=== PATIENT | female | born 1950 | race Caucasian/White ===

== ENCOUNTER → 2019-10-03 09:52 | Outpatient (BNVA) | payer MEDICARE, SELFPAY | PROVIDERS: Family Provider Family Medicine; PCP Family Medicine; Visit Provider Podiatrist Foot & Ankle Surgery | DX: Z98.890 Other specified postprocedural states (principal) | CPT/HCPCS: 73630 ==

== ENCOUNTER → 2020-04-10 13:15 | Outpatient (BNVA) | payer MEDICARE, SELFPAY | PROVIDERS: Family Provider Family Medicine; PCP Family Medicine; Visit Provider Podiatrist Foot & Ankle Surgery | DX: Z98.890 Other specified postprocedural states (principal) | CPT/HCPCS: 73630 ==

== ENCOUNTER → 2020-04-22 14:20 | Outpatient (BNVA) | payer MEDICARE, SELFPAY | PROVIDERS: Family Provider Family Medicine; PCP Family Medicine; Visit Provider Nurse Practitioner Family | DX: N39.46 Mixed incontinence (principal); Z87.440 Personal history of urinary (tract) infections; R33.9 Retention of urine, unspecified | CPT/HCPCS: 80053; 81001; 87086; 87186 ==

== ENCOUNTER → 2020-06-17 10:17 | Outpatient (BNVA) | payer MEDICARE, SELFPAY | PROVIDERS: Family Provider Family Medicine; PCP Family Medicine; Visit Provider Urology | DX: R82.71 Bacteriuria (principal) | CPT/HCPCS: 80053; 81001; 87077; 87086; 87186 ==

== ENCOUNTER 2020-06-20 08:07 | Outpatient (CLI) | payer MEDICARE, SELFPAY ==
--- NOTE | 2020-06-20 08:12 | MR_ITS ---
WS: [id number] MRI RIGHT HIP NONCONTRAST TECHNIQUE: Axial T1, axial T2 fat sat, coronal T1, coronal STIR, sagittal T2 fat sat, sagittal T1, an d sagittal T2 fat sat, of both hips. CLINICAL INFORMATION: HIP PAIN, RIGHT COMPARISON: None. FINDINGS: Mild degenerative arthritis both hips with joint space narrowing. No edema in the femoral head or nec k. No acute fractures. No evidence of avascular necrosis. Normal proximal femurs bilaterally. No bone marrow edema in the sacrum or iliac wings. Normal bone marrow signal. Normal bone marrow sign al in the lower lumbar spine. Sigmoid diverticulosis. No inguinal or pelvic lymphadenopathy. No free fluid in the pelvis. MR/MR hip RT wo con* [id number] IMPRESSION: 1. Mild degenerative arthritis both hip with joint space narrowing. 2. Normal bone marrow signal in the right femoral head and neck. No acute frac tures. No evidence of avascular necrosis. 3. Normal bone marrow signal in the sacrum and visualized pelvic bony structur es. 4. Sigmoid diverticulosis.
== END 2020-06-20 08:08 | disposition home or self-care (01) ==
PROVIDERS: PCP Family Medicine; Visit Provider Orthopaedic Surgery Adult Reconstructive Orthopaedic Surgery
DX: M16.0 Bilateral primary osteoarthritis of hip (principal); K57.30 Diverticulosis of large intestine without perforation or abscess without bleeding
CPT/HCPCS: 73721

== ENCOUNTER → 2020-06-26 10:44 | Outpatient (BNVA) | payer MEDICARE, SELFPAY | PROVIDERS: PCP Family Medicine; Visit Provider Specialist | DX: M25.551 Pain in right hip (principal) | CPT/HCPCS: 73502 ==

== ENCOUNTER 2020-06-26 11:24 | Emergency (ER) | payer MEDICARE, SELFPAY ==
[2020-06-26 11:56] VITALS: BMI 29.8
[2020-06-26 12:00] VITALS: BP 151/75; PULSE 61; RESP 18; TEMP 37; O2SAT 99
--- NOTE | 2020-06-26 12:05 | CT_ITS ---
WS: [id number] CT ABDOMEN AND PELVIS NONCONTRAST HISTORY: Abdominal pain. TECHNIQUE: Imaging performed through the abdomen and pelvis. Coronal and sagittal reformats are submi tted. All CT scans at [facility] use at least one of these dose optimization techniques: automated exposure control; mA and/or kV adjustment per patient size (includes targeted exams where d ose is matched to clinical indication); or iterative reconstruction. DLP: 684.23 mGy.cm COMPARISON: None available. Lower thorax: Lung bases are clear. Visualized heart is normal. No hiatal hernia. Liver: Mild hepatic steatosis. Gallbladder: Prior cholecystectomy. Mildly dilated common bile duct is probably physiologic. Pancreas: Normal size and attenuation. Normal pancreatic duct. No pancreatitis or mass. Spleen: Normal. Adrenal glands: Normal. No mass. Right kidney: Normal size kidney with no mass or hydronephrosis. Left kidney: Normal size kidney. 2.5 cm cyst from the mid posterior kidney. Aorta: Mild atherosclerosis. No aneurysm. No free fluid, intraperitoneal air or significant lymphadenopathy. GI tract: The appendix is not visualized. A few scattered sigmoid diverticula. No acute diverticuliti s or mucosal inflammation. No abscess. Abdominal wall: Negative. No hernia. Pelvis: Normal. Osseous structures: Unremarkable. CT/CT abdomen pelvis wo con [id number] IMPRESSION: 1. No acute abdominal or pelvic abnormalities are identified. 2. Prior cholecystectomy and hysterectomy. 3. Sigmoid diverticulosis without acute diverticulitis. 4. Physiologic dilatation common bile duct.
--- NOTE | 2020-06-26 12:07 | W.ED.GIBLEED ---
HPI - GI Bleed General: Chief complaint: GI Bleed Stated complaint: BLOOD IN STOOL Time Seen by Provider: 06/26/20 11:54 Source: patient Mode of arrival: ambulatory Limitations: no limitations History of Present Illness: HPI Narrative: 70-year-old female states she is been having abdominal pain over the last 5 days and got much worse last night. She states it is mainly in the left lower quadrant. She states she also had blood in her stool earlier today that was bright red. She denies any fever or vomiting. She denies any diarrhea. She denies any worsening or improving factors. She has had a cholecystectomy in the past. Associated symptoms: Reports abdominal pain; Denies chills, easy bruising, fever(s), headache(s) or rash Review of Systems Const: Denies: fever(s), chills, body aches or change in appetite Eyes: Denies: blurry vision or eye discomfort ENMT: Denies: throat pain or dental pain Card: Denies: chest pain Resp: Denies: dyspnea GI: Reports: abdominal pain and hematochezia : Denies: dysuria Musc: Denies: neck pain or back pain Skin/Breast: Denies: rash Neuro: Denies: headache(s) Psych: Denies: depression Izaiah/Lymph: Denies: easy bruising All/Imm: Denies: urticaria PFSH ED PFSH: Medical History (Updated 06/26/20 @ 15:25 by Eliana Ramirez MD) Bunion, left Cystitis cystica Degenerative arthritis Fibromyalgia History of recurrent UTI (urinary tract infection) Mixed stress and urge urinary incontinence Right hip pain Surgical History H/O bariatric surgery with sleeve History of carpal tunnel release of both wrists Hx of elbow surgery Hx of foot surgery Family History Father , at age 83 CAD (coronary artery disease) Hyperlipidemia Hypertension Mother , at age 76 Hyperlipidemia Hypertension Sister Cancer Hyperlipidemia Hypertension Brother Cancer Hyperlipidemia Hypertension Denies family history of Diabetes Clotting disorder Dementia Psychiatric illness Chronic kidney disease (CKD) Suicide Anesthesia complication Bleeding disorder Family history of premature coronary artery disease Lung disease Stroke Social History Smoking and tobacco status: former smoker Quit status (tobacco): has quit using tobacco Year quit tobacco: over 20 years ago Second hand smoke exposure: Yes Alcohol intake: current Alcohol intake frequency: holidays/special occasions only Household members: spouse Marital status: Current occupational status: retired History of recent travel: No Physical Exam Const: COMMON NORMALS: no acute distress, patient oriented x3 and healthy appearing HENMT: COMMON NORMALS: normocephalic and atraumatic HEAD & SCALP: normocephalic and atraumatic Eye: COMMON NORMALS: Equal, round and reactive pupils present and EOMs intact bilaterally PUPIL: Yes Equal, round and reactive pupils present Neck/C-Spine: COMMON NORMALS: full ROM and supple Chest: COMMONS NORMALS: normal inspection of the chest and normal palpation of entire chest wall Resp: COMMON NORMALS: normal respiratory effort, No retractions, No use of accessory muscles and clear to auscultation bilaterally AUSCULTATION: clear to auscultation bilaterally Cardio: COMMON NORMALS: regular rate, regular rhythm and No murmurs present (Cardio) RATE: regular rate RHYTHM: regular rhythm GI: COMMON NORMALS: Normal to inspection, nondistended, normoactive bowel sounds present, Soft to palpation and no masses PALPATION: Yes Soft to palpation and Yes Tenderness to palpation present (GI) Details: LLQ RECTAL EXAM: visual inspection normal, stool normal, No heme positive stool and heme negative stool Extremity: COMMON NORMALS: normal to inspection and full ROM Neuro: COMMON NORMALS: patient oriented x3, moves all extremities and no focal motor deficits Psych: COMMON NORMALS: mental status grossly normal, Normal thought process present and cooperative THOUGHT PROCESS: Normal thought process present Skin: COMMON NORMALS: no rashes or lesions noted and no wounds GENERAL SKIN EXAM: no rashes or lesions noted Course Vital Signs: Vital signs: Vital Signs Temperature 98.6 F 06/26/20 12:00 Pulse Rate 92 06/26/20 15:38 Respiratory Rate 18 06/26/20 15:38 Blood Pressure 125/54 06/26/20 15:38 Pulse Oximetry 99 06/26/20 15:38 MDM - GI Bleed MDM Narrative: Medical decision making narrative: Patient presents with abdominal pain is likely gastric in nature. She has no signs of cardiac cause. CT of abdomen is normal. She feels improved here. We will place her on Protonix and she is to follow-up with PCP and return if worsening. She understands and agrees to plan. Lab Data: Labs: Lab Results 06/26/20 06/26/20 06/26/20 Range/Units 12:09 12:09 12:09 WBC 12.5 H (4.0-10.0) 10^3/ uL RBC 5.09 (4.1-5.3) 10^6/u L Hgb 14.9 (11.5-15.3) g/dL Hct 45.1 (37.0-47.0) % MCV 88.6 (81-99) fL MCH 29.3 (28.0-34.0) pg MCHC 33.0 (30.0-36.0) g/dL RDW 12.8 (12.1-15.1) % Plt Count 248 (130-400) 10^3/c mm MPV 9.2 (7.4-10.4) fL Neut % (Auto) 79.1 % Lymph % (Auto) 12.8 % [place] % (Auto) 5.6 % Eos % (Auto) 1.8 % Baso % (Auto) 0.3 % Neut # (Auto) 9.90 H (1.8-7.7) 10^3/u L Lymph # (Auto) 1.6 (0.8-4.8) 10^3/u L [place] # (Auto) 0.7 (0.2-0.9) 10^3/u L Eos # (Auto) 0.2 (0.0-0.8) 10^3/u L Baso # (Auto) 0.0 (0.0-0.1) 10^3/u L Nucleated RBC % (a uto) 0 % Nucleated RBCs # 0.0 /100WBC PT 12.40 (12.1-14.9) SECO NDS INR 0.90 (0.8-1.2) Sodium 138 (136-145) mmol/L Potassium 3.5 (3.5-5.1) mmol/L Chloride 102 (98-107) mmol/L Carbon Dioxide 26 (22-29) mmol/L Anion Gap 13.5 (5-19) BUN 16 (8-23) mg/dL Creatinine 0.6 (0.5-0.9) mg/dL GFR Calculation Not Reportable Glucose 102 (65-115) mg/dL Calculated Osmolal ity 287 (285-295) mOsm/k g Calcium 9.9 (8.5-10.5) mg/dL Total Bilirubin 0.5 (0.15-1.2) mg/dL AST 22 (0-32) U/L ALT 14 (0-33) U/L Alkaline Phosphata se 74 (35-105) IU/L Total Protein 7.5 (6.6-8.7) g/dL Albumin 4.3 (3.5-5.2) g/dL Globulin 3.2 (1.3-4.6) g/dL Imaging Data^: CT Abd/Pel: Radiologist's impression: [address] [place] [address] CT Scan Report Signed Patient: Debra Cerrato Unit #: [id number] : 1950 Age/Sex: 70 / F ADM Date: 06/26/20 Loc: ER Room/Bed: Attending Dr: Ordering Provider/Ordering MD: Janie Hancock MD Date of Service: 06/26/20 Procedure(s): CT abdomen pelvis [facility] [address] Accession Number(s): [id number] Report Number: [id number] WS: [id number] CT ABDOMEN AND PELVIS NONCONTRAST HISTORY: Abdominal pain. TECHNIQUE: Imaging performed through the abdomen and pelvis. Coronal and sagittal reformats are submitted. All CT scans at [facility] use at least one of these dose optimization techniques: automated exposure control; mA and/or kV adjustment per patient size (includes targeted exams where dose is matched to clinical indication); or iterative reconstruction. DLP: 684.23 mGy.cm COMPARISON: None available. Lower thorax: Lung bases are clear. Visualized heart is normal. No hiatal hernia. Liver: Mild hepatic steatosis. Gallbladder: Prior cholecystectomy. Mildly dilated common bile duct is probably physiologic. Pancreas: Normal size and attenuation. Normal pancreatic duct. No pancreatitis or mass. Spleen: Normal. Adrenal glands: Normal. No mass. Right kidney: Normal size kidney with no mass or hydronephrosis. Left kidney: Normal size kidney. 2.5 cm cyst from the mid posterior kidney. Aorta: Mild atherosclerosis. No aneurysm. No free fluid, intraperitoneal air or significant lymphadenopathy. GI tract: The appendix is not visualized. A few scattered sigmoid diverticula. No acute diverticulitis or mucosal inflammation. No abscess. Abdominal wall: Negative. No hernia. Pelvis: Normal. Osseous structures: Unremarkable. CT/CT abdomen pelvis wo con [id number] IMPRESSION: 1. No acute abdominal or pelvic abnormalities are identified. 2. Prior cholecystectomy and hysterectomy. 3. Sigmoid diverticulosis without acute diverticulitis. 4. Physiologic dilatation common bile duct. CXR: Radiologist's impression: [address] [address] XRay Report Signed Patient: Debra Cerrato Unit #: [id number] : 1950 Age/Sex: 70 / F ADM Date: 06/26/20 Loc: ER Room/Bed: Attending Dr: Ordering Provider/Ordering MD: Janie Hancock MD Date of Service: 06/26/20 Procedure(s): XR chest 1V portable [id number] Accession Number(s): [id number] Report Number: [id number] WS: [id number] Portable AP upright chest, 06/26/2020 Clinical Data: cp Comparison: None. Findings: No nodules, masses or effusions are seen. The heart is normal. The pulmonary vascularity is not increased. No pneumonia or pneumothorax is seen. The aortic arch and descending aorta show minimal calcification and tortuosity. There are clips in the right upper quadrant from a cholecystectomy. XR/XR chest 1V portable [id number] Impression: Atherosclerosis. Discharge Plan Discharge Patient Disposition: Home Clinical Impression: Abdominal pain, Blood in stool Condition: Stable Prescriptions: New Protonix 40 mg tablet,delayed release (DR/EC) 40 mg PO DAILY Qty: 60 RF: 0 No Action atenolol 25 mg tablet 50 mg PO DAILY RF: 0 hydrochlorothiazide 25 mg tablet 25 mg PO DAILY RF: 0 atorvastatin [Lipitor] 10 mg tablet 10 mg PO DAILY RF: 0 gabapentin 600 mg tablet 900 mg PO BEDTIME RF: 0 amlodipine 5 mg tablet 5 mg PO DAILY RF: 0 (DME) sole support custom Orthotics Qty: 1 RF: 0 ciprofloxacin HCl 500 mg tablet 500 mg PO BID Qty: 60 RF: 1 ropinirole 2 mg tablet 4 mg PO TID RF: 0 Discharge Orders: Discharge Order (Routine); Ordered 06/26/20 Ordered By: Janie Hancock Referrals: Macy Shoemaker MD [Primary Care Provider] - 1-3 days Discharge Diet: Advance as tolerated Discharge Activity: Resume usual activity Patient Instructions: Abdominal Pain (ED) Discharge Date/Time: 06/26/20 15:39 Coding Level of Care Code ED Senior Ux Developer for Chg Fwd Exam Comprehensive
[2020-06-26 12:18] VITALS: RESP 20
[2020-06-26 12:18] LABS: Basophils % 0.3 %; Eosinophils # 0.2 10^3/uL (0.0-0.8); Eosinophils % 1.8 %; Hematocrit 45.1 % (37.0-47.0); Hemoglobin 14.9 g/dL (11.5-15.3); Lymphocytes # 1.6 10^3/uL (0.8-4.8); Lymphocytes % 12.8 %; Mean Corpuscular Hemoglobin 29.3 pg (28.0-34.0); Mean Corpuscular Volume 88.6 fL (81-99); Mean Platelet Volume 9.2 fL (7.4-10.4); Monocytes # 0.7 10^3/uL (0.2-0.9); Monocytes % 5.6 %; Neutrophils % 79.1 %; Nucleated Red Blood Cells % 0 %; Platelet Count 248 10^3/cmm (130-400); Red Blood Count 5.09 10^6/uL (4.1-5.3); Red Cell Distribution Width 12.8 % (12.1-15.1); White Blood Count 12.5 10^3/uL (4.0-10.0)
[2020-06-26] MEDS: morphine 4 mg/mL SDV 1 mL IVP (12:18)
[2020-06-26] MEDS: ondansetron 2 mg/ML SDV 2 mL 4 MG IVP (12:18)
[2020-06-26 12:36] LABS: Alanine Aminotransferase 14 U/L (0-33); Albumin Level 4.3 g/dL (3.5-5.2); Alkaline Phosphatase 74 IU/L (35-105); Anion Gap 13.5 (5-19); Aspartate Amino Transferase 22 U/L (0-32); Blood Urea Nitrogen 16 mg/dL (8-23); Calcium 9.9 mg/dL (8.5-10.5); Carbon Dioxide 26 mmol/L (22-29); Chloride 102 mmol/L (98-107); Globulin 3.2 g/dL (1.3-4.6); Glucose 102 mg/dL (65-115); Osmolality Calculated 287 mOsm/kg (285-295); Potassium 3.5 mmol/L (3.5-5.1); Sodium 138 mmol/L (136-145); Total Bilirubin 0.5 mg/dL (0.15-1.2); Total Protein 7.5 g/dL (6.6-8.7)
[2020-06-26 14:04] VITALS: RESP 18
[2020-06-26] MEDS: HYDROmorphone 1 mg/mL INJ 1 mL IVP (14:04)
--- NOTE | 2020-06-26 14:08 | XR_ITS ---
WS: [id number] Portable AP upright chest, 06/26/2020 Clinical Data: cp Comparison: None. Findings: No nodules, masses or effusions are seen. The heart is normal. The pulmonary vascularity is not increased. No pneumonia or pneumothorax is seen. The aortic arch and descending aorta show minim al calcification and tortuosity. There are clips in the right upper quadrant from a cholecystectomy. XR/XR chest 1V portable [id number] Impression: Atherosclerosis.
[2020-06-26] MEDS: lidocaine 2% viscous 15 ML, aluminum-mag hydrox-simethicon 30 ML, sucralfate oral liq 1 GM PO (15:04)
--- NOTE | 2020-06-26 15:07 | ECG_ITS ---
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 Measurements Intervals [place] Rate: 58 P: 22 SC: 153 QRS: -19 QRSD: 74 T: 11 QT: 416 QTc: 409 Interpretive Statements SINUS BRADYCARDIA INFERIOR MYOCARDIAL INFARCTION , PROBABLY OLD [40+ ms Q WAVE AND/OR ST/T ABNORMALITY IN II/aVF] No previous ECG available for comparison Electronically Signed On 06-26-2020 19:25:15 CDT by Keith Gtz M.D. [id number]
[2020-06-26 15:08] VITALS: BP 145/69; PULSE 67; RESP 18; O2SAT 95
[2020-06-26 15:38] VITALS: BP 125/54; PULSE 92; RESP 18; O2SAT 99
== END 2020-06-26 15:39 | disposition home or self-care (01) ==
PROVIDERS: Emergency Provider Emergency Medicine; PCP Family Medicine
DX: K92.1 Melena (principal); R10.9 Unspecified abdominal pain; Z87.891 Personal history of nicotine dependence
CPT/HCPCS: 12345; 36415; 71045; 74176; 80053; 85025; 85610; 93005; 96374; 96375; 99282; 99283; J1170; J2270; J2405

== ENCOUNTER 2020-07-03 16:11 | Emergency (ER) | payer MEDICARE, SELFPAY ==
--- NOTE | 2020-07-03 16:18 | XR_ITS ---
WS: [id number] Portable AP upright chest, 07/03/2020 Clinical Data: cp Comparison: Portable chest, 06/26/2020. Findings: No nodules, masses or effusions are seen. The heart is normal. The pulmonary vascularity is not increased. No pneumonia or pneumothorax is seen. The aortic arch and descending aorta show mild tortuosity. There are left upper quadrant clips. XR/XR chest 1V portable [id number] Impression: Atherosclerosis.
--- NOTE | 2020-07-03 16:18 | ECG_ITS ---
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 Measurements Intervals [place] Rate: 60 P: 50 [place]: 161 QRS: -37 QRSD: 80 T: 56 QT: 399 QTc: 402 Interpretive Statements SINUS RHYTHM LEFT AXIS DEVIATION [QRS AXIS < -30] LOW QRS VOLTAGE IN PRECORDIAL LEADS [QRS DEFLECTION < 1.0 mV IN CHEST LEADS] POSSIBLE ANTERIOR MYOCARDIAL INFARCTION , OF INDETERMINATE AGE [30 ms Q WAVE IN V3/V4, OR R < 0.2 mV IN V4] Compared to ECG 06/26/2020 14:14:18 Left-axis deviation now present Low QRS voltage now present Sinus bradycardia no longer present Myocardial infarct finding still present Electronically Signed On 07-03-2020 21:40:11 CDT by Keith Gtz M.D. [id number]
[2020-07-03 16:32] VITALS: BP 139/63; PULSE 60; RESP 12; TEMP 36.7; O2SAT 99; BMI 29.8
[2020-07-03 16:57] LABS: Basophils # 0.1 10^3/uL (0.0-0.1); Basophils % 0.7 %; Eosinophils # 0.2 10^3/uL (0.0-0.8); Eosinophils % 1.9 %; Hematocrit 42.4 % (37.0-47.0); Hemoglobin 14.1 g/dL (11.5-15.3); Lymphocytes # 2.8 10^3/uL (0.8-4.8); Lymphocytes % 26.2 %; Mean Corpuscular HGB Conc 33.3 g/dL (30.0-36.0); Mean Corpuscular Hemoglobin 29.4 pg (28.0-34.0); Mean Corpuscular Volume 88.5 fL (81-99); Mean Platelet Volume 9.6 fL (7.4-10.4); Monocytes # 0.7 10^3/uL (0.2-0.9); Monocytes % 6.8 %; Neutrophils % 63.7 %; Nucleated Red Blood Cells % 0 %; Platelet Count 279 10^3/cmm (130-400); Red Blood Count 4.79 10^6/uL (4.1-5.3); Red Cell Distribution Width 12.9 % (12.1-15.1); White Blood Count 10.5 10^3/uL (4.0-10.0)
[2020-07-03 17:18] LABS: Alanine Aminotransferase 19 U/L (0-33); Albumin Level 4.3 g/dL (3.5-5.2); Alkaline Phosphatase 79 IU/L (35-105); Anion Gap 16.6 (5-19); Aspartate Amino Transferase 15 U/L (0-32); Blood Urea Nitrogen 22 mg/dL (8-23); Calcium 9.7 mg/dL (8.5-10.5); Carbon Dioxide 25 mmol/L (22-29); Chloride 105 mmol/L (98-107); Globulin 2.6 g/dL (1.3-4.6); Glucose 125 mg/dL (65-115); Osmolality Calculated 301 mOsm/kg (285-295); Potassium 3.6 mmol/L (3.5-5.1); Sodium 143 mmol/L (136-145); Total Bilirubin 0.2 mg/dL (0.15-1.2); Total Protein 6.9 g/dL (6.6-8.7)
[2020-07-03 17:20] LABS: Troponin(5th) Baseline 6 ng/L (0-10)
--- NOTE | 2020-07-03 17:33 | ED_ITS ---
HPI - Chest Pain General: Chief Complaint: Chest Pain Stated Complaint: CHEST PAIN, R ARM PAIN Time Seen by Provider: 07/03/20 17:33 History of Present Illness: HPI narrative: Patient is a 70-year-old female comes to the ED with chest pain. Patient says symptoms started last night while at rest. She describes the chest pain as a burning pain that goes up into the chest. Patient says her chest pain improves when she belches and has been belching more. She also says that the chest pain gets worse after she eats or if she lays flat. She says that approximately a week ago she was placed on Augmentin by her primary care doctor to help with acid reflux. She is also complaining of having some diarrhea that started after taking ciprofloxacin for UTI. She describes the stool as loose but formed. Denies any blood in the stool. Denies any hematuria, dysuria or urinary frequency. Patient said her primary care doctor is setting her up with general surgeon to get an upper GI scope performed. Associated symptoms: Reports abdominal pain (epigastric); Deny dyspnea, fever(s), nausea, palpitations or vomiting Review of Systems Const: Denies: fever(s), chills or fatigue Eyes: Denies: change in vision or eye discomfort ENMT: Denies: throat pain, odynophagia, nasal discharge or nasal congestion Card: Reports: chest pain (burning chest pain that starts in the epigastric region and moves up); Denies: palpitations, edema, swelling of feet/ankles, dyspnea on exertion or orthopnea Resp: Denies: dyspnea, productive cough or non-productive cough GI: Reports: abdominal pain (epigastric), diarrhea and belching (belching provides relief); Denies: nausea, vomiting, constipation or hematochezia : Denies: flank pain, dysuria or hematuria Musc: Denies: neck pain, back pain or extremity swelling Skin/Breast: Denies: rash or new lesions Neuro: Denies: headache(s), numbness in extremities or weakness in extremities PFSH ED PFSH: Medical History Bunion, left Cystitis cystica Degenerative arthritis Fibromyalgia History of recurrent UTI (urinary tract infection) Mixed stress and urge urinary incontinence Right hip pain Surgical History H/O bariatric surgery with sleeve History of carpal tunnel release of both wrists Hx of elbow surgery Hx of foot surgery Family History Father , at age 83 CAD (coronary artery disease) Hyperlipidemia Hypertension Mother , at age 76 Hyperlipidemia Hypertension Sister Cancer Hyperlipidemia Hypertension Brother Cancer Hyperlipidemia Hypertension Denies family history of Diabetes Clotting disorder Dementia Psychiatric illness Chronic kidney disease (CKD) Suicide Anesthesia complication Bleeding disorder Family history of premature coronary artery disease Lung disease Stroke Social History Smoking and tobacco status: former smoker Quit status (tobacco): has quit using tobacco Year quit tobacco: over 20 years ago Second hand smoke exposure: Yes Alcohol intake: current Alcohol intake frequency: holidays/special occasions only Household members: spouse Marital status: Current occupational status: retired History of recent travel: No Physical Exam Const: COMMON NORMALS: no acute distress and patient oriented x3 GENERAL APPEARANCE: cooperative and comfortable HENMT: COMMON NORMALS: normocephalic HEAD & SCALP: normocephalic MOUTH: Normal oral and palatal mucosa present THROAT: posterior oropharynx normal and uvula midline Eye: COMMON NORMALS: Equal, round and reactive pupils present PUPIL: Yes Equal, round and reactive pupils present Neck/C-Spine: COMMON NORMALS: supple GENERAL: Yes normal visual inspection Chest: CHEST: Yes tenderness other (Left lateral chest wall tender upon palpation. Patient said pain increased) Resp: COMMON NORMALS: normal respiratory effort, No retractions, No use of accessory muscles and clear to auscultation bilaterally AUSCULTATION: clear to auscultation bilaterally Cardio: COMMON NORMALS: regular rate, regular rhythm, S1 normal heart sound present, S2 normal heart sound present, No gallops present (Cardio), No clicks present (Cardio), No murmurs present (Cardio) and Peripheral pulses 2+ throughout RATE: regular rate RHYTHM: regular rhythm HEART SOUNDS: S1 normal heart sound present and S2 normal heart sound present PERIPHERAL PULSES: Peripheral pulses 2+ throughout GI: COMMON NORMALS: Normal to inspection, nondistended, normoactive bowel sounds present, Soft to palpation and no masses PALPATION: Yes Soft to palpation and Yes Tenderness to palpation present (GI) Details: other (epigastric region tenderness) : COMMON NORMALS: Yes no CVA tenderness BLADDER/KIDNEY EXAM: Yes no CVA tenderness Back/Pelvis: COMMON NORMALS: no CVA tenderness Extremity: COMMON NORMALS: normal to inspection and no pedal edema Neuro: COMMON NORMALS: patient oriented x3 and moves all extremities Skin: COMMON NORMALS: no rashes or lesions noted GENERAL SKIN EXAM: no rashes or lesions noted and dry skin Course Reevaluation(s): Reevaluation #1: I went into reevaluate patient's chest pain after GI cocktail. Patient says her epigastric pain has improved after GI cocktail. She is still having some left lateral chest wall pain that is reproducible upon palpation. Time: 18:49 Vital Signs: Vital signs: Vital Signs Temperature 98.1 F 07/03/20 16:32 Pulse Rate 56 L 07/03/20 18:18 Respiratory Rate 16 07/03/20 18:18 Blood Pressure 144/61 07/03/20 18:18 Pulse Oximetry 100 07/03/20 18:18 MDM - Chest Pain MDM Narrative: Medical decision making narrative: Patient is a 70-year-old female comes to the ED with chest pain. She described it as burning pain that started in the epigastric region and moved up the chest. It gets worse after meals and worse when she lays flat. Patient was just put on pantoprazole to help with acid reflux about a week ago. Physical exam showed some left lateral chest wall tenderness along with epigastric tenderness. Patient was given a GI cocktail and her epigastric pain improved. White blood cell count 10.5 and the rest of CBC and CMP was unremarkable. EKG showed normal sinus rhythm with no ST segment elevation or depression seen. Troponin negative. Patient diagnosed with noncardiac chest pain and told to follow-up with her PCP within the next 5 to 7 days for reevaluation. I sent her with a prescription for Zofran to help with any nausea. I discussed with her certain foods that make epigastric pain worse to avoid them. Patient did state that her PCP is scheduling upper GI scope for her in the near future. Return to ED precautions given. Patient understood and agreed with plan. Lab Data: Attestation: I reviewed the patient's lab results. Labs: Lab Results 07/03/20 07/03/20 07/03/20 Range/Units 16:31 16:31 16:31 WBC 10.5 H (4.0-10.0) 10^3/ uL RBC 4.79 (4.1-5.3) 10^6/u L Hgb 14.1 (11.5-15.3) g/dL Hct 42.4 (37.0-47.0) % MCV 88.5 (81-99) fL MCH 29.4 (28.0-34.0) pg MCHC 33.3 (30.0-36.0) g/dL RDW 12.9 (12.1-15.1) % Plt Count 279 (130-400) 10^3/c mm MPV 9.6 (7.4-10.4) fL Neut % (Auto) 63.7 % Lymph % (Auto) 26.2 % Webb % (Auto) 6.8 % Eos % (Auto) 1.9 % Baso % (Auto) 0.7 % Neut # (Auto) 6.70 (1.8-7.7) 10^3/u L Lymph # (Auto) 2.8 (0.8-4.8) 10^3/u L Webb # (Auto) 0.7 (0.2-0.9) 10^3/u L Eos # (Auto) 0.2 (0.0-0.8) 10^3/u L Baso # (Auto) 0.1 (0.0-0.1) 10^3/u L Nucleated RBC % (a uto) 0 % Nucleated RBCs # 0.0 /100WBC Sodium 143 (136-145) mmol/L Potassium 3.6 (3.5-5.1) mmol/L Chloride 105 (98-107) mmol/L Carbon Dioxide 25 (22-29) mmol/L Anion Gap 16.6 (5-19) BUN 22 (8-23) mg/dL Creatinine 0.7 (0.5-0.9) mg/dL GFR Calculation Not Reportable Glucose 125 H (65-115) mg/dL Calculated Osmolal ity 301 H (285-295) mOsm/k g Calcium 9.7 (8.5-10.5) mg/dL Total Bilirubin 0.2 (0.15-1.2) mg/dL AST 15 (0-32) U/L ALT 19 (0-33) U/L Alkaline Phosphata se 79 (35-105) IU/L Troponin T Baselin e 6 (0-10) ng/L Total Protein 6.9 (6.6-8.7) g/dL Albumin 4.3 (3.5-5.2) g/dL Globulin 2.6 (1.3-4.6) g/dL Imaging Data^: CXR: Attestation: I personally reviewed and interpreted this imaging study as follows: My impression: Chest x-ray?no acute findings. Infiltrates seen. EKG Data^: EKG 1: Attestation: I personally reviewed and interpreted this EKG as follows: EKG interpretation date: 07/03/20 Interpretation: Sinus rhythm, 60 bpm, no ST segment elevation or depression seen. Discharge Plan Discharge Patient Disposition: Home Clinical Impression: Chest pain, non-cardiac Condition: Stable Prescriptions: New ondansetron HCl 4 mg tablet 4 mg PO Q8H PRN (Reason: nausea and vomiting) Qty: 15 RF: 0 No Action atenolol 25 mg tablet 50 mg PO DAILY RF: 0 hydrochlorothiazide 25 mg tablet 25 mg PO DAILY RF: 0 atorvastatin [Lipitor] 10 mg tablet 10 mg PO DAILY RF: 0 gabapentin 600 mg tablet 900 mg PO BEDTIME RF: 0 amlodipine 5 mg tablet 5 mg PO DAILY RF: 0 (DME) sole support custom Orthotics Qty: 1 RF: 0 triamcinolone acetonide [Kenalog] 40 mg/mL suspension 40 mg INTRA-LUIGI ONCE Qty: 1 RF: 0 dexamethasone sodium phosphate 4 mg/mL solution 4 mg Tendon Sheath Inj. ONCE Qty: 1 RF: 0 bupivacaine in NaCl(PF) 0.25 % solution 1 ml Infiltration ONCE Qty: 1 RF: 0 ciprofloxacin HCl 500 mg tablet 500 mg PO BID Qty: 60 RF: 1 ropinirole 2 mg tablet 4 mg PO TID RF: 0 Protonix 40 mg tablet,delayed release (DR/EC) 40 mg PO DAILY Qty: 60 RF: 0 Discharge Orders: Discharge Order (Routine); Ordered 07/03/20 Ordered By: Krzysztof Rizo Referrals: Macy Shoemaker MD [Primary Care Provider] - Discharge Diet: Regular Discharge Activity: Increase activity as tolerated Patient Instructions: Noncardiac Chest Pain (ED) Activity Restrictions/Additional Instructions: Follow-up with medical provider as directed. Take prescribed Zofran as needed for nausea. Continue taking home medications as prescribed. Monitor your diet and try to avoid foods that aggravate epigastric pain. Return to the ER or your medical provider if condition worsens. Please read and understand discharge instructions. If any questions, please ask. Coding Level of Care Code ED Director Of Volunteer Services for Abhilash Fwd Exam Comprehensive
[2020-07-03] MEDS: lidocaine 2% viscous 15 ML, aluminum-mag hydrox-simethicon 30 ML, sucralfate oral liq 1 GM PO (18:01)
[2020-07-03 18:18] VITALS: BP 144/61; PULSE 56; RESP 16; O2SAT 100
[2020-07-03 19:34] LABS: Troponin 5 2HR 6.24 ng/L (0-10); Troponin 5 2HR Delta 0.24 ABS# (0-10)
[2020-07-03 19:44] VITALS: BP 139/59; PULSE 60; RESP 18; O2SAT 100
[2020-07-03] MEDS: HYDROcodone-acetaminophen 7.5-325 mg Tablet 1 TAB PO ×2 (19:45→19:46)
== END 2020-07-03 19:50 | disposition home or self-care (01) ==
PROVIDERS: Emergency Medicine; Emergency Provider Physician Assistant; PCP Family Medicine
DX: R07.89 Other chest pain (principal); Z87.891 Personal history of nicotine dependence
CPT/HCPCS: 12345; 36415; 71045; 80053; 84484; 85025; 93005; 99281; 99283

== ENCOUNTER 2020-07-24 16:57 | Observation (INO) | payer MEDICARE, SELFPAY ==
[2020-07-24] VITALS (10 sets, daily range): BP systolic 129–153; BP diastolic 63–69; PULSE 56–77; RESP 13–18; TEMP 36.3–36.7; O2SAT 94–97; BMI 30.8
--- NOTE | 2020-07-24 17:06 | ECG_ITS ---
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1950 Requested By: Rigoberto Robert Order Number: [id number] Reading MD: FEROZ QUIÑONES Measurements Intervals [place] Rate: 73 P: 30 SD: 158 QRS: -22 QRSD: 85 T: 31 QT: 309 QTc: 341 Interpretive Statements SINUS RHYTHM SEPTAL MYOCARDIAL INFARCTION , OF INDETERMINATE AGE [40+ ms Q WAVE IN V1/V2] INFERIOR MYOCARDIAL INFARCTION , PROBABLY OLD [40+ ms Q WAVE AND/OR ST/T ABNORMALITY IN II/aVF] Compared to ECG 07/03/2020 16:19:29 Left-axis deviation no longer present Myocardial infarct finding still present Electronically Signed On 07-25-2020 18:21:35 CDT by FEROZ QUIÑONES [id number]
--- NOTE | 2020-07-24 17:06 | XR_ITS ---
WS: [id number] Exam: XR chest 1V portable [id number] Date/Time of Exam: 07/24/2020 5:11 PM Reason For Exam: chest pain Comparison 07/03/2020. Findings: The lungs are clear and fully expanded. Costophrenic angles are sharp. No infiltrates. Bronchovascula r relief appears normal. Cardiac silhouette is unremarkable. Bony elements are intact. XR/XR chest 1V portable [id number] IMPRESSION: Unremarkable chest radiograph.
--- NOTE | 2020-07-24 17:20 | ED_ITS ---
HPI - Chest Pain General: Chief Complaint: Chest Pain Stated Complaint: CHEST PAIN Time Seen by Provider: 07/24/20 17:04 History of Present Illness: HPI narrative: 70-year-old female presents the emergency room via EMS with chest pain. Chest pain began around 615 today left side of the her chest radiating into her neck and her arm she was short of breath and dizzy. Patient states she had just eaten and had sat down began to get the chest pain. She does relate that a couple of years ago she had a stress test and they were going to do an angiogram but there was some sort of scheduling conflict and it never got done she subsequently moved out here she t hinks this was around 2 years or so ago. She has no known coronary artery disease although she does have a history of hypertension hyperlipidemia and she smokes. She is not diabetic. Patient was given 325 mg aspirin as well as 2 sublingual nitro which completely resolved the pain she has no acute ST changes on arrival here. MD complaint: chest pain Pertinent past history: other (Possible positive stress test done in [place] several years ago it was recommended to her to have a angiogram but it was not completed) Onset (ago): hour(s) Timing of current episode: episodic Onset: during rest Pain location: substernal and left chest Pain radiation: left arm and neck Severity: severe Quality: tightness and sharp Relieving factors: nitroglycerin Exacerbating factors: nothing Associated symptoms: Reports diaphoresis, dyspnea and nausea; Deny abdominal pain, fever(s), leg edema, palpitations, sense of impending doom, syncope or vomiting Treatment prior to arrival: aspirin, nitroglycerin and oxygen Review of Systems Const: Reports: diaphoresis; Denies: fever(s) ENMT: Denies: throat pain, ear or mastoid pain, nasal discharge or nasal congestion Card: Denies: palpitations or syncope Resp: Reports: dyspnea GI: Reports: nausea; Denies: abdominal pain or vomiting : Denies: flank pain, difficulty voiding, dysuria, urinary frequency or urinary urgency Skin/Breast: Denies: rash or pruritus PFS ED PFSH: Medical History Bunion, left Cystitis cystica Degenerative arthritis Fibromyalgia History of recurrent UTI (urinary tract infection) Mixed stress and urge urinary incontinence Right hip pain Surgical History H/O bariatric surgery with sleeve History of carpal tunnel release of both wrists Hx of elbow surgery Hx of foot surgery Family History Father , at age 83 CAD (coronary artery disease) Hyperlipidemia Hypertension Mother , at age 76 Hyperlipidemia Hypertension Sister Cancer Hyperlipidemia Hypertension Brother Cancer Hyperlipidemia Hypertension Denies family history of Diabetes Clotting disorder Dementia Psychiatric illness Chronic kidney disease (CKD) Suicide Anesthesia complication Bleeding disorder Family history of premature coronary artery disease Lung disease Stroke Social History Smoking and tobacco status: former smoker Quit status (tobacco): has quit using tobacco Year quit tobacco: over 20 years ago Second hand smoke exposure: Yes Alcohol intake: current Alcohol intake frequency: holidays/special occasions only Household members: spouse Marital status: Current occupational status: retired History of recent travel: No Physical Exam Const: COMMON NORMALS: no acute distress GENERAL APPEARANCE: cooperative and comfortable ORIENTATION/CONSCIOUSNESS: Yes awake, Yes oriented to person, Yes oriented to place and Yes oriented to time HENMT: COMMON NORMALS: normocephalic, atraumatic and hearing grossly normal b ilaterally HEAD & SCALP: normocephalic and atraumatic Neck/C-Spine: COMMON NORMALS: no JVD Resp: COMMON NORMALS: normal respiratory effort, No retractions, No use of accessory muscles and clear to auscultation bilaterally AUSCULTATION: clear to auscultation bilaterally Cardio: COMMON NORMALS: no JVD, regular rate, regular rhythm and No murmurs present (Cardio) RATE: regular rate RHYTHM: regular rhythm GI: COMMON NORMALS: Soft to palpation and No hepatosplenomegaly present AUSCULTATION: Yes normoactive bowel sounds PALPATION: Yes Soft to palpation, No Tenderness to palpation present (GI), No Guarding due to palpation present (GI) and Yes No hepatosplenomegaly present Extremity: COMMON NORMALS: normal to inspection, capillary refill normal, no clubbing, cyanosis or edema, no calf tenderness and no pedal edema Neuro: SENSORIUM/ORIENTATION: Yes oriented to person, Yes oriented to place and Yes oriented to time Skin: COMMON NORMALS: no rashes or lesions noted GENERAL SKIN EXAM: no rashes or lesions noted Course Vital Signs: Vital signs: Vital Signs Temperature 98.3 F 07/25/20 16:00 Pulse Rate 70 07/25/20 19:25 Respiratory Rate 18 07/25/20 19:25 Blood Pressure 141/69 07/25/20 19:25 Pulse Oximetry 94 07/25/20 19:25 MDM - Chest Pain MDM Narrative: Medical decision making narrative: Discussed with hospitalist will place in observation for rule out and stress testing as indicated. Lab Data: Labs: Lab Results 07/24/20 07/24/20 07/24/20 Range/Units 17:32 17:32 17:32 WBC 9.6 (4.0-10.0) 10^3/ uL RBC 4.76 (4.1-5.3) 10^6/u L Hgb 13.9 (11.5-15.3) g/dL Hct 42.8 (37.0-47.0) % MCV 89.9 (81-99) fL MCH 29.2 (28.0-34.0) pg MCHC 32.5 (30.0-36.0) g/dL RDW 12.8 (12.1-15.1) % Plt Count 243 (130-400) 10^3/c mm MPV 9.5 (7.4-10.4) fL Neut % (Auto) 68.1 % Lymph % (Auto) 24.0 % Bledsoe % (Auto) 5.5 % Eos % (Auto) 1.6 % Baso % (Auto) 0.3 % Neut # (Auto) 6.55 (1.8-7.7) 10^3/u L Lymph # (Auto) 2.3 (0.8-4.8) 10^3/u L Bledsoe # (Auto) 0.5 (0.2-0.9) 10^3/u L Eos # (Auto) 0.2 (0.0-0.8) 10^3/u L Baso # (Auto) 0.0 (0.0-0.1) 10^3/u L Nucleated RBC % (a uto) 0 % Nucleated RBCs # 0.0 /100WBC D-Dimer (0-0.59) ug/mIFE U Sodium 140 (136-145) mmol/L Potassium 3.5 (3.5-5.1) mmol/L Chloride 104 (98-107) mmol/L Carbon Dioxide 25 (22-29) mmol/L Anion Gap 14.5 (5-19) BUN 17 (8-23) mg/dL Creatinine 0.7 (0.5-0.9) mg/dL GFR Calculation Not Reportable Glucose 125 H (65-115) mg/dL Calculated Osmolal ity 293 (285-295) mOsm/k g Calcium 9.3 (8.5-10.5) mg/dL Total Bilirubin 0.3 (0.15-1.2) mg/dL AST 15 (0-32) U/L ALT 12 (0-33) U/L Alkaline Phosphata se 70 (35-105) IU/L Troponin T Baselin e 6 (0-10) ng/L Total Protein 7.2 (6.6-8.7) g/dL Albumin 3.9 (3.5-5.2) g/dL Globulin 3.3 (1.3-4.6) g/dL 07/24/20 Range/Units 17:32 WBC (4.0-10.0) 10^3/ uL RBC (4.1-5.3) 10^6/u L Hgb (11.5-15.3) g/dL Hct (37.0-47.0) % MCV (81-99) fL MCH (28.0-34.0) pg MCHC (30.0-36.0) g/dL RDW (12.1-15.1) % Plt Count (130-400) 10^3/c mm MPV (7.4-10.4) fL Neut % (Auto) % Lymph % (Auto) % Bledsoe % (Auto) % Eos % (Auto) % Baso % (Auto) % Neut # (Auto) (1.8-7.7) 10^3/u L Lymph # (Auto) (0.8-4.8) 10^3/u L Bledsoe # (Auto) (0.2-0.9) 10^3/u L Eos # (Auto) (0.0-0.8) 10^3/u L Baso # (Auto) (0.0-0.1) 10^3/u L Nucleated RBC % (a uto) % Nucleated RBCs # /100WBC D-Dimer 1.01 H (0-0.59) ug/mIFE U Sodium (136-145) mmol/L Potassium (3.5-5.1) mmol/L Chloride (98-107) mmol/L Carbon Dioxide (22-29) mmol/L Anion Gap (5-19) BUN (8-23) mg/dL Creatinine (0.5-0.9) mg/dL GFR Calculation Glucose (65-115) mg/dL Calculated Osmolal ity (285-295) mOsm/k g Calcium (8.5-10.5) mg/dL Total Bilirubin (0.15-1.2) mg/dL AST (0-32) U/L ALT (0-33) U/L Alkaline Phosphata se (35-105) IU/L Troponin T Baselin e (0-10) ng/L Total Protein (6.6-8.7) g/dL Albumin (3.5-5.2) g/dL Globulin (1.3-4.6) g/dL Discharge Plan Discharge Patient Disposition: Placed in Observation Admit Provider: Chaka Giles Clinical Impression: Atypical chest pain Condition: Stable Referrals: Macy Shoemaker MD [Primary Care Provider] - 7-10 days (You have a follow up appointment on Tuesday, August 04, at 10:30am. If you have any questions or concerns please call the office. ) Discharge Diet: GI Soft Discharge Activity: Resume usual activity Patient Instructions: Sucralfate (By mouth), Ondansetron (By mouth), Pantoprazole (By mouth), Chest Pain Stoplight Additional Instructions: Please keep your appointment with surgery on July 29 for possible endoscopy. You are supposed to take Protonix and Carafate which are antacids. I have discussed in detail please make sure you are sitting or walking around for at least 45 minutes to 1 hour post meals. Discharge Date/Time: 07/24/20 19:23 Coding Level of Care Code ED Chemical Economist for Chg Fwd Exam Comprehensive
[2020-07-24 17:39] LABS: Basophils % 0.3 %; Eosinophils # 0.2 10^3/uL (0.0-0.8); Eosinophils % 1.6 %; Hematocrit 42.8 % (37.0-47.0); Hemoglobin 13.9 g/dL (11.5-15.3); Lymphocytes # 2.3 10^3/uL (0.8-4.8); Mean Corpuscular HGB Conc 32.5 g/dL (30.0-36.0); Mean Corpuscular Hemoglobin 29.2 pg (28.0-34.0); Mean Corpuscular Volume 89.9 fL (81-99); Mean Platelet Volume 9.5 fL (7.4-10.4); Monocytes # 0.5 10^3/uL (0.2-0.9); Monocytes % 5.5 %; Neutrophils # 6.55 10^3/uL (1.8-7.7); Neutrophils % 68.1 %; Nucleated Red Blood Cells % 0 %; Platelet Count 243 10^3/cmm (130-400); Red Blood Count 4.76 10^6/uL (4.1-5.3); Red Cell Distribution Width 12.8 % (12.1-15.1); White Blood Count 9.6 10^3/uL (4.0-10.0)
--- NOTE | 2020-07-24 17:47 | PC.NURSE ---
pt tearful due to pain with headache. ED provider notified and verbal orders to not administer NTP. medication held
[2020-07-24] MEDS: acetaminophen 500 mg Tablet 1000 MG PO (17:57)
[2020-07-24 18:02] LABS: Alanine Aminotransferase 12 U/L (0-33); Albumin Level 3.9 g/dL (3.5-5.2); Alkaline Phosphatase 70 IU/L (35-105); Anion Gap 14.5 (5-19); Aspartate Amino Transferase 15 U/L (0-32); Blood Urea Nitrogen 17 mg/dL (8-23); Calcium 9.3 mg/dL (8.5-10.5); Carbon Dioxide 25 mmol/L (22-29); Chloride 104 mmol/L (98-107); Globulin 3.3 g/dL (1.3-4.6); Glucose 125 mg/dL (65-115); Osmolality Calculated 293 mOsm/kg (285-295); Potassium 3.5 mmol/L (3.5-5.1); Sodium 140 mmol/L (136-145); Total Bilirubin 0.3 mg/dL (0.15-1.2); Total Protein 7.2 g/dL (6.6-8.7)
[2020-07-24 18:05] LABS: Troponin(5th) Baseline 6 ng/L (0-10)
--- NOTE | 2020-07-24 19:06 | ECG_ITS ---
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
--- NOTE | 2020-07-24 19:14 | PC.NURSE ---
EKG done at 191 and shown to ER doctor
--- NOTE | 2020-07-24 19:34 | PC.NURSE ---
Patient arrived to the floor from the ED after report was received via phone. Patient is alert and oriented and ambulatory. Patient complains of heaviness on her chest of 8/10. Patient states that her chest pain went away with nitro given in EMS, but that it gave her a headache. Patient states her headache is gone at this time. Patient complained of pain in IV. IV was removed from left AC with catheter intact. New IV started in right forearm on first attempt with 20 gauge. Patient has been oriented to her room and has call light within reach.
[2020-07-24] MEDS: morphine 4 mg/mL SDV 1 mL 2 MG IVP (19:45)
--- NOTE | 2020-07-24 19:49 | PC.NURSE ---
Patient states that she has bad insomnia. Patient states I used to take Ambien 2 years ago. I just never got it refilled again since I moved. Patient states, There for awhile I was taking Melatonin, but I quit because it didn't work. I bought some over the counter Z-Quill, but haven't tried it yet.
--- NOTE | 2020-07-24 19:52 | PC.NURSE ---
Patient states that she has hearing aides but that she left them at home.
[2020-07-24 20:11] LABS: Troponin 5 2HR Delta 0 ABS# (0-10)
--- NOTE | 2020-07-24 20:25 | PC.NURSE ---
Addendum entered by Karen Salazar RN 07/24/20 20:32: *Dr. Machado notified, not Dr. Arteaga.* Original Note: Dr. Arteaga notified of patient asking for something to help her sleep. Patient states that her chest pain is now gone after receiving PRN Morphine. Will monitor.
[2020-07-24] MEDS: diphenhydrAMINE 50 mg Capsule PO (21:30)
--- NOTE | 2020-07-24 22:32 | ECG_ITS ---
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 The perfusion scan will be documented separately. DATA: Baseline heart rate was 83 beats per minute. Baseline blood pressure was 163/75 millimeters of mercury. Target heart rate was 149. Maximum heart rate achieved was 89. which was 59 % of the predicted target heart rate. Maximum blood pressure was millimeters of mercury. The reason for ending the test was completion of the protocol. The patient did not experience any symptoms. ELECTROCARDIOGRAM: BASELINE: Sinus rhythm. Normal axis. Otherwise, no ST-T changes suggestive of ischemia noted. No arrhythmia noted. EXERCISE: After Lexiscan injection, no ST-T changes suggestive of ischemic noted. No arrhythmia noted. 1. EKG not suggestive of ischemia 2. Lexiscan injection unremarkable. 3. Perfusion scan will be documented separately. Electronically Signed On 07-25-2020 17:57:08 CDT by FEROZ QUIÑONES [id number]
--- NOTE | 2020-07-24 22:36 | PM.HP ---
Providers/Chief Complaint Admitting Physician: Chaka Giles MD Primary Care Provider: Macy Shoemaker MD Chief Complaint: CHEST PAIN History of Present Illness Debra 70-year-old female with a past medical history significant for hypertension, restless legs syndrome, dyslipidemia, who presented to the hospital with left-sided chest pain radiating to left upper extremity. She stated this has been going on intermittently for some time. Described this initially as pleuritic in nature with mild respiratory distress.. She previously lived in [place] 2 years prior during which time she stated she was having similar episodes and had a cardiac catheterization planned however never completed. Upon arrival to emergency room her laboratory workup showed WBC of 9.6, hemoglobin of 13.9, hematocrit of 42.8 and platelet count of 243. sodium 140, potassium 3.5, chloride 104, bicarb 25, BUN 17 and creatinine is 0.7. Glucose was 125. high sensitivity troponin T was negative. D-dimer was found to be positive at 1.01. Initial plan for CT chest PE protocol was not done due to patient it is history of allergy to contrast. She was started on heparin drip. Review of Systems General: Reports: 10 or more systems reviewed and unremarkable except in HPI and below Medications/Allergies Home Medications Medication Instructions Recorded Confirmed Last Taken Type amlodipine 5 mg tablet 2.5 mg PO DAILY 10/03/19 07/24/20 07/24/20 History atenolol 25 mg tablet 50 mg PO DAILY tab 10/03/19 07/24/20 07/24/20 History atorvastatin 10 mg tablet 20 mg PO DAILY 10/03/19 07/24/20 07/24/20 History gabapentin 600 mg tablet 900 mg PO BEDTIME tab 10/03/19 07/24/20 07/23/20 History hydrochlorothiazide 25 mg tablet 25 mg PO DAILY 10/03/19 07/24/20 07/24/20 History sole support custom Orthotics #1 ea 10/03/19 07/24/20 Unknown Rx ropinirole 4 mg PO TID 06/26/20 07/24/20 07/23/20 History ojafiuvamren-Gf-wqrw-minerals 1 tab PO DAILY 07/24/20 07/24/20 07/23/20 History [Multiple Vitamin, Womens] oxycodone-acetaminophen 1 tab PO Q4H PRN 07/24/20 07/24/2020 History Allergies Allergy/AdvReac Type Severity Reaction Status Date / Time cefuroxime [From Ceftin] Allergy ALGY-Hives Verified 07/24/20 19:34 Iodinated Contrast Media Allergy ALGY-Hives Verified 07/24/20 19:34 Sulfa (Sulfonamide Allergy unknown Verified 07/24/20 19:34 Antibiotics) PFSH Acute PFSH: Medical History Bunion, left Cystitis cystica Degenerative arthritis Fibromyalgia History of recurrent UTI (urinary tract infection) Mixed stress and urge urinary incontinence Right hip pain Surgical History H/O bariatric surgery with sleeve History of carpal tunnel release of both wrists Hx of elbow surgery Hx of foot surgery Family History Father , at age 83 CAD (coronary artery disease) Hyperlipidemia Hypertension Mother , at age 76 Hyperlipidemia Hypertension Sister Cancer Hyperlipidemia Hypertension Brother Cancer Hyperlipidemia Hypertension Denies family history of Diabetes Clotting disorder Dementia Psychiatric illness Chronic kidney disease (CKD) Suicide Anesthesia complication Bleeding disorder Family history of premature coronary artery disease Lung disease Stroke Social History Smoking and tobacco status: former smoker Quit status (tobacco): has quit using tobacco Year quit tobacco: over 20 years ago Second hand smoke exposure: Yes Alcohol intake: current Alcohol intake frequency: holidays/special occasions only Substance/Drug Use: current Substance/Drug use frequency: few times a month Substance/Drug use type: Marijuana Household members: spouse Marital status: Current occupational status: retired History of recent travel: No Vitals/I&O/Wt Last Vital Signs Temp 98.0 F 07/24/20 19:24 Pulse 56 L 07/24/20 20:14 Resp 17 07/24/20 19:45 BP 153/69 07/24/20 19:24 Pulse Ox 95 07/24/20 20:14 Weight last 48 hrs Weight 71.668 kg Physical Exam Narrative: EXAM NARRATIVE: General : Alert, awake oriented x 3 HEENT ; EOMI, PERRLA CVS : Regular rate and rythym CHEST : Clear to ausculation ABD; Soft non-tender Ext: No edema Data : 07/24/20 17:32 07/25/20 01:25 A&P Assessment and plan (1) Pleuritic chest pain: Troponin trend negative NPO at midnight Given history will obtain stress test in AM Cardiac meds resumed D-dimer positive Unable to obtain CTPE. 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
--- NOTE | 2020-07-24 23:06 | ECG_ITS ---
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: : 1950 Requested By: Rigoberto Robert Order Number: [id number] Otis MD: FEROZ QUIÑONES Measurements Intervals [place] Rate: 53 P: 21 NC: 166 QRS: -23 QRSD: 87 T: 29 QT: 443 QTc: 417 Interpretive Statements SINUS BRADYCARDIA INFERIOR MYOCARDIAL INFARCTION [40+ ms Q WAVE AND/OR ST/T ABNORMALITY IN II/aVF], OF INDETERMINATE AGE Compared to ECG 07/24/2020 19:12:38 Myocardial infarct finding now present Sinus rhythm no longer present Sinus arrhythmia no longer present Left-axis deviation no longer present Electronically Signed On 07-25-2020 18:24:04 CDT by FEROZ QUIÑONES [id number]
[2020-07-24 23:51] LABS: Troponin 5 6HR 6.27 ng/L (0-10); Troponin 5 6HR Delta 0.27 ng/L (0-12)
[2020-07-25] VITALS (8 sets, daily range): BP systolic 101–164; BP diastolic 52–85; PULSE 54–95; RESP 14–22; TEMP 36.4–36.8; O2SAT 94–99
--- NOTE | 2020-07-25 | PC.NURSE ---
Dr. De Leon came to room to see patient. Patient stated to doctor that her chest pain came back. Ordered to get d-dimer and give SL nitro.
[2020-07-25] MEDS: nitroglycerin 0.4 mg sublingual Tablet SUBLINGUAL ×2 (00:09→00:51)
[2020-07-25 00:13] LABS: D Dimer 1.01 ug/mIFEU (0-0.59)
--- NOTE | 2020-07-25 00:48 | PC.NURSE ---
Addendum entered by Karen Salazar RN 07/25/20 00:50: Also notified of nitro SL not relieving chest pain. Original Note: Dr. Machado notified of patient's d-dimer of 1.01. Also notified of patient not having an order for VTE.
--- NOTE | 2020-07-25 01:03 | PC.NURSE ---
Addendum entered by Karen Salazar RN 07/25/20 01:07: Ordered to not take patient to CT. Original Note: Dr. Machado notified of patient having an allergy of hives to contrast media. Also notified of patient asking for Requip due to restless legs. Order for med is not ordered to start until morning.
--- NOTE | 2020-07-25 01:19 | PC.NURSE ---
Verified with Dr. Machado that he is wanting the weight-based protocol for the Heparin drip.
[2020-07-25] MEDS: ropinirole 2 mg Tablet 4 MG PO ×2 (01:33→13:53)
[2020-07-25] MEDS: heparin 5,000 unit/mL INJ 1 mL IV (01:33)
[2020-07-25] MEDS: heparin drip 25,000 UNIT/500 ML PREMIX 20 UNIT IV (01:33)
[2020-07-25 01:45] LABS: Partial Thromboplastin Time 28.2 SECONDS (23.9-36.7)
[2020-07-25 01:54] LABS: Anion Gap 14.3 (5-19); Blood Urea Nitrogen 18 mg/dL (8-23); Calcium 8.9 mg/dL (8.5-10.5); Carbon Dioxide 25 mmol/L (22-29); Chloride 104 mmol/L (98-107); Glucose 105 mg/dL (65-115); Osmolality Calculated 292 mOsm/kg (285-295); Potassium 3.3 mmol/L (3.5-5.1); Sodium 140 mmol/L (136-145)
--- NOTE | 2020-07-25 02:42 | PC.NURSE ---
Patient states that her chest heaviness/pain is gone at this time. Will monitor.
[2020-07-25] MEDS: ondansetron 2 mg/ML SDV 2 mL 4 MG IVP ×2 (07:22→17:36)
[2020-07-25] MEDS: acetaminophen 325 mg Tablet 650 MG PO ×2 (07:25→13:52)
--- NOTE | 2020-07-25 07:27 | PC.NURSE ---
patient reports a headache 10/10 and nausea. Patient produced approximately 30 ml of clear vomit. Zofran and tylenol administered. Patient states she did not sleep well last night because she has insomnia. Patient states lack of sleep gives her bad headaches that typically make her nauseous. Patient to stress test at this time.
[2020-07-25 07:59] LABS: Partial Thromboplastin Time 128.5 SECONDS (23.9-36.7)
--- NOTE | 2020-07-25 08:08 | SUR.PREOP ---
Patient reports no pain or discomfort prior to the start of the procedure.
[2020-07-25] MEDS: regadenoson 0.4 Mg/5 ml Syringe IVP (08:14)
[2020-07-25 08:18] LABS: Basophils # 0.1 10^3/uL (0.0-0.1); Basophils % 0.5 %; Eosinophils # 0.2 10^3/uL (0.0-0.8); Eosinophils % 2.1 %; Hematocrit 38.8 % (37.0-47.0); Lymphocytes # 2.9 10^3/uL (0.8-4.8); Lymphocytes % 29.9 %; Mean Corpuscular HGB Conc 33.5 g/dL (30.0-36.0); Mean Corpuscular Hemoglobin 29.5 pg (28.0-34.0); Mean Platelet Volume 9.4 fL (7.4-10.4); Monocytes # 0.6 10^3/uL (0.2-0.9); Monocytes % 6.3 %; Neutrophils % 60.9 %; Nucleated Red Blood Cells % 0 %; Platelet Count 204 10^3/cmm (130-400); Red Blood Count 4.41 10^6/uL (4.1-5.3); Red Cell Distribution Width 12.7 % (12.1-15.1); White Blood Count 9.7 10^3/uL (4.0-10.0)
[2020-07-25] MEDS: aspirin 325 mg Tablet PO (10:19)
[2020-07-25] MEDS: hydroCHLOROthiazide 25 mg Tablet PO (10:20)
[2020-07-25] MEDS: pneumococcal (23 valent) SDV 0.5 mL IM (10:20)
[2020-07-25 11:07] LABS: Partial Thromboplastin Time 134.6 SECONDS (23.9-36.7)
--- NOTE | 2020-07-25 11:08 | PC.CHAP ---
Pastoral Care Encounter/Spiritual Assessment Type of Contact [] Declined tele tech visit [] Patient/Family/Request visit [] Outpatient visit [] Follow-up visit [] Physician referral [] Code/Alert [xx] Routine visit [] Staff referral [] Actively dying [] Patient sleeping [] Family support [] [] Out of room [] Palliative care [] [] Receiving care in room [] Pre-surgical visit [] Trauma [] Long length of stay [] ICU visit [] Other: Relational/Emotional Strength [xx] Patient feels connected with others/family/visitors/staff [] Distress [] Loneliness/isolation [] Abandonment Spirituality of Patient [xx] Person of Carlotta [] Attends Amish of their [place]otta [xx] Believes in Prayer [] Reads Bible or Scientologist materials [] There are Spiritual issues to be addressed Account Solutions Analyst Interventions [xx] Prayer [xx] Active listening [xx] Non-anxious presence [] Spiritual/emotional support [] Crisis/trauma care [] Spiritual counseling [] Bereavement support [] Provided bereavement packet [] Provided Bible/devotional materials [] Provided toy/stuffed animal, coloring book to patient or family member [] Provided Communion [] Anointing/[place] [] Salvation [xx] Completed spiritual assessment [] Other: Impact on Illness or Injury [] Angry [] Fearful [] Anxious [] Often cries [] Exhaustion [] Unable to work [] Unable to attend sikhism [] Unable to walk/stand [] Unable to read [] Unable to drive [] Unable to eat/drink [] Unable to sleep [] Unable to be with family [] Patient intubated [] Other: Summary Pt does not anticipate a long stay in hospital. Pt drowsy and not wanting to visit but wanting prayer only. Time spent with patient 5 minutes Account Solutions Analyst Eliana Bauman
--- NOTE | 2020-07-25 11:22 | PC.NURSE ---
1015 Dr. Hendrix notified that heparin gtt titration was delayed due to patient being at stress test. gtt was titrated to 16 ml/hr per protocol. Physician gave verbal order to get a STAT PTT now and titrate per protocol. Then resume q6hr PTTs per protocol. RBVO 1120 Dr. Hendrix updated. PTT 134.6. gtt titrated to 12 ml/hr. Telephone order to obtain PTT in 3 hours and titrate per protocol. RBTO. Nurse to continue to monitor.
--- NOTE | 2020-07-25 12:00 | USCV_ITS ---
Debra Cerrato Age: 70 Gender: F : 1950 Exam Date: 07/25/2020 13:08 Ordering Phys: Technologist: Rosaline Ngo [place] [facility] [place] Indication: CHEST PAIN BP: 128 / 72 HR: 78 Rhythm: Sinus Technical Quality: Adequate MEASUREMENTS (Male / Female) Normal Values 2D ECHO LV Diastolic Diameter PLAX 3.5 cm 4.2 - 5.9 / 3.9 - 5.3 cm LV Systolic Diameter PLAX 2.6 cm LV Chamber Size 3.3 cm IVS Diastolic Thickness 1.4 cm 0.6 - 1.0 / 0.6 - 0.9 cm IVS Systolic Thickness 1.9 cm LVPW Diastolic Thickness 1.6 cm 0.6 - 1.0 / 0.6 - 0.9 cm LVPW Systolic Thickness 1.2 cm RV Chamber Size 2.8 cm LVOT Diameter 2.0 cm LV Ejection Fraction 2D Teich 54.9 % LV Ejection Fraction MOD 2C 32.3 % LV Ejection Fraction 2C AL 33.8 % LA Diameter 2.6 cm LA Width 2.5 cm LA Height 3.9 cm RA Width 2.9 cm RA Height 3.8 cm Aorta at Sinotubular Diameter 3.3 cm M-MODE LV Diastolic Diameter MM 3.0 cm 4.2 - 5.9 / 3.9 - 5.3 cm LV Systolic Diameter MM 1.9 cm LV Ejection Fraction MM Teich 65.2 % IVS Diastolic Thickness MM 0.9 cm 0.6 - 1.0 / 0.6 - 0.9 cm IVS Systolic Thickness MM 1.3 cm LVPW Diastolic Thickness MM 0.9 cm 0.6 - 1.0 / 0.6 - 0.9 cm LVPW Systolic Thickness MM 1.3 cm RV Diastolic Diameter MM 1.0 cm Aortic Annulus Diameter 3.0 cm LA Ao Ratio MM 1.0 MV E Point Septal Separation 0.9 cm DOPPLER AV Peak Velocity 177.0 cm/s LVOT Peak Velocity 116.0 cm/s AV Area Cont Eq vti 3.1 cm squared AV Area Cont Eq pk 2.1 cm squared MV Area PHT 3.0 cm squared Mitral E to A Ratio 0.6 MV E' Velocity 48.0 cm/s Mitral E to MV E' Ratio 8.9 Mitral E to LV E' Lateral Ratio 9.0 Mitral E to LV E' Septal Ratio 8.9 TR Peak Velocity 287.2 cm/s TR Peak Gradient 33.0 mmHg TR Mean Velocity 223.4 cm/s TR Mean Gradient 21.8 mmHg TR Velocity Time Integral 89.3 cm TV Peak E Velocity 60.0 cm/s Right Atrial Pressure 3.0 mmHg Pulmonary Artery Systolic Pressu 36.0 mmHg PV Peak Velocity 92.0 cm/s RV Acceleration Time 0.2 s RV Ejection Time 0.4 s RV AcT/ET 0.4 FINDINGS Left Ventricle Normal left ventricular cavity size. Normal left ventricular systolic function. No regional wall motion abnormalities. Left ventricular ejection fraction is estimated at 65 %. Grade I/IV diastolic dysfunction (abnormal relaxation filling pattern), normal to mildly elevated filling pressures. Right Ventricle The right ventricle is normal in size and function. Right Atrium The right atrium is normal in size. Left Atrium The left atrium is normal in size. Mitral Valve Structurally normal mitral valve without significant stenosis or prolapse. There is no mitral regurgitation. Aortic Valve Structurally normal aortic valve without significant sclerosis or stenosis. There is no aortic regurgitation. Tricuspid Valve Mild tricuspid valve regurgitation. Pulmonic Valve Structurally normal pulmonic valve without significant stenosis. There is no pulmonic regurgitation. Pericardium Normal pericardium without effusion. Aorta Normal ascending aorta dimension. CONCLUSIONS 1-Normal left ventricular cavity size. Normal left ventricular systolic function. No regional wall motion abnormalities. Left ventricular ejection fraction is estimated at 65 %. Grade I/IV diastolic dysfunction (abnormal relaxation filling pattern), normal to mildly elevated filling pressures. 2-Mild tricuspid valve regurgitation. 3-There is no pericardial effusion. 4-Pulmonary artery systolic pressure is within normal limits. 5-There are no prior echocardiogram studies to compare. Ashlyn Pettit MD (Electronically Signed) Final Date: 25 July 2020 16:57 S
--- NOTE | 2020-07-25 12:00 | USCV_ITS ---
Blossom Debra Age: 70 Gender: F : 1950 Exam Date: 07/25/2020 12:26 Ordering Phys: Last Hendrix MD Technologist: Karl Osorio Exam Location: [facility] Indication: r/o dvt PROCEDURES: Venous duplex imaging was performed in bilateral lower extremities. The following venous structures were evaluated: common femoral vein, profunda vein, proximal portion of the greater saphenous vein, superficial femoral vein, and the popliteal vein. In addition, the posterior tibial and peroneal trunk were evaluated. Serial compression, augmentation maneuvers, and spectral Doppler flow evaluation were performed. FINDINGS: Normal 2-D Doppler and augmentation and compressibility throughout the lower extremity venous structures. Additional imaging through the proximal calf veins also reveals no thrombus. Limited evaluation of the greater saphenous vein is patent with no thrombus. CONCLUSIONS No DVT bilateral lower extremities. Dr. Terese Tran DO (Electronically Signed) Final Date: 25 July 2020 14:13 S
[2020-07-25 13:07] LABS: Chol HDL Ratio 2.75 mg/dL (0.0-4.40); Cholesterol 146 mg/dL (0-200); HDL Cholesterol 53 mg/dL (60-100); LDL Cholesterol Calculated 67 mg/dL (50-129); Thyroid Stimulating Hormone 1.91 uIU/mL (0.27-4.20); Triglycerides 132 mg/dL (0-150); VLDL Cholestrol Calculation 26 mg/dL (0-30)
[2020-07-25 14:36] LABS: Partial Thromboplastin Time 40.5 SECONDS (23.9-36.7)
--- NOTE | 2020-07-25 14:37 | PC.NURSE ---
dr morton notified of pt stating, I went to the bathroom, came back and just didn't feel good. I got hot, sweaty and my left arm just felt very heavy. pt vital signs were 130/66 heart rate 66, 92% and respirations 25. dr wanted orthostatics done. results were layin/64 sittin/76 standin/77 dr notified of these results
--- NOTE | 2020-07-25 16:35 | PM.DCS ---
Discharge Providers Date of Admission: 07/24/20 18:28 Date of Discharge: July 25, 2020 Attending Provider at Admission: Chaka Giles MD Attending Provider at Discharge: Last Hendrix MD Primary Care Provider: Macy Shoemaker MD Diagnoses at Discharge Discharge Diagnosis (1) Pleuritic chest pain: Status: Acute Reason for Visit Reason for Visit: CHEST PAIN Hospital Course Discharge Summary: Debra 70-year-old female with a past medical history significant for hypertension, restless legs syndrome, dyslipidemia, who presented to the hospital with left-sided chest pain radiating to left upper extremity. She stated this has been going on intermittently for some time. Described this initially as pleuritic in nature with mild respiratory distress.. She previously lived in [place] 2 years prior during which time she stated she was having similar episodes and had a cardiac catheterization planned however never completed. Upon arrival to emergency room her laboratory workup showed WBC of 9.6, hemoglobin of 13.9, hematocrit of 42.8 and platelet count of 243. sodium 140, potassium 3.5, chloride 104, bicarb 25, BUN 17 and creatinine is 0.7. Glucose was 125. high sensitivity troponin T was negative. D-dimer was found to be positive at 1.01. Initial plan for CT chest PE protocol was not done due to patient it is history of allergy to contrast. She was started on heparin drip. Patient was admitted to the hospital to rule out ACS. Patient had few episodes of nausea but denied having any further chest pain or chest pressure. She underwent Lexiscan stress test on July 25 which came back negative for any signs of ischemia. Lipid panel was done which was found to be in normal limits. Echocardiogram has been done but the results are not available yet. Patient's Wells score is 0 with a normal age-adjusted D-dimer so heparin drip was stopped. Unfortunately VQ scan could not be done as patient just had a nuclear stress test. Lower limb Dopplers were done to rule out DVT. Multiple orthostatic blood pressures were checked and were negative. She has been discharged hemodynamically stable condition with advised to do a VQ scan early next week. Pulmonary embolism and ACS has been ruled out. Patient symptoms are most likely secondary to GERD. Patient has an appointment with surgery on July 29 for possible endoscopy. Patient was counseled in detail to keep that appointment. She is been discharged on PPI and Carafate. Physical Exam Narrative: EXAM NARRATIVE: General: No acute distress, AO x3 HEENT: PERRLA, pupils bilaterally equal and reactive Chest: Normal vesicular breath sounds, no added sounds, equal good air entry bilaterally CVS: S1-S2 regular, no murmurs, no tachycardia, no gallops, no rubs Abdomen: Soft, nontender, no organomegaly, bowel sounds present Neuro: No focal deficits, no facial deformity, AO x3, power 5/5 in all limbs Discharge Data Data Completed and Pending: Completed Studies During Hospitalization Category Date Time Status Sestamibi Stress Test Request Routi ne Exams 07/24/20 22:32 Draft XR chest 1V cady ble [id number] Stat Exams 07/24/20 17:06 Completed NM isaiah perf SPECT r/s* [id number] Routin e Nuc Med 07/25/20 22:32 [place] [id number] Urgent Ultrasound 07/25/20 12:00 Completed Pending at discharge Category Date Time Status Complete Blood Co unt w/Auto AM LABS Lab 07/26/20 04:00 Ordered Comprehensive Met abolic Panel AM LA BS Lab 07/26/20 04:00 Ordered Hemoglobin A1C Ro utine Lab 07/26/20 04:00 Ordered PTT [Partial Thro mboplastin Time] T imed Lab 07/25/20 14:03 Received NM pul vent and p erfus* [id number] Routi ne Nuc Med 07/25/20 12:13 Ordered CV echo complete* [id number] Routine Ultrasound 07/25/20 12:00 Taken Labs from last 24 hours 07/25/20 07/25/20 07/25/20 14:03 10:36 07:14 WBC RBC Hgb Hct MCV MCH MCHC RDW Plt Count MPV Neut % (Auto) Lymph % (Auto) Kane % (Auto) Eos % (Auto) Baso % (Auto) Neut # (Auto) Lymph # (Auto) Kane # (Auto) Eos # (Auto) Baso # (Auto) Nucleated RBC % (a uto) Nucleated RBCs # APTT Pending 134.6 H 128.5 H D D-Dimer Sodium Potassium Chloride Carbon Dioxide Anion Gap BUN Creatinine GFR Calculation Glucose Calculated Osmolal ity Calcium Total Bilirubin AST ALT Alkaline Phosphata se Troponin T Baselin e Troponin T 120 Min [place] Delta Troponin T Troponin T Hi Sens 6Hr Troponin T Hi Sens 6Hr Delta Total Protein Albumin Globulin Triglycerides Cholesterol LDL Cholesterol, C alc Total VLDL Cholest dani HDL Cholesterol Cholesterol/HDL Ra dipti TSH 07/25/20 07/25/20 07/25/20 01:25 01:25 01:25 WBC RBC Hgb Hct MCV MCH MCHC RDW Plt Count MPV Neut % (Auto) Lymph % (Auto) Kane % (Auto) Eos % (Auto) Baso % (Auto) Neut # (Auto) Lymph # (Auto) Kane # (Auto) Eos # (Auto) Baso # (Auto) Nucleated RBC % (a uto) Nucleated RBCs # APTT 28.2 D-Dimer Sodium 140 Potassium 3.3 L Chloride 104 Carbon Dioxide 25 Anion Gap 14.3 BUN 18 Creatinine 0.6 GFR Calculation Not Reportable Glucose 105 Calculated Osmolal ity 292 Calcium 8.9 Total Bilirubin AST ALT Alkaline Phosphata se Troponin T Baselin e Troponin T 120 Min [place] Delta Troponin T Troponin T Hi Sens 6Hr Troponin T Hi Sens 6Hr Delta Total Protein Albumin Globulin Triglycerides 132 Cholesterol 146 LDL Cholesterol, C alc 67 Total VLDL Cholest dani 26 HDL Cholesterol 53 L Cholesterol/HDL Ra dipti 2.75 TSH 1.91 07/25/20 07/24/20 07/24/20 01:25 23:13 19:43 WBC 9.7 RBC 4.41 Hgb 13.0 Hct 38.8 MCV 88.0 MCH 29.5 MCHC 33.5 RDW 12.7 Plt Count 204 MPV 9.4 Neut % (Auto) 60.9 Lymph % (Auto) 29.9 Kane % (Auto) 6.3 Eos % (Auto) 2.1 Baso % (Auto) 0.5 Neut # (Auto) 5.90 Lymph # (Auto) 2.9 Kane # (Auto) 0.6 Eos # (Auto) 0.2 Baso # (Auto) 0.1 Nucleated RBC % (a uto) 0 Nucleated RBCs # 0.0 APTT D-Dimer Sodium Potassium Chloride Carbon Dioxide Anion Gap BUN Creatinine GFR Calculation Glucose Calculated Osmolal ity Calcium Total Bilirubin AST ALT Alkaline Phosphata se Troponin T Baselin e Troponin T 120 Min [place] 6.00 Delta Troponin T 0 Troponin T Hi Sens 6Hr 6.27 Troponin T Hi Sens 6Hr Delta 0.27 Total Protein Albumin Globulin Triglycerides Cholesterol LDL Cholesterol, C alc Total VLDL Cholest dani HDL Cholesterol Cholesterol/HDL Ra dipti TSH 10/29/20 10/29/20 10/29/20 17:32 17:32 17:32 WBC RBC Hgb Hct MCV MCH MCHC RDW Plt Count MPV Neut % (Auto) Lymph % (Auto) Kane % (Auto) Eos % (Auto) Baso % (Auto) Neut # (Auto) Lymph # (Auto) Kane # (Auto) Eos # (Auto) Baso # (Auto) Nucleated RBC % (a uto) Nucleated RBCs # APTT D-Dimer 1.01 H Sodium 140 Potassium 3.5 Chloride 104 Carbon Dioxide 25 Anion Gap 14.5 BUN 17 Creatinine 0.7 GFR Calculation Not Reportable Glucose 125 H Calculated Osmolal ity 293 Calcium 9.3 Total Bilirubin 0.3 AST 15 ALT 12 Alkaline Phosphata se 70 Troponin T Baselin e 6 Troponin T 120 Min [place] Delta Troponin T Troponin T Hi Sens 6Hr Troponin T Hi Sens 6Hr Delta Total Protein 7.2 Albumin 3.9 Globulin 3.3 Triglycerides Cholesterol LDL Cholesterol, C alc Total VLDL Cholest dani HDL Cholesterol Cholesterol/HDL Ra dipti TSH 07/24/20 17:32 WBC 9.6 RBC 4.76 Hgb 13.9 Hct 42.8 MCV 89.9 MCH 29.2 MCHC 32.5 RDW 12.8 Plt Count 243 MPV 9.5 Neut % (Auto) 68.1 Lymph % (Auto) 24.0 Kane % (Auto) 5.5 Eos % (Auto) 1.6 Baso % (Auto) 0.3 Neut # (Auto) 6.55 Lymph # (Auto) 2.3 Kane # (Auto) 0.5 Eos # (Auto) 0.2 Baso # (Auto) 0.0 Nucleated RBC % (a uto) 0 Nucleated RBCs # 0.0 APTT D-Dimer Sodium Potassium Chloride Carbon Dioxide Anion Gap BUN Creatinine GFR Calculation Glucose Calculated Osmolal ity Calcium Total Bilirubin AST ALT Alkaline Phosphata se Troponin T Baselin e Troponin T 120 Min [place] Delta Troponin T Troponin T Hi Sens 6Hr Troponin T Hi Sens 6Hr Delta Total Protein Albumin Globulin Triglycerides Cholesterol LDL Cholesterol, C alc Total VLDL Cholest dani HDL Cholesterol Cholesterol/HDL Ra dipti TSH Vitals: Last Vital Signs Temp 98.3 F 07/25/20 16:00 Pulse 65 07/25/20 16:00 Resp 22 H 07/25/20 16:00 BP 156/52 07/25/20 16:00 Pulse Ox 97 07/25/20 16:00 Discharge Plan Discharge Patient Disposition: Home Condition: Stable Prescriptions: New ondansetron HCl [Zofran] 4 mg tablet 4 mg PO Q8H PRN (Reason: nausea and vomiting) 5 Days Qty: 10 RF: 0 pantoprazole [Protonix] [address] for susp in packet 40 mg PO DAILY Qty: 30 RF: 0 sucralfate [Carafate] 100 mg/mL suspension 1 gm PO TID Qty: 420 RF: 0 Continued atenolol 25 mg tablet 50 mg PO DAILY RF: 0 hydrochlorothiazide 25 mg tablet 25 mg PO DAILY RF: 0 atorvastatin [Lipitor] 10 mg tablet 20 mg PO DAILY RF: 0 gabapentin 600 mg tablet 900 mg PO BEDTIME RF: 0 (DME) sole support custom Orthotics Qty: 1 RF: 0 ropinirole 2 mg tablet 4 mg PO TID RF: 0 oxycodone-acetaminophen 5-325 mg tablet 1 tab PO Q4H PRN (Reason: Pain) RF: 0 Multiple Vitamin, Womens Tablet 1 tab PO DAILY RF: 0 Discontinued amlodipine 5 mg tablet 2.5 mg PO DAILY RF: 0 Discharge Orders: Discharge Order (Routine); Ordered 07/25/20 Ordered By: Last Hendrix Other Ambulatory Orders: NM pul vent and perfus* [id number] (Routine) Timeframe: 1 Week Facility: [facility] - Location: Radiology Ordered By: Last Hendrix Referrals: Macy Shoemaker MD [Primary Care Provider] - 7-10 days Discharge Diet: GI Soft Discharge Activity: Resume usual activity Activity Restrictions/Additional Instructions: Please keep your appointment with surgery on July 29 for possible endoscopy. You are supposed to take Protonix and Carafate which are antacids. I have discussed in detail please make sure you are sitting or walking around for at least 45 minutes to 1 hour post meals. Discharge Attestations Time Spent in Discharge Care*: greater than 30 min Specific Discharge Activities: Specific discharge activities: educating patient, educating and/or supporting family/caregiver, discussing with case making machine operator/social workers/dc planners, documenting/other paperwork and evaluating patient/reviewing data Status at Discharge: Cognitive status at discharge: cognitively intact, Behavioral status at discharge: cooperative, Functional status at discharge: independent ambulation Overall status at discharge: patient is back to baseline Quality Metrics Clinical Quality Measures During this hospital stay, did patient experience: None Coding Level of Care Code Acute Trolley Car Overhauler for Chg Fwd Diagnoses Pleuritic chest pain R07.81
[2020-07-25] MEDS: pantoprazole 40 mg SDV IVP (17:36)
--- NOTE | 2020-07-25 18:20 | PC.NURSE ---
Physician gave telephone order to obtain another set of orthostatic vitals. Vitals sent to physician, physician cleared patient for dc. Telephone order received to give patient IVP protonix and zofran before d/c. meds administered. IV discontinued. Patient dressed self. Discharge instructions given per the physician's orders. Patient verbalized understanding of teaching and did not have any further questions. Patient to take home.
--- NOTE | 2020-07-25 22:32 | NMCV_ITS ---
NM isaiah perf SPECT r/s* [id number] Debra Cerrato Age: 70 Gender: F : 1950 Exam Date: 07/25/2020 07:14 Ordering Phys: Karine Machado MD Technologist: MIGUELITO Ortiz Exam Location: [facility] Indications: CHEST PAIN STRESS TEST Please see separate stress test report in [facility] for full findings IMAGE PROTOCOL Rest/Stress 1 Lexiscan Day Radiopharmaceutical Dose (mCi) Administration Site Administered by Rest: Tc-99m 11.0 IV MIGUELITO Ortiz Sestamibi Stress:Tc-99m 32.7 IV Adeline Pierre, AGRICULTURE SPECIALIST Sestamibi Rest: 25-Jul-2020 60 Discovery 630 Stress: 25-Jul-2020 30 Discovery 630 0.4mg Lexiscan. Images obtained in supine and prone position. SPECT RESULTS Technical Quality: Good Raw Data Analysis: Normal Image Corrections: No attenuation or motion correction applied Summed Stress Score: 2 Summed Rest Score: 4 Summed Difference Score: 1 PERFUSION FINDINGS Small area of fixed perfusion defect noted in the inferoapical and apical lateral region of the left ventricle suggestive of artifact. Medium-sized area of patchy decreased tracer uptake on the rest images noted which improved over stress images suggestive of artifact FUNCTIONAL RESULTS (calculated via Gated SPECT) Stress Image LV EF (%): 84 Stress EDV (mL):63 TID: 0.92 Stress ESV (mL):10 Rest Image LV EF (%): 84 FUNCTIONAL FINDINGS: There is normal left ventricular systolic function. IMPRESSIONS This study is negative for ischemia and low probability for obstructive coronary disease. EKG segment will be documented separately. Ashlyn Pettit MD (Electronically Signed) Final Date: 25 July 2020 14:45 S
== END 2020-07-25 18:25 | disposition home or self-care (01) ==
LOC: ER 18:27 → CSU 18:46
PROVIDERS: Family Medicine; Hospitalist; Admitting Provider Family Medicine; PCP Family Medicine; Visit Provider Student in an Organized Health Care Education/Training Program
DX: R07.81 Pleurodynia (principal); R79.89 Other specified abnormal findings of blood chemistry; I10 Essential (primary) hypertension; E78.5 Hyperlipidemia, unspecified; M79.7 Fibromyalgia; M19.90 Unspecified osteoarthritis, unspecified site; Z82.49 Family history of ischemic heart disease and other diseases of the circulatory system; Z87.891 Personal history of nicotine dependence
CPT/HCPCS: 12345; 36415; 71045; 78452; 80048; 80053; 80061; 84443; 84484; 85025; 85378; 85730; 90471; 90732; 93005; 93017; 93306; 93970; 96365; 96366; 96375; 99283; 99285; A9500; C9113; G0378; J1644; J2270; J2405; J2785; Q0163

== ENCOUNTER → 2020-07-30 08:02 | Outpatient (BNVA) | payer MEDICARE, SELFPAY | PROVIDERS: PCP Family Medicine; Visit Provider Urology | DX: N30.80 Other cystitis without hematuria (principal); N39.46 Mixed incontinence; R35.8 Other polyuria; R33.9 Retention of urine, unspecified | CPT/HCPCS: 81003 ==

== ENCOUNTER → 2020-09-08 10:30 | Outpatient (BNVA) | payer MEDICARE, SELFPAY | PROVIDERS: PCP Family Medicine; Referring Provider Family Medicine; Visit Provider Specialist | DX: G56.00 Carpal tunnel syndrome, unspecified upper limb (principal); Z46.89 Encounter for fitting and adjustment of other specified devices; G56.01 Carpal tunnel syndrome, right upper limb | CPT/HCPCS: 73110; 97760; L3908 ==

== ENCOUNTER 2020-09-08 14:10 | Outpatient (CLI) | payer MEDICARE, SELFPAY | END 2020-09-08 14:11 | disposition home or self-care (01) | LOC: SPT 14:10 | PROVIDERS: PCP Family Medicine; Visit Provider Specialist | DX: Z46.89 Encounter for fitting and adjustment of other specified devices (principal); G56.01 Carpal tunnel syndrome, right upper limb | CPT/HCPCS: 97760; L3908 ==

== ENCOUNTER → 2020-09-28 10:22 | Outpatient (BNVA) | payer MEDICARE, SELFPAY | PROVIDERS: PCP Family Medicine; Visit Provider Specialist | DX: Z20.828 Contact with and (suspected) exposure to other viral communicable diseases (principal); G56.01 Carpal tunnel syndrome, right upper limb | CPT/HCPCS: 87635 ==

== ENCOUNTER 2020-10-03 05:47 | Day surgery (SDC) | payer MEDICARE, SELFPAY ==
[2020-10-02 14:04] VITALS: BMI 29.5
[2020-10-03 06:08] VITALS: BP 133/84; PULSE 63; RESP 18; O2SAT 99
[2020-10-03] MEDS: CELEcoxib 200 mg Capsule 400 MG PO (06:30)
[2020-10-03] MEDS: sodium chloride 0.9% 1,000 ML 30 ML IV (06:30)
[2020-10-03] MEDS: vancomycin 1,000 MG in sodium chloride 0.9% 250 ML 167 MG IV (06:31)
--- NOTE | 2020-10-03 06:34 | ANES.PREANE2 ---
Pre-Anesthetic Assessment Pre-Anesthetic Assessment: Height/Weight: Height 1.55 m Weight 70.76 kg Pulse Resp BP Pulse Ox 63 18 133/84 99 10/03/20 06:08 10/03/20 06:08 10/03/20 06:08 10/03/20 06:08 Preop Diagnosis: Right carpal tunnel syndrome Proposed Procedure: Operation Date: 10/03/20 07:00 Proposed Procedures p right Carpal Tunnel Release 92213 g56.00(Right) - Eliana Ramirez MD Familial anesthetic complications: nONE Was Beta Jai taken within 24 hours: Yes Last intake: Intake Last Liquid Date 10/02/20 Last Liquid Time 17:00 Last Solid Date 10/02/20 Last Solid Time 17:00 Social: Social History: No alcohol and No tobacco Exam: Pre-Anes Outpt Exam: alert, oriented x 3, clear to auscultation bilaterally and regular rate & rhythm Airway: Cervical ROM: WNL Dentition: Full Pulmonary: Pulmonary: None reported CV/HEM: CV/HEM: HTN Comments: atypica chest pain - cardiac eval neagtive GI: GI: GERD Metabolic: Metabolic: Hyperlipidemia Neuropsych: Neuropsych: Neuropathy Anesthetic Plan: ASA status: 2 Anesthesia: MAC and Regional (specify below) (luz block) Risk of > 500 ml blood loss (7ml/kg in children): No Meds/Allergies Current Medications: Current Medications Generic Name Dose Route Start Last Admin Trade Name Freq PRN Reason Stop Dose Admin Vancomycin HCl 1,0 00 mg/ 250 mls @ 250 mls /hr 10/03/20 06:00 10/03/20 06:31 Sodium Chloride IV 10/03/20 06:59 167 mls/hr ONCE ONE Administration Protocol Sodium Chloride 1,000 mls @ 30 ml s/hr 10/03/20 06:15 10/03/20 06:30 Sodium Chloride 0.9% IV 10/04/20 06:14 30 mls/hr .Q24H OSORIO Administration PFSH Anesthesia PFSH: Medical History Bacteriuria Bunion, left Cystitis cystica Degenerative arthritis Fibromyalgia Greater trochanteric bursitis of right hip History of recurrent UTI (urinary tract infection) Mixed stress and urge urinary incontinence Primary osteoarthritis of right hip Right hip pain Surgical History H/O bariatric surgery with sleeve History of carpal tunnel release of both wrists Hx of elbow surgery Hx of foot surgery Family History Father , at age 83 CAD (coronary artery disease) Hyperlipidemia Hypertension Mother , at age 76 Hyperlipidemia Hypertension Sister Cancer Hyperlipidemia Hypertension Brother Cancer Hyperlipidemia Hypertension Denies family history of Diabetes Clotting disorder Dementia Psychiatric illness Chronic kidney disease (CKD) Suicide Anesthesia complication Bleeding disorder Family history of premature coronary artery disease Lung disease Stroke Social History Smoking and tobacco status: current every day smoker e-cigarettes E-Cigarette Details: e-cigarette E-cig/vape details: CBD VAPE Quit status (tobacco): has quit using tobacco Year quit tobacco: over 20 years ago Second hand smoke exposure: No Alcohol intake: current Alcohol intake frequency: holidays/special occasions only Caregiver/support person: Yes Lives independently: Yes Household members: spouse Marital status: Current occupational status: retired History of recent travel: No Current gender identity: Female Special jay needs: No Data Anesthesia Cardiac Studies: No Data to Display
--- NOTE | 2020-10-03 06:54 | W.PM.OPSUD ---
Surgery/Procedure H&P Update DATE OF PROCEDURE: October 03, 2020 DATE H&P PERFORMED: 09/08/20 H&P UPDATE INFORMATION: I have reviewed H&P completed within last 30 days, I have examined patient prior to procedure, No changes to prior documentation and H&P is in [facility] EMR on date indicated PREOP DIAGNOSIS: Right carpal tunnel syndrome PLANNED PROCEDURE: Operation Date: 10/03/20 07:00 Proposed Procedures p right Carpal Tunnel Release [id number] g56.00(Right) - Eliana Ramirez MD Related Problem List Diagnoses (1) Carpal tunnel syndrome of right wrist:
[2020-10-03] MEDS: midazolam 1 mg/mL INJ 2 mL 2 MG IVP (06:57)
[2020-10-03 07:12] LABS: Basophils # 0.1 10^3/uL (0.0-0.1); Basophils % 0.8 %; Eosinophils # 0.2 10^3/uL (0.0-0.8); Eosinophils % 1.9 %; Hematocrit 42.6 % (37.0-47.0); Lymphocytes % 23.4 %; Mean Corpuscular HGB Conc 32.9 g/dL (30.0-36.0); Mean Corpuscular Hemoglobin 29.4 pg (28.0-34.0); Mean Corpuscular Volume 89.3 fL (81-99); Mean Platelet Volume 9.8 fL (7.4-10.4); Monocytes # 0.6 10^3/uL (0.2-0.9); Neutrophils % 66.3 %; Nucleated Red Blood Cells % 0 %; Platelet Count 245 10^3/cmm (130-400); Red Blood Count 4.77 10^6/uL (4.1-5.3); Red Cell Distribution Width 13.4 % (12.1-15.1); White Blood Count 8.6 10^3/uL (4.0-10.0)
[2020-10-03 07:19] LABS: Anion Gap 14.6 (5-19); Blood Urea Nitrogen 14 mg/dL (8-23); Calcium 9.1 mg/dL (8.5-10.5); Carbon Dioxide 27 mmol/L (22-29); Chloride 104 mmol/L (98-107); Creatinine Clr Calc Pharmacy 56.6176; Glucose 102 mg/dL (65-115); Osmolality Calculated 295 mOsm/kg (285-295); Potassium 3.6 mmol/L (3.5-5.1); Sodium 142 mmol/L (136-145)
[2020-10-03 08:08] VITALS: BP 133/84; PULSE 57; RESP 16; TEMP 36.1; O2SAT 99
[2020-10-03 08:28] VITALS: BP 161/69; PULSE 56; RESP 18; O2SAT 99
--- NOTE | 2020-10-03 08:38 | P.OP_ITS ---
Operative Report Date of procedure: October 03, 2020 Pre-op Diagnosis: Right carpal tunnel syndrome Post-op diagnosis: same Procedure Done: Right carpal tunnel release Implants: None Pathology: none sent Surgeon: Eliana Ramirez Labor Mediator: [facility] OR technicians Anesthesia: MAC (With Kiya block) Estimated blood loss (mL): 2 Tourniquet time (min): 45 Tourniquet time: At 250 mmHg IV fluids (mL): 200 Urine output (mL): 0 Urine output: No Eason Complications: None Findings: Severe compression across the carpal canal with dense fibrous tissue over the median nerve. Condition: stable Disposition: same day (Then home) Brief History: This 70-year-old woman presented with complaints of severe carpal tunnel symptoms. She was unresponsive to conservative measures, and she did wish to proceed with surgical intervention. Risks and complications were discussed with her. The surgical procedure was scheduled and questions were answered. Consents were signed. Procedure: The patient was brought to the operating theater. The patient had a [place] block with MAC. The tourniquet was elevated to 250 mmHg for a total tourniquet time of 45 minutes. The patient was also given vancomycin 1 g preoperatively. The arm was then prepped and draped with DuraPrep in usual fashion with the arm draped free. A surgical pause was performed. At the time, the surgical pause, we confirmed the site and side of surgery. We also confirmed the patient's identity, appropriate and timely administration of preoperative antibiotics and preoperative surgical markings. An incision was then made along the thenar crease. The incision crossed the wrist joint in a curvilinear fashion. Dissection continued through skin and soft tissues using a scalpel. The palmaris longus was identified along with the transverse carpal ligament. Each of these was released carefully to avoid injury to the median nerve. We were able to dissect gently into the carpal canal which was noted to be quite tight with significant compression across the median nerve. The nerve was visualized and was an hourglass shape. The canal was subsequently palpated to assure there was no bony encroachment upon the canal. There was a quite thickened fibrous tissue within the canal which was adherent to the nerve, and this was opened longitudinally as well. The canal was then palpated distally and proximally to assure that my small finger was passed easily without impingement. Finding this to be so, attention was directed to closure. The wound was irrigated with ropivacaine plain. It was then closed with 3-0 nylon in an interrupted mattress fashion. Sterile dressing was then placed consisting of Xeroform gauze, fluffed fluffs, sterile soft roll, a volar splint, and an Jomar wrap. The tourniquet was released after 45 minutes. There were no complications. There were no specimens. The procedure was well tolerated. Plan is the patient will be discharged home. Associated Problem List Diagnoses (1) Carpal tunnel syndrome of right wrist:
--- NOTE | 2020-10-03 16:26 | ANE.PACU2 ---
Inpatient post-anesthesia follow up: Airway intact: Yes Vital signs: Temperature 97.0 F Pulse Rate 56 Respiratory Rate 18 Blood Pressure 161/69 Pulse Oximetry 99 Oxygen Delivery Me thod Room Air Oxygen Flow Rate Fraction of Inspir ed Oxygen Hydration adequate: Yes Nausea and vomiting: No Pain level: 2 Mental status: Baseline
== END 2020-10-03 08:50 | disposition home or self-care (01) ==
PROVIDERS: PCP Family Medicine; Visit Provider Specialist
PROC: (CPT 64721; principal; 2020-10-03 07:00)
DX: G56.01 Carpal tunnel syndrome, right upper limb (principal); I10 Essential (primary) hypertension; K21.9 Gastro-esophageal reflux disease without esophagitis; E78.5 Hyperlipidemia, unspecified; M79.7 Fibromyalgia
CPT/HCPCS: 64721; 12345; 36415; 80048; 85025; 96365; 96374; J0131; J2250; J2704; J3370; J3490; J7030; J7050

== ENCOUNTER 2020-10-20 14:45 | Outpatient (CLI) | payer MEDICARE, SELFPAY | END 2020-10-20 14:46 | disposition home or self-care (01) | LOC: SPT 14:45 | PROVIDERS: PCP Family Medicine; Visit Provider Specialist | DX: Z46.89 Encounter for fitting and adjustment of other specified devices (principal); G56.02 Carpal tunnel syndrome, left upper limb | CPT/HCPCS: 97760; L3908 ==

== ENCOUNTER → 2020-10-30 08:20 | Outpatient (BNVA) | payer MEDICARE, SELFPAY | PROVIDERS: PCP Family Medicine; Visit Provider Urology | DX: N30.80 Other cystitis without hematuria (principal); N39.46 Mixed incontinence | CPT/HCPCS: 81003 ==

== ENCOUNTER → 2020-11-04 09:49 | Outpatient (BNVA) | payer MEDICARE, SELFPAY | PROVIDERS: PCP Family Medicine; Visit Provider Specialist | DX: Z01.812 Encounter for preprocedural laboratory examination (principal); G56.02 Carpal tunnel syndrome, left upper limb | CPT/HCPCS: 87635 ==

== ENCOUNTER 2020-11-07 05:53 | Day surgery (SDC) | payer MEDICARE, SELFPAY ==
[2020-11-07 06:09] VITALS: BP 155/73; PULSE 60; RESP 18; TEMP 36.2; O2SAT 98
[2020-11-07] MEDS: sodium chloride 0.9% 1,000 ML 30 ML IV (06:35)
[2020-11-07] MEDS: CELEcoxib 200 mg Capsule 400 MG PO (06:44)
--- NOTE | 2020-11-07 06:56 | P.HPUD_ITS ---
Surgery/Procedure H&P Update DATE OF PROCEDURE: November 07, 2020 DATE H&P PERFORMED: 10/20/20 H&P UPDATE INFORMATION: I have reviewed H&P completed within last 30 days, I have examined patient prior to procedure, No changes to prior documentation and H&[place] is in [facility] [place] on date indicated PREOP DIAGNOSIS: Left carpal tunnel PLANNED PROCEDURE: Operation Date: 11/07/20 07:00 Proposed Procedures p Carpal Tunnel Release [id number] G56.00(Left) - Eliana Ramirez MD Related Problem List Diagnoses (1) Carpal tunnel syndrome of left wrist:
[2020-11-07] MEDS: midazolam 1 mg/mL INJ 2 mL 2 MG IVP (06:59)
[2020-11-07] MEDS: clindamycin 600 MG/50 ML PREMIX 100 MG IV (07:03)
--- NOTE | 2020-11-07 07:14 | ANES.PREANE2 ---
Pre-Anesthetic Assessment Pre-Anesthetic Assessment: Height/Weight: Height 1.55 m Weight 71.668 kg Temp Pulse Resp BP Pulse Ox 97.1 F L 60 18 155/73 98 11/07/20 06:09 11/07/20 06:09 11/07/20 06:09 11/07/20 06:09 11/07/20 06:09 Preop Diagnosis: Left carpal tunnel Proposed Procedure: Operation Date: 11/07/20 07:00 Proposed Procedures p Carpal Tunnel Release [id number] G56.00(Left) - Eliana Ramirez MD Was Beta Jai taken within 24 hours: Yes Last intake: Intake Last Liquid Date 11/06/20 Last Liquid Time 18:00 Last Solid Date 11/06/20 Last Solid Time 18:00 Social: Social History: No alcohol and No tobacco Exam: Pre-Anes Outpt Exam: alert, oriented x 3, clear to auscultation bilaterally and regular rate & rhythm Airway: Submandibular: WNL Cervical ROM: WNL MP: 2 Dentition: Full CV/HEM: CV/HEM: HTN Anesthetic Plan: ASA status: 2 Anesthesia: MAC and Regional (specify below) (Kiya ruff) Risk of > 500 ml blood loss (7ml/kg in children): No Meds/Allergies Current Medications: Current Medications Generic Name Dose Route Start Last Admin Trade Name Freq PRN Reason Stop Dose Admin Sodium Chloride 1,000 mls @ 30 ml s/hr 11/07/20 06:15 11/07/20 06:35 Sodium Chloride 0.9% IV 11/08/20 06:14 30 mls/hr .Q24H OSORIO Administration Midazolam HCl 2 mg 11/07/20 06:01 11/07/20 06:59 Midazolam 1 Mg/M l Inj 2 Ml IVP 2 mg Q5M PRN Administration Preop Anxiety PFSH Anesthesia PFSH: Medical History Bacteriuria Bunion, left Cystitis cystica Degenerative arthritis Fibromyalgia Greater trochanteric bursitis of right hip History of recurrent UTI (urinary tract infection) Mixed stress and urge urinary incontinence Primary osteoarthritis of right hip Right hip pain Surgical History H/O bariatric surgery with sleeve History of appendectomy History of carpal tunnel release of both wrists History of cholecystectomy History of hysterectomy History of tonsillectomy Hx of elbow surgery Hx of foot surgery Family History Father , at age 83 CAD (coronary artery disease) Hyperlipidemia Hypertension Mother , at age 76 Hyperlipidemia Hypertension Sister Cancer Hyperlipidemia Hypertension Brother Cancer Hyperlipidemia Hypertension Denies family history of Diabetes Clotting disorder Dementia Psychiatric illness Chronic kidney disease (CKD) Suicide Anesthesia complication Bleeding disorder Family history of premature coronary artery disease Lung disease Stroke Social History Smoking and tobacco status: former smoker Quit status (tobacco): has quit using tobacco Year quit tobacco: over 20 years ago Second hand smoke exposure: No Alcohol intake: current Alcohol intake frequency: holidays/special occasions only Caregiver/support person: Yes Lives independently: Yes Household members: spouse Marital status: Current occupational status: retired History of recent travel: No Current gender identity: Female Special jay needs: No Data Anesthesia Cardiac Studies: No Data to Display
--- NOTE | 2020-11-07 07:55 | PM.OP ---
Operative Report Date of procedure: November 07, 2020 Pre-op Diagnosis: Left carpal tunnel Post-op diagnosis: same Procedure Done: Left carpal tunnel release Specimens removed/disposition: None Pathology: none sent Surgeon: Eliana Ramirez Supervisor Metal Cans: topher Hdez OR technicians Anesthesia: MAC (With [place] block) Estimated blood loss (mL): 5 Tourniquet time (min): 32 Tourniquet time: 250 mmHg IV fluids (mL): 400 Urine output (mL): 0 Urine output: No Eason Complications: None Findings: Compression across the carpal canal with dense fibrous tissue overlying the median nerve Condition: stable Disposition: same day (Then Home) Brief History: This 70-year-old woman presented with complaints of severe carpal tunnel symptoms. She had a right carpal tunnel release on October 03 of this year, and today, she presents for left carpal tunnel release. She was unresponsive to conservative measures, and she did wish to proceed with surgical intervention. Risks and complications were discussed with her. The surgical procedure was scheduled and questions were answered. Consents were signed. Procedure: The patient was brought to the operating theater. The patient had a [place] block with MAC. The tourniquet was elevated to 250 mmHg for a total tourniquet time of 32 minutes. The patient was also given clindamycin 600 mg preoperatively. The arm was then prepped and draped with DuraPrep in usual fashion with the arm draped free. A surgical pause was performed. At the time, the surgical pause, we confirmed the site and side of surgery. We also confirmed the patient's identity, appropriate and timely administration of preoperative antibiotics and preoperative surgical markings. An incision was then made along the thenar crease. The incision crossed the wrist joint in a curvilinear fashion. Dissection continued through skin and soft tissues using a scalpel. The palmaris longus was identified along with the transverse carpal ligament. Each of these was released carefully to avoid injury to the median nerve. We were able to dissect gently into the carpal canal which was noted to be quite tight with significant compression across the median nerve. The nerve was visualized and was an hourglass shape. The canal was subsequently palpated to assure there was no bony encroachment upon the canal. There was a quite thickened fibrous tissue within the canal which was adherent to the nerve, and this was opened longitudinally as well. The canal was then palpated distally and proximally to assure that my small finger was passed easily without impingement. Finding this to be so, attention was directed to closure. The wound was irrigated with ropivacaine plain. It was then closed with 3-0 nylon in an interrupted mattress fashion. Sterile dressing was then placed consisting of Xeroform gauze, fluffed fluffs, sterile soft roll, a volar splint, and an Jomar wrap. The tourniquet was released after 32 minutes. There were no complications. There were no specimens. The procedure was well tolerated. Plan is the patient will be discharged home. Associated Problem List Diagnoses (1) Carpal tunnel syndrome of left wrist:
[2020-11-07 07:58] VITALS: BP 116/64; PULSE 54; RESP 18; TEMP 36.8; O2SAT 94
[2020-11-07 08:30] VITALS: BP 157/78; PULSE 51; RESP 18; O2SAT 97
--- NOTE | 2020-11-07 10:04 | ANE.PACU2 ---
Inpatient post-anesthesia follow up: Airway intact: Yes Vital signs: Temperature 98.3 F Pulse Rate 51 Respiratory Rate 18 Blood Pressure 157/78 Pulse Oximetry 97 Oxygen Delivery Me thod Room Air Oxygen Flow Rate Fraction of Inspir ed Oxygen Hydration adequate: Yes Nausea and vomiting: No Pain level: 1 Mental status: Baseline
== END 2020-11-07 08:46 | disposition home or self-care (01) ==
PROVIDERS: PCP Family Medicine; Visit Provider Specialist
PROC: (CPT 64721; principal; 2020-11-07 07:00)
DX: G56.02 Carpal tunnel syndrome, left upper limb (principal); I10 Essential (primary) hypertension; M79.7 Fibromyalgia; F17.290 Nicotine dependence, other tobacco product, uncomplicated
CPT/HCPCS: 64721; 96365; J0131; J2250; J2704; J3010; J3490; J7030

== ENCOUNTER → 2020-11-24 07:47 | Outpatient (BNVA) | payer MEDICARE, SELFPAY | PROVIDERS: PCP Family Medicine; Visit Provider Urology | DX: N30.80 Other cystitis without hematuria (principal); N39.46 Mixed incontinence | CPT/HCPCS: 81003 ==

== ENCOUNTER → 2020-11-26 08:01 | Outpatient (BNVA) | payer MEDICARE, SELFPAY | PROVIDERS: PCP Family Medicine; Visit Provider Specialist | DX: M18.10 Unilateral primary osteoarthritis of first carpometacarpal joint, unspecified hand (principal); Z46.89 Encounter for fitting and adjustment of other specified devices; G56.02 Carpal tunnel syndrome, left upper limb | CPT/HCPCS: 73130; 97760; L3807 ==

== ENCOUNTER 2020-11-26 12:05 | Outpatient (CLI) | payer MEDICARE, SELFPAY | END 2020-11-26 12:06 | disposition home or self-care (01) | LOC: SPT 12:05 | PROVIDERS: PCP Family Medicine; Visit Provider Specialist | DX: Z46.89 Encounter for fitting and adjustment of other specified devices (principal); G56.02 Carpal tunnel syndrome, left upper limb | CPT/HCPCS: 97760; L3807 ==

== ENCOUNTER → 2020-12-15 09:13 | Outpatient (BNVA) | payer MEDICARE, SELFPAY | PROVIDERS: PCP Family Medicine; Visit Provider Podiatrist Foot & Ankle Surgery | DX: M21.629 Bunionette of unspecified foot (principal); M79.672 Pain in left foot; Z20.822 Contact with and (suspected) exposure to COVID-19 | CPT/HCPCS: 87635 ==

== ENCOUNTER 2020-12-19 05:53 | Day surgery (SDC) | payer MEDICARE, SELFPAY ==
[2020-12-18 14:13] VITALS: BMI 29.8
[2020-12-19] VITALS (7 sets, daily range): BP systolic 103–141; BP diastolic 43–64; PULSE 57–64; RESP 12–18; TEMP 36.1–36.5; O2SAT 93–99
--- NOTE | 2020-12-19 | SCC_ITS ---
Procedure Done: Tailor's bunionectomy left foot .01 seconds of fluoroscopic guidance, for a cumulative dose of 0.010 mGy, was provided to Dr. Ramos by the radiology department. C-arm images of the foot were saved for the patient's permanent record. [facility]
--- NOTE | 2020-12-19 06:33 | ANES.PREANE2 ---
Pre-Anesthetic Assessment Pre-Anesthetic Assessment: Height/Weight: Height 1.55 m Weight 71.668 kg Temp Pulse Resp BP Pulse Ox 97.7 F 64 18 141/64 98 12/19/20 06:07 12/19/20 06:07 12/19/20 06:07 12/19/20 06:07 12/19/20 06:07 Preop Diagnosis: Left index finger triggering Proposed Procedure: Operation Date: 12/19/20 07:00 Proposed Procedures p Bunionectomy Tailors Left Foot 46780 M21.629(Left) - Isai Ramos DPM s Left Index Trigger Finger Release 12155 M65.322(Left) - Eliana Ramirez MD Familial anesthetic complications: None Was Beta Jai taken within 24 hours: Yes Was Clonidine taken within 24 hours: N/A Last intake: > 8 hrs Social: Social History: No alcohol and No tobacco Exam: Pre-Anes Outpt Exam: alert, oriented x 3, clear to auscultation bilaterally and regular rate & rhythm Airway: Cervical ROM: WNL MP: 3 Dentition: Full CV/HEM: CV/HEM: HTN Metabolic: Metabolic: Hyperlipidemia Neuropsych: Neuropsych: Neuropathy Anesthetic Plan: ASA status: 2 Anesthesia: MAC and Regional (specify below) ([place] block) Risk of > 500 ml blood loss (7ml/kg in children): No PFSH Anesthesia PFSH: Medical History Bacteriuria Bunion, left Cystitis cystica Degenerative arthritis Fibromyalgia Greater trochanteric bursitis of right hip History of recurrent UTI (urinary tract infection) Mixed stress and urge urinary incontinence Primary osteoarthritis of right hip Right hip pain Surgical History H/O bariatric surgery with sleeve History of appendectomy History of carpal tunnel release of both wrists History of cholecystectomy History of hysterectomy History of tonsillectomy Hx of elbow surgery Hx of foot surgery Family History Father , at age 83 CAD (coronary artery disease) Hyperlipidemia Hypertension Mother , at age 76 Hyperlipidemia Hypertension Sister Cancer Hyperlipidemia Hypertension Brother Cancer Hyperlipidemia Hypertension Denies family history of Diabetes Clotting disorder Dementia Psychiatric illness Chronic kidney disease (CKD) Suicide Anesthesia complication Bleeding disorder Family history of premature coronary artery disease Lung disease Stroke Social History Smoking and tobacco status: former smoker Quit status (tobacco): has quit using tobacco Year quit tobacco: over 20 years ago Second hand smoke exposure: No Alcohol intake: current Alcohol intake frequency: holidays/special occasions only Caregiver/support person: Yes Lives independently: Yes Household members: spouse Marital status: Current occupational status: retired History of recent travel: No Current gender identity: Female Special jay needs: No Data Anesthesia Cardiac Studies: No Data to Display
[2020-12-19] MEDS: CELEcoxib 200 mg Capsule 400 MG PO (06:40)
[2020-12-19] MEDS: acetaminophen 1,000 MG/100 ML PIGGYBACK 400 MG IV (06:42)
[2020-12-19] MEDS: sodium chloride 0.9% 1,000 ML 30 ML IV (06:42)
--- NOTE | 2020-12-19 06:48 | P.HPUD_ITS ---
Surgery/Procedure H&P Update DATE OF PROCEDURE: December 19, 2020 DATE H&P PERFORMED: 12/02/20 H&P UPDATE INFORMATION: I have reviewed H&P completed within last 30 days, I have examined patient prior to procedure, No changes to prior documentation and H&P is in [facility] [place] EMR on date indicated PREOP DIAGNOSIS: Tailor's bunion left foot PLANNED PROCEDURE: Operation Date: 12/19/20 07:00 Proposed Procedures p Bunionectomy Tailors Left Foot 94746 M21.629(Left) - Isia Ramos DPM s Left Index Trigger Finger Release 77147 M65.322(Left) - Eliana Ramirez MD
--- NOTE | 2020-12-19 06:50 | W.PM.OPSUD ---
Surgery/Procedure H&P Update DATE OF PROCEDURE: December 19, 2020 DATE H&P PERFORMED: 12/02/20 (Office visit. H&P per Dr. Ramos) H&P UPDATE INFORMATION: I have examined patient prior to procedure and No changes to prior documentation PREOP DIAGNOSIS: Left index finger triggering PLANNED PROCEDURE: Operation Date: 12/19/20 07:00 Proposed Procedures p Bunionectomy Tailors Left Foot 38466 M21.629(Left) - Isai Ramos DPM s Left Index Trigger Finger Release 34817 M65.322(Left) - Eliana Ramirez MD Related Problem List Diagnoses (1) Trigger index finger of left hand:
[2020-12-19] MEDS: clindamycin 600 MG/50 ML PREMIX 30 MG IV (07:00)
[2020-12-19] MEDS: midazolam 1 mg/mL INJ 2 mL 2 MG IVP (07:00)
[2020-12-19] MEDS: lidocaine 1% INJ 20 mL SUBCUT (07:35)
--- NOTE | 2020-12-19 07:48 | P.OP_ITS ---
Operative Report Date of procedure: December 19, 2020 Pre-op Diagnosis: Left index finger triggering Post-op diagnosis: same Post-op Findings: Thickened A1 Reema with Triggering Procedure Done: Left index trigger finger release Implants: None Pathology: none sent Surgeon: Eliana Ramirez Debt Management Counselor: None Anesthesia: General (LMA, ASA 2) Estimated blood loss (mL): 5 Tourniquet time (min): 15 Tourniquet time: At 250 mmHg IV fluids (mL): 400 Urine output (mL): 0 Urine output: At 250 mmHg Findings: Triggering left index finger Condition: stable Disposition: PACU (Then to same-day surgery discharge home) Brief History: This 70-year-old woman is well-known to [facility], and she presents today for treatment of her left index finger triggering. The patient has recently had carpal tunnel release from which she is recovered nicely. Today, she presents for treatment of her left trigger finger with me as well as her left small toe with Dr. Ramos. Risks and complications were discussed with the patient beforehand. She understands and wishes to proceed. Procedure: Patient was brought to the operating theater. She was placed on the operating room table. As the patient was having left hand and left foot surgery simultaneously, she was administered a general anesthesia per LMA. Her ASA is 2. Patient tolerated it well. Clindamycin 600 mg IV was administered preoperatively. A tourniquet was placed high on the arm and was elevated foll owing exsanguination of the arm. Tourniquet time was 15 minutes. Surgical pause was performed prior to commencement of the surgical procedure. At the time of the surgical pause, we identified the site and side of surgery. We also identified the patient's identity and appropriate administration of IV antibiotics. Following the surgical pause, an incision was made along the distal palmar crease beneath the index fingers. Dissection continued through the skin to the subcutaneous tissues using a scalpel. Blunt dissection was then utilized to spread soft tissues and allow access to the A1 reema. A1 reema was then incised longitudinally and sharply using a knife. This was accomplished without difficulty and atraumatically. Once the A1 reema was released, tendons were brought up out of the wound and evaluated. There were no gross masses on the tendons. Tendons were returned to normal position. We then irrigated the wound and subsequently closed it with 4-0 nylon with an interrupted mattress type suture. Following closure of the wound, the wound was injected with 2 mils of bupivacaine following irrigation up with bupivacaine into the subcutaneous tissues as a local anesthetic. Sterile dressing was then placed consisting of OpSite, fluffed fluffs, sterile soft roll, and an Jomar wrap. The patient was returned to recovery in satisfactory condition. She will be discharged home to follow-up with me in the office. There were no complications and no specimens. Associated Problem List Diagnoses (1) Trigger index finger of left hand:
--- NOTE | 2020-12-19 08:02 | P.PCN_ITS ---
PACU note PACU note: VSS, Good respiratory effort, report to TECHNICAL TRAINING INSTRUCTOR Post-Anesthesia Exam: awake
--- NOTE | 2020-12-19 08:02 | PM.PACU ---
PACU note PACU note: VSS, Good respiratory effort, report to VOLCANOLOGIST Post-Anesthesia Exam: awake
--- NOTE | 2020-12-19 08:04 | P.OP_ITS ---
Operative Report Date of procedure: December 19, 2020 Pre-op Diagnosis: Tailor's bunion left foot Post-op diagnosis: same Post-op Findings: Tailor's bunion left foot Procedure Done: Tailor's bunionectomy left foot Implants: Right medical prostep intramedullary implant with 2.4 mm locking screw Specimens removed/disposition: None Pathology: none sent Surgeon: Isai Ramos D.P.M. Rotary Cutter Feeder: Marybel Anesthesia: General Estimated blood loss: Less than 5 mL Tourniquet time: 24 minutes IV fluids: None Urine output: None Complications: None Findings: Tailor's bunion left foot Condition: stable Disposition: PACU Brief History: Patient is a pleasant 70-year-old female has had a reoccurrence of tailor's bunion she has a history of exostectomy however osseous prominence has recurred she has pain with everyday activities is unable to wear shoes, she has made efforts to open wide and accommodate this with wider shoes without success, typically wear sandals but during the colder months this is difficult. She describes the nature of the pain is sharp. Would like to proceed with bunionette. Risks include pain, bleeding, numbness, infection, hardware failur e, hardware irritation, delayed union, nonunion, malunion, failure to alleviate pain, transfer pressure and transfer lesion, loss of function, chronic swelling, surgical site dehiscence, infection and need for further surgical intervention. No guarantees written, expressed or implied. Patient interviewed preoperatively all questions answered to her satisfaction and informed consent is signed I i nitialed her left foot patient wishes to proceed, has been n.p.o. since midnight. Procedure: Under mild sedation the patient was brought to the operating room and placed on the operating table in supine position. A timeout was performed. Anesthesia was then administered by the anesthesia service. Local anesthesia injected by myself consisting of 15 cc of one-to-one mixture 1% lidocaine and 0.5% Marcaine plain and a left reverse [place] block fashion. Well-padded pneumatic tourniquet was applied to the left ankle. Left lower extremity was then scrubbed, prepped and draped utilizing normal aseptic technique. Left foot was examined a weighted with an Esmarch bandage and the tourniquet was inflated to 250 mmHg. Attention was directed to the dorsal lateral aspect of the left fifth metatarsophalangeal joint where a linear longitudinal incision was made directly over the previous cicatrix. This was made with a #15 blade and dissection gary ed down through subcutaneous tissue down the layer of periosteum and capsule utilizing blunt and sharp technique. All bleeders were ligated and cauterized as necessary. Linear capsulotomy was performed followed by a transverse osteotomy at the metaphyseal flare of the fifth metatarsal, the head of the fifth metatarsal was translated laterally temporally held and fixated with a K wire followed by insertion of [facility] minimally invasive surgery bunionette implant set size was small. Excellent bony apposition and compression noted with 2.4 mm locking screw. Temporary fixation was removed and there was excellent range of motion at the fifth metatarsal phalangeal joint without crepitus or limitation. Incision site was flushed with saline solution. Closure was performed with 4-0 nylon in a horizontal mattress technique. Tourniquet was deflated and a prompt hyperemic response was noted to the distal digits of the left foot. Area was dressed with Adaptic, sterile 4 x 4, Kerlix a nd Jomar wrap followed by application of a postop shoe. Patient tolerated the procedure well and was transferred to the PACU with vital signs stable and vascular status intact. Following a period of postoperative monitoring she will be discharged home may be weightbearing as tolerated is to rest elevate her left foot.
--- NOTE | 2020-12-19 13:38 | ANE.PACU2 ---
Inpatient post-anesthesia follow up: Airway intact: Yes Vital signs: Temperature 97.7 F Pulse Rate 57 Respiratory Rate 16 Blood Pressure 111/60 Pulse Oximetry 99 Oxygen Delivery Me thod Room Air Oxygen Flow Rate Fraction of Inspir ed Oxygen Hydration adequate: Yes Nausea and vomiting: No Pain level: 2 Mental status: Baseline
== END 2020-12-19 09:00 | disposition home or self-care (01) ==
PROVIDERS: Specialist; PCP Family Medicine; Visit Provider Podiatrist Foot & Ankle Surgery
PROC: 0QBP0ZZ Excision of Left Metatarsal, Open Approach (ICD-10-PCS; CPT 28110; principal; 2020-12-19 07:00)
PROC: (CPT 26055; 2020-12-19 07:00)
DX: M21.612 Bunion of left foot (principal); M65.322 Trigger finger, left index finger; I10 Essential (primary) hypertension; E78.5 Hyperlipidemia, unspecified; M79.7 Fibromyalgia; Z82.49 Family history of ischemic heart disease and other diseases of the circulatory system; Z87.891 Personal history of nicotine dependence
CPT/HCPCS: 26055; 28308; 76000; 96365; 96374; C1713; J2250; J2704; J3010; J3490; J7030

== ENCOUNTER → 2021-01-02 14:05 | Outpatient (BNVA) | payer MEDICARE, SELFPAY | PROVIDERS: PCP Family Medicine; Visit Provider Podiatrist Foot & Ankle Surgery | DX: Z48.89 Encounter for other specified surgical aftercare (principal) | CPT/HCPCS: 73630 ==

== ENCOUNTER → 2021-01-12 09:18 | Outpatient (BNVA) | payer MEDICARE, SELFPAY | PROVIDERS: PCP Family Medicine; Visit Provider Specialist | DX: Z96.651 Presence of right artificial knee joint (principal); Z47.1 Aftercare following joint replacement surgery | CPT/HCPCS: 73560; 73565 ==

== ENCOUNTER → 2021-01-16 15:26 | Outpatient (BNVA) | payer MEDICARE, SELFPAY | PROVIDERS: PCP Family Medicine; Visit Provider Podiatrist Foot & Ankle Surgery | DX: M79.672 Pain in left foot (principal); Z48.89 Encounter for other specified surgical aftercare | CPT/HCPCS: 73630 ==

== ENCOUNTER 2021-01-26 08:01 | Emergency (ER) | payer MEDICARE, SELFPAY ==
[2021-01-26 08:02] VITALS: BP 157/77; PULSE 71; RESP 18; TEMP 36.4; O2SAT 100; BMI 28.9
[2021-01-26 08:09] VITALS: BP 157/77; PULSE 66; O2SAT 96
--- NOTE | 2021-01-26 08:30 | ED_ITS ---
HPI - Abdominal Pain General: Chief Complaint: Abdominal Pain Stated Complaint: AB/BACK PAIN Time Seen by Provider: 01/26/21 08:03 History of Present Illness: HPI narrative: 70-year-old female presents emergency room with complaints of abdominal pain she has had for the last couple of days. Initially just had loose stools then over the weekend specifically yesterday into the evening he had some bloody diarrhea also states she vomited some coffee-ground like emesis. She not had any chest pain. She denies any fever. She has had multiple previous abdominal surgeries. Complaining of generalized abdominal pain today as well she denies dysuria urgency or frequency. She is not on any anticoagulants. MD elicited complaint: abdominal pain Onset (ago): day(s) Pain Consistency: intermittent Location: Diffuse Quality: cramping Migration to: no migration Exacerbating factors: eating Relieving factors: nothing Associated Symptoms: Reports anorexia, bloating, change in bowel habits, change in stool character, coffee ground emesis, GI cramping, diarrhea, hematochezia, nausea and poor appetite; Denies belching, chills, constipation, dyspepsia, dysuria, excessive flatus, fever(s), heartburn, hematuria, hematemesis, fecal incontinence, loose stools, melena, syncope and vomiting Review of Systems Const: Denies: fever(s) or chills ENMT: Denies: throat pain, ear or mastoid pain, nasal discharge or nasal congestion Card: Denies: syncope Resp: Denies: dyspnea, productive cough or non-productive cough GI: Reports: nausea, coffee ground emesis, diarrhea, bloating, GI cramping, change in bowel habits, change in stool character and hematochezia; Denies: vomiting, hematemesis, heartburn, constipation, belching, excessive flatus, fecal incontinence or melena : Denies: dysuria or hematuria Skin/Breast: Denies: rash or pruritus PFSH ED PFSH: Medical History Bacteriuria Bunion, left Cystitis cystica Degenerative arthritis Fibromyalgia Greater trochanteric bursitis of right hip History of recurrent UTI (urinary tract infection) Mixed stress and urge urinary incontinence Primary osteoarthritis of right hip Right hip pain Surgical History H/O bariatric surgery with sleeve History of appendectomy History of carpal tunnel release of both wrists History of cholecystectomy History of hysterectomy History of tonsillectomy Hx of elbow surgery Hx of foot surgery Family History Father , at age 83 CAD (coronary artery disease) Hyperlipidemia Hypertension Mother , at age 76 Hyperlipidemia Hypertension Sister Cancer Hyperlipidemia Hypertension Brother Cancer Hyperlipidemia Hypertension Denies family history of Diabetes Clotting disorder Dementia Psychiatric illness Chronic kidney disease (CKD) Suicide Anesthesia complication Bleeding disorder Family history of premature coronary artery disease Lung disease Stroke Social History Smoking and tobacco status: former smoker Quit status (tobacco): has quit using tobacco Year quit tobacco: over 20 years ago Second hand smoke exposure: No Alcohol intake: current Alcohol intake frequency: holidays/special occasions only Caregiver/support person: Yes Lives independently: Yes Household members: spouse Marital status: Current occupational status: retired History of recent travel: No Current gender identity: Female Special jay needs: No Physical Exam Const: COMMON NORMALS: no acute distress GENERAL APPEARANCE: cooperative and comfortable ORIENTATION/CONSCIOUSNESS: Yes awake, Yes oriented to person, Yes oriented to place and Yes oriented to time HENMT: COMMON NORMALS: normocephalic, atraumatic and hearing grossly normal bilaterally HEAD & SCALP: normocephalic and atraumatic Neck/C-Spine: COMMON NORMALS: no JVD Resp: COMMON NORMALS: normal respiratory effort, No retractions, No use of accessory muscles and clear to auscultation bilaterally AUSCULTATION: clear to auscultation bilaterally Cardio: COMMON NORMALS: no JVD, regular rate, regular rhythm and No murmurs present (Cardio) RATE: regular rate RHYTHM: regular rhythm GI: COMMON NORMALS: Soft to palpation and No hepatosplenomegaly present AUSCULTATION: Yes normoactive bowel sounds PALPATION: Yes Soft to palpation, No Tenderness to palpation present (GI), No Guarding due to palpation present (GI) and Yes No hepatosplenomegaly present Extremity: COMMON NORMALS: normal to inspection, capillary refill normal, no clubbing, cyanosis or edema, no calf tenderness and no pedal edema Neuro: SENSORIUM/ORIENTATION: Yes oriented to person, Yes oriented to place and Yes oriented to time Skin: COMMON NORMALS: no rashes or lesions noted GENERAL SKIN EXAM: no rashes or lesions noted Course Vital Signs: Vital signs: Vital Signs Temperature 97.5 F L 01/26/21 08:02 Pulse Rate 70 01/26/21 11:57 Respiratory Rate 20 H 01/26/21 11:03 Blood Pressure 143/59 01/26/21 11:57 Pulse Oximetry 97 01/26/21 11:57 MDM - Abdominal Pain MDM Narrative: Medical decision making narrative: CT shows colitis. Will start on Augmentin she is already been prescribed hydrocodone we will add Zofran clear liquid diet for the next 24 to 48 hours and will have her follow-up with her primary care doctor later on this week. She also some mild hypokalemia we will give her some oral potassium supplement Lab Data: Labs: Lab Results 01/26/21 01/26/21 01/26/21 Range/Units 08:41 08:42 08:42 WBC 12.2 H (4.0-10.0) 10^3/ uL RBC 4.90 (4.1-5.3) 10^6/u L Hgb 14.3 (11.5-15.3) g/dL Hct 42.7 (37.0-47.0) % MCV 87.1 (81-99) fL MCH 29.2 (28.0-34.0) pg MCHC 33.5 (30.0-36.0) g/dL RDW 12.8 (12.1-15.1) % Plt Count 238 (130-400) 10^3/c mm MPV 9.6 (7.4-10.4) fL Neut % (Auto) 81.8 % Lymph % (Auto) 11.5 % [place] % (Auto) 4.8 % Eos % (Auto) 1.0 % Baso % (Auto) 0.5 % Neut # (Auto) 9.95 H (1.8-7.7) 10^3/u L Lymph # (Auto) 1.4 (0.8-4.8) 10^3/u L [place] # (Auto) 0.6 (0.2-0.9) 10^3/u L Eos # (Auto) 0.1 (0.0-0.8) 10^3/u L Baso # (Auto) 0.1 (0.0-0.1) 10^3/u L Nucleated RBC % (a uto) 0 % Nucleated RBCs # 0.0 /100WBC PT (12.1-14.9) SECO NDS INR (0.8-1.2) APTT (23.9-36.7) SECO NDS Sodium 140 (136-145) mmol/L Potassium 3.3 L (3.5-5.1) mmol/L Chloride 102 (98-107) mmol/L Carbon Dioxide 25 (22-29) mmol/L Anion Gap 16.3 (5-19) BUN 14 (8-23) mg/dL Creatinine 0.6 (0.5-0.9) mg/dL GFR Calculation Not Reportable Glucose 104 (65-115) mg/dL Calculated Osmolal ity 291 (285-295) mOsm/k g Calcium 8.8 (8.5-10.5) mg/dL Total Bilirubin 1.0 (0.15-1.2) mg/dL AST 14 (0-32) U/L ALT 8 (0-33) U/L Alkaline Phosphata se 79 (35-105) IU/L Total Protein 7.0 (6.6-8.7) g/dL Albumin 3.8 (3.5-5.2) g/dL Globulin 3.2 (1.3-4.6) g/dL Lipase 29 (13-60) U/L Urine Color Dark yellow (Yellow) Urine Appearance Clear (CLEAR) Urine pH 5 (5-7) Ur Specific Gravit y 1.020 (1.005-1.030) Urine Protein Trace (Negative) Urine Glucose (UA) Norm (Normal) Urine Ketones 1+ H (Negative) Urine Blood Neg (Negative) Urine Nitrate Negative (Negative) Urine Bilirubin 1+ H (Negative) Urine Urobilinogen 4 H (Negative) mg/dL Ur Leukocyte Lesli ase Negative (Negative) Urine RBC 0-4 H (0-2) /hpf Urine WBC 0-4 H (0-5) /hpf Ur Squamous Epith Cells 5-10 H (0-5) /hpf Amorphous Sediment Not Reportable Urine Bacteria 1+ H (NONE) /hpf Urine Mucus 3+ /hpf 05/03/21 Range/Units 08:56 WBC (4.0-10.0) 10^3/ uL RBC (4.1-5.3) 10^6/u L Hgb (11.5-15.3) g/dL Hct (37.0-47.0) % MCV (81-99) fL MCH (28.0-34.0) pg MCHC (30.0-36.0) g/dL RDW (12.1-15.1) % Plt Count (130-400) 10^3/c mm MPV (7.4-10.4) fL Neut % (Auto) % Lymph % (Auto) % [place] % (Auto) % Eos % (Auto) % Baso % (Auto) % Neut # (Auto) (1.8-7.7) 10^3/u L Lymph # (Auto) (0.8-4.8) 10^3/u L [place] # (Auto) (0.2-0.9) 10^3/u L Eos # (Auto) (0.0-0.8) 10^3/u L Baso # (Auto) (0.0-0.1) 10^3/u L Nucleated RBC % (a uto) % Nucleated RBCs # /100WBC PT 14.40 (12.1-14.9) SECO NDS INR 1.08 (0.8-1.2) APTT 29.6 (23.9-36.7) SECO NDS Sodium (136-145) mmol/L Potassium (3.5-5.1) mmol/L Chloride (98-107) mmol/L Carbon Dioxide (22-29) mmol/L Anion Gap (5-19) BUN (8-23) mg/dL Creatinine (0.5-0.9) mg/dL GFR Calculation Glucose (65-115) mg/dL Calculated Osmolal ity (285-295) mOsm/k g Calcium (8.5-10.5) mg/dL Total Bilirubin (0.15-1.2) mg/dL AST (0-32) U/L ALT (0-33) U/L Alkaline Phosphata se (35-105) IU/L Total Protein (6.6-8.7) g/dL Albumin (3.5-5.2) g/dL Globulin (1.3-4.6) g/dL Lipase (13-60) U/L Urine Color (Yellow) Urine Appearance (CLEAR) Urine pH (5-7) Ur Specific Gravit y (1.005-1.030) Urine Protein (Negative) Urine Glucose (UA) (Normal) Urine Ketones (Negative) Urine Blood (Negative) Urine Nitrate (Negative) Urine Bilirubin (Negative) Urine Urobilinogen (Negative) mg/dL Ur Leukocyte Lesli ase (Negative) Urine RBC (0-2) /hpf Urine WBC (0-5) /hpf Ur Squamous Epith Cells (0-5) /hpf Amorphous Sediment Urine Bacteria (NONE) /hpf Urine Mucus /hpf Discharge Plan Discharge Patient Disposition: Home Clinical Impression: Colitis, Hypokalemia Condition: Stable Prescriptions: New Augmentin 875-125 mg tablet 1 tab PO BID Qty: 20 RF: 0 Zofran 4 mg tablet 4 mg PO Q6H PRN (Reason: nausea and vomiting) Qty: 15 RF: 0 potassium chloride 20 mEq tablet extended release 20 meq PO DAILY Qty: 4 RF: 0 No Action methenamine hippurate 1 gram tablet 1 g PO BID@399,2099 RF: 0 atenolol 25 mg tablet 50 mg PO DAILY@399 RF: 0 hydrochlorothiazide 25 mg tablet 25 mg PO DAILY@399 RF: 0 atorvastatin [Lipitor] 10 mg tablet 20 mg PO DAILY@2099 RF: 0 gabapentin 600 mg tablet 900 mg PO BEDTIME@2099 RF: 0 hydrocodone-acetaminophen 5-325 mg tablet 1 tab PO Q6H PRN (Reason: pain) 7 Days Qty: 28 RF: 0 Multiple Vitamin, Womens Tablet 1 tab PO DAILY@0400 RF: 0 Vitamin C 1,000 mg Tablet 1,000 mg PO BID@399,2099 RF: 0 celecoxib 200 mg capsule 200 mg PO DAILY@040 RF: 0 Toviaz 8 mg tablet extended release 24 hr 8 mg PO DAILY@040 RF: 0 amlodipine 2.5 mg tablet 2.5 mg PO DAILY@399 RF: 0 ropinirole 2 mg tablet 2 mg PO TID RF: 0 Discharge Orders: Discharge ED (Routine); Ordered 01/26/21 Ordered By: Rigoberto Guillaume Referrals: Macy Shoemaker MD [Primary Care Provider] - Discharge Diet: Clear Liquid Discharge Activity: Increase activity as tolerated Patient Instructions: Opioid Safety Coding Level of Care Code ED Sleeve Bottom Feller for Chg Fwd Exam Comprehensive
--- NOTE | 2021-01-26 08:30 | CT_ITS ---
WS: [id number] CT ABDOMEN PELVIS TECHNIQUE: Contrast-enhanced CT of the abdomen and pelvis with coronal and sagittal reformatted image s. CLINICAL INFORMATION: abd pain COMPARISON: CT June 26, 2020 DLP: 1305.[address] scans at [facility] use at least one of these dose optimization techniques: automat ed exposure control; mA and/or kV adjustment per patient size (includes targeted exams where dose is matched to clinical indication); or iterative reconstruction. FINDINGS:Inflammatory stranding and edema with thickening of the right ascending colon suspicious for infectious or inflammatory colitis. This is new from the prior examination. A few reactive lymph nod es in the right lower quadrant. Colon is otherwise normal in appearance. No free fluid in the abdomen or pelvis. Prior postoperative changes cholecystectomy and hysterectomy. Mild intrahepatic biliary ductal dilata tion unchanged. Normal portal vein and splenic vein. Mild fatty atrophy of the pancreas. Physiologic bile duct dilatation unchanged since June 26, 2020. Postoperative changes involving the stomach. L kori bases are well aerated. Adrenal glands are normal. Normal renal parenchymal enhancement. No hydronephrosis. Left renal cyst m easuring 2.5 x 2.9 cm. No abdominal lymphadenopathy. No pelvic or inguinal lymphadenopathy. Sigmoid d iverticulosis. No evidence of acute diverticulitis. Prior ventral abdominal wall hernia repair. CT/CT abdomen pelvis w con* [id number] IMPRESSION: 1. Diffuse circumferential thickening involving the right colon most consisten t with infectious or inflammatory colitis with surrounding inflammatory changes and induration. 2. Small and large bowel are otherwise normal. 3. Sigmoid diverticulosis. 4. Prior cholecystectomy and hysterectomy. 5. Stable common bile duct dilatation likely physiologic postcholecystectomy. 6. Postoperative changes involving the stomach. Notified Rigoberto Guillaume DO at 01/26/2021 10:39 AM.
[2021-01-26 09:04] LABS: Basophils # 0.1 10^3/uL (0.0-0.1); Basophils % 0.5 %; Eosinophils # 0.1 10^3/uL (0.0-0.8); Hematocrit 42.7 % (37.0-47.0); Hemoglobin 14.3 g/dL (11.5-15.3); Lymphocytes # 1.4 10^3/uL (0.8-4.8); Lymphocytes % 11.5 %; Mean Corpuscular HGB Conc 33.5 g/dL (30.0-36.0); Mean Corpuscular Hemoglobin 29.2 pg (28.0-34.0); Mean Corpuscular Volume 87.1 fL (81-99); Mean Platelet Volume 9.6 fL (7.4-10.4); Monocytes # 0.6 10^3/uL (0.2-0.9); Monocytes % 4.8 %; Neutrophils # 9.95 10^3/uL (1.8-7.7); Neutrophils % 81.8 %; Nucleated Red Blood Cells % 0 %; Platelet Count 238 10^3/cmm (130-400); Red Cell Distribution Width 12.8 % (12.1-15.1); White Blood Count 12.2 10^3/uL (4.0-10.0)
[2021-01-26 09:08] LABS: Blood Urine Neg (Negative); Glucose Urine UA Norm (Normal); Ketones Urine 1+ (Negative); Nitrate Urine Negative (Negative); Protein Urine Trace (Negative); Urine Appearance Clear (CLEAR); Urine Color Dark Yellow (Yellow); pH Urine 5 (5-7)
[2021-01-26 09:09] LABS: Add Urine Microscopic? YES; Bilirubin Urine 1+ (Negative); Leukocyte Esterase Urine Negative (Negative); Urobilinogen Urine 4 mg/dL (Negative)
[2021-01-26 09:10] LABS: Alanine Aminotransferase 8 U/L (0-33); Albumin Level 3.8 g/dL (3.5-5.2); Alkaline Phosphatase 79 IU/L (35-105); Anion Gap 16.3 (5-19); Aspartate Amino Transferase 14 U/L (0-32); Blood Urea Nitrogen 14 mg/dL (8-23); Calcium 8.8 mg/dL (8.5-10.5); Carbon Dioxide 25 mmol/L (22-29); Chloride 102 mmol/L (98-107); Creatinine Clr Calc Pharmacy 57.4689; Globulin 3.2 g/dL (1.3-4.6); Glucose 104 mg/dL (65-115); Lipase 29 U/L (13-60); Osmolality Calculated 291 mOsm/kg (285-295); Potassium 3.3 mmol/L (3.5-5.1); Sodium 140 mmol/L (136-145)
[2021-01-26 09:25] LABS: INR 1.08 (0.8-1.2); Partial Thromboplastin Time 29.6 SECONDS (23.9-36.7)
[2021-01-26 09:28] LABS: Add Urine Culture? No; Bacteria Urine 1+ /hpf; Mucus Urine 3+ /hpf; RBC Urine 0-4 /hpf (0-2); WBC Urine 0-4 /hpf (0-5)
[2021-01-26 09:39] VITALS: BP 136/58; PULSE 59; O2SAT 97
[2021-01-26] MEDS: diphenhydrAMINE 50 mg/mL SDV 1mL IVP (09:56)
[2021-01-26] MEDS: hydrocortisone 100 mg/2 mL SDV IVP (09:56)
[2021-01-26] MEDS: iodixanol 320 mg/mL 100mL Btl IV (10:09)
[2021-01-26 10:54] VITALS: RESP 20; O2SAT 98
[2021-01-26] MEDS: morphine 4 mg/mL SDV 1 mL IVP (10:54)
[2021-01-26 11:03] VITALS: BP 113/58; PULSE 57; RESP 20; O2SAT 92
[2021-01-26 11:57] VITALS: BP 143/59; PULSE 70; O2SAT 97
== END 2021-01-26 11:58 | disposition home or self-care (01) ==
PROVIDERS: Emergency Provider Family Medicine; PCP Family Medicine
DX: K52.9 Noninfective gastroenteritis and colitis, unspecified (principal); E87.6 Hypokalemia; Z87.891 Personal history of nicotine dependence
CPT/HCPCS: 36415; 74177; 80053; 81001; 83690; 85025; 85610; 85730; 96374; 96375; 99284; J1200; J1720; J2270; Q9967

== ENCOUNTER 2021-01-27 07:32 | Outpatient (CLI) | payer MEDICARE, SELFPAY ==
--- NOTE | 2021-01-27 07:38 | NM_ITS ---
WS: [id number] NUCLEAR MEDICINE BONE SCAN 3 PHASE Radiopharmaceutical: 24.2 Tc-99m MDP mCi IV Injection site: Right antecubital Postinjection imaging delay: 2 hr CLINICAL INFORMATION: Z96.651 - Presence of right artificial knee joint COMPARISON: None. FINDINGS: Prior postoperative changes bilateral TKAs. Normal symmetric blood flow and blood pool imag es. No asymmetric vascularity. Normal blood pool images. Delayed bone images there is particular upta ke about both TKAs consistent with normal bony remodeling. No asymmetric areas of uptake to indicate infection. No evidence of hardware loosening. Soft tissue contours: Normal. Kidneys: Normal. Other findings: Delayed bony uptake involving the fifth metatarsal with prior hardware fixation this area. NM/NM bone 3 phase [id number] IMPRESSION: 1. No evidence of osteomyelitis or hardware loosening. 2. Bilateral TKAs with normal periarticular uptake consistent with chronic bon y remodeling.
== END 2021-01-27 07:33 | disposition home or self-care (01) ==
LOC: NM 07:33
PROVIDERS: PCP Family Medicine; Visit Provider Specialist
DX: Z96.653 Presence of artificial knee joint, bilateral (principal)
CPT/HCPCS: 78315; A9561

== ENCOUNTER → 2021-01-30 15:14 | Outpatient (BNVA) | payer MEDICARE, SELFPAY | PROVIDERS: PCP Family Medicine; Visit Provider Podiatrist Foot & Ankle Surgery | DX: Z98.890 Other specified postprocedural states (principal) | CPT/HCPCS: 73630 ==

== ENCOUNTER → 2021-02-25 10:26 | Outpatient (BNVA) | payer MEDICARE, SELFPAY | PROVIDERS: PCP Family Medicine; Visit Provider Urology | DX: N30.80 Other cystitis without hematuria (principal); N39.46 Mixed incontinence | CPT/HCPCS: 81003 ==

== ENCOUNTER 2021-02-26 11:31 | Outpatient (CLI) | payer MEDICARE, SELFPAY | END 2021-02-26 11:32 | disposition home or self-care (01) | LOC: SPT 11:32 | PROVIDERS: PCP Family Medicine; Visit Provider Specialist | DX: Z46.89 Encounter for fitting and adjustment of other specified devices (principal); T84.84XA Pain due to internal orthopedic prosthetic devices, implants and grafts, initial encounter; Z96.651 Presence of right artificial knee joint | CPT/HCPCS: 97760; L1812 ==

== ENCOUNTER 2021-03-10 10:12 | Outpatient (RCR) | payer MEDICARE, SELFPAY | END 2021-03-25 23:59 | disposition home or self-care (01) | LOC: SPT 10:12 | PROVIDERS: PCP Family Medicine; Referring Provider Specialist; Visit Provider Specialist | DX: M25.561 Pain in right knee (principal) | CPT/HCPCS: 97110; 97161 ==

== ENCOUNTER 2021-03-26 06:00 | Outpatient (RCR) | payer MEDICARE, SELFPAY | END 2021-04-25 23:59 | disposition home or self-care (01) | LOC: SPT 06:00 | PROVIDERS: PCP Family Medicine; Referring Provider Specialist; Visit Provider Specialist | DX: M25.561 Pain in right knee (principal) | CPT/HCPCS: 97110 ==

== ENCOUNTER → 2021-07-21 16:19 | Outpatient (BNVA) | payer MEDICARE, SELFPAY | PROVIDERS: PCP Family Medicine; Visit Provider Podiatrist Foot & Ankle Surgery | DX: M79.672 Pain in left foot (principal); Z47.89 Encounter for other orthopedic aftercare | CPT/HCPCS: 73630 ==

== ENCOUNTER 2021-07-22 11:52 | Outpatient (CLI) | payer MEDICARE, SELFPAY ==
--- NOTE | 2021-07-22 11:55 | MM_ITS ---
WS: [email or web address] BILATERAL SCREENING DIGITAL MAMMOGRAM WITH CAD HISTORY: SCREENING COMPARISON: None available. Bilateral CC and MLO views submitted. Computer aided detection analyzed. Breast composition: There are scattered areas of fibroglandular density. No suspicious masses, microc alcifications or architectural distortion. MM/[place] [id number] IMPRESSION: BI-RADS: 1-Negative FOLLOW UP: 1 Year Follow-up
== END 2021-07-22 11:53 | disposition home or self-care (01) ==
PROVIDERS: PCP Family Medicine; Visit Provider Family Medicine
DX: Z12.31 Encounter for screening mammogram for malignant neoplasm of breast (principal)
CPT/HCPCS: 77067

== ENCOUNTER 2021-11-17 12:44 | Outpatient (CLI) | payer MEDICARE, SELFPAY ==
--- NOTE | 2021-11-17 12:52 | US_ITS ---
WS: [id number] ULTRASOUND SOFT TISSUES LEFT foot. HISTORY: foot pain COMPARISON: None available. TECHNIQUE: 2-D and color Doppler imaging is submitted. Recent surgery involving the fifth metatarsal of the LEFT foot. Ultrasound is directed to the area of pain and the surgical site. There is a small amount of soft tissue edema but no focal collection or abscess. No increased vascularity. US/US soft tissue/extremity [id number] IMPRESSION: Mild soft tissue edema at the surgical site of the LEFT fifth metatarsal. There is no abscess or mass.
== END 2021-11-17 12:45 | disposition home or self-care (01) ==
LOC: RAD 12:49
PROVIDERS: PCP Family Medicine; Visit Provider Podiatrist Foot & Ankle Surgery
DX: M79.672 Pain in left foot (principal); R60.0 Localized edema
CPT/HCPCS: 76882

== ENCOUNTER 2021-11-24 06:00 | Outpatient (RCR) | payer MEDICARE, SELFPAY | END 2021-12-24 23:59 | disposition home or self-care (01) | LOC: SPT 06:00 | PROVIDERS: PCP Family Medicine; Referring Provider Orthopaedic Surgery; Visit Provider Orthopaedic Surgery | DX: T84.498D Other mechanical complication of other internal orthopedic devices, implants and grafts, subsequent encounter (principal); X58.XXXD Exposure to other specified factors, subsequent encounter | CPT/HCPCS: 97110; 97161 ==

== ENCOUNTER 2021-12-25 06:00 | Outpatient (RCR) | payer MEDICARE, SELFPAY | END 2022-01-23 23:59 | disposition home or self-care (01) | LOC: SPT 06:00 | PROVIDERS: PCP Family Medicine; Referring Provider Orthopaedic Surgery; Visit Provider Orthopaedic Surgery | DX: M25.551 Pain in right hip (principal) | CPT/HCPCS: 97110; 97116 ==

== ENCOUNTER 2022-01-24 06:00 | Outpatient (RCR) | payer MEDICARE, SELFPAY | END 2022-02-23 23:59 | disposition home or self-care (01) | LOC: SPT 06:00 | PROVIDERS: PCP Family Medicine; Referring Provider Orthopaedic Surgery; Visit Provider Orthopaedic Surgery | DX: M25.551 Pain in right hip (principal) | CPT/HCPCS: 97110 ==

== ENCOUNTER → 2022-01-27 08:20 | Outpatient (BNVA) | payer MEDICARE, SELFPAY | PROVIDERS: PCP Family Medicine; Visit Provider Surgery | DX: Z98.84 Bariatric surgery status (principal); E88.81 Metabolic syndrome and other insulin resistance; Z90.3 Acquired absence of stomach [part of]; E78.5 Hyperlipidemia, unspecified | CPT/HCPCS: 36415; 80053; 80061; 82310; 82607; 82652; 82728; 82746; 83540; 83550; 83735; 83970; 84425; 84443; 84630; 85025; 99203 ==

== ENCOUNTER → 2022-05-05 14:25 | Outpatient (BNVA) | payer MEDICARE, SELFPAY | PROVIDERS: PCP Family Medicine; Visit Provider Surgery | DX: Z01.89 Encounter for other specified special examinations (principal); E88.81 Metabolic syndrome and other insulin resistance; Z98.84 Bariatric surgery status | CPT/HCPCS: 36415; 80053; 80061; 82306; 82310; 82607; 82728; 82746; 83036; 83540; 83735; 83970; 84425; 84443; 84630; 85025 ==

== ENCOUNTER 2022-05-07 06:00 | Outpatient (RCR) | payer MEDICARE, SELFPAY | END 2022-05-26 23:59 | disposition home or self-care (01) | LOC: SPT 06:00 | PROVIDERS: PCP Family Medicine; Referring Provider Orthopaedic Surgery; Visit Provider Orthopaedic Surgery | DX: Z47.1 Aftercare following joint replacement surgery (principal); Z96.651 Presence of right artificial knee joint | CPT/HCPCS: 97110; 97161 ==

== ENCOUNTER 2022-05-14 07:49 | Outpatient (CLI) | payer MEDICARE, SELFPAY ==
--- NOTE | 2022-05-14 07:57 | FL_ITS ---
WS: [id number] Barium swallow and esophagram, upper GI series with air, Clinical Data: STATUS POST SLEEVE GASTRECTOMY Comparison: None. Fluoroscopy time: 1.3 # of spot films: 24 Findings: The patient swallowed the thick and thin barium, and it flowed to the hypopharynx without hesitation. No stricture, mass, polyp or erosion was seen. The barium entered the esophagus and there was normal motility throughout. No hiatal hernia, reflux, stricture, polyp, mass, erosion or ulcer was noted. No reflux was present. The barium passed into the stomach which was well distended. No erosion, polyp, mass or deformity cou ld be seen. No gastric ulcer was present. There are surgical clips adjacent to the fundus and body of the stomach from previous gastric sleeve surgery. There are surgical clips in the right upper quadra nt from a cholecystectomy. Barium then passed into the duodenal bulb which distended normally without ulceration. The proximal small bowel is normal. FL/FL upper GI w air* [id number] Impression: Normal esophagram and upper GI series.
== END 2022-05-14 07:50 | disposition home or self-care (01) ==
PROVIDERS: PCP Family Medicine; Visit Provider Surgery
DX: Z90.3 Acquired absence of stomach [part of] (principal); Z98.84 Bariatric surgery status
CPT/HCPCS: 74246

== ENCOUNTER → 2022-05-26 10:04 | Outpatient (BNVA) | payer MEDICARE, SELFPAY | PROVIDERS: PCP Family Medicine; Visit Provider Surgery | DX: Z98.84 Bariatric surgery status (principal) | CPT/HCPCS: 99213 ==

== ENCOUNTER 2022-05-27 06:00 | Outpatient (RCR) | payer MEDICARE, SELFPAY | END 2022-06-25 23:59 | disposition home or self-care (01) | LOC: SPT 06:00 | PROVIDERS: PCP Family Medicine; Referring Provider Orthopaedic Surgery; Visit Provider Orthopaedic Surgery | DX: Z47.1 Aftercare following joint replacement surgery (principal); Z96.651 Presence of right artificial knee joint | CPT/HCPCS: 97110 ==

== ENCOUNTER 2022-06-26 06:00 | Outpatient (RCR) | payer MEDICARE, SELFPAY | END 2022-07-26 23:59 | disposition home or self-care (01) | LOC: SPT 06:00 | PROVIDERS: PCP Family Medicine; Visit Provider Orthopaedic Surgery | DX: Z47.1 Aftercare following joint replacement surgery (principal); Z96.651 Presence of right artificial knee joint | CPT/HCPCS: 97110 ==

== ENCOUNTER 2022-07-23 11:12 | Outpatient (CLI) | payer MEDICARE, SELFPAY ==
--- NOTE | 2022-07-23 11:17 | MM_ITS ---
WS: [email or web address] VIEWS: MLO and CC views both breasts. 3D digital tomosynthesis is also included in this exam. Comparison made with prior exam of 07/22/2021. Findings: There was no sign of mass, architectural distortion or suspicious calcification in either breast. Fa tty MM/[place] [id number] Impression: BI-RADS: 2-Benign FOLLOW-UP: 1 Year Follow-up This mammogram was also analyzed by the Computer Aided Detection System R2 Imag e [employer].
== END 2022-07-23 11:13 | disposition home or self-care (01) ==
LOC: RAD 11:13
PROVIDERS: PCP Family Medicine; Visit Provider Family Medicine
DX: Z12.31 Encounter for screening mammogram for malignant neoplasm of breast (principal)
CPT/HCPCS: 77063; 77067

== ENCOUNTER → 2022-10-18 10:34 | Outpatient (BNVA) | payer MEDICARE, SELFPAY | PROVIDERS: PCP Family Medicine; Visit Provider Internal Medicine Cardiovascular Disease | DX: I10 Essential (primary) hypertension (principal); Z87.891 Personal history of nicotine dependence | CPT/HCPCS: 99213; Q3014 ==

== ENCOUNTER 2023-01-24 08:50 | Outpatient (CLI) | payer MEDICARE, SELFPAY ==
--- NOTE | 2023-01-24 09:02 | MR_ITS ---
WS: [id number] MRI LUMBAR SPINE NONCONTRAST TECHNIQUE: Sagittal T1, T2 and STIR imaging. Axial T1 and T2 imaging. CLINICAL INFORMATION: DDD LUMBAR/LSPINE SPONDYLOSIS W/RADICULOPATHY COMPARISON: None. FINDINGS: Mild lumbar curve. No acute compression. No high-grade central canal stenosis. L1-L2: Mild annular bulging. Slight narrowing of the LEFT greater than RIGHT subarticular recess. Mil d facet arthropathy. Spinal canal and foramen are patent. L2-L3: Mild annular bulging with slight effacement of ventral thecal sac. Mild RIGHT and no significa nt LEFT foraminal narrowing. Mild facet arthropathy. L3-L4: Mild annular bulging with slight narrowing of the subarticular recess bilaterally. Mild facet arthropathy. Spinal canal and foramen are patent. L4-L5: Mild annular bulging with slight impingement on the LEFT subarticular recess and traversing LE FT L5 nerve root. Mild LEFT and no significant RIGHT foraminal narrowing. Moderate facet arthropathy. L5-S1: Mild annular bulging with slight effacement of the ventral thecal sac. Mild RIGHT and no signi ficant LEFT foraminal narrowing. Moderate facet arthropathy with small facet effusions. Visualized pelvic bony structures: Normal. Paravertebral soft tissues: Normal. MR/MR lumbar spine wo con* [id number] IMPRESSION: 1. Mild lumbar curve. No acute compression. No high-grade central canal stenos is. 2. Tiny shallow LEFT pericentral protrusion L1-L2 with impingement on the LEFT subarticular recess and traversing LEFT L2 nerve root. 3. Mild annular bulging L4-L5 with slight narrowing of the LEFT greater than R IGHT subarticular recess. Mild LEFT foraminal narrowing at this level. 4. Mild annular bulging L5-S1 with slight effacement of ventral thecal sac. Mi ld RIGHT L5-S1 foraminal narrowing. 5. Moderate facet arthropathy L4-L5 and L5-S1 with small facet effusions. 6. Mild RIGHT L2-L3 foraminal narrowing.
== END 2023-01-24 08:51 | disposition home or self-care (01) ==
LOC: RAD 08:52
PROVIDERS: PCP Family Medicine; Visit Provider General Practice
DX: M47.27 Other spondylosis with radiculopathy, lumbosacral region (principal); M51.36 Other intervertebral disc degeneration, lumbar region; M51.26 Other intervertebral disc displacement, lumbar region
CPT/HCPCS: 72148

== ENCOUNTER 2023-03-27 08:32 | Emergency (ER) | payer MEDICARE, SELFPAY ==
[2023-03-27 08:36] VITALS: BP 153/78; PULSE 81; RESP 15; O2SAT 99; BMI 31.2
--- NOTE | 2023-03-27 08:41 | ECG_ITS ---
[facility] Test Date: 2023-03-27 Pat Name: Debra Cerrato Department: Room: Gender: Female [employer]er: : 1950 Requested By: Divine Hayden Order Number: [id number] Otis MD: Keith Gtz M.D. Measurements Intervals [place] Rate: 76 P: 39 DE: 163 QRS: -14 QRSD: 84 T: 51 QT: 375 QTc: 422 Interpretive Statements SINUS RHYTHM Compared to ECG 07/24/2020 23:38:07 Sinus bradycardia no longer present Myocardial infarct finding no longer present Electronically Signed On 03-27-2023 14:47:50 CDT by Keith Gtz M.D. [email or web address] ([id number]
--- NOTE | 2023-03-27 08:41 | CTR_ITS ---
PROCEDURE INFORMATION: Exam: CT Head Without Contrast Exam date and time: 03/27/2023 9:05 AM Age: 72 years old Clinical indication: Syncope and collapse TECHNIQUE: Imaging protocol: Computed tomography of the head without contrast. Radiation optimization: All CT scans at this facility use at least one of these dose optimization techniques: automated exposure control; mA and/or kV adjustment per patient size (includes targeted exams where dose is matched to clinical indication); or iterative reconstruction. REPORTING DATA: Count of CT and Cardiac NM exams in prior 12 months: This patient has received 0 known CTs and 0 known cardiac nuclear medicine studies in the 12 months prior to the current study. COMPARISON: CR XR cervical spine 3V* [id number] 02/22/2023 11:28 AM RADIATION DOSE METRICS: Total DLP (mGy-cm): 1069.65 FINDINGS: Brain: No intracranial hemorrhage, edema or other acute abnormality is seen in the brain. There is moderate generalized chronic atrophy with prominence of the ventricles and sulci. There is decreased white matter density which is consistent with chronic small vessel white matter ischemia. Cerebral ventricles: Mild ventricular prominence consistent with chronic atrophy. Paranasal sinuses: Visualized sinuses are unremarkable. No fluid levels. Mastoid air cells: Visualized mastoid air cells are well aerated. Bones/joints: Unremarkable. No acute fracture. Soft tissues: Unremarkable. CT/CT head wo con* [id number] IMPRESSION: No acute abnormality.
--- NOTE | 2023-03-27 08:41 | XRR_ITS ---
PROCEDURE INFORMATION: Exam: XR Right Ankle Exam date and time: 03/27/2023 8:49 AM Age: 72 years old Clinical indication: Injury or trauma; Fall; Blunt trauma; Ankle; Right; Additional info: Fall/trauma TECHNIQUE: Imaging protocol: Radiologic exam of the right ankle. Views: 3 or more views. COMPARISON: No relevant prior studies available. FINDINGS: Bones/joints: Are fractures through both the medial and lateral malleoli with about 3 mm of lateral displacement. There is a fracture through the posterior malleolus of the tibia with about 4 mm of displacement. Soft tissues: There is soft tissue swelling around the ankle. XR/XR ankle RT min 3V* [id number] IMPRESSION: Fractures of the medial and posterior malleolus of the distal tibia and of the lateral malleolus with 3-4 mm of displacement.
--- NOTE | 2023-03-27 08:41 | XRR_ITS ---
PROCEDURE INFORMATION: Exam: XR Right Foot Exam date and time: 03/27/2023 8:56 AM Age: 72 years old Clinical indication: Injury or trauma; Fall; Blunt trauma; Foot; Right; Prior surgery; Surgery date: 6+ months; Surgery type: Bunion; Additional info: Fall/trauma TECHNIQUE: Imaging protocol: Radiologic exam of the right foot. Views: 3 or more views. COMPARISON: CR (LOW EXM, ) 03/27/2023 8:49 AM FINDINGS: Bones/joints: Two screws are present in the 1st metatarsal bone from hallux valgus repair. No fracture or other acute abnormalities are seen in the foot. There are mildly displaced fractures of the medial malleolus, posterior malleolus and lateral malleolus. Soft tissues: Normal. XR/XR foot RT min 3V* [id number] IMPRESSION: Fractures of the medial and posterior malleolus of the tibia and lateral malleolus. No fractures are seen in the foot.
--- NOTE | 2023-03-27 08:41 | XRR_ITS ---
PROCEDURE INFORMATION: Exam: XR Chest Exam date and time: 03/27/2023 9:01 AM Age: 72 years old Clinical indication: Dyspnea and orthopnea (sob when lying down); Additional info: Syncope TECHNIQUE: Imaging protocol: Radiologic exam of the chest. Views: 1 view. COMPARISON: CR XR chest 2V* [id number] 09/14/2021 3:36 PM FINDINGS: Lungs: Unremarkable. No consolidation. Pleural spaces: Unremarkable. No pleural effusion. No pneumothorax. Heart/Mediastinum: Unremarkable. No cardiomegaly. Bones/joints: Unremarkable. XR/XR chest 1V portable [id number] IMPRESSION: No acute findings.
--- NOTE | 2023-03-27 08:43 | W.ED.LOWEXIN ---
HPI - Extremity Injury (Lower) General: Chief Complaint: Extremity Injury, Lower Stated Complaint: fall, right leg pain Time Seen by Provider: 03/27/23 08:33 Source: patient and family Mode of arrival: wheelchair Limitations: no limitations History of Present Illness: Patient is a 72-year-old female presents to ED today along with her significant other for evaluation of a right lower extremity injury that she sustained 2 days ago after a syncopal episode causing her to fall. Patient states she got dizzy and lightheaded and does not remember what happened after that . She states when she came to she initially noticed pain to her right lower extremity. Patient states she was able to bear weight slightly on the extremity yesterday however woke up this morning with significant discomfort and noticed swelling and bruising to the area. Patient states she has been having episodes of dizziness and lightheadedness and has had prior syncopal episodes. She states she has not had any evaluation for this previously but states she is supposed to be getting scheduled with a Holter monitor soon. Patient denies any other injuries during the syncopal episode apart from the lower extremity. She currently is not complaining of any chest pain, shortness of breath, palpitations, headache, or visual changes. MD complaint: ankle injury and foot injury Onset (ago): day(s) Injury: Right: ankle and foot Place: home Severity: severe Severity scale (1-10): 10 Relieving factors: immobilization Exacerbating factors: weight bearing, movement and palpation Context: fall Associated symptoms: Reports inability to bear weight Other symptoms: none Review of Systems Const: Denies: fever(s), chills, body aches, fatigue or malaise Eyes: Denies: change in vision, blurry vision, photophobia, floaters or seeing flashes Card: Reports: lightheadedness (subsided now) and syncope (2 days ago); Denies: chest pain, palpitations, irregular heart rhythm, edema, swelling of feet/ankles, pre-syncope, dyspnea on exertion, orthopnea, leg pain with exertion or acrocyanosis Resp: Denies: dyspnea, productive cough or pain on inspiration GI: Denies: abdominal pain, nausea, vomiting, heartburn or diarrhea : Denies: flank pain or dysuria Musc: Reports: extremity pain, extremity swelling (R foot/ankle), joint pain (R foot/ankle) and joint swelling (R foot/ankle); Denies: neck pain or back pain Skin/Breast: Denies: rash Neuro: Reports: difficulty walking (secondary to R LE pain); Denies: headache(s), numbness in extremities, weakness in extremities, sensory changes, lack of coordination, vertigo, confusion, behavioral changes, Slurred speech present, difficulty communicating thoughts or seizure-like activity PFSH ED PFSH: Medical History Bacteriuria Bunion, left Cystitis cystica Degenerative arthritis Dyslipidemia Fibromyalgia Greater trochanteric bursitis of right hip History of recurrent UTI (urinary tract infection) HTN (hypertension) Mixed stress and urge urinary incontinence Primary osteoarthritis of right hip Right hip pain Surgical History H/O bariatric surgery with sleeve History of appendectomy History of carpal tunnel release of both wrists History of cholecystectomy History of hysterectomy History of tonsillectomy History of total knee replacement BILATERAL Hx of elbow surgery Hx of foot surgery Family History Father , at age 83 CAD (coronary artery disease) Hyperlipidemia Hypertension Mother , at age 76 Hyperlipidemia Hypertension Sister Cancer Hyperlipidemia Hypertension Brother Cancer Hyperlipidemia Hypertension Social History Smoking and tobacco status: former smoker Quit status (tobacco): has quit using tobacco Year quit tobacco: over 20 years ago Second hand smoke exposure: No Alcohol intake: current Alcohol intake frequency: holidays/special occasions only Substance/Drug Use: current Substance/Drug use frequency: few times a week Caregiver/support person: Yes Lives independently: Yes Household members: spouse Marital status: Current occupational status: retired Current gender identity: Female Special jay needs: No Physical Exam Const: COMMON NORMALS: no acute distress, patient oriented x3, no limitations, alert and well nourished GENERAL APPEARANCE: cooperative NUTRITIONAL APPEARANCE: overweight ORIENTATION/CONSCIOUSNESS: Yes awake, Yes oriented to person, Yes oriented to place and Yes oriented to time HENMT: COMMON NORMALS: normocephalic and atraumatic HEAD & SCALP: normal to inspection, normocephalic and atraumatic FACE & SINUS: normal facial exam Eye: COMMON NORMALS: Equal, round and reactive pupils present and EOMs intact bilaterally GENERAL EYE: appearance normal, both eyes and all related structures and normal light reflex PUPIL: Yes Equal, round and reactive pupils present DIRECT OPHTHALMOSCOPY: Yes normal light reflex Neck/C-Spine: COMMON NORMALS: full ROM, no lymphadenopathy, supple and no meningeal signs Chest: COMMONS NORMALS: normal inspection of the chest and normal palpation of entire chest wall Resp: COMMON NORMALS: normal respiratory effort and clear to auscultation bilaterally AUSCULTATION: clear to auscultation bilaterally Cardio: COMMON NORMALS: regular rate and regular rhythm RATE: regular rate RHYTHM: regular rhythm GI: COMMON NORMALS: Normal to inspection, nondistended, normoactive bowel sounds present, Soft to palpation, non-tender, No hepatosplenomegaly present and no masses PALPATION: Yes Soft to palpation and Yes No hepatosplenomegaly present : COMMON NORMALS: Yes no CVA tenderness BLADDER/KIDNEY EXAM: Yes no CVA tenderness Back/Pelvis: COMMON NORMALS: no CVA tenderness, thoracic and lumbar spine normal to inspection, no thoracic nor lumbar tenderness and thoraco-lumbar ROM normal Extremity: COMMON NORMALS: no calf tenderness GENERAL: Yes normal exam except as noted RIGHT LOWER EXTREMITY: Yes foot & digits and Yes foot & digits OTHER: significant swelling throughout her R ankle and foot; ecchymosis to medial ankle/foot; DP/PT pulses easily palpated; sensation appears normal; brisk cap refill; no pain to knee joint; no swelling to tib/fib region; no calf pain Neuro: COMMON NORMALS: patient oriented x3, moves all extremities, no focal motor deficits and no sensory deficits noted SENSORIUM/ORIENTATION: Yes alert, Yes oriented to person, Yes oriented to place and Yes oriented to time MENINGEAL SIGNS: Yes no meningeal signs Skin: NARRATIVE SKIN EXAM: ecchymosis throughout R foot/ankle; otherwise normal skin exam TRAUMA: no lacerations or abrasions Course Consultations: Consultation #1: Dr. Rizo-recommends well padded posterior stir up splint, RX for Toradol to help with swelling, CT imaging prior to discharge, and he will see at the end of the week Vital Signs: Vital signs: Vital Signs Pulse Rate 75 03/27/23 09:13 Respiratory Rate 18 03/27/23 09:43 Blood Pressure 153/78 03/27/23 09:13 Pulse Oximetry 99 03/27/23 09:43 Oxygen Delivery Me thod Room Air 03/27/23 08:36 MDM - Extremity Injury (Lower) Medical Decision Making Patient is a nice 72-year-old female presents to ED today with a main complaint of a right lower extremity injury after a syncopal and fall episode 2 days ago. She has had previous syncopal episodes and has never had any formal work-up for these. Work-up here for this is fairly benign. We attempted urine several times however patient was not able to give one. Ultimately I do not think this would change clinical management. She has no symptoms of urinary tract infection. X-rays of the right lower extremity show a trimalleolar fracture without dislocation. She is significantly swollen clinically. I discussed with Dr. Rizo who recommended well-padded posterior/stirrup splint, Toradol to help with swelling, ice/elevation, and he will follow-up this week in office. Case management referral placed for this. Return to ED precautions given. Lab Data 03/27/23 08:58 03/27/23 08:58 Radiology Impressions Ankle X-Ray 03/27/23 08:41 IMPRESSION: Fractures of the medial and posterior malleolus of the distal tibia and of the lateral malleolus with 3-4 mm of displacement. Chest X-Ray 03/27/23 08:41 IMPRESSION: No acute findings. Foot X-Ray 03/27/23 08:41 IMPRESSION: Fractures of the medial and posterior malleolus of the tibia and lateral malleolus. No fractures are seen in the foot. Head CT 03/27/23 08:41 IMPRESSION: No acute abnormality. Laboratory Results WBC 10.4 10^3/uL (4.0-10.0) H 03/27/23 08:58 RBC 4.76 10^6/uL (4.1-5.3) 03/27/23 08:58 Hgb 13.7 g/dL (11.5-15.3) 03/27/23 08:58 Hct 42.4 % (37.0-47.0) 03/27/23 08:58 MCV 89.1 fl (81-99) 03/27/23 08:58 MCH 28.8 pg (28.0-34.0) 03/27/23 08:58 MCHC 32.3 g/dL (30.0-36.0) 03/27/23 08:58 RDW 13.2 % (12.1-15.1) 03/27/23 08:58 Plt Count 234 10^3/cmm (130-400) 03/27/23 08:58 MPV 9.3 fL (7.4-10.4) 03/27/23 08:58 Neut % (Auto) 75.0 % 03/27/23 08:58 Lymph % (Auto) 14.4 % 03/27/23 08:58 Warrick % (Auto) 7.8 % 03/27/23 08:58 Eos % (Auto) 1.8 % 03/27/23 08:58 Baso % (Auto) 0.5 % 03/27/23 08:58 Neut # (Auto) 7.78 10^3/uL (1.8-7.7) H 03/27/23 08:58 Lymph # (Auto) 1.5 10^3/uL (0.8-4.8) 03/27/23 08:58 Warrick # (Auto) 0.8 10^3/uL (0.2-0.9) 03/27/23 08:58 Eos # (Auto) 0.2 10^3/uL (0.0-0.8) 03/27/23 08:58 Baso # (Auto) 0.1 10^3/uL (0.0-0.1) 03/27/23 08:58 Nucleated RBC % (auto) 0 % 03/27/23 08:58 Nucleated RBCs # 0.0 /100WBC 03/27/23 08:58 Sodium 140 mmol/L (136-145) 03/27/23 08:58 Potassium 3.6 mmol/L (3.5-5.1) 03/27/23 08:58 Chloride 101 mmol/L (98-107) 03/27/23 08:58 Carbon Dioxide 26 mmol/L (22-29) 03/27/23 08:58 Anion Gap 16.6 (5-19) 03/27/23 08:58 BUN 13 mg/dL (8-23) 03/27/23 08:58 Creatinine 0.6 mg/dL (0.5-0.9) 03/27/23 08:58 GFR Calculation Not Reportable 03/27/23 08:58 Glucose 97 mg/dL (65-115) 03/27/23 08:58 Calculated Osmolality 290 mOsm/kg (285-295) 03/27/23 08:58 Calcium 9.2 mg/dL (8.5-10.5) 03/27/23 08:58 Total Bilirubin 0.8 mg/dL (0.15-1.2) 03/27/23 08:58 AST 16 U/L (0-32) 03/27/23 08:58 ALT 17 U/L (0-33) 03/27/23 08:58 Alkaline Phosphatase 82 U/L (35-105) 03/27/23 08:58 Troponin T Baseline 9 ng/L (0-10) 03/27/23 08:58 Total Protein 7.6 g/dL (6.6-8.7) 03/27/23 08:58 Albumin 4.1 g/dL (3.5-5.2) 03/27/23 08:58 Globulin 3.5 g/dL (1.3-4.6) 03/27/23 08:58 Discharge Plan Discharge Patient Disposition: Home Clinical Impression: Syncope Qualifiers: Syncope type: unspecified Qualified Code(s): R55 - Syncope and collapse Closed trimalleolar fracture of ankle Qualifiers: Encounter type: initial encounter Laterality: right Qualified Code(s): S82.851A - Displaced trimalleolar fracture of right lower leg, initial encounter for closed fracture Condition: Stable Prescriptions: New ketorolac 10 mg tablet 10 mg PO Q8H 5 Days Qty: 15 0RF hydrocodone-acetaminophen 5-325 mg tablet 1 tab PO .q 4-6 PRN (Reason: pain) Qty: 20 0RF No Action doxycycline hyclate 100 mg capsule 100 mg PO BID 7 Days Qty: 14 0RF atenolol 25 mg tablet 50 mg PO DAILY@0400 hydrochlorothiazide 25 mg tablet 25 mg PO DAILY@0400 atorvastatin [Lipitor] 10 mg tablet 20 mg PO DAILY@2100 gabapentin 600 mg tablet 900 mg PO BEDTIME@2100 methenamine hippurate 1 gram tablet 1 g PO BID Qty: 180 3RF Rx Instructions: 1 pill twice a day with 1 g vitamin C each dose oxybutynin chloride 10 mg tablet extended release 24hr See Rx Instructions .ROUTE .COMPLEX Qty: 90 0RF Dose Instruction: TAKE 1 TABLET BY MOUTH EVERY DAY Rx Instructions: TAKE 1 TABLET BY MOUTH EVERY DAY Multiple Vitamin, Womens Tablet 1 tab PO DAILY@0400 Vitamin C 1,000 mg Tablet 1,000 mg PO BID@0400,2100 amlodipine 2.5 mg tablet 2.5 mg PO DAILY@0400 ropinirole 2 mg tablet 2 mg PO TID Discharge Orders: Discharge ED (Routine); Ordered 03/27/23 Ordered By: Divine Hayden Referrals: Noel Nieto MD [Primary Care Provider] - Patient Instructions: Ankle Fracture (DC), Opioid Safety, Pain Management Activity Restrictions/Additional Instructions: As we discussed you have a surgical ankle fracture. At this time treatment will be splinting and trying to reduce swelling is much as possible prior to your appointment with the orthopedic surgeon. I have given you a prescription for Toradol which is an anti-inflammatory to help with swelling. You may use this along with the Hydrocodone which she will most likely need for pain. You need to ice (20 mins every 1-2 hours) and elevate the extremity (above the level of your heart) as much as possible to reduce swelling. Case management should reach out to you early this week to set you up with your follow-up appointment with Dr. Rizo later in the week. He will then reassess your swelling and schedule surgery. You need to be NO weight bearing on the extremity. Coding Level of Care Code ED Medication Specialist for Abhilash Pandya
[2023-03-27 09:13] VITALS: BP 153/78; PULSE 75; O2SAT 99
[2023-03-27 09:13] LABS: Basophils # 0.1 10^3/uL (0.0-0.1); Basophils % 0.5 %; Eosinophils # 0.2 10^3/uL (0.0-0.8); Eosinophils % 1.8 %; Hematocrit 42.4 % (37.0-47.0); Hemoglobin 13.7 g/dL (11.5-15.3); Lymphocytes # 1.5 10^3/uL (0.8-4.8); Lymphocytes % 14.4 %; Mean Corpuscular HGB Conc 32.3 g/dL (30.0-36.0); Mean Corpuscular Hemoglobin 28.8 pg (28.0-34.0); Mean Corpuscular Volume 89.1 fl (81-99); Mean Platelet Volume 9.3 fL (7.4-10.4); Monocytes # 0.8 10^3/uL (0.2-0.9); Monocytes % 7.8 %; Neutrophils # 7.78 10^3/uL (1.8-7.7); Nucleated Red Blood Cells % 0 %; Platelet Count 234 10^3/cmm (130-400); Red Blood Count 4.76 10^6/uL (4.1-5.3); Red Cell Distribution Width 13.2 % (12.1-15.1); White Blood Count 10.4 10^3/uL (4.0-10.0)
--- NOTE | 2023-03-27 09:37 | CTR_ITS ---
PROCEDURE INFORMATION: Exam: CT Right Lower Extremity Without Contrast, Ankle Exam date and time: 03/27/2023 9:53 AM Age: 72 years old Clinical indication: Injury or trauma; Fall; Blunt trauma; Ankle; Right; Additional info: Fractures; Surgical planning, 3d recon please TECHNIQUE: Imaging protocol: CT of the right lower extremity without contrast was performed. Exam focused on the ankle. Radiation optimization: All CT scans at this facility use at least one of these dose optimization techniques: automated exposure control; mA and/or kV adjustment per patient size (includes targeted exams where dose is matched to clinical indication); or iterative reconstruction. REPORTING DATA: Count of CT and Cardiac NM exams in prior 12 months: This patient has received 0 known CTs and 0 known cardiac nuclear medicine studies in the 12 months prior to the current study. COMPARISON: CR (LOW EXM, ) 03/27/2023 8:49 AM RADIATION DOSE METRICS: Total DLP (mGy-cm): 173.72 FINDINGS: Bones/joints: There is a oblique comminuted fracture through the medial malleolus with about 3 mm of displacement. A longitudinal fracture is present through the posterior malleolus of the talus with about 1.5 mm of displacement. There is also a fracture through the lateral corner of the distal tibia with about 3.5 mm of fracture fragment displacement. There is an oblique fracture through the distal fibula just above the level of the ankle joint with about 2 mm of displacement. Talus and other visible tarsal bones are intact. There is no significant displacement of the ankle mortise. Soft tissues: There is subcutaneous swelling around the ankle and foot. CT/CT ankle RT wo con* [id number] IMPRESSION: Mildly displaced fractures of the medial malleolus, posterior malleolus and lateral corner of the distal tibia and fracture of the distal fibula. There is no significant displacement of the ankle mortise.
[2023-03-27 09:43] VITALS: RESP 18; O2SAT 99
[2023-03-27] MEDS: ondansetron 2 mg/ML SDV 2 mL 4 MG IVP (09:43)
[2023-03-27] MEDS: morphine 4 mg/mL SDV 1 mL IVP (09:43)
[2023-03-27 09:50] LABS: Alanine Aminotransferase 17 U/L (0-33); Albumin Level 4.1 g/dL (3.5-5.2); Alkaline Phosphatase 82 U/L (35-105); Anion Gap 16.6 (5-19); Aspartate Amino Transferase 16 U/L (0-32); Blood Urea Nitrogen 13 mg/dL (8-23); Calcium 9.2 mg/dL (8.5-10.5); Carbon Dioxide 26 mmol/L (22-29); Chloride 101 mmol/L (98-107); Globulin 3.5 g/dL (1.3-4.6); Glucose 97 mg/dL (65-115); Osmolality Calculated 290 mOsm/kg (285-295); Potassium 3.6 mmol/L (3.5-5.1); Sodium 140 mmol/L (136-145); Total Bilirubin 0.8 mg/dL (0.15-1.2); Total Protein 7.6 g/dL (6.6-8.7)
[2023-03-27 09:51] LABS: Troponin(5th) Baseline 9 ng/L (0-10)
--- NOTE | 2023-03-28 09:58 | PC.SOCIAL ---
Addendum entered by Thalia Pina 04/06/23 15:30: Patient had a follow up appointment scheduled with ortho - patient did attend appointment. Original Note: Ortho Referral Referral to ortho at this time. Clinic to contact patient with appt date/time.
== END 2023-03-27 10:41 | disposition home or self-care (01) ==
PROVIDERS: Emergency Provider Physician Assistant; PCP Family Medicine
DX: S82.851A Displaced trimalleolar fracture of right lower leg, initial encounter for closed fracture (principal); R55 Syncope and collapse; Z87.891 Personal history of nicotine dependence; E78.5 Hyperlipidemia, unspecified; I10 Essential (primary) hypertension; W18.30XA Fall on same level, unspecified, initial encounter
CPT/HCPCS: 29515; 70450; 71045; 73610; 73630; 73700; 80053; 84484; 85025; 93005; 96374; 96375; 99285; E0114; J2270; J2405

== ENCOUNTER → 2023-03-31 07:08 | Outpatient (BNVA) | payer MEDICARE, SELFPAY | PROVIDERS: PCP Family Medicine; Referring Provider Physician Assistant; Visit Provider Student in an Organized Health Care Education/Training Program | DX: S82.851A Displaced trimalleolar fracture of right lower leg, initial encounter for closed fracture (principal); W07.XXXA Fall from chair, initial encounter; Z96.651 Presence of right artificial knee joint | CPT/HCPCS: 26605; 73562; 73610; 99204; A4590 ==

== ENCOUNTER → 2023-04-04 13:28 | Outpatient (BNVA) | payer MEDICARE, SELFPAY | PROVIDERS: PCP Family Medicine; Visit Provider Nurse Practitioner Family | DX: S82.851A Displaced trimalleolar fracture of right lower leg, initial encounter for closed fracture (principal); X58.XXXA Exposure to other specified factors, initial encounter | CPT/HCPCS: 99213 ==

== ENCOUNTER 2023-04-06 08:28 | Day surgery (SDC) | payer MEDICARE, SELFPAY ==
[2023-04-06] VITALS (11 sets, daily range): BP systolic 92–165; BP diastolic 45–65; PULSE 66–83; RESP 15–20; TEMP 36.2–36.5; O2SAT 92–100; BMI 29.0
--- NOTE | 2023-04-06 | XR_ITS ---
WS: [id number] Right ankle, C-arm fluoroscopy of the right ankle, 04/06/2023 Clinical Data: ARTURO PICS Comparison: Right ankle, 03/31/2023 Findings: Dr. Rizo reduced the bimalleolar fracture of the right ankle with a fibular plate and screws and obl ique screws in the medial malleolus. There is a transtibial-fibular cable. XR/XR ankle RT 2V [id number] Impression: Internal fixation of bilateral malleolar fracture of the right ankle
[2023-04-06] MEDS: sodium chloride 0.9% 1,000 ML 30 ML IV (08:56)
[2023-04-06] MEDS: acetaminophen 1,000 MG/100 ML PIGGYBACK 400 MG IV (08:56)
[2023-04-06] MEDS: ketorolac 30 mg/mL INJ IVP (08:57)
--- NOTE | 2023-04-06 09:11 | W.PM.OPSUD ---
Surgery/Procedure H&P Update DATE OF PROCEDURE: April 06, 2023 DATE H&P PERFORMED: 03/31/23 CHANGES TO PREVIOUS DOCUMENTATION: None. No changes in HPI from 03/31/2023 visit. Patient's swelling has improved she has a positive wrinkle sign today able to proceed with surgical intervention we talked about risk benefits complication alternatives with surgery and agrees to proceed with right trimalleolar ankle fracture open reduction internal fixation. All questions answered. PREOP DIAGNOSIS: Right trimalleolar ankle fracture PRIMARY INDICATION FOR PROCEDURE: Right trimalleolar ankle fracture PLANNED PROCEDURE: Operation Date: 04/06/23 11:50 Proposed Procedures p ORIF Trimalleolar Fracture 80834 S82.851A(Right) - Art Rizo DO
--- NOTE | 2023-04-06 09:25 | ANES.PREANE2 ---
Pre-Anesthetic Assessment Height/Weight: Height 1.52 m Weight 67.585 kg Temp Pulse Resp BP Pulse Ox O2 Del Method 97.1 F L 66 16 165/65 97 Room Air 04/06/23 08:50 04/06/23 08:50 04/06/23 08:50 04/06/23 08:50 04/06/23 08:50 04/06/23 09:08 Preop Diagnosis: Right trimalleolar ankle fracture Operation Date: 04/06/23 11:50 Proposed Procedures p ORIF Trimalleolar Fracture 50972 S82.851A(Right) - Art Rizo DO Familial anesthetic complications: None Was Beta Jai taken within 24 hours: N/A Was Clonidine taken within 24 hours: N/A Last intake: Intake Last Liquid Date 04/05/23 Last Liquid Time 20:00 Last Solid Date 04/05/23 Last Solid Time 20:00 Social No alcohol and No tobacco Exam alert, oriented x 3, clear to auscultation bilaterally and regular rate & rhythm Airway Mallampati: Class II Dentition: chipped CV/HEM Stable Angina and Hypertension syncope Neuropsych syncope Anesthetic Plan ASA status: 3 Anesthesia: General and Regional (specify below) Risk of > 500 ml blood loss (7ml/kg in children): No Medications/Allergies Home Medications Medication Instructions Recorded Confirmed Last Taken Type atenolol 25 mg tablet 50 mg PO DAILY@39910/03/19 04/05/23 04/06/23 07:00 History atorvastatin 10 mg tablet (Lipitor) 20 mg PO DAILY@209910/03/19 04/05/23 04/05/23 History gabapentin 600 mg tablet 900 mg PO BEDTIME@209910/03/19 04/05/23 04/05/23 History hydrochlorothiazide 25 mg tablet 25 mg PO DAILY@39910/03/19 04/05/23 04/05/23 History untsepxxedyb-Tq-acxu-minerals 1 tab PO DAILY@39907/24/20 04/06/23 04/05/23 History (Multiple Vitamin, Womens tablet) amlodipine 2.5 mg tablet 2.5 mg PO DAILY@39910/03/20 04/05/23 04/06/23 07:00 History ropinirole 2 mg tablet 2 mg PO TID 12/19/20 04/06/23 04/05/23 History ascorbic acid (vitamin C) 1,000 mg 1,000 mg PO BID@0400,2100 01/26/21 04/05/23 04/05/23 History tablet (Vitamin C) methenamine hippurate 1 gram tablet 1 g PO BID Recurrent UTI #180 tabs 05/07/21 04/06/23 04/05/23 Rx oxybutynin chloride 10 mg See Rx Instructions .Route 11/06/21 04/06/23 04/05/23 Rx tablet,extended release 24 hr .COMPLEX #90 tabs doxycycline hyclate 100 mg capsule 100 mg PO BID 7 days #14 caps 12/03/21 04/06/23 04/05/23 Rx hydrocodone 5 mg-acetaminophen 325 1 tab PO .q 4-6 PRN pain 7 days 03/31/23 04/05/23 04/06/23 07:00 Rx mg tablet #20 tabs hydrocodone 5 mg-acetaminophen 325 1 tab PO Q6H PRN pain 7 days #28 03/31/23 04/04/23 Unknown Rx mg tablet tabs Allergies Allergy/AdvReac Type Severity Reaction Status Date / Time cefuroxime [From Ceftin] Allergy ALGY-Hives Verified 04/06/23 08:45 ciprofloxacin Allergy stomach Verified 04/06/23 08:45 bleeding Iodinated Contrast Media Allergy ALGY-Hives Verified 04/06/23 08:45 Sulfa (Sulfonamide Allergy unknown Verified 04/06/23 08:45 Antibiotics) vancomycin Allergy rash Verified 04/06/23 08:45 Current Medications Generic Name Dose Route Start Last Admin Trade Name Freq PRN Reason Stop Dose Admin Sodium Chloride 1,000 mls @ 30 mls/hr 04/06/23 08:45 04/06/23 08:56 Sodium Chloride 0.9% IV 04/07/23 08:44 30 mls/hr .Q24H OSORIO Administration PFSH Anesthesia Medical History Bacteriuria Bunion, left Cystitis cystica Degenerative arthritis Dyslipidemia Fibromyalgia Greater trochanteric bursitis of right hip History of recurrent UTI (urinary tract infection) HTN (hypertension) Mixed stress and urge urinary incontinence Primary osteoarthritis of right hip Right hip pain Surgical History H/O bariatric surgery with sleeve History of appendectomy History of carpal tunnel release of both wrists History of cholecystectomy History of hysterectomy History of tonsillectomy History of total knee replacement BILATERAL Hx of elbow surgery Hx of foot surgery Family History Father , at age 83 CAD (coronary artery disease) Hyperlipidemia Hypertension Mother , at age 76 Hyperlipidemia Hypertension Sister Cancer Hyperlipidemia Hypertension Brother Cancer Hyperlipidemia Hypertension Social History Smoking and tobacco status: former smoker Quit status (tobacco): has quit using tobacco Year quit tobacco: over 20 years ago Second hand smoke exposure: No Alcohol intake: current Alcohol intake frequency: holidays/special occasions only Substance/Drug Use: current Substance/Drug use frequency: few times a week Caregiver/support person: Yes Lives independently: Yes Household members: spouse Marital status: Current occupational status: retired Current gender identity: Female Special jay needs: No Data Anesthesia Cardiac Studies: Echocardiogram Ultrasound 07/25/20 Sestamibi Stress Test (Cardiology) 07/24/20 Cardiac Event Monitor 03/04/21
--- NOTE | 2023-04-06 09:28 | ANES.PROC ---
Anesthesia Procedures Procedure/Date: 04/06/23 Nerve Block ^: Nerve Block 1: Main Anesthesia: general anesthesia Time Out Performed: Yes Consent: requested by attending/covering physician, from patient, from other, risks and benefits reviewed and patient agrees to proceed Nerve block location: popliteal (R) Anesthesia monitors applied: pulse oximetry, EKG, BP cuff and oxygen Nerve block position: supine Anesthetic Used: ropivicaine 0.5% (30 ml) and with decadron (4 mg) Ultrasound used to: recognize landmarks Nerve Stimulator Used?: No Interscalene/Femoral BLK: 4 stimuplex 21 g needle used for position and inplane approach, visualize local anesthetic spread and no vascular puncture identified Injection: neg aspiration of heme Patient Tolerated Procedure: well Complications: none
[2023-04-06] MEDS: midazolam 1 mg/mL INJ 2 mL 2 MG IVP (09:32)
[2023-04-06] MEDS: clindamycin 600 MG/50 ML PREMIX 100 MG IV (09:38)
[2023-04-06] MEDS: clindamycin 300 MG/50 ML PREMIX 100 MG IV (09:38)
--- NOTE | 2023-04-06 11:03 | PM.OP2 ---
Brief Operative Note Date of procedure: 04/06/23 Pre-op diagnosis: Right trimalleolar ankle fracture Post-op diagnosis: same (With syndesmotic disruption) Procedure Done: Right ankle trimalleolar fracture open reduction internal fixation Right ankle syndesmotic fixation Right lower extremity short leg standard AO splint application Surgeon: Art Rizo Estimated blood loss (mL): 5 Complications: None Post-op Plan: Patient taken to PACU in stable condition recovering well. Pain controlled. Patient will be nonweightbearing to the right lower extremity. Splint on in place clean dry intact receive appropriate discharge instructions as well as pain medication DVT prophylaxis postoperatively. We will follow-up in the orthopedic office in 2 weeks. All questions answered. Patient understands agrees with current plan. All questions answered. Condition: stable Disposition: same day Coding Level of Care Code Acute Code for Abhilash Pandya
--- NOTE | 2023-04-06 11:04 | PM.PACU ---
PACU note Narrative: Patient taken to PACU in stable condition. Patient's dressings on in place clean dry and intact splint on in place clean dry and intact. Patient's toes warm well-perfused brisk capillary refill less than 2 seconds patient is able to subtly wiggle toes. Slight decrease sensation secondary to regional anesthesia. Pain controlled. Exam: awake Disposition: discharged
--- NOTE | 2023-04-06 11:04 | PM.OP ---
Operative Report Date of procedure: April 06, 2023 Pre-op diagnosis: Preop Diagnosis Right trimalleolar ankle fracture Procedure: Post-op diagnosis: Same, with with syndesmotic disruption Procedure done: Right trimalleolar ankle fracture open reduction internal fixation Right ankle syndesmotic tight rope fixation Right ankle short leg standard AO splint application Implants: [place] anatomic distal fibula plate combination of locking and nonlocking screws and interfragmentary screws David 4.0 partially-threaded cannulated screws x2 Arthrex syndesmosis tight rope XP implant Surgeon: Art Rizo DO Estimated blood loss: 5mL Tourniquet time 41 minutes IV fluids: 900mL Urine output: See anesthesia record Complications: None Findings: See operative report narrative Condition: stable Disposition: same day Brief History: Patient is a 72-year-old female who sustained a right trimalleolar ankle fracture.? This was seen in the emergency department and referred to myself for an orthopedic in outpt setting. On my evaluation patient has inherently unstable right trimalleolar ankle fracture.? Her posterior malleolus fracture fragment is less than 5%.? We talked about treatment options far as nonoperative and operative intervention.? At this point time given the inherent instability would recommend surgical intervention of ORIF right trimalleolar ankle fracture.? Understanding her risk for surgery as far as risk benefits complications with surgical nonsurgical treatment options she agrees to proceed with surgical intervention.? All questions been answered at this time.? Soft tissue check prior to surgery demonstrates positive wrinkle sign amenable for surgical intervention.? Consent was obtained she agrees to proceed with surgery. Procedure: Patient seen evaluated in the preoperative holding area.? Consent was reviewed and signed with patient.? Correct extremity was marked.? Splint was taken down soft tissue inspected and positive wrinkle sign demonstrating amendable for proceeding with surgical intervention.? Patient underwent regional anesthesia per the anesthesia department.? She was brought back to the operative suite.? She was transported on the OR table placed in supine position all bony prominences well-padded patient appropriate secured to the bed.? She then underwent anesthesia per the anesthesia department.? Once appropriately anesthetized the right lower extremity was then nonsterile tourniquet applied to the right thigh.? She was placed in ipsilateral hip bump was placed for appropriate foot positioning and was placed on bone foam large C arm was used for this procedure.? She was then prepped and draped in standard orthopedic fashion.? Final timeout performed.? Patient received appropriate preoperative antibiotics. Large fluoroscopic C-arm was then brought into identify fracture fragments.? At this point in time I then planned for a lateral and medial incision.? Started with my lateral incision.? A standard direct lateral approach to the distal fibula was performed with care to protect the SPN nerve I utilized sharp scalpel incision dissection scissors and then elevated with a periosteal elevator on bone to the fracture site and proximal to accommodate for plate fixation.? I then identified the fracture site.? This was found to have fracture pattern amenable to lag screw interfragmentary fixation. As result I utilized a [id number] clamp to maintain my reduction and this was confirmed on fluoroscopic imaging to be in appropriate position as well as appropriate length of the fibula. While maintaining this reduction I subsequently drilled and placed an interfragmentary lag screw under standard technique which was subsequently drilled measured and placed appropriate length screw which had appropriate fixation. Given patient's age she did have slightly softer bone quality. The anterior fracture fragment was small off the lateral tibia and was in appropriate position and not amendable for any type of further surgical fixation I feel as though if this healed in its appropriate position this would not cause her any issues. As result this was left alone. I then selected a [place] anatomic distal fibula plate to the appropriate length this was then held up to the bone and once confirmed to be in appropriate position I then subsequently drilled a 3.5 cortical screw proximally to secure the plate to bone as well as did this distally to secure the plate to bone once I was confirmed that there was good bone to plate interface and the fracture was well maintained I then subsequently locked the plate distally was subsequently drilled measured and placed appropriate length multiple locking screws around my cortical screw once this was completed I remove my distal cortical screw and placed a shorter locking screw all the screws were in appropriate position and did not violate the lateral gutter.? Next I turned my fixation proximally and then subsequently drilled an additional locking screws in the plate to increase my construct rigidity. Proximal guides were then used and subsequently drilled measured and placed additional locking screws proximally which were placed in standard fashion.? This completed my lateral distal fibula ORIF and was satisfied with my reduction next my attention was turned towards the medial malleolus A standard direct medial incision was then made centering over the fracture fragment of the medial malleolus sharp scalpel excision was made through skin I then utilized a periosteal elevator identified the fracture fragment.? Patient's fracture was then opened booked and the joint was then thoroughly irrigate. Of note the fracture immediately had some comminution along the medial cortex but main fracture line would be amenable for cannulated screw fixation. At this point I then utilized a dental pick as well as sharp scalpel excision to remove the involved periosteum of the fracture site I then utilized a [id number]-[id number] clamp to obtain anatomic reduction this was confirmed with large C arm imaging.? This was going to be amendable for cannulated screw fixation.? I subsequently advanced 2 screws perpendicular across fracture site and in parallel fashion through the medial malleolus fracture fragment and securing it into the physeal scar.? These were confirmed to be in appropriate position I subsequently measured these and these were both 40 mm in length and as a result I subsequently overdrilled the near cortex in standard lag by design and placed to 40 mm 4.0 partially-threaded David cannulated screws which were then advanced by hand and had excellent fixation wires were then removed this was satisfactory medial malleolus fixation. I then assessed the posterior malleolus this fracture fragment was in good alignment position and was less than 5% and at this point in time I deemed it not necessary for an anterior to posterior screw fixation and as result I stressed the ankle with external stress test and cotton test and there was a subtle amount of medial clear space widening in order to prophylactically treat the posterior malleolus as well as the syndesmotic injury I then plan for tight rope fixation.? I then went to the open hole at the level of the syndesmosis and the anatomic plate.? I then subsequently utilizing Arthrex his syndesmotic tight rope fixation subsequently drilled parallel to the joint while maintaining reduction of the syndesmosis.? Drill was advanced quad cortically and then subsequently utilized the tight rope XP system flipped the button on the medial cortex and sequentially tightened while maintaining my reduction of syndesmosis.? This was secured down and then tied off.? This had excellent fixation and the syndesmosis was then stressed again with external stress test and cotton test and this was found to be stable and this completed my fixation.? Final x-rays were taken of AP ankle mortise stress as well as lateral images which showed stable trimalleolar ankle ORIF and syndesmotic fixation. Tourniquet was deflated.? Hemostasis was satisfactory.? Wound beds were then thoroughly irrigated.? I then closed the medial incision in layered fashion with 2-0 Vicryl suture in interrupted with nylon vertical mattress stitches.? The lateral incision was closed with 0 Vicryl 2-0 Vicryl and janett.? Xeroform covered the incision sites.? 4 x 4's ABDs Curlex soft roll and a standard AO short leg splint was then applied with holding the foot in neutral position.? Patient was then awake from anesthesia and taken to PACU in stable condition. Disposition: Patient taken to PACU in stable condition recovering well.? Pain controlled.? Will receive appropriate discharge instructions as well as pain medication postoperatively.? Maintain splint until follow-up.? Follow-up in the orthopedic office in 2 weeks.? Patient to be nonweightbearing right lower extremity. Patient understands and agrees with current plan.? All questions answered.? Elevation ice as needed.? Will receive DVT prophylaxis of aspirin.
--- NOTE | 2023-04-06 11:09 | PC.NURSE ---
Pt arrived to PACU, resting comfortably, dressing to right ankle C/D/I, toes w/d, cap refill < 3 seconds, FOB elevated.
[2023-04-06] MEDS: fentaNYL 50 mcg/mL INJ 2mL IVP (11:22)
--- NOTE | 2023-04-06 11:35 | ANE.PACU2 ---
Inpatient post-anesthesia follow up: Airway intact: Yes Vital signs: Temperature 97.3 F Pulse Rate 75 Respiratory Rate 18 Blood Pressure 128/64 Pulse Oximetry 100 Oxygen Delivery Me thod Room Air Oxygen Flow Rate Fraction of Inspir ed Oxygen Hydration adequate: Yes Nausea and vomiting: No Pain level: 1 Mental status: Baseline
[2023-04-06] MEDS: oxyCODONE-APAP 5-325 mg Tablet 1 TAB PO (11:49)
== END 2023-04-06 12:15 | disposition home or self-care (01) ==
PROVIDERS: PCP Family Medicine; Visit Provider Student in an Organized Health Care Education/Training Program
PROC: (CPT 27822; principal; 2023-04-06 11:50)
DX: S82.851A Displaced trimalleolar fracture of right lower leg, initial encounter for closed fracture (principal); X58.XXXA Exposure to other specified factors, initial encounter; I10 Essential (primary) hypertension; Z79.891 Long term (current) use of opiate analgesic; E78.5 Hyperlipidemia, unspecified; Z87.891 Personal history of nicotine dependence
CPT/HCPCS: 27822; 73600; 76000; C1713; J0131; J1100; J1885; J2250; J2405; J2704; J3010; J3490; J7030

== ENCOUNTER 2023-04-11 10:57 | Outpatient (CLI) | payer MEDICARE, SELFPAY ==
--- NOTE | 2023-04-11 11:17 | USCV_ITS ---
Debra Cerrato Age: 72 Gender: F : 1950 Exam Date: 04/11/2023 11:26 Ordering Phys: Noel Nieto MD Technologist: FLORIN Exam Location: [facility] [place] Indication: Syncope Risk Factors: Previous Vascular Surgery: Right Brachial BP: / Left Brachial BP: / Right Left Velocity (cm/s) Spectral Plaque Velocity (cm/s) Spectral Plaque Syst/Diast Broadening Syst/Diast Broadening 46.50/ 9.50 Prox CCA 67.00 / 14.50 53.20/ 10.50 Mid CCA 57.90 / 16.30 56.50/ 14.50 Distal CCA 47.00 / 12.00 66.10/ 20.50 Prox ICA 38.90 / 10.70 78.50/ 26.20 Mid ICA 63.60 / 21.90 77.00/ 18.20 Distal ICA 65.20 / 23.50 78.60 ECA 80.70 1.39 ICA/CCA 0.97 Antegrade Vertebral Antegrade 36.30/ 7.60 cm/s 45.40/ 10.70 cm/s Tri Subclavian Tri 131.5 127.2 0 0 CONCLUSIONS Right ICA stenosis <50%. Moderate calcified atheromatous plaque right carotid bulb/ICA. Left ICA stenosis <50%. Moderate calcified atheromatous plaque left carotid bulb/ICA. Intimal thickening in the common carotid arteries and internal carotid arteries bilaterally. Normal antegrade Doppler flow noted in the right vertebral artery. Normal antegrade Doppler flow noted in the left vertebral artery. Min Ortiz MD (Electronically Signed) Final Date: 11 April 2023 17:24 S
== END 2023-04-11 10:58 | disposition home or self-care (01) ==
PROVIDERS: PCP Family Medicine; Visit Provider Family Medicine
DX: R55 Syncope and collapse (principal); I65.23 Occlusion and stenosis of bilateral carotid arteries
CPT/HCPCS: 93880

== ENCOUNTER → 2023-04-19 07:47 | Outpatient (BNVA) | payer MEDICARE, SELFPAY | PROVIDERS: PCP Family Medicine; Visit Provider Student in an Organized Health Care Education/Training Program | DX: S82.851A Displaced trimalleolar fracture of right lower leg, initial encounter for closed fracture (principal); X58.XXXA Exposure to other specified factors, initial encounter; Z46.89 Encounter for fitting and adjustment of other specified devices | CPT/HCPCS: 73610; 97760; 99024; L4361 ==

== ENCOUNTER 2023-04-19 14:03 | Outpatient (CLI) | payer MEDICARE, SELFPAY | END 2023-04-19 14:04 | disposition home or self-care (01) | LOC: SPT 14:05 | PROVIDERS: PCP Family Medicine; Visit Provider Student in an Organized Health Care Education/Training Program | DX: Z46.89 Encounter for fitting and adjustment of other specified devices (principal); S82.851D Displaced trimalleolar fracture of right lower leg, subsequent encounter for closed fracture with routine healing; X58.XXXD Exposure to other specified factors, subsequent encounter | CPT/HCPCS: 97760; L4361 ==

== ENCOUNTER → 2023-05-24 08:45 | Outpatient (BNVA) | payer MEDICARE, SELFPAY | PROVIDERS: PCP Family Medicine; Visit Provider Student in an Organized Health Care Education/Training Program | DX: S82.851A Displaced trimalleolar fracture of right lower leg, initial encounter for closed fracture; X58.XXXA Exposure to other specified factors, initial encounter | CPT/HCPCS: 73610; 99024 ==

== ENCOUNTER 2023-05-26 06:00 | Outpatient (RCR) | payer MEDICARE, SELFPAY | END 2023-05-26 23:59 | disposition home or self-care (01) | LOC: SPT 06:00 | PROVIDERS: PCP Family Medicine; Visit Provider Student in an Organized Health Care Education/Training Program | DX: Z98.890 Other specified postprocedural states (principal) | CPT/HCPCS: 97161 ==

== ENCOUNTER 2023-05-27 06:00 | Outpatient (RCR) | payer MEDICARE, SELFPAY | END 2023-06-25 23:59 | disposition home or self-care (01) | LOC: SPT 06:00 | PROVIDERS: PCP Family Medicine; Visit Provider Student in an Organized Health Care Education/Training Program | DX: Z47.89 Encounter for other orthopedic aftercare (principal) | CPT/HCPCS: 97110; 97530 ==

== ENCOUNTER → 2023-06-07 08:22 | Outpatient (BNVA) | payer MEDICARE, OTHER, SELFPAY | PROVIDERS: PCP Family Medicine; Visit Provider Physician Assistant | DX: Z98.890 Other specified postprocedural states (principal) | CPT/HCPCS: 73610; 99024 ==

== ENCOUNTER 2023-06-18 13:55 | Emergency (ER) | payer MEDICARE, SELFPAY ==
[2023-06-18 13:56] VITALS: BP 142/74; PULSE 70; RESP 17; TEMP 36.6; O2SAT 94; BMI 30.8
--- NOTE | 2023-06-18 14:14 | XRR_ITS ---
PROCEDURE INFORMATION: Exam: XR Right Ankle Exam date and time: 06/18/2023 2:27 PM Age: 73 years old Clinical indication: Pain; Right; Prior surgery; Surgery date: 1-6 months; Surgery type: RT ankle; Additional info: Lateral ankle pain, HX of repair March, injured in PT TECHNIQUE: Imaging protocol: Radiologic exam of the right ankle. Views: 3 or more views. COMPARISON: CR XR ankle RT min 3V* [id number] 06/07/2023 8:32 AM FINDINGS: Bones/joints: There is intact distal lateral fibular and medial distal tibial hardware. No fracture or other acute abnormality. Ankle mortise is normal. The bones are demineralized. There is a plantar calcaneal enthesophyte. Soft tissues: Normal. XR/XR ankle RT min 3V* [id number] IMPRESSION: Postsurgical findings. No acute abnormality. No significant change.
--- NOTE | 2023-06-18 14:15 | ED_ITS ---
HPI - Extremity Problem General: Chief complaint: Extremity Injury, Lower Stated complaint: right ankle pain Time Seen by Provider: 06/18/23 13:56 Source: patient Mode of arrival: wheelchair Limitations: no limitations History of Present Illness: Patient presents emergency department today for evaluation treatment of acute on chronic right ankle pain. Patient is status post closed displaced trimalleolar fracture of her right ankle with indwelling hardware from an injury sustained in March of this year. Patient has been doing physical therapy and states that on while at physical therapy, was doing leg presses. She indicated that it was causing her pain during the exercise but, states that prior to leaving therapy, it was not bothering her too much. However, since that time pain has increased and worsened. Patient always has some swelling on the ankle but thinks there may be a bit more. She is having worsening pain in her ankle since physical therapy. Review of Systems General: Reports: 10 or more systems reviewed and unremarkable except in HPI and below PFSH ED PFSH: Medical History Bacteriuria Bunion, left Cystitis cystica Degenerative arthritis Dyslipidemia Fibromyalgia Greater trochanteric bursitis of right hip History of recurrent UTI (urinary tract infection) HTN (hypertension) Mixed stress and urge urinary incontinence Primary osteoarthritis of right hip Right hip pain Surgical History H/O bariatric surgery with sleeve History of appendectomy History of carpal tunnel release of both wrists History of cholecystectomy History of hysterectomy History of tonsillectomy History of total knee replacement BILATERAL Hx of elbow surgery Hx of foot surgery Family History Father , at age 83 CAD (coronary artery disease) Hyperlipidemia Hypertension Mother , at age 76 Hyperlipidemia Hypertension Sister Cancer Hyperlipidemia Hypertension Brother Cancer Hyperlipidemia Hypertension Social History Smoking and tobacco status: former smoker Quit status (tobacco): has quit using tobacco Year quit tobacco: over 20 years ago Second hand smoke exposure: No Alcohol intake: current Alcohol intake frequency: holidays/special occasions only Substance/Drug Use: current Substance/Drug use frequency: few times a week Caregiver/support person: Yes Lives independently: Yes Household members: spouse Marital status: Current occupational status: retired Current gender identity: Female Special jay needs: No Physical Exam Const: COMMON NORMALS: no acute distress, patient oriented x3 and alert HENMT: COMMON NORMALS: normocephalic, atraumatic and hearing grossly normal bilaterally HEAD & SCALP: normocephalic and atraumatic Eye: COMMON NORMALS: Equal, round and reactive pupils present, EOMs intact bilaterally and conjunctivae normal CONJUNCTIVA: Yes conjunctivae normal PUPIL: Yes Equal, round and reactive pupils present Neck/C-Spine: COMMON NORMALS: full ROM and no JVD Lymph: LYMPHATIC: no lymphadenopathy noted Resp: COMMON NORMALS: normal respiratory effort, No retractions and No use of accessory muscles Cardio: COMMON NORMALS: no JVD and regular rate RATE: regular rate Extremity: NARRATIVE EXTREMITY EXAM: Patient has swelling noted to the right ankle-lateral malleolus greater than medial. Patient has some point tenderness to the distal tip of the tibia and the medial malleolus but pain primarily on the lateral malleolus. She has proximal fifth metatarsal tenderness on exam. Neuro: COMMON NORMALS: patient oriented x3 SENSORIUM/ORIENTATION: Yes alert Psych: COMMON NORMALS: mental status grossly normal, Normal thought process present, cooperative and normal affect THOUGHT PROCESS: Normal thought process present Skin: COMMON NORMALS: no rashes or lesions noted and turgor normal GENERAL SKIN EXAM: no rashes or lesions noted and turgor normal OTHER: Patient has multiple well-healing surgical scars including bilateral anterior knees and, medial and lateral malleoli regions of the right ankle. Course Vital Signs: Vital signs: Vital Signs Temperature 97.8 F 06/18/23 13:56 Pulse Rate 65 06/18/23 16:12 Respiratory Rate 16 06/18/23 16:12 Blood Pressure 145/88 06/18/23 16:12 Pulse Oximetry 99 06/18/23 16:12 Oxygen Delivery Me thod Room Air 06/18/23 13:56 MDM - Extremity (Nontraumatic) Medical Decision Making X-rays are negative for signs of any acute/new bony abnormality. No signs of any movement or displacement of the hardware. Encouraged the patient to call her physical therapy office on Tuesday to request some time to recover. Patient was provided some medication to help with pain and to allow her to rest. Encouraged application of ice and elevation through the weekend. Patient verbalized understanding and agreement to treatment plan. Differential Diagnosis Unlikely gout, cellulitis, superficial thrombophlebitis or deep vein thrombosis of lower extremity Lab Data Radiology Impressions Ankle X-Ray 06/18/23 14:14 IMPRESSION: Postsurgical findings. No acute abnormality. No significant change. All radiology interpretation(s) finalized by discharge Discharge Plan Discharge Patient Disposition: Home Clinical Impression: Acute right ankle pain Condition: Stable Prescriptions: New tizanidine 4 mg tablet 4 mg PO TID PRN (Reason: muscle spasticity) Qty: 21 0RF methylprednisolone 4 mg tablets,dose pack See Rx Instructions PO .COMPLEX Qty: 21 0RF Rx Instructions: orally per package directions naproxen 500 mg tablet 500 mg PO BID PRN (Reason: pain) Qty: 20 0RF No Action atenolol 25 mg tablet 50 mg PO DAILY@0400 hydrochlorothiazide 25 mg tablet 25 mg PO DAILY@0400 atorvastatin [Lipitor] 10 mg tablet 20 mg PO DAILY@2100 gabapentin 600 mg tablet 900 mg PO BEDTIME@2100 Percocet 5-325 mg tablet 1 tab PO Q6H PRN (Reason: pain postop) 7 Days Qty: 28 0RF (DME) cam boot See Rx Instructions .Route .MEDSUPPLY Qty: 1 0RF Rx Instructions: As directed hydrocodone-acetaminophen 5-325 mg tablet 1 tab PO Q6H PRN (Reason: pain) 5 Days Qty: 20 0RF methenamine hippurate 1 gram tablet 1 g PO BID Qty: 180 3RF Rx Instructions: 1 pill twice a day with 1 g vitamin C each dose Multiple Vitamin, Womens Tablet 1 tab PO DAILY@0400 ascorbic acid (vitamin C) [Vitamin C] 1,000 mg Tablet 1,000 mg PO BID@0400,2100 amlodipine 2.5 mg tablet 2.5 mg PO DAILY@0400 ropinirole 2 mg tablet 2 mg PO TID Discharge Orders: Discharge ED (Routine); Ordered 06/18/23 Ordered By: Tiki Jolley Referrals: Noel Nieto MD [Primary Care Provider] - Discharge Diet: Usual diet Discharge Activity: Limit activity as instructed Activity Restrictions/Additional Instructions: X-ray today shows no signs of any acute injury to the bone or joint. No signs of movement or shifting of your indwelling hardware. I do think it would be beneficial to take a few days off of physical therapy to keep your leg up and elevated, ice, take your medications to help with pain. I recommend calling physical therapy on Tuesday to make them aware of your need to have been evaluated through the weekend due to your right ankle pain. They may wish to coordinate with you to allow you time to rest and recover. I prescribed you medication to help with your discomfort-be aware that these medications can make you feel drowsy and sedated so, do not drive or drink any alcohol with these. Coding Level of Care Code ED Mental Health Nurse for Abhilash Pandya
[2023-06-18 16:12] VITALS: BP 145/88; PULSE 65; RESP 16; O2SAT 99
== END 2023-06-18 16:13 | disposition home or self-care (01) ==
PROVIDERS: Emergency Provider Physician Assistant; PCP Family Medicine
DX: M25.571 Pain in right ankle and joints of right foot (principal); Z87.891 Personal history of nicotine dependence; E78.5 Hyperlipidemia, unspecified; I10 Essential (primary) hypertension
CPT/HCPCS: 73610; 99284

== ENCOUNTER 2023-06-26 06:00 | Outpatient (RCR) | payer MEDICARE, SELFPAY | END 2023-07-26 23:59 | disposition home or self-care (01) | LOC: SPT 06:00 | PROVIDERS: PCP Family Medicine; Visit Provider Student in an Organized Health Care Education/Training Program | DX: Z98.890 Other specified postprocedural states (principal) | CPT/HCPCS: 97110 ==

== ENCOUNTER 2023-07-27 06:00 | Outpatient (RCR) | payer MEDICARE, SELFPAY | END 2023-08-25 23:59 | disposition home or self-care (01) | LOC: SPT 06:00 | PROVIDERS: PCP Family Medicine; Visit Provider Student in an Organized Health Care Education/Training Program | DX: Z47.89 Encounter for other orthopedic aftercare (principal) | CPT/HCPCS: 97110 ==

== ENCOUNTER 2023-08-26 12:52 | Outpatient (CLI) | payer MEDICARE, SELFPAY ==
--- NOTE | 2023-08-26 13:05 | MM_ITS ---
WS: [id number] BILATERAL 3D TOMOSYNTHESIS DIGITAL SCREENING MAMMOGRAPHY WITH CAD CLINICAL INFORMATION: SCREENING HISTORY: Screening mammogram. No current complaints. COMPARISON: 2021 TECHNIQUE: Bilateral CC and MLO views. FINDINGS: Scattered fibroglandular densities bilaterally. No suspicious focal mass, asymmetry, calcifications, or architectural distortion. No evidence of malignancy. Biopsy marker RIGHT breast with adjacent nodu le. Vascular calcification. IMPRESSION: MM/[place] [id number] BI-RADS: 2-Benign FOLLOW UP: 1 Year Follow-up Recommend return to annual screening mammography.
== END 2023-08-26 12:53 | disposition home or self-care (01) ==
PROVIDERS: PCP Family Medicine; Visit Provider Family Medicine
DX: Z12.31 Encounter for screening mammogram for malignant neoplasm of breast (principal)
CPT/HCPCS: 77063; 77067

== ENCOUNTER → 2023-09-06 08:03 | Outpatient (BNVA) | payer MEDICARE, SELFPAY | PROVIDERS: PCP Family Medicine; Visit Provider Physician Assistant | DX: S82.851D Displaced trimalleolar fracture of right lower leg, subsequent encounter for closed fracture with routine healing; Z98.890 Other specified postprocedural states; X58.XXXD Exposure to other specified factors, subsequent encounter; Z46.89 Encounter for fitting and adjustment of other specified devices; M79.672 Pain in left foot | CPT/HCPCS: 73610; 97760; 99213; L1902 ==

== ENCOUNTER 2023-09-06 11:00 | Outpatient (CLI) | payer MEDICARE, SELFPAY | END 2023-09-06 11:01 | disposition home or self-care (01) | LOC: SPT 11:00 | PROVIDERS: PCP Family Medicine; Visit Provider Physician Assistant | DX: Z46.89 Encounter for fitting and adjustment of other specified devices (principal); M79.672 Pain in left foot | CPT/HCPCS: 97760; L1902 ==

== ENCOUNTER → 2023-12-12 10:02 | Outpatient (BNVA) | payer MEDICARE, SELFPAY | PROVIDERS: PCP Family Medicine; Visit Provider Internal Medicine Cardiovascular Disease | DX: I10 Essential (primary) hypertension (principal); E78.5 Hyperlipidemia, unspecified; R42 Dizziness and giddiness; Z87.898 Personal history of other specified conditions; Z87.891 Personal history of nicotine dependence | CPT/HCPCS: 99214 ==

== ENCOUNTER → 2024-02-24 11:17 | Outpatient (BNVA) | payer MEDICARE, SELFPAY | PROVIDERS: PCP Family Medicine; Visit Provider Physician Assistant | DX: Z98.890 Other specified postprocedural states (principal); Z87.81 Personal history of (healed) traumatic fracture | CPT/HCPCS: 73610; 99213 ==

== ENCOUNTER → 2024-04-10 07:05 | Outpatient (BNVA) | payer MEDICARE, SELFPAY | PROVIDERS: PCP Family Medicine; Visit Provider Student in an Organized Health Care Education/Training Program | DX: Z98.890 Other specified postprocedural states (principal); T84.84XA Pain due to internal orthopedic prosthetic devices, implants and grafts, initial encounter; Y79.2 Prosthetic and other implants, materials and accessory orthopedic devices associated with adverse incidents | CPT/HCPCS: 73610; 99214 ==

== ENCOUNTER 2024-04-17 15:15 | Outpatient (CLI) | payer MEDICARE, SELFPAY ==
--- NOTE | 2024-04-17 15:15 | CT_ITS ---
WS: [id number] CT RIGHT ANKLE, NONCONTRAST HISTORY: Rule, verify union of fracture is good Technique: All CT scans at [facility] use at least one of these dose optimization techniques: automated exposure control; mA and/or kV adjustment per patient size (includes targeted exams where dose is matched to clinical indication); or iterative reconstruction. DLP: 134.59 mGy.cm COMPARISON: 03/27/2023, radiograph 04/10/2024 Distal fibular plate and screws normally aligned and in close contact with the bone. No lucency aroun d the hardware. No acute fracture. Previously described fracture is completely healed in the fibula. Mild narrowing of the distal tibiofibular articulation. Distal tibia: Posterior malleolus fracture is healed. No new or residual fracture line in the posteri or malleolus. Medial malleolus screws and medial cortical button are identified. There is a tunnel fr om the syndesmosis tight rope fixation. The fracture has healed. Mild narrowing of the tibiotalar mary nt space. There are small subchondral cysts along the talar dome. CT/CT ankle RT wo con* [id number] IMPRESSION: 1. Trimalleolar fracture is healed. No residual fracture line. 2. Lucent tunnel noted in the distal tibia from syndesmosis tight rope fixatio n. 3. Mild osteoarthritis at the ankle.
== END 2024-04-17 16:05 | disposition home or self-care (01) ==
PROVIDERS: PCP Family Medicine; Visit Provider Student in an Organized Health Care Education/Training Program
DX: Z98.890 Other specified postprocedural states (principal); Z87.81 Personal history of (healed) traumatic fracture; M85.671 Other cyst of bone, right ankle and foot; M19.071 Primary osteoarthritis, right ankle and foot
CPT/HCPCS: 73700

== ENCOUNTER 2024-04-20 08:43 | Emergency (ER) | payer MEDICARE, SELFPAY ==
[2024-04-20] VITALS (9 sets, daily range): BP systolic 106–169; BP diastolic 53–81; PULSE 73; RESP 16; TEMP 36.8; O2SAT 96–100; BMI 29.7
--- NOTE | 2024-04-20 09:05 | ED_ITS ---
HPI - Headache 2 General: Chief Complaint: Headache Stated Complaint: head and back pain Time Seen by Provider: 04/20/24 08:45 History of Present Illness: 73-year-old female presents emergency ro om complaining of headache and back pain. Is been going on the last 2 to 3 days she reports not previously having had either headache or back pain she does not really have radicular pain although she does complain of some pain in her calf she has not had any swelling associated with it she denies any shortness of breath or any chest pain. No specific trauma to her back. She has had some nausea associated with that as well most of her back pain is in the low and mid back. No flank pain no hematuria no dysuria urgency or frequency. Associated symptoms: Deny chest pain, fever(s) or rash Review of Systems 2 Const: Denies: fever(s) or chills Card: Denies: chest pain Resp: Denies: dyspnea GI: Denies: abdominal pain : Denies: dysuria, urinary frequency or urinary urgency Musc: Reports: back pain; Denies: neck pain Skin/Breast: Denies: rash Neuro: Reports: headache(s) PFSH ED 2 PFSH: Medical History Dyslipidemia HTN (hypertension) Primary osteoarthritis of right hip Greater trochanteric bursitis of right hip Cystitis cystica Bacteriuria History of recurrent UTI (urinary tract infection) Mixed stress and urge urinary incontinence Degenerative arthritis Bunion, left Right hip pain Fibromyalgia Surgical History History of total knee replacement BILATERAL History of appendectomy History of cholecystectomy History of hysterectomy History of tonsillectomy H/O bariatric surgery with sleeve Hx of elbow surgery Hx of foot surgery History of carpal tunnel release of both wrists Family History Father , at age 83 CAD (coronary artery disease) Hyperlipidemia Hypertension Mother , at age 76 Hyperlipidemia Hypertension Sister Cancer Hyperlipidemia Hypertension Brother Cancer Hyperlipidemia Hypertension Social History Smoking and tobacco/nicotine status: current some day tobacco/nicotine user Quit status (tobacco/nicotine): has quit using Year quit tobacco: over 20 years ago Second hand smoke exposure: No Alcohol intake: current Alcohol intake frequency: holidays/special occasions only Substance/Drug Use: current Substance/Drug use frequency: few times a week Other substance/drug use details: medical marijuana Caregiver/support person: Yes Lives independently: Yes Household members: spouse Marital status: Current occupational status: retired Current gender identity: Female Special jay needs: No Physical Exam 2 Const: GENERAL APPEARANCE: cooperative and comfortable O RIENTATION/CONSCIOUSNESS: Yes awake, Yes oriented to person, Yes oriented to place and Yes oriented to time HENMT: COMMON NORMALS: normocephalic, atraumatic and hearing grossly normal bilaterally HEAD & SCALP: normocephalic and atraumatic Resp: COMMON NORMALS: normal respiratory effort, No retractions, No use of accessory muscles and clear to auscultation bilaterally AUSCULTATION: clear to auscultation bilaterally Cardio: COMMON NORMALS: regular rate, regular rhythm and No murmurs present (Cardio) RATE: regular rate RHYTHM: regular rhythm GI: COMMON NORMALS: Soft to palpation and No hepatosplenomegaly present A USCULTATION: Yes normoactive bowel sounds PALPATION: Yes Soft to palpation, No Tenderness to palpation present (GI), No Guarding due to palpation present (GI) and Yes No hepatosplenomegaly present Extremity: COMMON NORMALS: normal to inspection, capillary refill normal, no clubbing, cyanosis or edema, no calf tenderness and no pedal edema Neuro: SENSORIUM/ORIENTATION: Yes oriented to person, Yes oriented to place and Yes oriented to time Skin: COMMON NORMALS: no rashes or lesions noted GENERAL SKIN EXAM: no rashes or lesions noted Course 2 Vital Signs: Vital signs: Vital Signs Temperature 98.2 F 04/20/24 08:50 Pulse Rate 73 04/20/24 08:50 Respiratory Rate 16 04/20/24 08:50 Blood Pressure 138/53 04/20/24 12:05 Pulse Oximetry 99 04/20/24 12:05 Oxygen Delivery Me thod Room Air 04/20/24 08:50 MDM - Headache Medical Decision Making Patient does have a mild cystitis there is arthritic change in the lumbar and sacral spine but no signs of acute fractures. CT of the head shows remote infarct but does not appear to be acute. Will start patient on dual platelet therapy as well as increase her atorvastatin. Started on oral antibiotics for the cystitis which may account for pain some of may be musculoskeletal as well. She is also given tizanidine to use as needed follow-up with her primary care doctor if not improving Medical Records I reviewed the patient's medical records. Lab Data I reviewed the patient's lab results. 04/20/24 09:19 04/20/24 09:[address] 04/20/24 10:15 IMPRESSION: 1. Mild volume loss in the posterior RIGHT parietal cortex consistent with a subacute to remote infarct. This is not acute but new since 03/27/2023. 2. Mild atrophy and small vessel ischemic disease otherwise. Lumbar Spine CT 04/20/24 10:15 IMPRESSION: 1. Multilevel degenerative disc disease and osteophytosis. No high-grade central or foraminal stenosis. 2. Mild central and bilateral subarticular recess stenosis from L1-2 through L4-5. 3. No fracture. Thoracic Spine CT 04/20/24 10:15 IMPRESSION: Mild thoracic spondylosis. No central stenosis and no bone destruction. Laboratory Results WBC 7.75 10^3/uL (3.29-11.43) 04/20/24 09:19 RBC 5.13 10^6/uL (3.85-5.65) 04/20/24 09:19 Hgb 14.80 g/dL (11.27-16.99) 04/20/24 09:19 Hct 43.7 % (36-47) 04/20/24 09:19 MCV 85.2 fl (85-98) 04/20/24 09:19 MCH 28.8 pg (27-33) 04/20/24 09:19 MCHC 33.9 g/dL (30-55) 04/20/24 09:19 RDW 12.9 % (12.1-15.1) 04/20/24 09:19 Plt Count 209 10^3/cmm (157-399) 04/20/24 09:19 MPV 8.7 fL (7.4-10.4) 04/20/24 09:19 Neut % (Auto) 80.0 % 04/20/24 09:19 Lymph % (Auto) 12.0 % 04/20/24 09:19 [place] % (Auto) 6.8 % 04/20/24 09:19 Eos % (Auto) 0.4 % 04/20/24 09:19 Baso % (Auto) 0.4 % 04/20/24 09:19 Neut # (Auto) 6.20 10^3/uL (1.8-7.7) 04/20/24 09:19 Lymph # (Auto) 0.9 10^3/uL (0.8-4.8) 04/20/24 09:19 Cameron # (Auto) 0.5 10^3/uL (0.2-0.9) 04/20/24 09:19 Eos # (Auto) 0.0 10^3/uL (0.0-0.8) 04/20/24 09:19 Baso # (Auto) 0.0 10^3/uL (0.0-0.1) 04/20/24 09:19 Nucleated RBC % (auto) 0 % 04/20/24 09:19 Nucleated RBCs # 0.0 /100WBC 04/20/24 09:19 Sodium 138 mmol/L (136-145) 04/20/24 09:19 Potassium 3.8 mmol/L (3.5-5.1) 04/20/24 09:19 Chloride 99 mmol/L (98-107) 04/20/24 09:19 Carbon Dioxide 25 mmol/L (22-29) 04/20/24 09:19 Anion Gap 17.8 (5-19) 04/20/24 09:19 BUN 11 mg/dL (8-23) 04/20/24 09:19 Creatinine 0.6 mg/dL (0.5-0.9) 04/20/24 09:19 GFR Calculation Not Reportable 04/20/24 09:19 Glucose 116 mg/dL (65-115) H 04/20/24 09:19 Calculated Osmolality 286 mOsm/kg (285-295) 04/20/24 09:19 Calcium 9.5 mg/dL (8.5-10.5) 04/20/24 09:19 Total Bilirubin 1.0 mg/dL (0.15-1.2) 04/20/24 09:19 AST 24 U/L (0-32) 04/20/24 09:19 ALT 18 U/L (0-33) 04/20/24 09:19 Alkaline Phosphatase 103 U/L (35-105) 04/20/24 09:19 Total Protein 8.2 g/dL (6.6-8.7) 04/20/24 09:19 Albumin 4.3 g/dL (3.5-5.2) 04/20/24 09:19 Globulin 3.9 g/dL (1.3-4.6) 04/20/24 09:19 Urine Color Yellow (Yellow) 04/20/24 09:26 Urine Appearance Slightly cloudy (CLEAR) 04/20/24 09:26 Urine pH 5 (5-7) 04/20/24 09:26 Ur Specific [place] 1.002 (1.005-1.030) L 04/20/24 09:26 Urine Protein Trace (Negative) 04/20/24 09:26 Urine Glucose (UA) Norm (Normal) 04/20/24 09:26 Urine Ketones Negative (Negative) 04/20/24 09:26 Urine Blood 2+ (Negative) H 04/20/24 09:26 Urine Nitrate Positive (Negative) A 04/20/24 09:26 Urine Bilirubin Neg (Negative) 04/20/24 09:26 Urine Urobilinogen Norm mg/dL (Negative) 04/20/24 09:26 Ur Leukocyte Esterase 2+ (Negative) H 04/20/24 09:26 Urine RBC 0-4 /hpf (0-2) H 04/20/24 09:26 Urine WBC 21-50 /hpf (0-5) 04/20/24 09:26 Ur Squamous Epith Cells 0-4 /hpf (0-5) H 04/20/24 09:26 Amorphous Sediment Not Reportable 04/20/24 09:26 Urine Bacteria 3+ /hpf (NONE) H 04/20/24 09:26 All radiology interpretation(s) finalized by discharge Discharge Plan Discharge Patient Disposition: Home Clinical Impression: Cystitis, CVA (cerebrovascular accident) Condition: Stable Prescriptions: New amoxicillin-pot clavulanate 875-125 mg tablet 1 tab PO BID Qty: 14 0RF atorvastatin 40 mg tablet 40 mg PO DAILY Qty: 30 0RF Plavix 75 mg tablet 75 mg PO DAILY Qty: 30 0RF aspirin 81 mg tablet,delayed release (DR/EC) 81 mg PO DAILY Qty: 30 0RF tizanidine 4 mg tablet 4 mg PO Q6H PRN (Reason: muscle spasticity) Qty: 20 0RF Rx Instructions: do not exceed 3 doses per 24 hrs No Action hydrochlorothiazide 25 mg tablet 25 mg PO DAILY@0400 gabapentin 600 mg tablet 900 mg PO BEDTIME@2100 (DME) cam boot See Rx Instructions .Route .MEDSUPPLY Qty: 1 0RF Rx Instructions: As directed (DME) RIGHT ANKLE BRACE-VELCRO See Rx Instructions .Route .MEDSUPPLY Qty: 1 0RF Rx Instructions: As directed tramadol 50 mg tablet 50 mg PO Q6H PRN (Reason: pain) 5 Days Qty: 20 0RF ascorbic acid (vitamin C) [Vitamin C] 1,000 mg Tablet 1,000 mg PO BID@0400,2100 amlodipine 2.5 mg tablet 2.5 mg PO DAILY@0400 celecoxib 200 mg capsule 200 mg PO QAM atorvastatin 20 mg tablet 20 mg PO DAILY DentaGel 1.1 % gel See Rx Instructions .ROUTE .COMPLEX Rx Instructions: BRUSH NORMAL, LET SIT ON TEETH FOR AN ADDITIONAL 30 SECONDS BRFORE RINSING. atenolol 50 mg tablet 50 mg PO DAILY Women's Multivitamin 18 mg iron-400 mcg-500 mg Tablet 1 tab PO DAILY Ozempic 0.25 mg or 0.5 mg (2 mg/3 mL) pen injector 0.5 mg SUBCUT Q7D Discharge Orders: Discharge ED (Routine); Ordered 04/20/24 Ordered By: Rigoberto Guillaume Referrals: Noel Nieto MD [Primary Care Provider] - Discharge Diet: Usual diet Discharge Activity: Increase activity as tolerated Patient Instructions: Opioid Safety, Pain Management Activity Restrictions/Additional Instructions: Thank you for choosing [facility] for your healthcare needs today. It is very important that you follow up as instructed or that you return to the Emergency Department should you have concerns or if your condition changes or worsens in any way. You were seen today with complaints of headache and back pain. CT of your back did not show any acute urine did show signs of infection although your white count was normal start you on oral antibiotics 1 pill twice a day for 7 days. This may cause some your back pain however some of your symptoms are more suggestive of musculoskeletal back pain if the symptoms do not improve follow-up with your doctor. Additionally on the CT of your head there is sign of a previous stroke that is new from March of last year. Recommend you increase your atorvastatin to 40 mg daily start Plavix and aspirin daily and follow-up with your primary care doctor for further evaluation. Coding Level of Care Code ED Department Director for Abhilash Pandya
[2024-04-20 09:28] LABS: Basophils % 0.4 %; Eosinophils % 0.4 %; Hematocrit 43.7 % (36-47); Lymphocytes # 0.9 10^3/uL (0.8-4.8); Mean Corpuscular HGB Conc 33.9 g/dL (30-55); Mean Corpuscular Hemoglobin 28.8 pg (27-33); Mean Corpuscular Volume 85.2 fl (85-98); Mean Platelet Volume 8.7 fL (7.4-10.4); Monocytes # 0.5 10^3/uL (0.2-0.9); Monocytes % 6.8 %; Nucleated Red Blood Cells % 0 %; Platelet Count 209 10^3/cmm (157-399); Red Blood Count 5.13 10^6/uL (3.85-5.65); Red Cell Distribution Width 12.9 % (12.1-15.1); White Blood Count 7.75 10^3/uL (3.29-11.43)
[2024-04-20 09:40] LABS: Blood Urine 2+ (Negative); Glucose Urine UA Norm (Normal); Ketones Urine Negative (Negative); Nitrate Urine Positive (Negative); Protein Urine Trace (Negative); Specific Gravity, Urine 1.002 (1.005-1.030); Urine Appearance Slightly Cloudy (CLEAR); Urine Color Yellow (Yellow); pH Urine 5 (5-7)
[2024-04-20 09:41] LABS: Add Urine Microscopic? YES; Bilirubin Urine Neg (Negative); Leukocyte Esterase Urine 2+ (Negative); Urobilinogen Urine Norm (Negative)
[2024-04-20 09:44] LABS: Add Urine Culture? Yes; Bacteria Urine 3+ /hpf; RBC Urine 0-4 /hpf (0-2); Squamous Epithelial Cell Urine 0-4 /hpf (0-5); WBC Urine 21-50 /hpf (0-5)
[2024-04-20 09:49] LABS: Alanine Aminotransferase 18 U/L (0-33); Albumin Level 4.3 g/dL (3.5-5.2); Alkaline Phosphatase 103 U/L (35-105); Anion Gap 17.8 (5-19); Aspartate Amino Transferase 24 U/L (0-32); Blood Urea Nitrogen 11 mg/dL (8-23); Calcium 9.5 mg/dL (8.5-10.5); Carbon Dioxide 25 mmol/L (22-29); Chloride 99 mmol/L (98-107); Creatinine Clr Calc Pharmacy 53.4493; Globulin 3.9 g/dL (1.3-4.6); Glucose 116 mg/dL (65-115); Osmolality Calculated 286 mOsm/kg (285-295); Potassium 3.8 mmol/L (3.5-5.1); Sodium 138 mmol/L (136-145); Total Protein 8.2 g/dL (6.6-8.7)
--- NOTE | 2024-04-20 10:15 | CT_ITS ---
WS: [id number] CT HEAD NONCONTRAST HISTORY: new onset headache TECHNIQUE: Contiguous axial imaging performed through the brain in 3.0 mm imaging. Bone and soft tiss ue windows. Sagittal and coronal reformats reviewed. All CT scans at [facility] use at least one of these dose optimization techniques: automated exposure control; mA and/or kV adjustment per pa tient size (includes targeted exams where dose is matched to clinical indication); or iterative recon struction. DLP: 1064.38 mGy.cm COMPARISON: 03/27/2023 No acute intracranial hemorrhage, midline shift or mass effect. Moderate atrophy and small vessel ischemic disease. Age-indeterminate but not acute infarct involving the posterior RIGHT parietal lobe cortex. There is no hemorrhage. Loss of the samayoa-white matter diff erentiation. Small lacunar infarct in the external capsule on the RIGHT. Ventricles: Normal size with no hydrocephalus. No inferior displacement of the cerebellar tonsils. Paranasal sinuses: As visualized are clear. Mastoid air cells: Well pneumatized. Calvarium and scalp: Skull is intact with no soft tissue edema or swelling. CT/CT head wo con* [id number] IMPRESSION: 1. Mild volume loss in the posterior RIGHT parietal cortex consistent with a s ubacute to remote infarct. This is not acute but new since 03/27/2023. 2. Mild atrophy and small vessel ischemic disease otherwise.
--- NOTE | 2024-04-20 10:15 | CT_ITS ---
WS: [id number] CT THORACIC SPINE HISTORY: back pain TECHNIQUE: Contiguous 2.0 mm axial images are reviewed to thoracic spine. Images are reformatted in s agittal and coronal planes. All CT scans at [facility] use at least one of these dose optimiz ation techniques: automated exposure control; mA and/or kV adjustment per patient size (includes targ eted exams where dose is matched to clinical indication); or iterative reconstruction. DLP: 1181.13 mGy.cm COMPARISON: None available. Spine straightening of the normal thoracic kyphosis. Disc spaces are narrowed. Small vertebral body o steophytes. Bridging osteophytes anteriorly in the mid thoracic spine. No high-grade central or gregg inal stenosis. Mild facet arthritis throughout the thoracic spine. No destructive bone process. The adjacent lungs are negative. Mild atherosclerosis aorta. CT/CT thoracic spin wo con* [id number] IMPRESSION: Mild thoracic spondylosis. No central stenosis and no bone destruction.
--- NOTE | 2024-04-20 10:15 | CT_ITS ---
WS: [id number] CT LUMBAR SPINE, noncontrast. HISTORY: back pain TECHNIQUE: Contiguous 2.0 mm axial imaging are performed. Sagittal and coronal reformats are submitte d and reviewed. All CT scans at [facility] use at least one of these dose optimization techni ques: automated exposure control; mA and/or kV adjustment per patient size (includes targeted exams w here dose is matched to clinical indication); or iterative reconstruction. IV contrast: None DLP: 1181.13 mGy.cm COMPARISON: None available. Normal lumbar alignment. Small vertebral body osteophytes. No fracture. Facet joints are normally ali gned. L1-2: Mild osteophytic ridging. There is mild central and bilateral subarticular recess encroachment and facet arthritis. L2-3: Diffuse annular disc bulging with osteophytic ridging. Mild central and subarticular recess arnulfo nosis. Facet arthritis. L3-4: Diffuse moderate annular disc bulging encroaching upon the ventral thecal sac and subarticular recesses. Mild central and bilateral subarticular recess stenosis. L4-5: Moderate diffuse annular disc bulging encroaching upon the central canal and subarticular reces ses. Moderate facet joint arthritis. L5-S1: Mild disc bulging. No stenosis. Extensive atherosclerotic plaque throughout the visualized abdominal aorta. LEFT renal cyst. No renal obstruction. Visualized SI joints are negative. CT/CT lumbar spine wo con* [id number] IMPRESSION: 1. Multilevel degenerative disc disease and osteophytosis. No high-grade centr al or foraminal stenosis. 2. Mild central and bilateral subarticular recess stenosis from L1-2 through L 4-5. 3. No fracture.
[2024-04-20] MEDS: ketorolac 30 mg/mL INJ IVP (11:19)
[2024-04-20] MEDS: dexamethasone 10 mg/mL INJ IM (11:21)
[2024-04-20] MEDS: orphenadrine 30 mg/mL Inj 2 mL 60 MG IM (11:21)
== END 2024-04-20 12:27 | disposition home or self-care (01) ==
PROVIDERS: Emergency Provider Family Medicine; PCP Family Medicine
DX: N30.90 Cystitis, unspecified without hematuria (principal); I63.9 Cerebral infarction, unspecified; Z79.85 Long-term (current) use of injectable non-insulin antidiabetic drugs; Z72.0 Tobacco use; E78.5 Hyperlipidemia, unspecified; I10 Essential (primary) hypertension; Z87.440 Personal history of urinary (tract) infections
CPT/HCPCS: 70450; 72128; 72131; 80053; 81001; 85025; 87077; 87086; 87186; 96372; 96374; 99285; J1100; J1885; J2360

== ENCOUNTER → 2024-06-13 08:56 | Day surgery (SDC) | payer MEDICARE, SELFPAY ==
[2024-06-13] VITALS (12 sets, daily range): BP systolic 122–150; BP diastolic 45–80; PULSE 60–72; RESP 13–20; TEMP 36.1–36.3; O2SAT 94–99; BMI 31.6
--- NOTE | 2024-06-13 09:16 | ANES.PREANE2 ---
Pre-Anesthetic Assessment Height/Weight: Height 5 ft Operation Date: 06/13/24 11:25 Proposed Procedures p Hardware Removal Ankle(Right) - Art Darrius, DO Was Beta Jai taken within 24 hours: N/A Was Clonidine taken within 24 hours: N/A Social No alcohol and No tobacco Exam alert, oriented x 3, clear to auscultation bilaterally and regular rate & rhythm Airway Submandibular: within normal limits Cervical ROM: within normal limits Mallampati: Class III Dentition: full Anesthetic Plan ASA status: 2 Anesthesia: General and Regional (specify below) Other: No prior issues with anesthesia NPO since midnight Patient has sensorineural neural hearing loss S/p bariatric surgery Hypertension on amlodipine and hydrochlorothiazide plus atenolol Ozempic last taken 05/15 [employer]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 showing 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 Plan for general anesthesia with peripheral nerve block Medications/Allergies Home Medications Medication Instructions Recorded Confirmed Last Taken Type gabapentin 600 mg tablet 900 mg PO BEDTIME@2100 10/03/19 06/12/24 06/12/24 History hydrochlorothiazide 25 mg tablet 25 mg PO DAILY@0400 10/03/19 06/12/24 06/12/24 History amlodipine 2.5 mg tablet 2.5 mg PO DAILY@0400 10/03/20 06/12/24 06/13/24 05:30 History ascorbic acid (vitamin C) 1,000 mg 1,000 mg PO BID@0400,2100 01/26/21 06/12/24 05/30/24 History tablet (Vitamin C) cam boot #1 ea 04/19/23 04/20/24 Unknown Rx RIGHT ANKLE BRACE-VELCRO #1 ea 09/06/23 04/20/24 Unknown Rx aspirin 81 mg tablet,delayed 81 mg PO DAILY #30 tabs 04/20/24 06/12/24 06/12/24 Rx release atenolol 50 mg tablet 50 mg PO DAILY 04/20/24 06/12/24 06/12/24 History atorvastatin 20 mg tablet 20 mg PO DAILY 04/20/24 06/12/24 06/12/24 History atorvastatin 40 mg tablet 40 mg PO DAILY #30 tabs 04/20/24 06/12/24 06/12/24 Rx celecoxib 200 mg capsule 200 mg PO QAM 04/20/24 06/12/24 05/29/24 History afbjyoxx-cjw-[id number]-FA-Ca carb-vit K 1 tab PO DAILY 04/20/24 06/12/24 06/12/24 History 18 mg iron-400 mcg-500 mg tablet semaglutide 0.25 mg or 0.5 mg (2 0.5 mg SUBCUT Q7D 04/20/24 06/12/24 05/15/24 History mg/3 mL) subcutaneous pen injector (Ozempic) tizanidine 4 mg tablet 4 mg PO Q6H PRN muscle spasticity 04/20/24 06/12/24 Unknown Rx #20 tabs hydrocodone 7.5 mg-acetaminophen 1 tab PO Q6H PRN pain #20 tabs 06/13/24 Unknown Rx 325 mg tablet ondansetron 4 mg disintegrating 4 mg PO Q8H PRN nausea and 06/13/24 Unknown Rx tablet vomiting 3 days #9 tabs Allergies Allergy/AdvReac Type Severity Reaction Status Date / Time cefuroxime [From Ceftin] Allergy ALGY-Hives Verified 04/10/24 07:11 ciprofloxacin Allergy stomach Verified 04/10/24 07:11 bleeding Iodinated Contrast Media Allergy ALGY-Hives Verified 04/10/24 07:11 Sulfa (Sulfonamide Allergy unknown Verified 04/10/24 07:11 Antibiotics) vancomycin Allergy rash Verified 04/10/24 07:11 [facility] Anesthesia Medical History Dyslipidemia HTN (hypertension) Primary osteoarthritis of right hip Greater trochanteric bursitis of right hip Cystitis cystica Bacteriuria History of recurrent UTI (urinary tract infection) Mixed stress and urge urinary incontinence Degenerative arthritis Bunion, left Right hip pain Fibromyalgia Surgical History History of total knee replacement BILATERAL History of appendectomy History of cholecystectomy History of hysterectomy History of tonsillectomy H/O bariatric surgery with sleeve Hx of elbow surgery Hx of foot surgery History of carpal tunnel release of both wrists Family History Father , at age 83 CAD (coronary artery disease) Hyperlipidemia Hypertension Mother , at age 76 Hyperlipidemia Hypertension Sister Cancer Hyperlipidemia Hypertension Brother Cancer Hyperlipidemia Hypertension Social History Smoking and tobacco/nicotine status: current some day tobacco/nicotine user Quit status (tobacco/nicotine): has quit using Year quit tobacco: over 20 years ago Second hand smoke exposure: No Alcohol intake: current Alcohol intake frequency: holidays/special occasions only Substance/Drug Use: current Substance/Drug use frequency: few times a week Other substance/drug use details: medical marijuana Caregiver/support person: Yes Lives independently: Yes Household members: spouse Marital status: Current occupational status: retired Current gender identity: Female Special jay needs: No Data Anesthesia Cardiac Studies: Echocardiogram Ultrasound 07/25/20 Sestamibi Stress Test (Cardiology) 07/24/20 Cardiac Event Monitor 05/26/23
--- NOTE | 2024-06-13 09:37 | W.PM.OPSFHP ---
Same Day Surgery H&P Indication for Procedure/HPI DATE OF PROCEDURE: June 13, 2024 CHIEF COMPLAINT/INDICATIONFOR SURGICAL PROCEDURE: Painful right ankle orthopedic hardware status post ORIF PREOP DIAGNOSIS: Painful right ankle orthopedic hardware PLANNED PROCEDURE: Operation Date: 06/13/24 11:25 Proposed Procedures p Hardware Removal Ankle(Right) - Art Rizo DO Medications/Allergies* Home Medications Medication Instructions Recorded Confirmed Type gabapentin 600 mg tablet 900 mg PO BEDTIME@209910/03/19 06/12/24 History hydrochlorothiazide 25 mg tablet 25 mg PO DAILY@39910/03/19 06/12/24 History amlodipine 2.5 mg tablet 2.5 mg PO DAILY@04010/03/20 06/12/24 History ascorbic acid (vitamin C) 1,000 mg 1,000 mg PO BID@399,209901/26/21 06/12/24 History tablet (Vitamin C) atenolol 50 mg tablet 50 mg PO DAILY 04/20/24 06/12/24 History atorvastatin 20 mg tablet 20 mg PO DAILY 04/20/24 06/12/24 History celecoxib 200 mg capsule 200 mg PO QAM 04/20/24 06/12/24 History oakmsfps-xuj-ngdj-FA-Ca carb-vit K 1 tab PO DAILY 04/20/24 06/12/24 History 18 mg iron-400 mcg-500 mg tablet semaglutide 0.25 mg or 0.5 mg (2 0.5 mg SUBCUT Q7D 04/20/24 06/12/24 History mg/3 mL) subcutaneous pen injector (Ozempic) Allergies/Adverse Reactions Allergy/AdvReac Type Severity Reaction Status Date / Time cefuroxime [From Ceftin] Allergy ALGY-Hives Verified 04/10/24 07:11 ciprofloxacin Allergy stomach Verified 04/10/24 07:11 bleeding Iodinated Contrast Media Allergy ALGY-Hives Verified 04/10/24 07:11 Sulfa (Sulfonamide Allergy unknown Verified 04/10/24 07:11 Antibiotics) vancomycin Allergy rash Verified 04/10/24 07:11 Pertinent History/Comorbid Conditions* Medical History (Updated 04/28/24 @ 00:01 by BATSHEVA Boogie) Dyslipidemia HTN (hypertension) Primary osteoarthritis of right hip Greater trochanteric bursitis of right hip Cystitis cystica Bacteriuria History of recurrent UTI (urinary tract infection) Mixed stress and urge urinary incontinence Degenerative arthritis Bunion, left Right hip pain Fibromyalgia Surgical History (Updated 09/06/23 @ 08:42 by SOCO Gómez) History of total knee replacement BILATERAL History of appendectomy History of cholecystectomy History of hysterectomy History of tonsillectomy H/O bariatric surgery with sleeve Hx of elbow surgery Hx of foot surgery History of carpal tunnel release of both wrists Family History (Updated 10/03/19 @ 10:09 by Blossom Stark LPN) Father, at age 83 Mother, at age 76 CAD (coronary artery disease) Father Hyperlipidemia Father Mother Sister Brother Cancer Sister Brother Hypertension Father Mother Sister Brother Social History Smoking and tobacco/nicotine status: current some day tobacco/nicotine user Quit status (tobacco/nicotine): has quit using Year quit tobacco: over 20 years ago Second hand smoke exposure: No Alcohol intake: current Alcohol intake frequency: holidays/special occasions only Substance/Drug Use: current Substance/Drug use frequency: few times a week Other substance/drug use details: medical marijuana Caregiver/support person: Yes Lives independently: Yes Household members: spouse Marital status: Current occupational status: retired Current gender identity: Female Special jay needs: No Pertinent Exam Findings alert, oriented x 3, operative site marked and procedure specific exam findings Please refer to detailed orthopedic examination on 04/10/2024: Right ankle- Full active range of motion. tenderness to palpation over medial and lateral ankle hardware with prominence given patient's small body habitus. No erythrema, warmth or swelling noted. Pedal pulse 2+. All incisions of all healed well no signs of infection patient can wiggle toes they are warm and well-perfused with cap refill under 2 seconds. Pertinent Data Ordering Provider/Ordering MD: Art Rizo Date of Service: 04/17/24 Procedure(s): CT ankle RT wo con* [id number] Accession Number(s): [id number] Report Number: [id number] WS: [id number] CT RIGHT ANKLE, NONCONTRAST HISTORY: Rule, verify union of fracture is good Technique: All [facility] scans at [facility] use at least one of these dose optimization techniques: automated exposure control; mA and/or kV adjustment per patient size (includes targeted exams where dose is matched to clinical indication); or iterative reconstruction. DLP: 134.59 mGy.cm COMPARISON: 03/27/2023, radiograph 04/10/2024 Distal fibular plate and screws normally aligned and in close contact with the bone. No lucency around the hardware. No acute fracture. Previously described fracture is completely healed in the fibula. Mild narrowing of the distal tibiofibular articulation. Distal tibia: Posterior malleolus fracture is healed. No new or residual fracture line in the posterior malleolus. Medial malleolus screws and medial cortical button are identified. There is a tunnel from the syndesmosis tight rope fixation. The fracture has healed. Mild narrowing of the tibiotalar joint space. There are small subchondral cysts along the talar dome. CT/CT ankle RT wo con* [id number] IMPRESSION: 1. Trimalleolar fracture is healed. No residual fracture line. 2. Lucent tunnel noted in the distal tibia from syndesmosis tight rope fixation. 3. Mild osteoarthritis at the ankle. Recommendations Surgery/Procedure today Other Plans: Plan to proceed to the OR today for right ankle orthopedic hardware removal. Patient understands the ins and outs procedure risk benefits complication alternatives of surgery. Understanding risk of surgery she elects proceed with surgical intervention. All questions been answered at this time. Reviewed CT scan verified union we will go ahead and proceed with hardware removal today all questions answered. Coding Level of Care Code Acute Code for Jagzhane Pandya
[2024-06-13] MEDS: acetaminophen 1,000 MG/100 ML PIGGYBACK 400 MG IV (09:50)
[2024-06-13] MEDS: ketorolac 30 mg/mL INJ IVP ×2 (09:50→10:14)
[2024-06-13] MEDS: scopolamine 1.5 Patch 1 PATCH TRANSDERMA (09:50)
[2024-06-13] MEDS: sodium chloride 0.9% 1,000 ML 30 ML IV (09:53)
[2024-06-13] MEDS: clindamycin 600 MG/50 ML PREMIX 50 MG IV (11:00)
--- NOTE | 2024-06-13 11:00 | ANES.PROC ---
Anesthesia Procedures Procedure/Date: 06/13/24 Nerve Block ^: Nerve Block 1: Main Anesthesia: general anesthesia Time Out Performed: Yes Consent: requested by attending/covering physician and from patient Nerve block location: popliteal Anesthesia monitors applied: pulse oximetry, EKG, BP cuff and oxygen Nerve block position: supine Anesthetic Used: ropivicaine 0.5% Amount of anesthesia used (mL): 25 Ultrasound used to: recognize landmarks Nerve Stimulator Used?: Yes Interscalene/Femoral BLK: other needle (pjunk) and visualize local anesthetic spread Injection: neg aspiration of heme Patient Tolerated Procedure: well Complications: none Nerve Block 2: Main Anesthesia: general anesthesia Time Out Performed: Yes Consent: requested by attending/covering physician and from patient Nerve block location: adductor canal Anesthesia monitors applied: pulse oximetry, BP cuff and oxygen Nerve block position: supine Anesthetic Used: ropivicaine 0.5% Amount of anesthesia used (mL): 15 Ultrasound used to: recognize landmarks Interscalene/Femoral BLK: other needle (pjunk) and visualize local anesthetic spread Injection: neg aspiration of heme Patient Tolerated Procedure: well Complications: none
--- NOTE | 2024-06-13 12:17 | W.PM.BPON ---
Date of Procedure: 06/13/2024 Surgeon: Art Rizo DO Film And Video Editor(s): Krzysztof Rizo PA-C Procedure(s) performed: Right ankle distal fibula orthopedic deep hardware removal combination plate and screws Right medial malleolus orthopedic deep cannulated screw hardware removal (x 2 screws) Right syndesmosis tight rope removal Findings of the procedure(s): Patient was found to have a healed ankle fracture as well as healed syndesmotic fixation. At this point time patient underwent removal of the distal fibula fixation as well as the tight rope fixation of medial malleolus fixation. The ankle was stressed under fluoroscopic imaging afterwards. Fracture well-healed no signs of ankle instability. This point time tolerated procedure without issues or complications placed in a standard AO splint and will be nonweightbearing to allow for the soft tissue envelope to heal for the next 2 weeks. Patient family understand agree with current plan. All questions answered. Estimated blood loss: 5 mL Specimen(s) removed: Removal of orthopedic hardware Post-operative diagnosis: Right ankle painful orthopedic hardware
--- NOTE | 2024-06-13 12:20 | P.OP_ITS ---
Operative Report Date of procedure: June 13, 2024 Pre-op diagnosis: Right ankle painful orthopedic hardware Post-op diagnosis: Same Post-op findings: See operative report narrative Procedure done: Right ankle distal fibula orthopedic deep hardware removal combination plate and screws Right medial malleolus orthopedic deep cannulated screw hardware removal (x 2 screws) Right syndesmosis tight rope removal Specimens removed/disposition: All previous ankle hardware was subsequently removed Surgeon: Art Rizo DO Clay Structure Builder And Servicer: Krzysztof Rizo PA-C: PA was necessary for assistance in this case with leg positioning retraction and protection of neurovascular structures as well as assistance, with hardware removal, wound closure and dressing application. Anesthesia: General and Nerve Block Estimated blood loss: 5 mL 44 minutes IV fluids: 900 mL Complications: None Findings: See operative report narrative Condition: stable Disposition: same day Brief History: Patient is a pleasant 74-year-old female who sustained a right ankle fracture underwent ORIF is went on to heal this without any issues or complications. We did have a postoperative CT scan ordered to confirm union which was confirmed. She has continued to have tenderness to palpation over her incision sites predominantly with tenderness to palpation over the hardware. We talked about treatment options continued nonoperative versus operative intervention at this point in time would like to pursue surgical intervention to have the hardware removed. She understands the ins and outs procedure the risk benefits complication alternatives with surgery and through shared decision-making elects proceed with surgical intervention all questions have been answered at this time. Consent obtained. Procedure: Patient was seen evaluated in the preoperative holding area. Consent was reviewed and signed with patient. Correct extremity was then subsequently marked. Patient was then seen evaluated by anesthesia once cleared for surgery patient was taken back to the operative suite patient was transported on the OR table in supine position all bony prominences well-padded patient appropriate secured to the bed. Patient had a bump applied to the right lower extremity in preparation for hardware removal. This point time a nonsterile tourniquet was applied to the right thigh. Patient underwent anesthesia per the anesthesia department once appropriate anesthetized patient's right lower extremity was then prepped and draped in standard orthopedic fashion. Final timeout performed. Patient received appropriate preoperative antibiotics. Esmarch tourniquet was used exsanguinate the right lower extremity, tourniquet was insufflated to 250 mmHg I started off with the lateral incision a 15 blade scalpel was used to incise directly in the same previous surgical incision site from I elected lateral approach. Sharp scalpel was made through skin and subcutaneous tissue I then switched to Littler dissection scissors and immediately encountered the distal fibular plate. No signs of infection were noted. Fracture site completely healed at this point in time I then utilized a blunt tipped elevator to mobilize all fascia/scar tissue and adhesions around the plate so I had direct visualization of the hardware. At this point time I subsequently removed all the screws to the distal fibula plate atraumatically. The tight rope fixation was incorporated into the plate and as result I then at this point in time proceeded with my medial incision a used the previous medial incision starting at the level of the tight rope button and making my longitudinal incision all the way to the medial malleolus tip. Sharp scalpel incision was made through skin only and then I switched to Littler dissection scissors I then bluntly mobilized subperiosteally with a dee face elevator. Care was made to protect the saphenous vein. I then subsequently identified the tight rope button on the medial surface. This had indented slightly this was all completely well-healed and a small area of bone was around this I scraped this off with a dental pick to mobilize the button and then I used sharp scalpel incision to excise the mid substance of the suture and then went over to the lateral incision and pulled the button and all excess suture off. I then subsequently removed the medial button to its entirety there was no bone loss and patient still had excellent bone integrity at this point. I then subsequently went over back to the lateral incision and then utilized a freer elevator and mobilized the distal fibula sindy te and this was removed atraumatically as well. Next identified the interfragmentary lag screw which then was subsequently removed with a screwdriver atraumatically. This completed the removal of all the hardware of the distal fibula and then I focused towards the medial malleolus I then subsequently utilized fluoroscopic imaging to triangulate the 2 cannulated screws I then utilized Bovie to make a splint incision through the periosteum of the medial malleolus and then identified each head and back these out atraumatically. At this point in time all screws and hardware was then subsequently moved atraumatically. I then took final x-rays of fluoroscopic imaging to confirm no new fracture and to confirm stable ankle joint standard AP mortise and laterals were taken showing interval removal of our hardware and stable ankle mortise I then subsequently external stress test was performed of the ankle joint and the syndesmosis was intact. This completed the procedure I then subsequent tourniquet deflated hemostasis was satisfactory with electrocautery and the subsequently thoroughly irrigated the wound bed incision sites were then closed with 3-0 Vicryl suture as well as interrupted nylon suture Xeroform 4 x 4's ABDs soft roll and a standard AO splint was then applied for soft tissue protection during the postoperative period. Patient was then awakened from anesthesia taken PACU in stable condition. Disposition: Patient taken to PACU in stable condition recovering well postoperatively. Will follow-up in the orthopedic office in 2 weeks at this point in time just after hardware removal and to protect the skin incision we will keep in splint to be nonweightbearing for just 2 weeks after that can begin to progress her weightbearing as she can tolerate. If she would like we can progress her through a cam boot for couple weeks while she is beginning her weightbearing again. Patient and family understand agree with current plan. Questions answered. Receive appropriate pain medication and postoperative instructions well.
--- NOTE | 2024-06-13 12:35 | PM.PACU ---
PACU note Narrative: Patient is a 74-year-old female who just underwent right ankle orthopedic hardware removal. Pt transferred to PACU in stable condition. Dressing is dry. pt is awake and alert. pt can wiggle toes. Unable to do any further assessment on motor due to splint distal pulses are palpable toes are warm and well-perfused. Cap refill is normal and under 2 seconds. Sensation to foot is intact. Pain is controlled. Exam: awake Disposition: discharged
--- NOTE | 2024-06-13 13:08 | XR_ITS ---
WS: [id number] Right ankle, C-arm fluoroscopy views, 06/13/2024 Clinical Data: OR PICS Comparison: Right ankle, 04/10/2024 Findings: Dr. Rizo removed the internal fixation orthopedic hardware from the distal right fibula and medial m alleolus. XR/XR ankle RT 2V 23013 Impression: Removal of orthopedic hardware internal fixation devices.
[2024-06-13] MEDS: HYDROcodone-acetaminophen 7.5-325 mg Tablet 1 TAB PO (13:23)
--- NOTE | 2024-06-13 13:44 | ANE.PACU2 ---
Inpatient post-anesthesia follow up: Airway intact: Yes Vital signs: Temperature 97.4 F Pulse Rate 72 Respiratory Rate 18 Blood Pressure 150/64 Pulse Oximetry 98 Oxygen Delivery Me thod Room Air Oxygen Flow Rate Fraction of Inspir ed Oxygen Hydration adequate: Yes Nausea and vomiting: No Pain level: 1 Mental status: Baseline
== END | disposition home or self-care (01) ==
PROVIDERS: PCP Family Medicine; Visit Provider Student in an Organized Health Care Education/Training Program
PROC: (CPT 20680; principal; 2024-06-13 11:15)
DX: T84.84XA Pain due to internal orthopedic prosthetic devices, implants and grafts, initial encounter (principal); E78.5 Hyperlipidemia, unspecified; I10 Essential (primary) hypertension; M79.7 Fibromyalgia; F17.200 Nicotine dependence, unspecified, uncomplicated; Z98.84 Bariatric surgery status
CPT/HCPCS: 20680; 73600; 76000; J0131; J1100; J1885; J2405; J2704; J3010; J3490; J7030

== ENCOUNTER → 2024-06-28 10:07 | Outpatient (BNVA) | payer MEDICARE, SELFPAY | PROVIDERS: PCP Family Medicine; Visit Provider Physician Assistant | DX: T84.84XA Pain due to internal orthopedic prosthetic devices, implants and grafts, initial encounter (principal); Z98.890 Other specified postprocedural states; Z87.81 Personal history of (healed) traumatic fracture; Y79.2 Prosthetic and other implants, materials and accessory orthopedic devices associated with adverse incidents | CPT/HCPCS: 73610 ==

== ENCOUNTER 2024-06-28 11:23 | Outpatient (CLI) | payer MEDICARE, SELFPAY | END 2024-06-28 11:24 | disposition home or self-care (01) | LOC: SPT 11:24 | PROVIDERS: PCP Family Medicine; Visit Provider Physician Assistant | DX: Z46.89 Encounter for fitting and adjustment of other specified devices (principal); T84.84XD Pain due to internal orthopedic prosthetic devices, implants and grafts, subsequent encounter; X58.XXXD Exposure to other specified factors, subsequent encounter; Z87.81 Personal history of (healed) traumatic fracture | CPT/HCPCS: 97760; L4361 ==

== ENCOUNTER 2024-07-10 08:37 | Outpatient (RCR) | payer MEDICARE, SELFPAY | END 2024-07-26 23:59 | disposition home or self-care (01) | LOC: SPT 08:37 | PROVIDERS: PCP Family Medicine; Visit Provider Student in an Organized Health Care Education/Training Program | DX: M25.571 Pain in right ankle and joints of right foot (principal); R26.89 Other abnormalities of gait and mobility | CPT/HCPCS: 97110; 97161 ==

== ENCOUNTER → 2024-07-13 10:42 | Outpatient (BNVA) | payer MEDICARE, SELFPAY | PROVIDERS: PCP Family Medicine; Visit Provider Physician Assistant | DX: Z98.890 Other specified postprocedural states (principal); Z87.81 Personal history of (healed) traumatic fracture; T84.84XA Pain due to internal orthopedic prosthetic devices, implants and grafts, initial encounter | CPT/HCPCS: 73610; 99024 ==

== ENCOUNTER 2024-07-17 10:07 | Emergency (ER) | payer MEDICARE, SELFPAY ==
[2024-07-17 10:22] VITALS: BP 149/77; PULSE 67; RESP 18; TEMP 36.7; O2SAT 98; BMI 30.8
--- NOTE | 2024-07-17 10:42 | USCV_ITS ---
CerratoDebra Age: 74 Gender: F : 1950 Exam Date: 07/17/2024 10:51 Ordering Phys: Divine Hayden Technologist: [facility] Exam Location: [facility] – [place] Indication: pain PROCEDURES: Venous duplex imaging was performed in only the right lower extremity. The following venous structures were evaluated: common femoral vein, profunda vein, proximal portion of the greater saphenous vein, superficial femoral vein, and the popliteal vein. In addition, the posterior tibial veins were evaluated. In addition, the posterior tibial and peroneal trunk were evaluated. Serial compression, augmentation maneuvers, and spectral Doppler flow evaluation were performed. FINDINGS: No evidence of DVT seen in any vessel visualized at this time. CONCLUSIONS No evidence of right lower extremity DVT. Min Ortiz MD (Electronically Signed) Final Date: 17 July 2024 12:38 S
[2024-07-17 11:24] VITALS: BP 156/44; PULSE 64; O2SAT 98
--- NOTE | 2024-07-17 11:29 | ED_ITS ---
HPI - Extremity Problem 2 General: Chief complaint: Extremity Problem,Nontraumatic Stated complaint: Right leg possible Blood Clot Time Seen by Provider: 07/17/24 11:22 Source: patient Mode of arrival: ambulatory Limitations: no limitations History of Present Illness: Patient is a nice 74-year-old female who presents to the ED today at the request of the [facility] orthopedic clinic for ultrasound evaluation of her right lower extremity. She states she has been following up with them following ankle hardware removal. Patient states she has a tender area to her right anterior zarco that they wanted DVT rule out for. Patient states this area has been present for quite a while. Seems to bother her more with walking. MD Complaint: extremity pain Onset (ago): month(s) Pain Consistency: constant Location: right and lower extremity Relieving factors: nothing Exacerbating factors: walking Associated symptoms: Reports no associated symptoms; Deny chest pain Related Data Home Medications Medication Instructions Recorded Confirmed gabapentin 600 mg tablet 900 mg PO BEDTIME@2100 10/03/19 07/13/24 hydrochlorothiazide 25 mg tablet 25 mg PO DAILY@0400 10/03/19 07/13/24 amlodipine 2.5 mg tablet 2.5 mg PO DAILY@0400 10/03/20 07/13/24 ascorbic acid (vitamin C) 1,000 mg 1,000 mg PO BID@040,2100 01/26/21 07/13/24 tablet (Vitamin C) atenolol 50 mg tablet 50 mg PO DAILY 04/20/24 07/13/24 atorvastatin 20 mg tablet 20 mg PO DAILY 04/20/24 07/13/24 celecoxib 200 mg capsule 200 mg PO QAM 04/20/24 07/13/24 bfwwuwfw-jec-zsuc-FA-Ca carb-vit K 1 tab PO DAILY 04/20/24 07/13/24 18 mg iron-400 mcg-500 mg tablet semaglutide 0.25 mg or 0.5 mg (2 0.5 mg SUBCUT Q7D 04/20/24 07/13/24 mg/3 mL) subcutaneous pen injector (empic) Previous Rx's Medication Instructions Recorded cam boot #1 ea 04/19/23 RIGHT ANKLE BRACE-VELCRO #1 ea 09/06/23 aspirin 81 mg tablet,delayed 81 mg PO DAILY #30 tabs 04/20/24 release atorvastatin 40 mg tablet 40 mg PO DAILY #30 tabs 04/20/24 tizanidine 4 mg tablet 4 mg PO Q6H PRN muscle spasticity 04/20/24 #20 tabs right camboot #1 ea 06/28/24 hydrocodone 7.5 mg-acetaminophen 1 tab PO Q6H PRN pain 7 days #28 07/05/24 325 mg tablet tabs Allergies Allergy/AdvReac Type Severity Reaction Status Date / Time cefuroxime [From Ceftin] Allergy ALGY-Hives Verified 07/13/24 11:34 ciprofloxacin Allergy stomach Verified 07/13/24 11:34 bleeding Iodinated Contrast Media Allergy ALGY-Hives Verified 07/13/24 11:34 Sulfa (Sulfonamide Allergy unknown Verified 07/13/24 11:34 Antibiotics) vancomycin Allergy rash Verified 07/13/24 11:34 Review of Systems 2 Card: Denies: chest pain Resp: Denies: dyspnea Musc: Reports: extremity pain; Denies: neck pain, back pain, extremity swelling, joint pain, joint swelling, joint redness or joint warmth PFSH ED 2 PFSH: Medical History Dyslipidemia HTN (hypertension) Primary osteoarthritis of right hip Greater trochanteric bursitis of right hip Cystitis cystica Bacteriuria History of recurrent UTI (urinary tract infection) Mixed stress and urge urinary incontinence Degenerative arthritis Bunion, left Right hip pain Fibromyalgia Surgical History History of total knee replacement BILATERAL History of appendectomy History of cholecystectomy History of hysterectomy History of tonsillectomy H/O bariatric surgery with sleeve Hx of elbow surgery Hx of foot surgery History of carpal tunnel release of both wrists Family History Father , at age 83 CAD (coronary artery disease) Hyperlipidemia Hypertension Mother , at age 76 Hyperlipidemia Hypertension Sister Cancer Hyperlipidemia Hypertension Brother Cancer Hyperlipidemia Hypertension Social History Smoking and tobacco/nicotine status: current some day tobacco/nicotine user Quit status (tobacco/nicotine): has quit using Year quit tobacco: over 20 years ago Second hand smoke exposure: No Alcohol intake: current Alcohol intake frequency: holidays/special occasions only Substance/Drug Use: current Substance/Drug use frequency: few times a week Other substance/drug use details: medical marijuana Caregiver/support person: Yes Lives independently: Yes Household members: spouse Marital status: Current occupational status: retired Current gender identity: Female Special jay needs: No Physical Exam 2 Const: COMMON NORMALS: no acute distress, average body habitus, no limitations, healthy appearing, alert and well nourished Resp: COMMON NORMALS: normal respiratory effort Cardio: COMMON NORMALS: regular rate and regular rhythm RATE: regular rate RHYTHM: regular rhythm Extremity: COMMON NORMALS: capillary refill normal, no calf tenderness and no pedal edema GENERAL: Yes normal exam except as noted EXTREMITY IMAGE (FRONT): 1. tender-no obvious mass or knot palpated; this area seems to be over her tibialis anterior muscle; no erythema; extremity NV intact Neuro: SENSORIUM/ORIENTATION: Yes alert Course 2 Vital Signs: Vital signs: Vital Signs Temperature 98.1 F 07/17/24 10:22 Pulse Rate 62 07/17/24 11:42 Respiratory Rate 18 07/17/24 10:22 Blood Pressure 138/52 07/17/24 11:42 Pulse Oximetry 100 07/17/24 11:42 Oxygen Delivery Me thod Room Air 07/17/24 11:24 MDM - Extremity (Nontraumatic) Medical Decision Making US negative for DVT per US tech prelim report. She will be allowed discharge with follow-up with her PCP or orthopedic provider. Medical Records I reviewed the patient's medical records. XR interpretation done by ED provider, pending radiology final review (per Geovanni/US tech-negative for DVT) Discharge Plan Discharge Patient Disposition: Home Clinical Impression: Pain in right leg Condition: Stable Prescriptions: No Action hydrochlorothiazide 25 mg tablet 25 mg PO DAILY@0400 gabapentin 600 mg tablet 900 mg PO BEDTIME@2100 (DME) cam boot See Rx Instructions .Route .MEDSUPPLY Qty: 1 0RF Rx Instructions: As directed (DME) RIGHT ANKLE BRACE-VELCRO See Rx Instructions .Route .MEDSUPPLY Qty: 1 0RF Rx Instructions: As directed (DME) right camboot See Rx Instructions .Route .MEDSUPPLY Qty: 1 0RF Rx Instructions: As directed hydrocodone-acetaminophen 7.5-325 mg tablet 1 tab PO Q6H PRN (Reason: pain) 7 Days Qty: 28 0RF ascorbic acid (vitamin C) [Vitamin C] 1,000 mg Tablet 1,000 mg PO BID@0400,2100 amlodipine 2.5 mg tablet 2.5 mg PO DAILY@0400 celecoxib 200 mg capsule 200 mg PO QAM atorvastatin 20 mg tablet 20 mg PO DAILY atenolol 50 mg tablet 50 mg PO DAILY [id number]-mk-uiut-FA-Ca carb-vit K 18 mg iron-400 mcg-500 mg Tablet 1 tab PO DAILY Ozempic 0.25 mg or 0.5 mg (2 mg/3 mL) pen injector 0.5 mg SUBCUT Q7D atorvastatin 40 mg tablet 40 mg PO DAILY Qty: 30 0RF aspirin 81 mg tablet,delayed release (DR/EC) 81 mg PO DAILY Qty: 30 0RF tizanidine 4 mg tablet 4 mg PO Q6H PRN (Reason: muscle spasticity) Qty: 20 0RF Rx Instructions: do not exceed 3 doses per 24 hrs Discharge Orders: Discharge ED (Routine); Ordered 07/17/24 Ordered By: Divine Hayden Referrals: Noel Nieto MD [Primary Care Provider] - Activity Restrictions/Additional Instructions: We discussed, your lower extremity ultrasound here was negative for DVT. You can continue following up with your primary care provider and/or orthopedics for further evaluation. Coding Level of Care Code ED Marine Underwriter for Abhilash Pandya
[2024-07-17 11:42] VITALS: BP 138/52; PULSE 62; O2SAT 100
== END 2024-07-17 11:43 | disposition home or self-care (01) ==
PROVIDERS: Emergency Provider Physician Assistant; PCP Family Medicine
DX: M79.604 Pain in right leg (principal); Z79.82 Long term (current) use of aspirin; I10 Essential (primary) hypertension; Z87.891 Personal history of nicotine dependence
CPT/HCPCS: 93971; 99284

== ENCOUNTER 2024-07-27 06:00 | Outpatient (RCR) | payer MEDICARE, SELFPAY | END 2024-08-25 23:59 | disposition home or self-care (01) | LOC: SPT 06:00 | PROVIDERS: PCP Family Medicine; Visit Provider Student in an Organized Health Care Education/Training Program | DX: Z98.890 Other specified postprocedural states (principal) | CPT/HCPCS: 99213 ==

== ENCOUNTER → 2024-07-27 11:11 | Outpatient (BNVA) | payer MEDICARE, SELFPAY | PROVIDERS: PCP Family Medicine; Visit Provider Physician Assistant | DX: T84.84XA Pain due to internal orthopedic prosthetic devices, implants and grafts, initial encounter; Y79.2 Prosthetic and other implants, materials and accessory orthopedic devices associated with adverse incidents; Z96.651 Presence of right artificial knee joint | CPT/HCPCS: 73560; 73565 ==

== ENCOUNTER → 2024-08-14 09:14 | Outpatient (BNVA) | payer MEDICARE, SELFPAY | PROVIDERS: PCP Family Medicine; Referring Provider Family Medicine; Visit Provider Specialist | DX: R20.2 Paresthesia of skin (principal); G62.89 Other specified polyneuropathies | CPT/HCPCS: 95910 ==

== ENCOUNTER → 2024-09-07 11:04 | Outpatient (BNVA) | payer MEDICARE, SELFPAY | PROVIDERS: PCP Family Medicine; Visit Provider Physician Assistant | DX: T84.84XA Pain due to internal orthopedic prosthetic devices, implants and grafts, initial encounter (principal); Z98.890 Other specified postprocedural states; Z87.81 Personal history of (healed) traumatic fracture; Y79.2 Prosthetic and other implants, materials and accessory orthopedic devices associated with adverse incidents | CPT/HCPCS: 73610; 99213 ==

== ENCOUNTER 2024-09-18 06:51 | Outpatient (RCR) | payer MEDICARE, SELFPAY | END 2024-09-25 23:59 | disposition home or self-care (01) | LOC: SPT 06:51 | PROVIDERS: Visit Provider Physician Assistant | DX: M25.571 Pain in right ankle and joints of right foot (principal) | CPT/HCPCS: 97161 ==

== ENCOUNTER 2024-09-26 06:30 | Outpatient (RCR) | payer MEDICARE, SELFPAY | END 2024-10-26 23:59 | disposition home or self-care (01) | LOC: SPT 06:30 | PROVIDERS: PCP Family Medicine; Visit Provider Physician Assistant | DX: M25.571 Pain in right ankle and joints of right foot (principal); R26.89 Other abnormalities of gait and mobility | CPT/HCPCS: 97110; 97530 ==

== ENCOUNTER 2024-10-11 14:08 | Outpatient (CLI) | payer MEDICARE, SELFPAY ==
--- NOTE | 2024-10-11 14:10 | MM_ITS ---
WS: [id number] BILATERAL SCREENING DIGITAL TOMOSYNTHESIS MAMMOGRAM WITH CAD HISTORY: SCREENING COMPARISON: 08/26/2023, 07/23/2022 Bilateral CC and MLO views with tomosynthesis and synthetic mammography submitted. Computer aided det ection analyzed. Breast composition: There are scattered areas of fibroglandular density. No suspicious masses, microc alcifications or architectural distortion. MM/MM scr BI tomosynthesis [id number] IMPRESSION: BI-RADS: 2 - Benign. FOLLOW UP: 1 Year Follow-up
--- NOTE | 2024-10-11 14:11 | XR_ITS ---
WS: [id number] SCREENING DEXA SCAN [employer] CLINICAL INFORMATION: POSTMENOPAUSAL COMPARISON: None. FINDINGS: The L1-L4 bone mineral density measures 0.997 g/cm2. This corresponds to a T score score of -1.5 and Z score of -0.1. Left femoral neck bone mineral density measures 0.712 g/cm2. This corresponds to a T score of -2.3 an d Z score of -0.8. Right femoral neck bone mineral density measures 0.662 g/cm2. This corresponds to a T score -2.7of an d Z score of -1.2. Mean femoral neck bone mineral density measures 0.687 g/cm2. This corresponds to a T score of -2.5 an d Z score of -1.0. XR/XR DEXA axial skeleton* [id number] IMPRESSION: Osteopenia lumbar spine. Osteoporosis femoral necks. Patient's FRAX calculated 10 year probability for major osteoporotic fracture i s 17.8% and osteoporotic hip fracture is 6.2%.
== END 2024-10-11 14:09 | disposition home or self-care (01) ==
LOC: RAD 14:09
PROVIDERS: PCP Family Medicine; Visit Provider Physician Assistant
DX: Z12.31 Encounter for screening mammogram for malignant neoplasm of breast (principal); Z78.0 Asymptomatic menopausal state; R92.323 Mammographic fibroglandular density, bilateral breasts; M85.852 Other specified disorders of bone density and structure, left thigh; M85.851 Other specified disorders of bone density and structure, right thigh; M85.88 Other specified disorders of bone density and structure, other site
CPT/HCPCS: 77063; 77067; 77080

== ENCOUNTER 2024-12-04 13:43 | Outpatient (CLI) | payer MEDICARE, SELFPAY | END 2024-12-04 13:44 | disposition home or self-care (01) | LOC: SLEEP 13:44 | PROVIDERS: PCP Family Medicine; Visit Provider Family Medicine | DX: G47.33 Obstructive sleep apnea (adult) (pediatric) (principal); G47.36 Sleep related hypoventilation in conditions classified elsewhere | CPT/HCPCS: G0399 ==

== ENCOUNTER → 2024-12-25 15:35 | Outpatient (BNVA) | payer MEDICARE, SELFPAY | PROVIDERS: PCP Family Medicine; Visit Provider Student in an Organized Health Care Education/Training Program | DX: M25.571 Pain in right ankle and joints of right foot (principal); T84.84XA Pain due to internal orthopedic prosthetic devices, implants and grafts, initial encounter; Z96.651 Presence of right artificial knee joint; Z98.890 Other specified postprocedural states; Z87.81 Personal history of (healed) traumatic fracture; Y79.2 Prosthetic and other implants, materials and accessory orthopedic devices associated with adverse incidents | CPT/HCPCS: 73610; 99213 ==

== ENCOUNTER → 2025-01-14 09:43 | Outpatient (BNVA) | payer MEDICARE, SELFPAY | PROVIDERS: PCP Family Medicine; Visit Provider Internal Medicine Cardiovascular Disease | DX: I10 Essential (primary) hypertension (principal); E78.5 Hyperlipidemia, unspecified; R42 Dizziness and giddiness | CPT/HCPCS: 99214 ==

== ENCOUNTER 2025-02-15 11:38 | Outpatient (RCR) | payer MEDICARE, SELFPAY | END 2025-02-23 23:59 | disposition home or self-care (01) | LOC: SPT 11:38 | PROVIDERS: Visit Provider Student in an Organized Health Care Education/Training Program | DX: Z47.1 Aftercare following joint replacement surgery (principal); Z96.651 Presence of right artificial knee joint | CPT/HCPCS: 97110; 97162 ==

== ENCOUNTER 2025-02-24 05:00 | Outpatient (RCR) | payer MEDICARE, SELFPAY | END 2025-03-25 23:59 | disposition home or self-care (01) | LOC: SPT 05:00 | PROVIDERS: Visit Provider Student in an Organized Health Care Education/Training Program | DX: R26.89 Other abnormalities of gait and mobility (principal); M25.661 Stiffness of right knee, not elsewhere classified; M25.561 Pain in right knee; Z96.651 Presence of right artificial knee joint | CPT/HCPCS: 97110 ==

== ENCOUNTER 2025-05-26 14:21 | Emergency (ER) | payer MEDICARE, SELFPAY ==
--- OUTSIDE RECORDS SUMMARY | 2024-08-06 08:30 | XMS_ITS ---
Author Organization [employer] Address [address] [place] [address] Care Team Providers Care Production Quality Manager Name Role Phone Emilia MONZON, Noel Primary Care Provider UnavailSOREN Sun Unavailable [phone] KHOA ULLOA Unavailable [phone] REASON FOR VISIT hematuria Encounters Encounter Location Date Provider Diagnosis [facility], [place] [address] [facility] [place] [address] 08/06/2024 KHOA ULLOA Plan Of Treatment No Information Progress Notes * Debra CERRATO GDOB: [birth year] (74 yo F)Acc No.[id number]:08/06/2024 Progress Note Patient: Debra CERON Provider: JACOB Giang :1950 A ge:74 Y S ex:Female Date:08/06/2024 Address:[address] [place], [place] [id number] Pcp:Noel Nieto MD Subjective: * Chief Complaints: * 1 . Hematuria. * Medical History: Objective: * Vitals: Assessment: Plan: * Treatment: * Billing Information: * Visit Code: * Procedure Codes: * Electronic signature of KHOA ULLOA APRN on 05/26/2025 at 02:28 PM CDT Sign off status: Pending * Provider: JACOB Giang Date: 10/06/2023 Generated for Shahida rubin/Kraig/eTransmitting on: 0 05/26/2025 02:28 PM CDT
--- OUTSIDE RECORDS SUMMARY | 2024-08-16 03:30 | XMS_ITS ---
Author Organization [employer] [facility], [employer] Address [address] [place] [address] Care Team Providers Care Traffic Monitor Specialist Name Role Phone Noel Nieto MD Primary Care Provider SOREN Rizo Unavailable [phone] FEDERICO HUSAIN Unavailable [phone] REASON FOR VISIT w/ Audie - device interrogation Medications Medication SIG (Take, Route, Frequency, Duration) Notes Start Date End Date Status Atenolol 50 MG 1 tablet Orally Once a day Active hydroCHLOROthiazide 25 MG 1 tablet in th e morning Orally Once a day Active oxyBUTYnin Chloride ER 5 MG 1 tablet Orally Once a day; Duration: 90 days Not-Taking rOPINIRole HCl *Pick strength-form from [employer] for eRX* Active Atorvastatin Calcium 20 MG 1 tablet Orally Once a day Active Gabapentin 600 MG 1 and 1/2 tablets daily Orally Once a day Active amLODIPine Besylate 2.5 MG 1 tablet Orally Once a day Active Xyzal Allergy 24HR 5 MG 1 tablet in the evening Orally Once a day Active Aspirin Adult Low Strength 81 MG 1 tablet Orally Once a day Active Encounters Encounter Location Date Provider Diagnosis [facility] [employer], [employer] [facility] [address] [place] [address] 08/16/2024 FEDERICO HUSAIN Plan Of Treatment No Information Progress Notes * Debra CERRATO GDOB: [birth year] (74 yo F)Acc No.[id number]:08/16/2024 Progress Note Patient: Debra CERON Provider: Micky Husain APRN :1950 A ge:74 Y S ex:Female Date:08/16/2024 Address:[facility] [address] [facility], [id number] Pcp:Noel Nieto MD Subjective: * Chief Complaints: * 1 . w/ Audie - device interrogation. * Medical History: * Medications: T aking Gabapentin 600 MG Tablet 1 and 1/2 tablets daily Orally Once a day , Taking amLODIPine Besylate 2.5 MG Tablet 1 tablet Orally Once a day , Taking Xyzal Allergy 24HR 5 MG Tablet 1 tablet in the evening Orally Once a day , Taking Aspirin Adult Low Strength 81 MG Tablet Delayed Release 1 tablet Orally Once a day , Taking rOPINIRole HCl , Notes to Pharmacist: *Pick strength-form from [facility] for eRX*, Taking Atorvastatin Calcium 20 MG Tablet 1 tablet Orally Once a day , Taking Atenolol 50 MG Tablet 1 tablet Orally Once a day , Taking hydroCHLOROthiazide 25 MG Tablet 1 tablet in the morning Orally Once a day , Not-Taking oxyBUTYnin Chloride ER 5 MG Tablet Extended Release 24 Hour 1 tablet Orally Once a day Objective: * Vitals: Assessment: Plan: * Treatment: * Billing Information: * Visit Code: * Procedure Codes: * Electronic signature of FARHEEN HUSAIN APRN on 05/26/2025 at 02:28 PM CDT Sign off status: Pending * Provider: Micky Husain APRN Date: 10/16/2023 Generated for Shahida rubin/Kraig/Ray on: 05/26/2025 02:28 PM CDT
--- OUTSIDE RECORDS SUMMARY | 2025-05-26 14:29 | XMS_ITS | Patient Health Record ---
Author Organization [facility] Address [address] [place] [address] Care Team Providers [employer] Driver Name Role Phone Noel Nieto MD Primary Care Provider UnavailGeoffrey Lees Unavailable [phone] Migration, Provider Unavailable Unavailable Annelise Renata Unavailable [phone] Trae Danielle Unavailable [phone] Allergies Allergen (clinical drug ingredient) Drug/Non Drug Allergy documented on EMR Reaction Allergy Type Onset Date Status Information temporarily unavailable Ciprofloxacin rask Drug Allergy Active Information temporarily unavailable Ciprofloxacin HCl hives Drug Allergy Active Information temporarily unavailable Trace Metals rash Drug Allergy Active Information temporarily unavailable Adhesive rash Allergy Active Information temporarily unavailable Iodine shortness of breath Drug Allergy Active Information temporarily unavailable Latex rash Allergy Active Results Component Value Reference Range Flag Notes Urine Drug Screen (cup read) - [id number] Reviewed date:05/08/2025 11:27:23 AM Interpretation: Performing Lab: Notes/Report: OPI + Urine Drug Screen (cup read) - [id number] Reviewed date:01/03/2025 03:29:05 PM Interpretation: Performing Lab: Notes/Report: AMP - YUNIOR - BUP - BZO + MDMA - OPI - PCP - OXY - MTD - MAMP - zzzUrine Drug Screen (confir mation by instrument) - [id number] Reviewed date:10/18/2024 10:37:35 AM Interpretation: Performing Lab: Notes/Report: Urine Confirmation Panel (in strument) - [id number] Reviewed date:05/14/2025 01:30:06 PM Interpretation: Performing Lab: Notes/Report: 6-Acetylmorphine 0 <6 ng/mL N This catherine t was developed and its performance characteristics determined by [facility]. It has not been cleared or approved by the U.S. Food and Drug Administration. 7-Aminoclonazepam 0 <60 ng/mL N This te st was developed and its performance characteristics determined by [facility]. It has not been cleared or approved by the U.S. Food and Drug Administration. Alprazolam 0 <60 ng/mL N This test was developed and its performance characteristics determined by [facility]. It has not been cleared or approved by the U.S. Food and Drug Administration. Amphetamine 0 <75 ng/mL N This test was developed and its performance characteristics determined by [facility]. It has not been cleared or approved by the U.S. Food and Drug Administration. aOH-Alprazolam 0 <60 ng/mL N This test was developed and its performance characteristics determined by [facility]. It has not been cleared or approved by the U.S. Food and Drug Administration. Buprenorphine 0.0 <7.5 ng/mL N This test w as developed and its performance characteristics determined by [facility]. It has not been cleared or approved by the U.S. Food and Drug Administration. Norbuprenorphine 0.0 <37.5 ng/mL N This te st was developed and its performance characteristics determined by [facility]. It has not been cleared or approved by the U.S. Food and Drug Administration. Carisoprodol 0 <75 ng/mL N This test wa s developed and its performance characteristics determined by [facility]. It has not been cleared or approved by the U.S. Food and Drug Administration. Codeine 0 <75 ng/mL N This test was developed and its performance characteristics determined by [facility]. It has not been cleared or approved by the U.S. Food and Drug Administration. EDDP 0 <75 ng/mL N This test was developed and its performance characteristics determined by [facility]. It has not been cleared or approved by the U.S. Food and Drug Administration. Fentanyl 0 <6 ng/mL N This test was developed and its performance characteristics determined by [facility]. It has not been cleared or approved by the U.S. Food and Drug Administration. Hydrocodone 116 <75 ng/mL H This test was developed and its performance characteristics determined by [facility]. It has not been cleared or approved by the U.S. Food and Drug Administration. Hydromorphone 106 <75 ng/mL H This test w as developed and its performance characteristics determined by [facility]. It has not been cleared or approved by the U.S. Food and Drug Administration. Lorazepam 0 <60 ng/mL N This test was developed and its performance characteristics determined by [facility]. It has not been cleared or approved by the U.S. Food and Drug Administration. MDMA 0 <75 ng/mL N This test was developed and its performance characteristics determined by [facility]. It has not been cleared or approved by the U.S. Food and Drug Administration. Meperidine 0.0 <37.5 ng/mL N This test was developed and its performance characteristics determined by [facility]. It has not been cleared or approved by the U.S. Food and Drug Administration. Meprobamate 0 <75 ng/mL N This test was developed and its performance characteristics determined by [facility]. It has not been cleared or approved by the U.S. Food and Drug Administration. Methamphetamine 0 <75 ng/mL N This test was developed and its performance characteristics determined by [facility]. It has not been cleared or approved by the U.S. Food and Drug Administration. Methadone 0 <75 ng/mL N This test was developed and its performance characteristics determined by [facility]. It has not been cleared or approved by the U.S. Food and Drug Administration. Morphine 0 <75 ng/mL N This test was developed and its performance characteristics determined by [facility]. It has not been cleared or approved by the U.S. Food and Drug Administration. Nordiazepam 0 <60 ng/mL N This test was developed and its performance characteristics determined by [facility]. It has not been cleared or approved by the U.S. Food and Drug Administration. Norfentanyl 0 <6 ng/mL N This test was developed and its performance characteristics determined by [facility]. It has not been cleared or approved by the U.S. Food and Drug Administration. Normeperidine 0.0 <37.5 ng/mL N This test was developed and its performance characteristics determined by [facility]. It has not been cleared or approved by the U.S. Food and Drug Administration. O-desmethyltramadol 0 <75 ng/mL N This test was developed and its performance characteristics determined by [facility]. It has not been cleared or approved by the U.S. Food and Drug Administration. Oxazepam 0 <60 ng/mL N This test was developed and its performance characteristics determined by [facility]. It has not been cleared or approved by the U.S. Food and Drug Administration. Oxycodone 0.0 <37.5 ng/mL N This test was developed and its performance characteristics determined by [facility]. It has not been cleared or approved by the U.S. Food and Drug Administration. Oxymorphone 0 <75 ng/mL N This test was developed and its performance characteristics determined by [facility]. It has not been cleared or approved by the U.S. Food and Drug Administration. Phencyclidine 0.0 <7.5 ng/mL N This test w as developed and its performance characteristics determined by [facility]. It has not been cleared or approved by the U.S. Food and Drug Administration. Tapentadol 0.0 <37.5 ng/mL N This test was developed and its performance characteristics determined by [facility]. It has not been cleared or approved by the U.S. Food and Drug Administration. Temazepam 0 <60 ng/mL N This test was developed and its performance characteristics determined by [facility]. It has not been cleared or approved by the U.S. Food and Drug Administration. Tramadol 0 <75 ng/mL N This test was developed and its performance characteristics determined by [facility]. It has not been cleared or approved by the U.S. Food and Drug Administration. Norhydrocodone 232 <75 ng/mL H This test was developed and its performance characteristics determined by [facility]. It has not been cleared or approved by the U.S. Food and Drug Administration. Noroxycodone 0 <38 ng/mL N This test wa s developed and its performance characteristics determined by [facility]. It has not been cleared or approved by the U.S. Food and Drug Administration. Pregabalin 0 <225 ng/mL N This test was developed and its performance characteristics determined by [facility]. It has not been cleared or approved by the U.S. Food and Drug Administration. Gabapentin 849 <225 ng/mL H This test was developed and its performance characteristics determined by [facility]. It has not been cleared or approved by the U.S. Food and Drug Administration. Benzoylecgonine 0.0 <37.5 ng/mL N This catherine t was developed and its performance characteristics determined by [facility]. It has not been cleared or approved by the U.S. Food and Drug Administration. 4-Hydroxy Xylazine 0 <25 ng/mL N This t est was developed and its performance characteristics determined by [facility]. It has not been cleared or approved by the U.S. Food and Drug Administration. Urine Confirmation Panel (in strument) - [id number] Reviewed date:01/14/2025 01:25:33 PM Interpretation: Performing Lab: Notes/Report: 6-Acetylmorphine 0 <6 ng/mL N This catherine t was developed and its performance characteristics determined by [facility]. It has not been cleared or approved by the U.S. Food and Drug Administration. 7-Aminoclonazepam 0 <60 ng/mL N This te st was developed and its performance characteristics determined by [facility]. It has not been cleared or approved by the U.S. Food and Drug Administration. Alprazolam 0 <60 ng/mL N This test was developed and its performance characteristics determined by [facility]. It has not been cleared or approved by the U.S. Food and Drug Administration. Amphetamine 0 <75 ng/mL N This test was developed and its performance characteristics determined by [facility]. It has not been cleared or approved by the U.S. Food and Drug Administration. aOH-Alprazolam 0 <60 ng/mL N This test was developed and its performance characteristics determined by [facility]. It has not been cleared or approved by the U.S. Food and Drug Administration. Buprenorphine 0.0 <7.5 ng/mL N This test w as developed and its performance characteristics determined by [facility]. It has not been cleared or approved by the U.S. Food and Drug Administration. Norbuprenorphine 0.0 <37.5 ng/mL N This te st was developed and its performance characteristics determined by [facility]. It has not been cleared or approved by the U.S. Food and Drug Administration. Carisoprodol 0 <75 ng/mL N This test wa s developed and its performance characteristics determined by [facility]. It has not been cleared or approved by the U.S. Food and Drug Administration. Codeine 0 <75 ng/mL N This test was developed and its performance characteristics determined by [facility]. It has not been cleared or approved by the U.S. Food and Drug Administration. EDDP 0 <75 ng/mL N This test was developed and its performance characteristics determined by [facility]. It has not been cleared or approved by the U.S. Food and Drug Administration. Fentanyl 0 <6 ng/mL N This test was developed and its performance characteristics determined by [facility]. It has not been cleared or approved by the U.S. Food and Drug Administration. Hydrocodone 0 <75 ng/mL N This test was developed and its performance characteristics determined by [facility]. It has not been cleared or approved by the U.S. Food and Drug Administration. Hydromorphone 0 <75 ng/mL N This test w as developed and its performance characteristics determined by [facility]. It has not been cleared or approved by the U.S. Food and Drug Administration. Lorazepam 0 <60 ng/mL N This test was developed and its performance characteristics determined by [facility]. It has not been cleared or approved by the U.S. Food and Drug Administration. MDMA 0 <75 ng/mL N This test was developed and its performance characteristics determined by [facility]. It has not been cleared or approved by the U.S. Food and Drug Administration. Meperidine 0.0 <37.5 ng/mL N This test was developed and its performance characteristics determined by [facility]. It has not been cleared or approved by the U.S. Food and Drug Administration. Meprobamate 0 <75 ng/mL N This test was developed and its performance characteristics determined by [facility]. It has not been cleared or approved by the U.S. Food and Drug Administration. Methamphetamine 0 <75 ng/mL N This test was developed and its performance characteristics determined by [facility]. It has not been cleared or approved by the U.S. Food and Drug Administration. Methadone 0 <75 ng/mL N This test was developed and its performance characteristics determined by [facility]. It has not been cleared or approved by the U.S. Food and Drug Administration. Morphine 0 <75 ng/mL N This test was developed and its performance characteristics determined by [facility]. It has not been cleared or approved by the U.S. Food and Drug Administration. Nordiazepam 0 <60 ng/mL N This test was developed and its performance characteristics determined by [facility]. It has not been cleared or approved by the U.S. Food and Drug Administration. Norfentanyl 0 <6 ng/mL N This test was developed and its performance characteristics determined by [facility]. It has not been cleared or approved by the U.S. Food and Drug Administration. Normeperidine 0.0 <37.5 ng/mL N This test was developed and its performance characteristics determined by [facility]. It has not been cleared or approved by the U.S. Food and Drug Administration. O-desmethyltramadol 0 <75 ng/mL N This test was developed and its performance characteristics determined by [facility]. It has not been cleared or approved by the U.S. Food and Drug Administration. Oxazepam 0 <60 ng/mL N This test was developed and its performance characteristics determined by [facility]. It has not been cleared or approved by the U.S. Food and Drug Administration. Oxycodone 0.0 <37.5 ng/mL N This test was developed and its performance characteristics determined by [facility]. It has not been cleared or approved by the U.S. Food and Drug Administration. Oxymorphone 0 <75 ng/mL N This test was developed and its performance characteristics determined by [facility]. It has not been cleared or approved by the U.S. Food and Drug Administration. Phencyclidine 0.0 <7.5 ng/mL N This test w as developed and its performance characteristics determined by [facility]. It has not been cleared or approved by the U.S. Food and Drug Administration. Tapentadol 0.0 <37.5 ng/mL N This test was developed and its performance characteristics determined by [facility]. It has not been cleared or approved by the U.S. Food and Drug Administration. Temazepam 0 <60 ng/mL N This test was developed and its performance characteristics determined by [facility]. It has not been cleared or approved by the U.S. Food and Drug Administration. Tramadol 0 <75 ng/mL N This test was developed and its performance characteristics determined by [facility]. It has not been cleared or approved by the U.S. Food and Drug Administration. Norhydrocodone 0 <75 ng/mL N This test was developed and its performance characteristics determined by [facility]. It has not been cleared or approved by the U.S. Food and Drug Administration. Noroxycodone 0 <38 ng/mL N This test wa s developed and its performance characteristics determined by [facility]. It has not been cleared or approved by the U.S. Food and Drug Administration. Pregabalin 0 <225 ng/mL N This test was developed and its performance characteristics determined by [facility]. It has not been cleared or approved by the U.S. Food and Drug Administration. Gabapentin 251 <225 ng/mL H This test was developed and its performance characteristics determined by [facility]. It has not been cleared or approved by the U.S. Food and Drug Administration. Benzoylecgonine 0.0 <37.5 ng/mL N This catherine t was developed and its performance characteristics determined by [facility]. It has not been cleared or approved by the U.S. Food and Drug Administration. 4-Hydroxy Xylazine 0 <25 ng/mL N This t est was developed and its performance characteristics determined by [facility]. It has not been cleared or approved by the U.S. Food and Drug Administration. Tox Results Reviewed date:05/14/2025 02:57:26 PM Interpretation: Performing Lab: Notes/Report: Tox Results Reviewed date:01/15/2025 10:16:02 AM Interpretation: Performing Lab: Notes/Report: Reason For Referral No Information Medications Medication SIG (Take, Route, Frequency, Duration) Notes Start Date End Date Status Aspirin Adult Low Strength 8 1 MG Tablet Delayed Release 1 tablet Orally Once a day Active amLODIPine Besylate 2.5 MG Tablet 1 tablet Orally Once a day Active oxyBUTYnin Chloride ER 5 MG Tablet Extended Release 24 Hour 1 tablet Orally Once a day; Duration: 90 days Not-Taking rOPINIRole HCl Not-T aking Xyzal Allergy 24HR 5 MG Tablet 1 tablet in the evening Orally Once a day Active Gabapentin 600 MG Tablet 1 and 1/2 table ts daily Orally Once a day Active hydroCHLOROthiazide 25 MG Tablet 1 tablet in the morning Orally Once a day Active Atenolol 50 MG Tablet 1 tablet Orally Once a day Active Atorvastatin Calcium 20 MG Tablet 1 tablet Orally Once a day Active Social History Tobacco Use: Social History Observation Description Date Details (start date - stop date) Never Smoker NA - NA Social History Drugs/Alcohol: Social Info Question Answer Notes Alcohol Screen (Audit-C) Did you have a drink containing alcohol in the past year? Yes Points 0 Interpretation Negative Drugs Have you used drugs other than those for medical reasons in the past 12 months? No Caffeine Intake: more than 4 cups per day Tobacco Use: Social Info Question Answer Notes Tobacco Control (Standard) Tobacco use: Nonsmoker Additional Details Category Social Info Options Details Drugs/Alcohol: Do you smoke marijuana? Ad mits Do you drink alcohol? Yes, Socia lly Problems Problem Type SNOMED Code ICD Code Onset Dates Problem Status W/U Status Risk Notes Problem Information temporarily unavailable Chronic pain syndrome (G89.4) 4 Active confirmed Problem Information temporarily unavailable Unilateral primary osteoarthritis, right hip (M16.11) 4 Active confirmed Problem Information temporarily unavailable Other spondylosis with radiculopathy, lumbosacral region (M47.27) 4 Active confirmed Problem Information temporarily unavailable Spondylosis without myelopathy or radiculopathy, lumbosacral region (M47.817) 4 Active confirmed Problem Information temporarily unavailable Intervertebral disc disorders with radiculopathy, lumbar region (M51.16) Active confirmed Problem Information temporarily unavailable Other intervertebral disc degeneration, lumbar region (M51.36) 4 Active confirmed Problem Information temporarily unavailable Unspecified abnormalities of gait and mobility (R26.9) 4 Active confirmed Problem Information temporarily unavailable Spinal stenosis, lumbar region without neurogenic claudication (M48.061) 4 Active confirmed Problem Information temporarily unavailable Benign prostatic hyperplasia with lower urinary tract symptoms (N40.1) Active confirmed Problem Information temporarily unavailable Chronic cystitis (N30.20) Active confirmed Problem Information temporarily unavailable Urinary incontinence, mixed (N39.46) Active confirmed Problem Information temporarily unavailable Lumbosacral spondylosis with radiculopathy (M47.27) Active confirmed Problem Information temporarily unavailable Spinal stenosis of lumbar region, unspecified whether neurogenic claudication present (M48.061) Active confirmed Problem Information temporarily unavailable History of UTI (Z87.440) Active confirmed Problem Information temporarily unavailable Fecal incontinence (R15.9) Active confirmed Problem Information temporarily unavailable Recurrent UTI (N39.0) Active confirmed Problem Information temporarily unavailable Sacroiliitis (M46.1) Active confirmed Problem Information temporarily unavailable OAB (overactive bladder) (N32.81) Active confirmed Problem Information temporarily unavailable Facet arthropathy, lumbosacral (M47.817) Active confirmed Problem Information temporarily unavailable Urinary incontinence (R32) Active confirmed Problem Information temporarily unavailable Foraminal stenosis of lumbar region (M48.061) Active confirmed Problem Information temporarily unavailable Osteoarthritis of right hip, unspecified osteoarthritis type (M16.11) Active confirmed Problem Information temporarily unavailable Abnormality of gait and mobility (R26.9) Active confirmed Problem Information temporarily unavailable Hx of total knee replacement, right (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 SI Joint w/ imaging jevon dance (CT or fluoroscopy) - [id number] 12/18/2024 12/18/2024 N/A Encounters Encounter Location Date Provider Diagnosis [facility] [address] [id number] 07/11/2024 Geoffrey Scott [facility] [address] [address] 09/10/2024 Danielle Larkin Chronic pain syndrom e G89.4 ; Intervertebral disc disorders with radiculopathy, lumbar region M51.16 ; Lumbosacral spondylosis with radiculopathy M47.27 ; Foraminal stenosis of lumbar region M48.061 and Abnormality of gait and mobility R26.9 [facility] [address] [address] 10/10/2024 Geoffrey Scott Chronic pain syndrom e G89.4 ; Intervertebral disc disorders with radiculopathy, lumbar region M51.16 ; Lumbosacral spondylosis with radiculopathy M47.27 ; Foraminal stenosis of lumbar region M48.061 ; Osteoarthritis of right hip, unspecified osteoarthritis type M16.11 ; Abnormality of gait and mobility R26.9 and [facility] (current) use of opiate analgesic Z79.891 [facility] [address] [facility] [place] [address] 12/18/2024 Geoffrey Scott Sacroiliitis M46.1 [facility] [address] [place] [phone] 01/03/2025 Renata Castelan Chronic pain syndrom e G89.4 ; Osteoarthritis of right hip, unspecified osteoarthritis type M16.11 ; Intervertebral disc disorders with radiculopathy, lumbar region M51.16 ; Lumbosacral spondylosis with radiculopathy M47.27 ; Foraminal stenosis of lumbar region M48.061 ; Abnormality of gait and mobility R26.9 ; Unilateral primary osteoarthritis, right hip M16.11 ; Other spondylosis with radiculopathy, lumbosacral region M47.27 ; Other intervertebral disc degeneration, lumbar region M51.36 ; Unspecified abnormalities of gait and mobility R26.9 ; Spinal stenosis, lumbar region without neurogenic claudication M48.061 ; [facility] (current) use of opiate analgesic Z79.891 and Spondylosis without myelopathy or radiculopathy, lumbosacral region M47.817 [facility] [address] [address] 03/14/2025 Renata Castelan Chronic pain syndrom e G89.4 ; Unilateral primary osteoarthritis, right hip M16.11 ; Other spondylosis with radiculopathy, lumbosacral region M47.27 ; Other intervertebral disc degeneration, lumbar region M51.36 ; Unspecified abnormalities of gait and mobility R26.9 ; [facility] (current) use of opiate analgesic Z79.891 ; Spinal stenosis, lumbar region without neurogenic claudication M48.061 and Spondylosis without myelopathy or radiculopathy, lumbosacral region M47.817 [facility] [address] [place] [address] 05/08/2025 Geoffrey Scott Chronic pain syndrom e G89.4 ; Unilateral primary osteoarthritis, right hip M16.11 ; Degeneration of intervertebral disc of lumbar region with discogenic back pain M51.360 ; Other spondylosis with radiculopathy, lumbosacral region M47.27 ; Unspecified abnormalities of gait and mobility R26.9 ; [facility] (current) use of opiate analgesic Z79.891 ; Spinal stenosis, lumbar region without neurogenic claudication M48.061 ; Spondylosis without myelopathy or radiculopathy, lumbosacral region M47.817 ; Intervertebral disc disorders with radiculopathy, lumbar region M51.16 ; Lumbosacral spondylosis with radiculopathy M47.27 ; Foraminal stenosis of lumbar region M48.061 ; Osteoarthritis of right hip, unspecified osteoarthritis type M16.11 ; Other intervertebral disc degeneration, lumbar region M51.36 and Abnormality of gait and mobility R26.9 [facility]rated[facility]Facility 0 0 07/21/2024 Provider Migration Migrated_Facility 0 0 07/22/2024 Provider Migration [facility] [address] [address] 09/12/2024 Geoffrey Scott [facility] [address] [address] 01/03/2025 Geoffrey Scott Spinal stenosis of lumbar region, unspecified whether neurogenic claudication present M48.061 [facility] [address] [address] 03/14/2025 Geoffrey Scott Spinal stenosis of lumbar region, unspecified whether neurogenic claudication present M48.061 Assessments Encounter Date Diagnosis (ICD Code) Assessment Notes Treatment Notes Treatment Clinical Notes Section Notes 01/03/2025 Spinal stenosis of lumbar region, unspecified whether neurogenic claudication present (ICD-10 - M48.061) 03/14/2025 Chronic pain syndrome (ICD-10 - G89.4) I had a nice discussion with the patient today regarding her chronic pain complaints. She continues with lower back pain but states her knee pain is still taking precedence right now. She had a knee revision surgery in December. She states she still been in a lot of pain after this and has started physical therapy which has been difficult. Her surgeon has been prescribing short-term prescriptions of oxycodone and tramadol for her. She states they told her they would no longer be giving anything higher than tramadol and the patient would prefer just to go back to her hydrocodone now. I did make sure she understood if we restart the hydrocodone she can no longer get prescriptions from her surgeon and she voiced understanding. She does have another follow-up with her orthopedic surgeon next Tuesday. She has not filled from us since November and she may have some prescriptions at the pharmacy so we will check on that today before sending in a prescription. I did discuss lifestyle modifications with her as well as a bowel regimen. She denies any other changes since we last seen her any untoward side effects the medication. She will return to clinic in 2 months to monitor for treatment effectiveness and compliance. The patient continues with chronic pain requiring treatment to help restore function and improve quality of life. Risks of opioid therapy as well as interaction of opioids with alcohol, illicit drugs, muscle relaxers, and other sedative medications are reviewed briefly with patient again today. The patient has trialed all other reasonable treatment options and uses the medication to alleviate pain in order to remain active and rest with less pain. No clinically relevant medication side effects are noted. Last UDS and [place] APPEALS NURSE reviewed today. Patient is advised that best long-term goals include increased activity, core strengthening, proper weight management, coping strategies, avoidance of painful triggers, and targeted interventional therapy. We will see the patient for routine follow up in accordance with all clinic policies. We did remind patient today of current guidelines to decrease opioid when possible. We will continue to stress nonopioid treatment. RECOMMEND URINE TESTING TODAY Urine drug screening will be performed today to monitor compliance with opioid therapy or to serve as a baseline screen for a patient who may be a candidate for opioid therapy in the future, pending UDS results. We will monitor with in-office testing (rapid testing) today and review the results prior to dispensing prescription. All positive results will be sent for quantitative analysis to ensure accuracy and quantify amounts. Any expected positive results that return negative will also be sent for quantitative analysis. Any questionable read or any medication we cannot test for in the office confidently will be sent for quantitative analysis, as well. Patient has been made aware of this policy and agrees to abide by our urine testing policy. 03/14/2025 Unilateral primary osteoarthritis, right hip (ICD-10 - M16.11) 03/14/2025 Spinal stenosis of lumbar region, unspecified whether neurogenic claudication present (ICD-10 - M48.061) 05/08/2025 Chronic pain syndrome (ICD-10 - G89.4) I had a visit with the patient today regarding her chronic pain issues. She says that her pain has been worse because of the PT. I did review her prescription monitoring program history, and she's filled multiple prescriptions with Dr. Nieto and Dr. Ac for oxycodone, hydrocodone, and tramadol. She denied taking any of these and says that she's only taking hydrocodone from us. I tried to impress upon her that someone is filling these prescriptions under her name at her pharmacy and that this is a big deal. She continued to deny it. At this point, I will no longer provide any controlled substances for her. She can f/u with us on an as-needed basis. 05/08/2025 Unilateral primary osteoarthritis, right hip (ICD-10 - M16.11) 10/10/2024 Chronic pain syndrome (ICD-10 - G89.4) I had a nice visit with the patient today regarding her chronic pain issues. Overall, she seems to be doing okay with the foot and ankle but she's had more lumbosacral pain. On examination, this localizes to her right sacroiliac joint. It sounds like she has a knee revision surgery coming up here in the near future which is going to be a lot for her obviously, but hopefully we can help ease her way into this. We will continue another small prescription for the hydrocodone to get her through until her surgery and then we will schedule a right sacroiliac joint injection. We will proceed accordingly thereafter. Schedule R-SI joint injection after knee surgery 10/10/2024 Intervertebral disc disorders with radiculopathy, lumbar region (ICD-10 - M51.16) 12/18/2024 Sacroiliitis (ICD-10 - M46.1) 01/03/2025 Chronic pain syndrome (ICD-10 - G89.4) I had a nice discussion with the patient today regarding her chronic pain complaints. She states her SI joint injection helped relieve her pain at least 50%. She is functioning better overall. However, her knee has been hurting her quite a bit and she is scheduled for an upcoming knee surgery. I did go over postsurgical pain protocol with her. She denies any other changes since we last seen her any untoward side effects of medication. She is doing reasonably well on her current medication regimen so she will continue that at present level. She will return to clinic in 2 months to monitor for treatment effectiveness and compliance. The patient continues with chronic pain requiring treatment to help restore function and improve quality of life. Risks of opioid therapy as well as interaction of opioids with alcohol, illicit drugs, muscle relaxers, and other sedative medications are reviewed briefly with patient again today. The patient has trialed all other reasonable treatment options and uses the medication to alleviate pain in order to remain active and rest with less pain. No clinically relevant medication side effects are noted. Last UDS and AR APPEALS NURSE reviewed today. Patient is advised that best long-term goals include increased activity, core strengthening, proper weight management, coping strategies, avoidance of painful triggers, and targeted interventional therapy. We will see the patient for routine follow up in accordance with all clinic policies. We did remind patient today of current guidelines to decrease opioid when possible. We will continue to stress nonopioid treatment. RECOMMEND URINE TESTING TODAY Urine drug screening will be performed today to monitor compliance with opioid therapy or to serve as a baseline screen for a patient who may be a candidate for opioid therapy in the future, pending UDS results. We will monitor with in-office testing (rapid testing) today and review the results prior to dispensing prescription. All positive results will be sent for quantitative analysis to ensure accuracy and quantify amounts. Any expected positive results that return negative will also be sent for quantitative analysis. Any questionable read or any medication we cannot test for in the office confidently will be sent for quantitative analysis, as well. Patient has been made aware of this policy and agrees to abide by our urine testing policy. Refill HYDROcodone- Acetaminophe n Tablet, 5-325 MG, 0.5-1 tablet, Orally, every 12 hours, As needed Do not exceed 1 per day, 30 days, 30 Tablet, Start Date: 01/17/2025, Stop Date: 02/16/2025, Refills 0, Notes to Pharmacist: Fill on 01/17/25 Refill HYDROcodone- Acetaminophe n Tablet, 5-325 MG, 0.5-1 tablet, Orally, every 12 hours, As needed Do not exceed 1 per day, 30 days, 30 Tablet, Start Date: 02/16/2025, Stop Date: 03/18/2025, Refills 0, Notes to Pharmacist: Fill on 02/16/25 01/03/2025 Osteoarthritis of right hip, unspecified osteoarthritis type (ICD-10 - M16.11) 09/10/2024 Chronic pain syndrome (ICD-10 - G89.4) I had a nice discussion with the patient today regarding chronic pain complaints. She reports that her worst pain currently is in her lower back that radiates into her right leg mostly. She has recovered from her recent foot surgery but she continues to have pain that is now worse in her lower back. She has tried interventional therapy in the past but that did not help significantly so she does not wish to proceed with more injections. She is asking for something to help with her pain and she states that she has previously discussed this with Dr. Scott. I will discuss this with him again prior to considering any medications and contact patient accordingly. 09/10/2024 Intervertebral disc disorders with radiculopathy, lumbar region (ICD-10 - M51.16) I had a nice discussion with the patient today regarding chronic pain complaints. She reports that her worst pain currently is in her lower back that radiates into her right leg mostly. She has recovered from her recent foot surgery but she continues to have pain that is now worse in her lower back. She has tried interventional therapy in the past but that did not help significantly so she does not wish to proceed with more injections. She is asking for something to help with her pain and she states that she has previously discussed this with Dr. Scott. I will discuss this with him again prior to considering any medications and contact patient accordingly. 01/03/2025 Intervertebral disc disorders with radiculopathy, lumbar region (ICD-10 - M51.16) 10/10/2024 Lumbosacral spondylosis with radiculopathy (ICD-10 - M47.27) 05/08/2025 Degeneration of intervertebral disc of lumbar region with discogenic back pain (ICD-10 - M51.360) 03/14/2025 Other spondylosis with radiculopathy, lumbosacral region (ICD-10 - M47.27) 03/14/2025 Other intervertebral disc degeneration, lumbar region (ICD-10 - M51.36) 05/08/2025 Other spondylosis with radiculopathy, lumbosacral region (ICD-10 - M47.27) 10/10/2024 Foraminal stenosis of lumbar region (ICD-10 - M48.061) 01/03/2025 Lumbosacral spondylosis with radiculopathy (ICD-10 - M47.27) 09/10/2024 Lumbosacral spondylosis with radiculopathy (ICD-10 - M47.27) I had a nice discussion with the patient today regarding chronic pain complaints. She reports that her worst pain currently is in her lower back that radiates into her right leg mostly. She has recovered from her recent foot surgery but she continues to have pain that is now worse in her lower back. She has tried interventional therapy in the past but that did not help significantly so she does not wish to proceed with more injections. She is asking for something to help with her pain and she states that she has previously discussed this with Dr. Scott. I will discuss this with him again prior to considering any medications and contact patient accordingly. 09/10/2024 Foraminal stenosis of lumbar region (ICD-10 - M48.061) I had a nice discussion with the patient today regarding chronic pain complaints. She reports that her worst pain currently is in her lower back that radiates into her right leg mostly. She has recovered from her recent foot surgery but she continues to have pain that is now worse in her lower back. She has tried interventional therapy in the past but that did not help significantly so she does not wish to proceed with more injections. She is asking for something to help with her pain and she states that she has previously discussed this with Dr. Scott. I will discuss this with him again prior to considering any medications and contact patient accordingly. 01/03/2025 Foraminal stenosis of lumbar region (ICD-10 - M48.061) 10/10/2024 Osteoarthritis of right hip, unspecified osteoarthritis type (ICD-10 - M16.11) 05/08/2025 Unspecified abnormalities of gait and mobility (ICD-10 - R26.9) 03/14/2025 Unspecified abnormalities of gait and mobility (ICD-10 - R26.9) 03/14/2025 [facility] (current) use of opiate analgesic (ICD-10 - Z79.891) 05/08/2025 [facility] (current) use of opiate analgesic (ICD-10 - Z79.891) RECOMMEND URINE TESTING TODAY Urine drug screening will be performed today to monitor compliance with opioid therapy or to serve as a baseline screen for a patient who may be a candidate for opioid therapy in the future, pending UDS results. We will monitor with in-office testing (rapid testing) today and review the results prior to dispensing prescription. All positive results will be sent for quantitative analysis to ensure accuracy and quantify amounts. Any expected positive results that return negative will also be sent for quantitative analysis. Any questionable read or any medication we cannot test for in the office confidently will be sent for quantitative analysis, as well. Patient has been made aware of this policy and agrees to abide by our urine testing policy. 10/10/2024 Abnormality of gait and mobility (ICD-10 - R26.9) 01/03/2025 Abnormality of gait and mobility (ICD-10 - R26.9) 09/10/2024 Abnormality of gait and mobility (ICD-10 - R26.9) I had a nice discussion with the patient today regarding chronic pain complaints. She reports that her worst pain currently is in her lower back that radiates into her right leg mostly. She has recovered from her recent foot surgery but she continues to have pain that is now worse in her lower back. She has tried interventional therapy in the past but that did not help significantly so she does not wish to proceed with more injections. She is asking for something to help with her pain and she states that she has previously discussed this with Dr. Scott. I will discuss this with him again prior to considering any medications and contact patient accordingly. 01/03/2025 Unilateral primary osteoarthritis, right hip (ICD-10 - M16.11) 10/10/2024 [facility] (current) use of opiate analgesic (ICD-10 - Z79.891) 05/08/2025 Spinal stenosis, lumbar region without neurogenic claudication (ICD-10 - M48.061) 03/14/2025 Spinal stenosis, lumbar region without neurogenic claudication (ICD-10 - M48.061) 03/14/2025 Spondylosis without myelopathy or radiculopathy, lumbosacral region (ICD-10 - M47.817) 05/08/2025 Spondylosis without myelopathy or radiculopathy, lumbosacral region (ICD-10 - M47.817) 01/03/2025 Other spondylosis with radiculopathy, lumbosacral region (ICD-10 - M47.27) 01/03/2025 Other intervertebral disc degeneration, lumbar region (ICD-10 - M51.36) 05/08/2025 Intervertebral disc disorders with radiculopathy, lumbar region (ICD-10 - M51.16) 05/08/2025 Lumbosacral spondylosis with radiculopathy (ICD-10 - M47.27) 01/03/2025 Unspecified abnormalities of gait and mobility (ICD-10 - R26.9) 01/03/2025 Spinal stenosis, lumbar region without neurogenic claudication (ICD-10 - M48.061) 05/08/2025 Foraminal stenosis of lumbar region (ICD-10 - M48.061) 05/08/2025 Osteoarthritis of right hip, unspecified osteoarthritis type (ICD-10 - M16.11) 01/03/2025 [facility]aker (current) use of opiate analgesic (ICD-10 - Z79.891) 01/03/2025 Spondylosis without myelopathy or radiculopathy, lumbosacral region (ICD-10 - M47.817) 05/08/2025 Other intervertebral disc degeneration, lumbar region (ICD-10 - M51.36) 05/08/2025 Abnormality of gait and mobility (ICD-10 - R26.9) 10/10/2024 Other Sacha Allen am scribing for Dr. Geoffrey Scott. I, Dr. Geoffrey Scott, personally performed the services described in this documentatio n, as scribed by Sacha Reese, and it is both accurate and complete. 05/08/2025 Other Joanie Allen am scribing for Dr. Geoffrey Scott. I, Dr. Geoffrey Scott, personally performed the services described in this documentation, as scribed by Joanie Reed, and it is both accurate and complete. Plan Of Treatment Pending Test Test Name Order Date Electrocardiogram 12 Lead Tracing-[id number] 11/29/2022 Electrocardiogram 12 Lead Tracing-[id number] 01/10/2023 Insurance Providers Payer Name Payer Address Payer Phone Subscriber Number Group Number Insured Name Patient Relationship to Insured Coverage Start Date Coverage End Date [employer] [place] [address] [place] [address] [id number] Debra Cerrato Self - patient is the insured Medical (General) History Medical History History ICD Code hypertension hypercholesterolemia restless leg syndrome Surgical History Surgery Date(Month/Year) shoulder surgery both (5 years ago) cholecystectomy appendectomy tonsillectomy knee surgery 10/05/21 [facility] (12 years ago) Hospitalization History Reason Date(Month/Year) surgeries
--- OUTSIDE RECORDS SUMMARY | 2025-05-26 14:29 | XMS_ITS | Clinical Summary ---
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 Active atorvastatin 40 mg tablet (LIPITOR) Take 40 mg by mouth daily. Active calcium as carbonate (CALTRATE) 1,500 mg (600 mg elemental) Tablet Take 1 Tablet by mouth daily. 5 Active celecoxib (CeleBREX) 200 mg capsule Take 200 mg by mouth daily. 4 Active gabapentin (NEURONTIN) 600 mg tablet Take 600 mg by mouth 1 time daily as needed for Pain. Active hydroCHLOROthiaz rehana 25 mg tablet Take 25 mg by mouth daily. Active oxyBUTYnin (DITROPAN XL) 5 mg Extended Release 24 hour tablet Take 5 mg by mouth daily. Active Ozempic 1 mg/dose (4 mg/3 mL) Pen Injector Inject 1 mg by subcutaneous injection every 7 days. 5 Active aspirin (ECOTRIN EC) 81 mg Tablet, Delayed Release (E.C.) Take 81 mg by mouth daily. Active atenoloL (TENORMIN) 50 mg tablet Take 50 mg by mouth daily. Active cetirizine (ZyrTEC) 10 mg tablet Take 1 Tablet by mouth daily. 5 Active clopidogreL (PLAVIX) 75 mg Tablet Take 1 Tablet by mouth daily. 5 Active mv-mn/folic ac/calcium/vit K1 (WOMEN'S 50 PLUS MULTIVITAMIN ORAL) Take by mouth. Activ e cyanocobalamin, vitamin B-12, (VITAMIN B-12 ORAL) Take by mouth. Activ e cholecalciferol, vitamin D3, (VITAMIN D3 ORAL) Take by mouth daily. Active calcium carbonate (CALCIUM 600 ORAL) Take 1 Tablet by mouth daily. Active fluticasone propionate (FLONASE) 50 mcg/spray Hope, Suspension nasal inhaler Administer 2 Sprays in each nostril daily. Active acetaminophen (TYLENOL) 500 mg tablet Take 1,000 mg by mouth every 8 hours as needed for Pain or Pain, Break-Through. Active polyethylene glycol 3350 (Miralax) 17 gram/dose Powder Take 1 Scoop (17 Grams) by mouth daily. Dissolve in 8 ounces of fluid and drink entire liquid 527 Gram 5 Active alendronate (FOSAMAX) 70 mg tablet TAKE 1 TABLET BY MOUTH EVERY WEEK Active omeprazole (PriLOSEC) 20 mg Capsule, Delayed Release(E.C.) Take 1 Capsule by mouth daily. 5 Active sulfamethoxazole -trimethoprim (BACTRIM DS) 800-160 mg tablet TAKE 1 TABLET BY MOUTH TWICE A DAY FOR 5 DAYS Active Miscellaneous Medical Supply One standard wheelchair 1 Each 5 Active omeprazole (PriLOSEC) 20 mg Capsule, Delayed Release(E.C.) Take 20 mg by mouth daily. 5 Active ropinirole HCl (ROPINIROLE ORAL) rOPINIRole HCl Activ e oxyCODONE (ROXICODONE) 5 mg tabletIndication s:Status post revision of total knee replacement, unspecified laterality Take 1 Tablet (5 mg) by mouth every 4 hours as needed for Pain, Moderate. Max Daily Amount: 30 mg 42 Tablet 5 Active HYDROcodone-acet aminophen (NORCO) 5-325 mg tablet TAKE 1/2-1TAB BY MOUTH EVERY 12 HOURS NEEDED DO NOT EXCEED 1 PER DAY 30 DAYS (02/16) Active oxyCODONE IR (OXY-IR) 5 mg CapsuleIndicatio ns:Status post revision of total knee replacement, unspecified laterality Take 1 Capsule (5 mg) by mouth every 6 hours as needed for Pain. Max Daily Amount: 20 mg 28 Capsule 5 Active traMADol (Ultram) 50 mg tabletIndication s:Status post revision of total knee replacement, unspecified laterality Take 1 Tablet (50 mg) by mouth every 6 hours as needed for Pain. 28 Tablet 5 Active famotidine (PEPCID) 20 mg tablet Take 20 mg by mouth 2 times daily. Active tranexamic acid (LYSTEDA) 650 mg Tablet tablet TAKE 3 TABLETS (1,950 MG) BY MOUTH DAILY AFTER SUPPER. 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 01/02/2025 Elevated transaminase level 01/02/2025 Encounters Date Type Department Care Team Description 05/14/2025 External Device Data [facility] ABSTRACTION Provider, Abstract 05/01/2025 External Device Data [facility] ABSTRACTION Provider, Abstract 04/30/2025 External Device Data [facility] ABSTRACTION Provider, Abstract 04/18/2025 9:00 AM CDT Office Visit [place] [id number] [place] [phone] Jewel Smith PA-C 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) 04/18/2025 8:40 AM CDT Ancillary Procedure [place] [address] [place] [phone] Braden Ac MD History of revision of total replacement of right knee joint 04/10/2025 External Device Data [facility] ABSTRACTION Provider, Abstract 04/09/2025 External Device Data [facility] ABSTRACTION Provider, Abstract 03/27/2025 Orders Only [facility] [id number] [place] [address] Braden Ac MD 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) 03/26/2025 External Device Data ST[facility] ABSTRACTION Provider, Abstract 03/26/2025 External Device Data [facility] ABSTRACTION Provider, Abstract 03/26/2025 External Device Data [facility] ABSTRACTION Provider, Abstract 03/19/2025 10:20 AM CDT Office Visit [place] [address] [place] [phone] Jewel Smith PA-C 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) 03/19/2025 External Device Data ST[facility] ABSTRACTION Provider, Abstract 03/19/2025 Refill [place] [address] [place] [phone] Braden Ac MD Status post revision of total knee replacement, unspecified laterality 02/27/2025 Telephone [place] [address] [place] [address] Braden Ac MD Needs Orders Written 02/26/2025 Refill [place] [address] [place] [phone] Braden Ac MD Status post revision of total knee replacement, unspecified laterality from Last 3 Months Social History Tobacco Use Types Packs/Day Years Used Date Smoking Tobacco: Never Smokeless Tobacco: Never Tobacco Cessation:Counseling Given: Not Answered Alcohol Use Standard Drinks/Week Comments Not Currently 0 (1 standard drink = 0.6 oz pur e alcohol) Feeling Safe Answer Date Recorded Are you in a relationship wi th someone who hurts you emotionally and/or physically? 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 Gender Identity Not on file Sexual Orientation Not on file Last Filed Vital Signs Vital Sign Reading Time Taken Comments Blood Pressure 136/72 04/18/2025 8:58 AM CDT Pulse 66 01/17/2025 11:47 AM CDT Temperature 36.1 C (97 F) 01/17/2025 11:47 AM CDT Respiratory Rate 16 01/17/2025 11:47 AM CDT Oxygen Saturation 99% 01/17/2025 11:47 AM CDT Inhaled Oxygen Concentration - - Weight 70.8 kg (156 lb) 04/18/2025 8:58 AM CDT Height 152.4 cm (5') 04/18/2025 8:58 AM CDT Body Mass Index 30.47 04/18/2025 8:58 AM CDT Plan of Treatment Upcoming Encounters Date Type Department Care Team (Late st Contact Info) Description 06/20/2025 9:00 AM CDT Telephone Check Up [facility] [address] [place] [address] Jewel Smith PA-C [address] [place] [address] Health Maintenance Due Date Last Done Comments DIABETES ANNUAL FOOT EXAM 1967 DIABETES ANNUAL RETINAL EXAM 1967 DIABETES MICROALBUMIN ANNUAL SCREEN 1967 LDL CHOLESTEROL ANNUAL 1967 COLORECTAL SCREENING 1994 Colorectal Cancer Screening 1994 FIT-DNA Q 3 years 1994 FIT/FOBT Q 1 year 1994 Flex Sig/CT Colonography Q 5 years 1994 OSTEOPOROSIS SCREENING 2014 COVID-19 Vaccine (2023-2 5 season) 2024 08/19/2023, 08/04/2022, 04/19/2022, Additional history exists RSV VACCINE (60+ or ) (1 - 1-dose 75+ series) 2024 DIABETES HBA1C Q 6 MONTHS 02/17/2025 08/20/2024, INFLUENZA VACCINE (#1) 2025 4, 10/14/2023, 06/16/2023, Additional history exists DTAP/TDAP/TD VACCINES (2 - T d or Tdap) 10/14/2033 10/14/2023 ZOSTER VACCINE Completed 05/03/2022, 01/30/2022 PNEUMOCOCCAL VACCINE 50+ YEARS Completed 0 06/16/2023, 06/01/2022, 10/06/2021 Medical Devices Implanted Type Area Wig Comber Device Identifier Shelf Expiration Date Model / Serial / Lot Stimulan Rapid Cure Putty 10ml 620-010 - [id number] Implanted:Qty: 1 on 01/16/2025 by Braden Ac MD at [facility] Biological Right: Knee [employer] [id number] 06/25/2027 620-010 / / [id number] Artisan M 6215-5-011 - [id number] Implanted:Qty: 1 on 01/16/2025 by Braden Ac MD at [facility] Bone Right: Knee [employer] [id number] 06/06/2029 6215-5-011 / / [id number] Cement Palacos Mv Pro 80 Hip Knee Antimicrob [id number] - [id number] Implanted:Qty: 1 on 01/16/2025 by Braden Ac MD at [facility] Cement Right: Knee [employer] [id number] 05/26/2026 [id number] / / [id number] Wedge Fem Lgn-Rk Sz5-6 10mm 8917-6388 - [id number] Implanted:Qty: 1 on 01/16/2025 by Braden Ac MD at [facility] Knee Right: Knee [employer] 11/19/2033 [id number] / / [id number] Insert Gnsii Ps Hi Flx Sz3-4 Rt 1382-3843 - [id number] Implanted:Qty: 1 on 01/16/2025 by Braden Ac MD at [facility] Knee Right: Knee [employer] 09/05/2027 [id number] / / [id number] Comp Fem Lgn Zrcnm Sz6 0803-6916 - [id number] Implanted:Qty: 1 on 01/16/2025 by Braden Ac MD at [facility] Knee Right: Knee [employer] [id number] 12/09/2033 [id number] / / [id number] Comp Fem Lgn Pressfit 8085-4718 - [id number] Implanted:Qty: 1 on 01/16/2025 by Braden Ac MD at [facility] Knee Right: Knee [employer] [id number] 03/18/2033 [id number] / / [id number] Screw Canc 6.5x85mm 217.085 - [id number] Implanted:Qty: 1 on 01/16/2025 by Braden Ac MD at [facility] Screw Right: Knee [employer]- [employer]ES 01/23/2025 217.085 / / [id number] Washer 13.0mm 219.99 - [id number] Implanted:Qty: 1 on 01/16/2025 by Braden Ac MD at [facility] Washer Right: Knee [employer]- [employer] SYN[employer]ES 01/23/2025 219.99 / / [id number] I.D. Implanted:Qty: 1 on 01/16/2025 by Braden Ac MD at [facility] Right: Knee 09/04/2027 [employer]-719 13379 / / [id number] Explanted Type Area Wig Comber Device Identifier Shelf Expiration Date Model / Serial / Lot Poly Explanted:Qty: 1 on 01/16/2025 by Braden Ac MD at [facility] Right: Knee Femur Stem Explanted:Qty: 1 on 01/16/2025 by Braden Ac MD at [facility] Right: Knee Posterior Augments Explanted:Qty: 2 on 01/16/2025 by Braden Ac MD at [facility] Right: Knee Procedures Procedure Name Priority Date/Time Associated Diagnosis Comments XR KNEE 3 VW RIGHT Routine 04/18/2025 8: 41 AM CDT History of revision of total replacement of right knee joint from Last 3 Months Results * XR KNEE 3 VW RIGHT (04/18/2025 8:41 AM CDT) Anatomical Region Laterality Modality Lower Extremity Computed Radiogr aphy Narrative 04/19/2025 2:03 PM CDT 3 views of the right knee were obtained today and reviewed in detail with the patient. Noted is a revision right total knee arthroplasty with screw fixation in the distal femur without signs of loosening or implant failure. No fractures or dislocations are seen. Stable x-ray compared to previous films. us Braden Ac MD [facility] Final Result from Last 3 Months Insurance BC[employer] MEDICARE HMO Advance Directives For more information, please contact: [phone] * Full Code (Latest Code Status on File) Date Activated Date Inactivated Comments 01/16/2025 6:31 PM 01/17/2025 2:35 PM * Full Code Date Activated Date Inactivated Comments 01/16/2025 11:27 AM 01/16/2025 6:31 PM
--- OUTSIDE RECORDS SUMMARY | 2025-05-26 14:29 | XMS_ITS | Patient Health Record ---
Author Organization [facility] Address [address] [place] [address] Care Team Providers Care Peanut Picker Name Role Phone Emilia MONZON, Noel Primary Care Provider Unavaileder NOVASOREN Unavailable [phone] RODRIGUEFEDERICO ESCALANTE Unavailable [phone] KHOA ULLOA Unavailable [phone] Allergies Allergen (clinical drug ingredient) Drug/Non Drug Allergy documented on EMR Reaction Allergy Type Onset Date Status Information temporarily unavailable Ciprofloxacin HCl hives Drug Allergy Active Information temporarily unavailable Iodine shortness of breath Drug Allergy Active Results Component Value Reference Range Notes Gx - Recurrent Persistent Co mplicated UTI Reviewed date:11/30/2024 11:45:15 AM Interpretation: Performing Lab:, [id number] Notes/Report: PatientName: : Gender: PatientRelation: PatientAddress: , , , InsuranceName: InsuranceCode: Test Result: Guidance 7.0, Voided Urine, UTI Surgical, Test Result: PATHOGENIC DNA DETECTED#A*F UTIAbnormalFlag: Guidance 7.0, Voided Urine, UTI Surgical, UTIAbnormalFlag: A Urinalysis, Routine Reviewed date:08/09/2024 10:24:41 AM Interpretation: Performing Lab: Notes/Report: Urine-Color yellow Appearance clear Glucose - Bilirubin - Ketones - Specific [place] 1.010 Occult Blood - pH 6.0 Urine Protein - Urobilinogen,Semi-Qn - Nitrite, Urine - WBC Esterase - Urinalysis Gross Exam - CLIENT EDUCATION TRACKING Reviewed date:07/27/2024 11:52:18 AM Interpretation: Performing Lab:[facility]ALDO, [facility]-[id number] Andrea [facility], [id number] Corinne Tubbs MD Notes/Report: FASTING: NO CLIENT EDUCATION TRACKING The Requisition we received did not include a [employer] account number. To prevent delays in testing and processing of your orders please provide the following information with every order submitted: [facility] account number and account name Client address Client phone and fax number NPI number of ordering physician along with the physician name. Urinalysis, Routine Reviewed date:05/30/2024 11:24:05 AM Interpretation: Performing Lab: Notes/Report: Urine-Color yellow Appearance clear Glucose - Bilirubin - Ketones - Specific [place] 1.015 Occult Blood - pH 6.0 Urine Protein - Urobilinogen,Semi-Qn - Nitrite, Urine - WBC Esterase - Urinalysis, Routine Reviewed date:11/27/2024 09:53:56 AM Interpretation: Performing Lab: Notes/Report: Urine-Color Pratima Appearance cloudy Glucose - Bilirubin - Ketones - Specific [place] 1.015 Occult Blood 3+ pH 6.0 Urine Protein 1+ Urobilinogen,Semi-Qn 0.2 Nitrite, Urine + WBC Esterase + Urinalysis, Routine Reviewed date:07/23/2024 10:46:53 AM Interpretation: Performing Lab: Notes/Report: Urine-Color Yellow Appearance Slightly Cloudy Glucose - Bilirubin - Ketones - Specific [place] 1.010 Occult Blood - pH 6.0 Urine Protein - Urobilinogen,Semi-Qn 0.2 Nitrite, Urine - WBC Esterase + Urinalysis Gross Exam - CBC w/ Auto Diff Reviewed date:07/23/2024 03:15:51 PM Interpretation: Performing Lab: Notes/Report: Testing performed at: [place] [address] CLIA ID [id number] WBC 8.0 4.5-11.0 X10'3 RBC 4.78 4.00-5.20 X10'6 Hgb 14.0 12.0-16.0 G/DL Hct 41.4 36.0-46.0 % MCV 86.6 80.0-100.0 FL MCH 29.3 27.0-31.0 PG MCHC 33.8 31.0-37.0 G/DL Platelet 221 150-400 X10'3 RDW-SD 40.5 35.0-49.0 FL RDW-CV 12.7 12.2-15.6 % MPV 8.8 9.2-12.0 FL Neutro Auto% 62.9 40.0-70.0 % Lymph Auto% 26.9 22.0-44.0 % Isabela Auto% 6.2 3.0-7.0 % Eos Auto% 3.1 2.0-4.0 % Baso Auto% 0.7 0.0-1.0 % Imm Gran% .2 .0-.4 % Neutro Abs 5.05 .80-7.70 Absolute Neutrophil Count 5050 Lymph Abs 2.16 .10-4.10 Isabela Abs .50 .20-1.00 Eos Abs .25 .00-.40 Baso Abs .06 .00-.20 Imm Gran Abs .02 .00-.10 NRBC# .00 .00-.20 X10'3 NRBC% .00 .00-.20 /100 int act WBC's Basic Metabolic Panel Reviewed date:07/23/2024 03:15:54 PM Interpretation: Performing Lab: Notes/Report: Testing performed at [facility], [address] [place] [address] [place] [address]. CLIA ID#: [id number] S-pgwgwi-h-benzoquinone imine (NAPQI) is a metabolite of acetaminophen, NAPQI concentrations of apparoximately 10 mg/L correlation to toxic levels of acetaminophen demonstrates a greater than or equil to 10% change in results. NAPQI concentrations greater than this may lead to falsely depressed results for patient samples. Calculation performed from GFR calculator provided by the [employer]. Glomerular Filtration rate(GRF) is the best overall index of kidney function. Normal GFR varies according to age,sex, body size, and declines with age. The National [employer] recommends using the CKD-EPI Creatinine Equation(2020) to estimate GFR. Testing performed at: [address] [place] [address] CLIA ID [id number] Use of this assay is not recommended for patients undergoing treatment with phenindione, due to the potential for falsely depressed results. Sodium 142 136-145 MMOL/L Potassium 3.8 3.5-5.1 MMOL/L Chloride 107 98-107 MMOL/L CO2 27.0 20.0-31.0 MMOL/L Glucose Serum 92 71-110 MG/DL BUN 10 7-21 MG/DL Creat .54 .51-1.17 MG/DL GFR 95.8 Anion Gap 12 5-15 BUN/Creat Ratio 18.5 12.0-20.0 % Calcium 9.4 8.7-10.4 MG/DL Osmo Serum,Calculated 293 280-300 MOSM/KG CULTURE, URINE, ROUTINE (395 ) Reviewed date:07/30/2024 02:48:07 PM Interpretation: Performing Lab:[place], [facility]-[id number] Andrea Landeros, [id number] Corinne Tubbs MD Notes/Report: FASTING: NO CULTURE, URINE, ROUTINE SEE NOTE CULTURE, URINE, ROUTINE Micro Number: [id number] Test Status: Final Specimen Source: Urine Specimen Quality: Adequate Result: Greater than 100,000 CFU/mL of Escherichia coli E.coli INT ANH AMOX/CLAVULANATE S 4 AMP/SULBACTAM S 4 CEFAZOLIN NR <=4 2 CEFEPIME S <=0.12 CEFTAZIDIME S <=1 CEFTRIAXONE S <=0.25 CIPROFLOXACIN S <=0.06 GENTAMICIN S <=1 IMIPENEM S <=0.25 LEVOFLOXACIN S <=0.12 MEROPENEM S <=0.25 NITROFURANTOIN S <=16 PIP/TAZOBACTAM S <=4 TRIMETHOPRIM/SULFA S <=20 S = Susceptible I = Intermediate R = Resistant NS = Not susceptible SDD = Susceptible Dose Dependent * = Not Tested NR = Not Reported NN = See Therapy Comments THERAPY COMMENTS Note 1: For infections other than uncomplicated UTI caused by E. coli, K. pneumoniae or P. mirabilis: Cefazolin is resistant if ANH > or = 8 mcg/mL. (Distinguishing susceptible versus intermediate for isolates with ANH < or = 4 mcg/mL requires additional testing.) Note 2: For uncomplicated UTI caused by E. coli, K. pneumoniae or P. mirabilis: Cefazolin is susceptible if ANH <32 mcg/mL and predicts susceptible to the oral agents cefaclor, cefdinir, cefpodoxime, cefprozil, cefuroxime, cephalexin and loracarbef. NO COLLECTION DATE RECEIVED. WE HAVE USED THE DATE THE SPECIMEN WAS RECEIVED BY THIS LABORATORY THE COLLECTION DATE. IF THIS IS INCORRECT, PLEASE CONTACT CLIENT SERVICES. PHONE NUMBER: [phone] Reason For Referral No Information Medications Medication SIG (Take, Route, Frequency, Duration) Notes Start Date End Date Status amLODIPine Besylate 2.5 MG 1 tablet Orally Once a day Active Xyzal Allergy 24HR 5 MG 1 tablet in the evening Orally Once a day Active Gabapentin 600 MG 1 and 1/2 tablets daily Orally Once a day Active hydroCHLOROthiazide 25 MG 1 tablet in th e morning Orally Once a day Active oxyBUTYnin Chloride ER 5 MG 1 tablet Orally Once a day; Duration: 90 days Not-Taking Atorvastatin Calcium 20 MG 1 tablet Orally Once a day Active Atenolol 50 MG 1 tablet Orally Once a day Active Aspirin Adult Low Strength 81 MG 1 tablet Orally Once a day Active rOPINIRole HCl *Pick strength-form from [employer] for eRX* Active Social History Tobacco Use: Social History Observation Description Date Details (start date - stop date) Former Smoker NA - NA Tobacco Control (Standard) Question Answer Notes Tobacco use: Former smoker Section Notes: smokes medical marijuana at times smokes medical marijuana at times smokes medical marijuana at times smokes medical marijuana at times Problems Problem Type SNOMED Code ICD Code Onset Dates Problem Status W/U Status Risk Notes Problem Information temporarily unavailable Essential (primary) hypertension (I10) Active confirmed Problem Information temporarily unavailable Benign prostatic hyperplasia with lower urinary tract symptoms (N40.1) Active confirmed Problem Information temporarily unavailable Fecal incontinence (R15.9) Active confirmed Problem Information temporarily unavailable History of urinary incontinence (Z87.898) Active confirmed Problem Information temporarily unavailable Urinary incontinence, mixed (N39.46) Active confirmed Problem Information temporarily unavailable Stress incontinence in female (N39.3) Active confirmed Problem Information temporarily unavailable Urinary incontinence (R32) Active confirmed Problem Information temporarily unavailable Urge urinary incontinence (N39.41) Active confirmed Problem Information temporarily unavailable Acute cystitis (N30.00) Active confirmed Problem Information temporarily unavailable Chronic cystitis (N30.20) Active confirmed Problem Information temporarily unavailable Recurrent UTI (N39.0) Active confirmed Problem Information temporarily unavailable Incomplete emptying of bladder (R33.9) Active confirmed Problem Information temporarily unavailable History of UTI (Z87.440) Active confirmed Problem Information temporarily unavailable OAB (overactive bladder) (N32.81) Active confirmed Vital Signs Heart Rate 71 /min 11/27/2024 Height-cm 152.4 cm 11/27/2024 Blood pressure diastolic 98 mm Hg 11/27/2024 Weight-kg 71.67 kg 11/27/2024 Height 60 in 11/27/2024 Blood pressure systolic 150 mm Hg 11/27/2024 Weight 158 lbs 11/27/2024 BMI 30.85 kg/m2 11/27/2024 Procedures Procedure Date Ordered Date Performed Result Body Sit e Bladder Scan 05/30/2024 05/30/2024 68ml Encounters Encounter Location Date Provider Diagnosis [facility], [facility] [address] [place] [address] 08/16/2024 FEDERICO HUSAIN [facility], [facility] [address] [place] [address] 05/30/2024 FEDERICO HUSAIN OAB (overactive bladder) N32.81 ; Stress incontinence in female N39.3 ; Fecal incontinence R15.9 and Urge urinary incontinence N39.41 [facility] [address] [place] [address] 07/23/2024 KHOA ANDREAANO Stress incontinence in female N39.3 ; Preoperative examination Z01.818 ; OAB (overactive bladder) N32.81 ; Urge urinary incontinence N39.41 and Fecal incontinence R15.9 [facility], [facility] [address] [place] [address] 07/24/2024 SOREN NOVA OAB (overactive bladder) N32.81 ; Stress incontinence in female N39.3 and Urgency of urination R39.15 [facility] [address] [place] [address] 08/09/2024 FEDERICO HUSAIN Stress incontinence in female N39.3 ; OAB (overactive bladder) N32.81 ; Urge urinary incontinence N39.41 ; Fecal incontinence R15.9 and Postoperative examination Z09 [facility] [address] [place] [address] 11/27/2024 FEDERICO HUSAIN Complicated UTI (urinary tract infection) N39.0 [facility] [address] [place] [address] 06/22/2024 [facility] [address] [place] [address] 07/20/2024 [facility] [address] [place] [address] 07/23/2024 [facility] Preop testing Z01.81 8 and Essential (primary) hypertension I10 [facility] [address] [place] [address] 07/30/2024 [facility] [address] [place] [address] 08/02/2024 [facility] [address] [place] [address] 08/03/2024 [facility] [address] [place] [address] 11/26/2024 [facility] Assessments Encounter Date Diagnosis (ICD Code) Assessment Notes Treatment Notes Treatment Clinical Notes Section Notes 11/27/2024 Complicated UTI (urinary tract infection) (ICD-10 - N39.0) Pt here with c/ o possible UTI. Symptoms consist of Hematuria x1wk with urgency and frequency of urination; this has happened in the past and she was treated for UTI at that time. Pt requesting she be treated and Rx Bactrim x5days given given today. This patient has clinical indication for infectious disease testing. Urinalysis performed indicates the need for further sensitive detection by PCR. The patient is at higher risk for UTI complications and is being seen in the urologic setting. The enhanced diagnostic accuracy, identification of possible resistance mutations, and quicker result to better guide antibiotics and prevention infection complications that PCR provides is recommended. 08/09/2024 Stress incontinence in female (ICD-10 - N39.3) Pt doing well with resolution of GARRY after repeat Bulkamid. Her UTI and hematuria have resolved. 08/09/2024 OAB (overactive bladder) (ICD-10 - N32.81) 07/24/2024 Stress incontinence in female (ICD-10 - N39.3) 07/24/2024 OAB (overactive bladder) (ICD-10 - N32.81) 07/23/2024 Stress incontinence in female (ICD-10 - N39.3) 07/23/2024 Preoperative examination (ICD-10 - Z01.818) 07/23/2024 Preop testing (ICD-10 - Z01.818) 05/30/2024 Stress incontinence in female (ICD-10 - N39.3) Still not pleased with OAB/UI control on InterStim after going through programs 1-7. Her fecal incontinence is well controlled. She feels her GARRY is worse than her UUI, so I recommend repeat Bulkamid procedure and then we can reassess her symptoms and discuss Inter[employer] office interrogation and reprogramming. She is agreeable. We reviewed how urethral bulking is performed along with risks, benefits, and postprocedural expectations. All questions sought and answered to her satisfaction. Will schedule Bulkamid at next available. 05/30/2024 OAB (overactive bladder) (ICD-10 - N32.81) Still not pleased with OAB/UI control on InterStim after going through programs 1-7. Her fecal incontinence is well controlled. She feels her GARRY is worse than her UUI, so I recommend repeat Bulkamid procedure and then we can reassess her symptoms and discuss Inter[employer] office interrogation and reprogramming. She is agreeable. We reviewed how urethral bulking is performed along with risks, benefits, and postprocedural expectations. All questions sought and answered to her satisfaction. Will schedule Bulkamid at next available. 07/23/2024 OAB (overactive bladder) (ICD-10 - N32.81) 05/30/2024 Fecal incontinence (ICD-10 - R15.9) Still not pleased with OAB/UI control on InterStim after going through programs 1-7. Her fecal incontinence is well controlled. She feels her GARRY is worse than her UUI, so I recommend repeat Bulkamid procedure and then we can reassess her symptoms and discuss Interstim office interrogation and reprogramming. She is agreeable. We reviewed how urethral bulking is performed along with risks, benefits, and postprocedural expectations. All questions sought and answered to her satisfaction. Will schedule Bulkamid at next available. 07/23/2024 Essential (primary) hypertension (ICD-10 - I10) 07/24/2024 Urgency of urination (ICD-10 - R39.15) 08/09/2024 Urge urinary incontinence (ICD-10 - N39.41) She continues to be displeased with her OAB/UUI and FI symptoms. She has been through all 7 programs on her device. Will schedule in office device interrogation and reprogramming with [employer] rep. 08/09/2024 Fecal incontinence (ICD-10 - R15.9) 07/23/2024 Urge urinary incontinence (ICD-10 - N39.41) 05/30/2024 Urge urinary incontinence (ICD-10 - N39.41) Still not pleased with OAB/UI control on InterStim after going through programs 1-7. Her fecal incontinence is well controlled. She feels her GARRY is worse than her UUI, so I recommend repeat Bulkamid procedure and then we can reassess her symptoms and discuss Interstim office interrogation and reprogramming. She is agreeable. We reviewed how urethral bulking is performed along with risks, benefits, and postprocedural expectations. All questions sought and answered to her satisfaction. Will schedule Bulkamid at next available. 07/23/2024 Fecal incontinence (ICD-10 - R15.9) 08/09/2024 Postoperative examination (ICD-10 - Z09) 07/23/2024 Other Patient schedul ed for Bulkamid on 07/24/[address] Nova. How the procedure was performed was discussed along with risks/benefits/al ternatives and postprocedural expectations. Patient is on daily ASA and understands to hold x 7 days. Denies problems with anesthesia in the past, no new medications or diagnoses since last visit. Patient has presurgical testing at [facility] today. Urine sent for culture and we will treat as indicated preoperatively. I will give her a shot of Rocephin today. All questions that were asked were answered and elects to proceed with procedure as scheduled. Patient will RTC postoperatively and is satisfied with plan of care. We will schedule Audie to be here on the day of the follow up to do a ful device interrogation. She will need to bring all her device charging equipement as well. Plan Of Treatment Pending Test Test Name Order Date Electrocardiogram 12 Lead Tracing-[id number] 11/29/2022 Electrocardiogram 12 Lead Tracing-[id number] 01/10/2023 Bladder Scan 01/26/2024 Electrocardiogram, 12 Lead Tracing-[id number] 07/23/2024 Insurance Providers Payer Name Payer Address Payer Phone Subscriber Number Group Number Insured Name Patient Relationship to Insured Coverage Start Date Coverage End Date [place] Replacement [address] CRYSTAL CHEN [id number] Debra Cerrato Self - patient is the insured Medications Administered Medication Instructions Date of Administration Dosage Notes Rocephin 07/23/2024 1 g [facility]# [id number] Medical (General) History Medical History History ICD Code hypertension hypercholesterolemia restless leg syndrome Surgical History Surgery Date(Month/Year) estuardo garcia (12 years ago) knee surgery 10/05/21 tonsillectomy appendectomy cholecystectomy shoulder surgery both (5 years ago) medtronic implant broken ankle rpair 03/2023 Hospitalization History Reason Date(Month/Year) surgeries
[2025-05-26 14:30] VITALS: BP 147/69; PULSE 78; RESP 14; TEMP 36.7; O2SAT 98; BMI 29.2
--- NOTE | 2025-05-26 15:26 | ECG_ITS ---
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 Measurements Intervals [place] Rate: 66 P: 0 WV: 324 QRS: -19 QRSD: 78 T: 31 QT: 401 QTc: 421 Interpretive Statements ELECTRONIC ATRIAL PACEMAKER INFERIOR MYOCARDIAL INFARCTION , PROBABLY OLD [40+ ms Q WAVE AND/OR ST/T ABNORMALITY IN II/aVF] No previous ECG available for comparison Electronically Signed On 05-26-2025 21:38:58 CDT by Timmy White M.D. [email or web address]
--- NOTE | 2025-05-26 15:26 | CTR_ITS ---
PROCEDURE INFORMATION: Exam: CT Head Without Contrast Exam date and time: 05/26/2025 3:50 PM Age: 74 years old Clinical indication: Malaise or fatigue; Additional info: Seizure TECHNIQUE: Imaging protocol: Computed tomography of the head without contrast. Radiation optimization: All CT scans at this facility use at least one of these dose optimization techniques: automated exposure control; mA and/or kV adjustment per patient size (includes targeted exams where dose is matched to clinical indication); or iterative reconstruction. COMPARISON: CT head wo con* [id number] 04/20/2024 10:24 AM RADIATION DOSE METRICS: Total DLP (mGy-cm): 1000.58 FINDINGS: Brain: Focal right parietal encephalomalacia without change. Periventricular white matter low-density along the frontal horns bilaterally is stable. No acute intracranial hemorrhage. No midline shift or mass effect. Cerebral ventricles: No ventriculomegaly. Paranasal sinuses: Visualized sinuses are unremarkable. No fluid levels. Mastoid air cells: Visualized mastoid air cells are well aerated. Bones: Unremarkable. No acute fracture. Soft tissues: Unremarkable. CT/CT head wo con* [id number] IMPRESSION: 1. No acute findings. 2. Stable right parietal encephalomalacia.
--- NOTE | 2025-05-26 15:35 | W.ED.SEIZURE ---
HPI - Seizure General: Chief Complaint: Seizure Stated Complaint: seizure Time Seen by Provider: 05/26/25 14:57 Source: patient Mode of arrival: ambulatory Limitations: no limitations History of Present Illness: HPI Narrative: 74-year-old female states she was at her sister's house and was smoking marijuana with her sister states she did not side started to feel weak states that she started drooling had a syncopal event and had a tremor lasted just a few seconds she states she had woke up in felt back to her normal. She states she feels completely fine currently she denies any headache or chest pain before after that no history of any seizure or syncopal event in the past Associated symptoms: Reports syncope; Deny chest pain, chills or fever(s) Related Data Home Medications ?Medication ?Instructions ?Recorded ?Confirmed gabapentin 600 mg tablet 900 mg PO BEDTIME@209910/03/19 12/25/24 hydrochlorothiazide 25 mg tablet 25 mg PO DAILY@0400 10/03/19 12/25/24 ascorbic acid (vitamin C) 1,000 mg 1,000 mg PO BID@01/26/21 12/25/24 tablet (Vitamin C) atenolol 50 mg tablet 50 mg PO DAILY 04/20/24 12/25/24 atorvastatin 20 mg tablet 20 mg PO DAILY 04/20/24 12/25/24 celecoxib 200 mg capsule 200 mg PO QAM 04/20/24 12/25/24 yhekrant-icn-lsol-FA-Ca carb-vit K 1 tab PO DAILY 04/20/24 12/25/24 18 mg iron-400 mcg-500 mg tablet semaglutide 0.25 mg or 0.5 mg (2 0.5 mg SUBCUT Q7D 04/20/24 12/25/24 mg/3 mL) subcutaneous pen injector (Ozempic) Previous Rx's ?Medication ?Instructions ?Recorded cam boot #1 ea 04/19/23 RIGHT ANKLE BRACE-VELCRO #1 ea 09/06/23 aspirin 81 mg tablet,delayed 81 mg PO DAILY #30 tabs 04/20/24 release atorvastatin 40 mg tablet 40 mg PO DAILY #30 tabs 04/20/24 tizanidine 4 mg tablet 4 mg PO Q6H PRN muscle spasticity 04/20/24 #20 tabs right camboot #1 ea 06/28/24 amlodipine 5 mg tablet 5 mg PO DAILY #90 tabs 01/14/25 Allergies Allergy/AdvReac Type Severity Reaction Status Date / Time cefuroxime (From Ceftin) Allergy ALGY-Hives Verified 05/26/25 14:30 ciprofloxacin Allergy stomach Verified 05/26/25 14:30 bleeding Iodinated Contrast Media Allergy ALGY-Hives Verified 05/26/25 14:30 Sulfa (Sulfonamide Allergy unknown Verified 05/26/25 14:30 Antibiotics) vancomycin Allergy rash Verified 05/26/25 14:30 Review of Systems Const: Denies: fever(s), chills, body aches or change in appetite Eyes: Denies: blurry vision or eye discomfort ENMT: Denies: throat pain or dental pain Card: Reports: syncope; Denies: chest pain Resp: Denies: dyspnea GI: Denies: abdominal pain, nausea, vomiting or diarrhea : Denies: dysuria Musc: Denies: neck pain or back pain Skin/Breast: Denies: rash Neuro: Denies: headache(s) PFSH ED PFSH: Medical History Dyslipidemia HTN (hypertension) Primary osteoarthritis of right hip Greater trochanteric bursitis of right hip Cystitis cystica Bacteriuria History of recurrent UTI (urinary tract infection) Mixed stress and urge urinary incontinence Degenerative arthritis Bunion, left Right hip pain Fibromyalgia Surgical History History of total knee replacement BILATERAL History of appendectomy History of cholecystectomy History of hysterectomy History of tonsillectomy H/O bariatric surgery with sleeve Hx of elbow surgery Hx of foot surgery History of carpal tunnel release of both wrists Family History Father , at age 83 CAD (coronary artery disease) Hyperlipidemia Hypertension Mother , at age 76 Hyperlipidemia Hypertension Sister Cancer Hyperlipidemia Hypertension Brother Cancer Hyperlipidemia Hypertension Social History Smoking and tobacco/nicotine status: never used tobacco/nicotine Quit status (tobacco/nicotine): has quit using Year quit tobacco: over 20 years ago Second hand smoke exposure: No Alcohol intake: current Alcohol intake frequency: holidays/special occasions only Substance/Drug Use: current Substance/Drug use frequency: few times a week Other substance/drug use details: medical marijuana Caregiver/support person: Yes Lives independently: Yes Household members: spouse Marital status: Current occupational status: retired Current gender identity: Female Special jay needs: No Physical Exam Const: COMMON NORMALS: no acute distress, patient oriented x3 and healthy appearing HENMT: COMMON NORMALS: normocephalic and atraumatic HEAD & SCALP: normocephalic and atraumatic Eye: COMMON NORMALS: Equal, round and reactive pupils present and EOMs intact bilaterally PUPIL: Yes Equal, round and reactive pupils present Neck/C-Spine: COMMON NORMALS: full ROM and supple Chest: COMMONS NORMALS: normal inspection of the chest and normal palpation of entire chest wall Resp: COMMON NORMALS: normal respiratory effort, No retractions, No use of accessory muscles and clear to auscultation bilaterally AUSCULTATION: clear to auscultation bilaterally Cardio: COMMON NORMALS: regular rate, regular rhythm and No murmurs present (Cardio) RATE: regular rate RHYTHM: regular rhythm GI: COMMON NORMALS: Normal to inspection, nondistended, normoactive bowel sounds present, Soft to palpation, non-tender and no masses PALPATION: Yes Soft to palpation Extremity: COMMON NORMALS: normal to inspection and full ROM Neuro: COMMON NORMALS: patient oriented x3, moves all extremities and no focal motor deficits Psych: COMMON NORMALS: mental status grossly normal, Normal thought process present and cooperative THOUGHT PROCESS: Normal thought process present Skin: COMMON NORMALS: no rashes or lesions noted and no wounds GENERAL SKIN EXAM: no rashes or lesions noted Course Vital Signs: Vital signs: Vital Signs Temperature 98.1 F 05/26/25 14:30 Pulse Rate 78 05/26/25 14:30 Respiratory Rate 14 05/26/25 14:30 Blood Pressure 147/69 05/26/25 14:30 Pulse Oximetry 98 05/26/25 14:30 MDM - Seizure MDM Narrative Medical decision making narrative: Patient presents here after likely syncopal event she is well-appearing here head CT blood work is normal she is stable for discharge she has follow-up with her PCP return if worsening she understands agrees to plan. Lab Data 05/26/25 15:35 05/26/25 15:35 Labs: Radiology Impressions Head CT 05/26/25 15:26 IMPRESSION: 1. No acute findings. 2. Stable right parietal encephalomalacia. Laboratory Results WBC 8.18 10^3/uL (3.29-11.43) 05/26/25 15:35 RBC 4.75 10^6/uL (3.85-5.65) 05/26/25 15:35 Hgb 12.90 g/dL (11.27-16.99) 05/26/25 15:35 Hct 39.7 % (36-47) 05/26/25 15:35 MCV 83.6 fl (85-98) L 05/26/25 15:35 MCH 27.2 pg (27-33) 05/26/25 15:35 MCHC 32.5 g/dL (30-55) 05/26/25 15:35 RDW 14.6 % (12.1-15.1) 05/26/25 15:35 Plt Count 228 10^3/cmm (157-399) 05/26/25 15:35 MPV 9.1 fL (7.4-10.4) 05/26/25 15:35 Neut % (Auto) 64.9 % 05/26/25 15:35 Lymph % (Auto) 24.3 % 05/26/25 15:35 [place] % (Auto) 7.1 % 05/26/25 15:35 Eos % (Auto) 2.7 % 05/26/25 15:35 Baso % (Auto) 0.6 % 05/26/25 15:35 Neut # (Auto) 5.31 10^3/uL (1.8-7.7) 05/26/25 15:35 Lymph # (Auto) 2.0 10^3/uL (0.8-4.8) 05/26/25 15:35 [place] # (Auto) 0.6 10^3/uL (0.2-0.9) 05/26/25 15:35 Eos # (Auto) 0.2 10^3/uL (0.0-0.8) 05/26/25 15:35 Baso # (Auto) 0.1 10^3/uL (0.0-0.1) 05/26/25 15:35 Nucleated RBC % (auto) 0 % 05/26/25 15:35 Nucleated RBCs # 0.0 /100WBC 05/26/25 15:35 Sodium 140 mmol/L (136-145) 05/26/25 15:35 Potassium 3.6 mmol/L (3.5-5.1) 05/26/25 15:35 Chloride 105 mmol/L (98-107) 05/26/25 15:35 Carbon Dioxide 26 mmol/L (22-29) 05/26/25 15:35 Anion Gap 12.6 (5-19) 05/26/25 15:35 BUN 10 mg/dL (8-23) 05/26/25 15:35 Creatinine 0.6 mg/dL (0.5-0.9) 05/26/25 15:35 GFR Calculation Not Reportable 05/26/25 15:35 Glucose 87 mg/dL (65-115) 05/26/25 15:35 Calculated Osmolality 288 mOsm/kg (285-295) 05/26/25 15:35 Calcium 9.1 mg/dL (8.5-10.5) 05/26/25 15:35 All radiology interpretation(s) finalized by discharge EKG Data EKG 1: Attestation: I personally reviewed and interpreted this EKG as follows: EKG interpretation date: 05/26/25 EKG interpretation time: 15:35 Interpretation: paced hr [address] elevation qrs 78 qtc 414 Discharge Plan Discharge Patient Disposition: Home Clinical Impression: Syncope Condition: Stable Prescriptions: No Action hydrochlorothiazide 25 mg tablet 25 mg PO DAILY@0400 gabapentin 600 mg tablet 900 mg PO BEDTIME@2100 (DME) cam boot See Rx Instructions .Route .MEDSUPPLY Qty: 1 0RF Rx Instructions: As directed (DME) RIGHT ANKLE BRACE-VELCRO See Rx Instructions .Route .MEDSUPPLY Qty: 1 0RF Rx Instructions: As directed (DME) right camboot See Rx Instructions .Route .MEDSUPPLY Qty: 1 0RF Rx Instructions: As directed amlodipine 5 mg tablet 5 mg PO DAILY Qty: 90 3RF ascorbic acid (vitamin C) [Vitamin C] 1,000 mg Tablet 1,000 mg PO BID@0400,2100 celecoxib 200 mg capsule 200 mg PO QAM atorvastatin 20 mg tablet 20 mg PO DAILY atenolol 50 mg tablet 50 mg PO DAILY vf-ln-vhdy-FA-Ca carb-vit K 18 mg iron-400 mcg-500 mg Tablet 1 tab PO DAILY Ozempic 0.25 mg or 0.5 mg (2 mg/3 mL) pen injector 0.5 mg SUBCUT Q7D atorvastatin 40 mg tablet 40 mg PO DAILY Qty: 30 0RF aspirin 81 mg tablet,delayed release (DR/EC) 81 mg PO DAILY Qty: 30 0RF tizanidine 4 mg tablet 4 mg PO Q6H PRN (Reason: muscle spasticity) Qty: 20 0RF Rx Instructions: do not exceed 3 doses per 24 hrs Discharge Orders: Discharge ED (Routine); Ordered 05/26/25 Ordered By: Janie Hancokc Referrals: Noel Nieto MD [Primary Care Provider, [facility]] - 4-7 days Discharge Diet: Advance as tolerated Discharge Activity: Resume usual activity Patient Instructions: Syncope (ED) Print Language: Russian Coding Level of Care Code ED Banking Services Clerk for Abhilash Pandya
[2025-05-26 15:47] LABS: Hematocrit 39.7 % (36-47); Hemoglobin 12.90 g/dL (11.27-16.99); Mean Corpuscular HGB Conc 32.5 g/dL (30-55); Mean Corpuscular Hemoglobin 27.2 pg (27-33); Mean Corpuscular Volume 83.6 fl (85-98); Nucleated Red Blood Cells % 0 %; Platelet Count 228 10^3/cmm (157-399); Red Blood Count 4.75 10^6/uL (3.85-5.65); White Blood Count 8.18 10^3/uL (3.29-11.43)
[2025-05-26 16:07] LABS: Anion Gap 12.6 (5-19); Blood Urea Nitrogen 10 mg/dL (8-23); Calcium 9.1 mg/dL (8.5-10.5); Carbon Dioxide 26 mmol/L (22-29); Chloride 105 mmol/L (98-107); Creatinine Clr Calc Pharmacy 52.2914; Glucose 87 mg/dL (65-115); Osmolality Calculated 288 mOsm/kg (285-295); Potassium 3.6 mmol/L (3.5-5.1); Sodium 140 mmol/L (136-145)
== END 2025-05-26 16:26 | disposition home or self-care (01) ==
PROVIDERS: Emergency Provider Emergency Medicine; PCP Family Medicine
DX: R55 Syncope and collapse (principal); Z79.82 Long term (current) use of aspirin; Z87.891 Personal history of nicotine dependence; E78.5 Hyperlipidemia, unspecified; I10 Essential (primary) hypertension
CPT/HCPCS: 36415; 70450; 80048; 85025; 93005; 99284

== ENCOUNTER → 2025-07-17 15:28 | Outpatient (BNVA) | payer MEDICARE, SELFPAY | PROVIDERS: PCP Family Medicine; Visit Provider Internal Medicine Cardiovascular Disease | DX: R07.89 Other chest pain (principal); R00.2 Palpitations; I10 Essential (primary) hypertension; E78.5 Hyperlipidemia, unspecified; R42 Dizziness and giddiness; Z87.891 Personal history of nicotine dependence; R07.9 Chest pain, unspecified; Z98.61 Coronary angioplasty status | CPT/HCPCS: 93005; 99214 ==

== ENCOUNTER → 2025-07-24 11:21 | Outpatient (BNVA) | payer MEDICARE, SELFPAY | PROVIDERS: PCP Family Medicine; Visit Provider Student in an Organized Health Care Education/Training Program | DX: M25.571 Pain in right ankle and joints of right foot (principal); G62.9 Polyneuropathy, unspecified; Z98.890 Other specified postprocedural states | CPT/HCPCS: 73610; 99213 ==

== ENCOUNTER 2025-07-25 07:15 | Outpatient (CLI) | payer MEDICARE, SELFPAY ==
--- NOTE | 2025-07-25 | ECG_ITS ---
[facility] Test Date: 2025-07-25 Pat Name: Debra Cerrato Department: Room: Gender: Female Spear Fisher: : 1950 Requested By: Keith Gtz Order Number: [id number] Berg MD: Timmy White M.D. Interpretive Statements Procedure: A total of 0.4 mg of Lexiscan was infused over 20 seconds. The stress phase was continued for a total of 5 minutes. Sestamibi was injected 20 seconds after the Lexiscan infusion. Findings:The patient's resting blood pressure was 151/65. The patient's blood pressure gradually decreased to a low of 141/66. The heart rate increased to a maximum of 90 beats per minute. the patient had no chest pain. Resting EKG showed normal sinus rhythm with low voltage and poor R wave progression. There were occasional supraventricular ectopic beats in recovery. Conclusion: 1. Normal EKG response to Lexiscan infusion 2. No Lexiscan induced chest pain. 3. Normal blood pressure and heart rate response. 4. Nuclear myocardial perfusion scan pending; see separate report. Electronically Signed On 07-25-2025 13:15:49 CDT by Timmy White M.D. [email or web address]
[2025-07-25 07:43] VITALS: BMI 28.9
--- NOTE | 2025-07-25 07:46 | NMCV_ITS ---
NM isaiah perf SPECT r/s* [id number] Debra Cerrato Age: 75 Gender: F : 1950 Exam Date: 07/25/2025 08:19 Ordering Phys: Keith Gtz MD ([email or web address]) Technologist: MIGUELITO Rojas Exam Location: [facility] Indications: CP STRESS TEST [facility] IMAGE PROTOCOL Rest/Stress 1 Lexiscan Day Radiopharmaceutical Dose (mCi) Administration Site Administered by Rest: Tc-99m 10.4 IV MIGUELITO Rojas Sestamibi Stress:Tc-99m 32.5 IV MIGUELITO Echeverria Sestamibi Rest: 25-Jul-2025 60 Discovery 630 Stress: 25-Jul-2025 30 Discovery 630 0.4mg Lexiscan. Images obtained in supine and prone position. SPECT RESULTS Technical Quality: Good Raw Data Analysis: Normal Image Corrections: No attenuation or motion correction applied Summed Stress Score: 0 Summed Rest Score: 0 Summed Difference Score: 0 PERFUSION FINDINGS SPECT images demonstrate homogeneous tracer distribution throughout the myocardium. FUNCTIONAL RESULTS (calculated via Gated SPECT) Stress Image LV EF (%): 86 Stress EDV (mL):59 TID: 0.88 Stress ESV (mL):8 FUNCTIONAL FINDINGS: There is normal left ventricular systolic function. IMPRESSIONS Myocardial perfusion imaging is normal. Normal left ventricular systolic function. Timmy White MD, FACC (Electronically Signed) Final Date: 25 July 2025 12:33 S
[2025-07-25 09:15] VITALS: BP 149/63; PULSE 72
== END 2025-07-25 07:16 | disposition home or self-care (01) ==
LOC: CDL 07:17
PROVIDERS: PCP Family Medicine; Visit Provider Internal Medicine Cardiovascular Disease
DX: R07.9 Chest pain, unspecified (principal)
CPT/HCPCS: 36415; 78452; 93017; 96374; A9500; J2785

== ENCOUNTER 2025-09-24 13:42 | Emergency (ER) | payer MEDICARE, SELFPAY ==
--- OUTSIDE RECORDS SUMMARY | 2024-07-21 03:00 | XMS_ITS ---
Author Organization [facility] Address [address] [place] [address] Care Team Providers Care Warranty Coordinator Name Role Phone Emilia MONZON, Noel Primary Care Provider Unavaila Geoffrey Dunaway Unavailable [phone] Migration, Provider Unavailable Unavailable REASON FOR VISIT EMR-Jose Encounters Encounter Location Date Provider Diagnosis Migrated_Facility 0 0 07/21/2024 Provider Migration Plan Of Treatment Medication Medication Name Sig Start Date Stop Date Notes HYDROcodone-Acetaminop hen 5-325 MG Oral Tablet 1 Tablet every 12 hours PRN. Do not exceed 2 per day. 12/23/2023 01/22/2024 *Reorder from [facility] for eRx and Interaction Alerts* Progress Notes * Debra CERRATO GDOB: 9 (75 yo F)Acc No.[id number]:07/21/2024 Patient: Riley JESUS Debra Papo :1950 A ge:74 Y S ex:Female Address:[address] [place] [address] * Refills Stop HYDROcodone-Acetaminophen 5-325 MG Oral Tablet, 1 Tablet every 12 hours PRN. Do not exceed 2 per day. Subjective: * Chief Complaints: * E MR-Jose * * Date:
--- OUTSIDE RECORDS SUMMARY | 2024-07-22 03:00 | XMS_ITS ---
Author Organization [facility] Address [address] [place] [address] Care Team Providers Care Cop Breaker Name Role Phone Emilia MONZON, Noel Primary Care Provider UnavailGeoffrey Lees Unavailable [phone] Migration, Provider Unavailable Unavailable Allergies Allergen (clinical drug ingredient) Drug/Non Drug Allergy documented on EMR Reaction Allergy Type Onset Date Status Ciprofloxacin rask Drug Allergy Act rober ciprofloxacin Ciprofloxacin HCl hives Drug Allergy Active Trace Metals rash Drug Allergy Acti ve Adhesive rash Allergy Active Iodine shortness of breath Drug Allergy Active Latex Latex rash Allergy Active REASON FOR VISIT EMR-Jose Medications Medication SIG (Take, Route, Frequency, Duration) Notes Start Date End Date Status ropinirole *[facility] and Interaction Alert[facility]* Active Gabapentin *Pick strength-f [facility]m from [facility] for [facility]* Active hydroCHLOROthiazide *Pick streng th-form from [facility] for [facility]* Active Atenolol *Pick strength-f orm from [facility] for [facility]* Active atorvastatin *[facility] for [facility] and Interaction Alerts* Active Encounters Encounter Location Date Provider Diagnosis Migrated_Facility 0 0 07/22/2024 Provider Migration Plan Of Treatment No Information Progress Notes * Debra CERRATO GDOB: [birth year] (75 yo F)Acc No.[id number]:07/22/2024 Patient: Debra CERON :1950 A ge:74 Y S ex:Female Address:[address] [place] [address] Subjective: * Chief Complaints: * E MR-Jose * Family History: M igrated Family History: : chronic pain, p sychiatric problems, R heumatoid arthritis.? * Medications: T akingGabapentin , Notes to Pharmacist: *Pick strength-form from [facility] for eRX*Atenolol , Notes to Pharmacist: *Pick strength-form from [facility] for eRX*atorvastatin , Notes to Pharmacist: *Reorder from [facility] for eRx and Interaction Alerts*hydroCHLOROthiazide , Notes to Pharmacist: *Pick strength- form from [facility] for eRX*ropinirole , Notes to Pharmacist: *Reorder from [facility] for eRx and Interaction Alerts*Taking Gabapentin , Notes to Pharmacist: *Pick strength-form from [facility] for eRX*Taking Atenolol , Notes to Pharmacist: *Pick strength-form from [facility] for eRX*Taking atorvastatin , Notes to Pharmacist: *Reorder from [facility] for eRx and Interaction Alerts*Taking hydroCHLOROthiazide , Notes to Pharmacist: *Pick strength-form from [facility] for eRX*Taking ropinirole , Notes to Pharmacist: *Reorder from [facility] for eRx and Interaction Alerts* * Allergies: T race Metals: rash - AllergyCiprofloxacin: rask - AllergyAdhesive: rash - AllergyLatex: rash - AllergyIodine: shortness of breath - AllergyCiprofloxacin HCl: hives - Allergy * * Date:
--- OUTSIDE RECORDS SUMMARY | 2024-08-16 02:30 | XMS_ITS ---
Author Organization [employer] [facility], [facility] Address [address] [place] [address] Care Team Providers Care Measurement And Sensing Technician Name Role Phone Noel Nieto MD Primary Care Provider UnavailSOREN Sun Unavailable [phone] FEDERICO HUSAIN Unavailable [phone] REASON FOR VISIT w/ Audie - device interrogation Medications Medication SIG (Take, Route, Frequency, Duration) Notes Start Date End Date Status Atenolol 50 MG Tablet 1 tablet Orally Once a day Active hydroCHLOROthiazide 25 MG Tablet 1 tablet in the morning Orally Once a day Active oxyBUTYnin Chloride ER 5 MG Tablet Extended Release 24 Hour 1 tablet Orally Once a day; Duration: 90 days Not-Taking rOPINIRole HCl *Pick strength-form from [employer] for eRX* Active Atorvastatin Calcium 20 MG Tablet 1 tablet Orally Once a day Active Gabapentin 600 MG Tablet 1 and 1/2 tablets daily Orally Once a day Active amLODIPine Besylate 2.5 MG Tablet 1 tablet Orally Once a day Active Xyzal Allergy 24HR 5 MG Tablet 1 tablet in the evening Orally Once a day Active Aspirin Adult Low Strength 81 MG Tablet Delayed Release 1 tablet Orally Once a day Active Encounters Encounter Location Date Provider Diagnosis [facility] [place] [address] [place] [address] 08/16/2024 FEDERICO HUSAIN Plan Of Treatment No Information Progress Notes * Debra CERRATO GDOB: [birth year] (75 yo F)Acc No.[id number]:08/16/2024 Progress Note Patient: Debra Peñaloza Provider: Micky Husain APRN :1950 A ge:74 Y S ex:Female Date:08/16/2024 Address:[place], [id number] Pcp:Noel Nieto MD Subjective: * Chief Complaints: * w / Audie - device interrogation * Medications: T akingGabapentin 600 MG Tablet 1 and 1/2 tablets daily Orally Once a day amLODIPine Besylate 2.5 MG Tablet 1 tablet Orally Once a day Xyzal Allergy 24HR 5 MG Tablet 1 tablet in the evening Orally Once a day Aspirin Adult Low Strength 81 MG Tablet Delayed Release 1 tablet Orally Once a day rOPINIRole HCl , Notes to Pharmacist: *Pick strength-form from [facility] for eRX*Atorvastatin Calcium 20 MG Tablet 1 tablet Orally Once a day Atenolol 50 MG Tablet 1 tablet Orally Once a day hydroCHLOROthiazide 25 MG Tablet 1 tablet in the morning Orally Once a day Taking Gabapentin 600 MG Tablet 1 and 1/2 tablets daily Orally Once a day Taking amLODIPine Besylate 2.5 MG Tablet 1 tablet Orally Once a day Taking Xyzal Allergy 24HR 5 MG Tablet 1 tablet in the evening Orally Once a day Taking Aspirin Adult Low Strength 81 MG Tablet Delayed Release 1 tablet Orally Once a day Taking rOPINIRole HCl , Notes to Pharmacist: *Pick strength-form from [facility] for eRX*Taking Atorvastatin Calcium 20 MG Tablet 1 tablet Orally Once a day Taking Atenolol 50 MG Tablet 1 tablet Orally Once a day Taking hydroCHLOROthiazide 25 MG Tablet 1 tablet in the morning Orally Once a day Not-TakingoxyBUTYnin Chloride ER 5 MG Tablet Extended Release 24 Hour 1 tablet Orally Once a day Not-Taking oxyBUTYnin Chloride ER 5 MG Tablet Extended Release 24 Hour 1 tablet Orally Once a day Billing Information: * Procedure Codes: * Electronic signature of FARHEEN HUSAIN APRN on 09/24/2025 at 01:56 PM COMMUTATOR INSPECTOR Sign off status: Pending * Provider: Micky Husain APRN Date: 10/16/2023 Generated for Shahida rubin/Kraig/Ray on: 01:56 PM COMMUTATOR INSPECTOR
[2025-09-24 13:50] VITALS: BP 116/70; PULSE 73; RESP 15; TEMP 36.7; O2SAT 98; BMI 28.9
--- NOTE | 2025-09-24 13:52 | XRR_ITS ---
PROCEDURE INFORMATION: Exam: XR Lumbosacral Spine Exam date and time: 09/24/2025 02:10 PM Age: 75 years old Clinical indication: Injury or trauma; Fall; Blunt trauma (contusions or hematomas) TECHNIQUE: Imaging protocol: Radiologic exam of the lumbosacral spine. Views: 2 or 3 views. COMPARISON: CR XR lumbar spine 2-3V* [id number] 09/16/2025 03:25 PM FINDINGS: Tubes, catheters and devices: Battery pack of the right gluteal region with wire extending to the rightward sacral area. Atherosclerotic vascular disease. Bones/joints: Mild degenerative changes of the lumbar spine. Osteopenia. Osteophytic lipping of the lumbar spine with mild compression deformity of L4 anteriorly. Soft tissues: Unremarkable. Intraperitoneal space: Multiple surgical clips in the upper abdomen. XR/XR lumbar spine 2-3V* [id number] IMPRESSION: Osteophytic lipping of the lumbar spine with mild compression deformity of L4 anteriorly.
--- NOTE | 2025-09-24 13:52 | XRR_ITS ---
PROCEDURE INFORMATION: Exam: XR Sacrum and Coccyx, 2 or More Views Exam date and time: 09/24/2025 02:14 PM Age: 75 years old Clinical indication: Injury or trauma; Fall; Blunt trauma (contusions or hematomas) TECHNIQUE: Imaging protocol: XR of the sacrum and coccyx, 2 or more views. COMPARISON: CR XR lumbar spine 2-3V* [id number] 09/24/2025 02:10 PM FINDINGS: Bones/joints: Osteopenia. No acute fracture lucency. Battery pack over the right gluteal area with the wire extending to the rightward sacral area. Soft tissues: Normal. XR/XR coccyx 2V [id number] IMPRESSION: 1. No acute fracture.
--- OUTSIDE RECORDS SUMMARY | 2025-09-24 13:57 | XMS_ITS | Continuity of Care Document ---
Author Organization [facility] [place], [facility] ([facility]) Address [address] [place] [address] Care Team Providers Care Lpn Rn Name Role Phone ENRIQUE NIETO Primary Care Provider Assessment No assessment recorded. Plan of Treatment Reminders Order Date Submit Date Provider Last Modified By Organization Details Last Modified Time Details Appointments None recorded. Lab None recorded. Referral None recorded. Procedures None recorded. Surgeries None recorded. Imaging None recorded. Medication Orders prednisone 20 mg tablet [address] [place] [address]/Pharmacy #[id number], [address] [facility], [facility], [place], [address], 5 15:50:58 Patient TargetsNo targets recorded. Patient InstructionsNo instructions recorded. Reason for Referral None Reported. Results Created Date Observation Date Name Description Value Unit Range Abnormal Flag Note LastModifiedBy Organization Detail LastModifiedTime 09/17/20 25 09/16/2025 XR, lumbo sacra l spine , 2 or 3 view No observ ation record ed. [facility] [address] [place], [address], 09/24/2025 14:10:45 Result Notes None recorded. Problems Name Problem SNOMED Code Status Onset Date Resolution Date Notes Provider Name and Address Organization Details Recorded Time Abdominal pain 51901760 Active 2021 ABDOMINAL PAIN; Impressio n: 10/ abdominal pain, blood in stool and vomit, doubling over in pain. [facility] 08:53:33 Pain of right hip joint 22298915634 9102 Active 2021 Lettylouann Moore dianelys [facility], [place] 4 08:53:47 History of total knee arthropla sty 46195873192 05 Active 2021 TOTAL KNEE REPLACEME NT STATUS, RIGHT Letty Moore dianelys [facility], [place] 4 08:53:43 Benign essential hypertens ion 4703079 Active 2021 Hypertens ion; Impressio n: Reviewed patients blood pressure log and she is controlle d at home. Letty Moore dianelys [facility], [place] 4 08:53:38 Essential hypertens ion 82359174 Active 2022 Not Available [facility] 3 17:05:57 Hyperlipi demia 05626529 Active 2022 Not Available [facility] 3 17:05:57 Gastroeso phageal reflux disease 659293578 Active 2022 Not Available [facility] 3 17:05:57 Fibromyal manpreet 947000377 Active 2022 Not Available [facility] 3 17:05:57 Benign paroxysma l positiona l vertigo 801697510 Active 2022 Not Available [facility] 3 17:05:57 Hyperglyc inemia 78732365 Active 2022 Not Available [facility] 3 17:05:57 Restless legs syndrome 52769627 Active 2022 Not Available [facility] 3 17:05:57 Syncope 445639811 Active 2022 Enrique Nieto MD [address] [place] [address], [address] , [facility], [place] 5 09:30:42 Bilateral carpal tunnel syndrome 12039852701 678812 Active 2022 Enrique Nieto MD [address] [place] [address], [address] , [facility] 3 16:26:22 Osteoarth ritis of wrist 634027601 Active 2022 Enrique Nieto MD [address] [place] [address], [address] , [facility] 3 16:52:30 Paresthes ia of lower extremity 067738397 Active 2023 Enrique Nieto MD [address] [place] [address], [address] , [facility] 4 14:46:01 Gastritis 5242481 Active 2023 Enrique Nieto MD [address] [place] [address], [address] , [facility] 4 14:48:53 Pain of right knee joint 85931839638 4100 Active 2023 Enrique Nieto MD [address] [place] [address], [address] , [facility] 4 09:45:45 Chronic low back pain 689009581 Active 2023 Enrique Nieto MD [address] [place] [address], [address] , [facility] 4 09:46:22 Type 2 diabetes mellitus 68883547 Active 2023 Enrique Nieto MD [address] [place] [address], [address] , [facility] 4 09:49:26 Chronic pain 01267745 Active 2023 Enrique Nieto MD [address] [place] [address], [address] , [facility] 4 07:44:45 Obstructi ve sleep apnea syndrome 81625328 Active 2023 Enrique Nieto MD [address] [place] [address], [address] [place] [address] , [facility] 4 08:48:16 Dysfuncti on of bilateral eustachia n tubes 56774693078 67385 Active 2023 Enrique Nieto MD [address] [place] [address], [address] , [facility] 4 10:39:51 Anxiety 64430770 Active 2023 Enrique Nieto MD [address] [place] [address], [address] [place] [address] , [facility] 4 10:41:48 Prophylac tic immunothe rapy Active 2024 SALAS ivory, [facility] 5 13:08:09 Osteoporo sis 27768390 Active 2024 Enrique Nieto MD [address] [place] [address], [address] , [facility] 5 15:31:29 Diabetes mellitus 54597912 Active 2024 Enrique Nieto MD [address] [place] [address], [address] , [facility] 5 16:27:39 Allergic rhinitis 31768846 Active 2024 Enrique Nieto MD [address] [place] [address], [address] , [facility] 5 15:04:16 Pain of knee region 0049343993 Active 2024 Enrique Nieto MD [address] [place], [address] , [facility], [place] 5 10:27:26 Acute low back pain 735459186 Active 2024 Enrique Nieto MD [address] [place], [address] , [facility], [place] 5 16:11:04 Problem Notes None recorded. Procedures Surgical History Date Name Laterality Status Provider Name and Address Organization Details Recorded Time 2024 screening for malignant neoplasm of colon completed [facility] [place] 5 14:23:10 2024 [facility] [place] 5 16:13:46 2024 screening for osteoporosis [facility], [place] 5 16:15:29 2022 Most Recent Mammogram completed JEAN CLAUDE ALTMAN PA-C [address] [place], [address], [facility], [facility] 5 11:57:14 2019 esophagogastroduodenoscopy completed FERCHO SHEA [facility], [place] 5 08:23:54 Cholecystectomy completed Reba Hdz [facility], [facility] 5 15:25:22 appendectomy completed Reba Hdz [facility], [facility] 5 15:25:30 Imaging Results None recorded. Procedure Notes None recorded. Medical Equipment None Reported. Allergies Allergen ID Allergen Name Allergen Category Reaction Reaction Severity Criticality Documentation Date Start Date Code Code System Note Provider Name and Address Organization Details Recorded Time 4176 [facility] Not available Not available Not available 03/06/2023 44842 3 RxNorm CECELIA ivory [facility] 3 12:50:09 4177 cephalexi n medicatio n Not available Not available Not available 03/06/2023 2231 RxNorm CECELIA ivory [facility] 3 12:50:21 4178 Iodinated contrast media (substanc e) medicatio n Not available Not available Not available 03/06/2023 51597 2004 SNOMED [facility] 3 12:50:37 87801 ciproflox acin medicatio n hives Not available Not available 09/09/20252023 2551 RxNorm Not Available [facility]era - External [employer] - prod 5 09:18:37 18483 cefuroxim e Not available Not available Not available Not available 09/09/20252024 2194 RxNorm Not Available [facility] - External Data [employer] - prod 5 09:18:38 96253 vancomyci n medicatio n Not available Not available Not available 09/09/20252024 45169 RxNorm Not Available [facility] - External Data [employer] - prod 5 09:18:38 93633 Adhesive agent (substanc e) environme nt,medica tion rash Not available low 09/09/20252024 61487 0007 SNOMED Not Available [facility] - External Data [employer] - prod 5 09:18:40 57750 iodine medicatio n dyspnea Not available high 09/09/20252024 5933 RxNorm Not Available [facility]era - External Data Service - prod 5 09:18:40 05845 latex environme nt,medica tion rash Not available low 09/09/20252024 78828 91 RxNorm Not Available [facility]era - External Data Service - prod 5 09:18:40 61070 sulfur medicatio n hives Not available high 09/09/20252024 05638 RxNorm Not Available meera - External Data [employer] - prod 09:18:40 Medications Name Sig Start Date Stop Date Status Note LastModified by Organization Details LastModified Time celecoxib 200 mg capsule TAKE 1 CAPSULE BY MOUTH EVERY DAY AT BREAKFAS T 04/30 completed Not Available Not Available Not Available amoxicill in 500 mg capsule TAKE 1 TAB BY MOUTH 3 TIMES A DAY TILL GONE 09/09 completed Not Available Not Available Not Available atorvasta tin 40 mg tablet TAKE 1 TABLET BY MOUTH EVERY DAY active Not Available Not Available No t Available acetamino phen 325 mg tablet TAKE 2 TABLETS (650 MG) BY MOUTH EVERY 6 HOURS. active Not Available Not Available No t Available gabapenti n 600 mg tablet TAKE 1 & 1/2 TABLETS BY MOUTH AT BEDTIME active Not Available Not Available No t Available atorvasta tin 20 mg tablet TAKE 1 TABLET BY MOUTH EVERY DAY 04/24 completed Not Available Not Available Not Available cetirizin e 10 mg tablet TAKE 1 TABLET BY MOUTH EVERY DAY active Not Available Not Available No t Available tizanidin e 4 mg tablet TAKE 1 TABLET BY MOUTH EVERY 6 HOURS NEEDED FOR MUSCLE SPASTICI TY MAX 3 DOSES PER 24 HRS 08/20 completed Not Available Not Available Not Available chlorzoxa zone 500 mg tablet TAKE 1/2 TABLET BY MOUTH 3 TIMES DAILY NEEDED FOR 14 DAYS. 02/16 completed Not Available Not Available Not Available hydrocodo ne 5 mg-acetam inophen 325 mg tablet TAKE 1 TABLET BY MOUTH EVERY 6 HOURS active Not Available Not Available No t Available prednison e 20 mg tablet TAKE 2 TABLETS BY MOUTH EVERY DAY IN THE MORNING FOR 5 DAYS 09/16 completed Not Available Not Available Not Available alendrona te 70 mg tablet TAKE 1 TABLET BY MOUTH EVERY WEEK 2024 active Not Available Not Available Not Avai lable probeneci d 500 mg-colchi cine 0.5 mg tablet 02/22 completed Not Available Not Available Not Available amlodipin e 2.5 mg tablet TAKE 1 TABLET BY MOUTH EVERY DAY 04/09 completed Not Available Not Available Not Available clopidogr el 75 mg tablet TAKE 1 TABLET BY MOUTH EVERY DAY active Not Available Not Available No t Available amlodipin e 5 mg tablet TAKE 1 TABLET BY MOUTH EVERY DAY active Not Available Not Available No t Available allopurin ol 100 mg tablet TAKE 1 TABLET BY MOUTH DAILY 03/17 completed Not Available Not Available Not Available ciproflox acin 500 mg tablet TAKE 1 TABLET BY MOUTH TWICE A DAY FOR 10 DAYS 06/08 completed Not Available Not Available Not Available sulfameth oxazole 800 mg-trimet hoprim 160 mg tablet TAKE 1 TABLET BY MOUTH TWICE A DAY FOR 5 DAYS 04/09 completed Not Available Not Available Not Available aspirin 81 mg tablet,de layed release TAKE 1 TABLET (81 MG) BY MOUTH 2 TIMES DAILY. active Not Available Not Available No t Available tramadol 50 mg tablet TAKE 1 TABLET BY MOUTH EVERY 6 HOURS NEEDED FOR PAIN. 04/30 completed Not Available Not Available Not Available triamcino lone acetonide 0.1 % topical cream APPLY TO AFFECTED AREAS ON ARMS TWICE DAILY FOR 2 WEEKS NEEDED 09/16 completed Not Available Not Available Not Available amoxicill in 500 mg tablet TAKE 1 TABLET BY MOUTH THREE TIMES A DAY UNTIL GONE 02/16 completed Not Available Not Available Not Available ketorolac 10 mg tablet TAKE 1 TABLET BY MOUTH EVERY 8 HOURS 02/16 completed Not Available Not Available Not Available oxycodone -acetamin ophen 5 mg-325 mg tablet TAKE 1 TABLET BY MOUTH EVERY 6 HOURS NEEDED 04/24 completed Not Available Not Available Not Available calcium 600 mg (as calcium carbonate 1,500 mg) tablet TAKE 1 TABLET BY MOUTH EVERY DAY active Not Available Not Available No t Available famotidin e 20 mg tablet TAKE 1 TABLET BY MOUTH TWICE A DAY 07/16 completed Not Available Not Available Not Available hydrocodo ne 7.5 mg-acetam inophen 325 mg tablet TAKE 1 TABLET BY MOUTH EVERY 6 HOURS NEEDED FOR PAIN FOR 7 DAYS 08/20 completed Not Available Not Available Not Available ropinirol e 2 mg tablet Take 2 tablets 3 times a day by oral route. active Not Available Not Available No t Available cephalexi n 500 mg capsule TAKE 1 CAPSULE BY MOUTH FOUR TIMES A DAY UNTIL FINISHED 03/17 completed Not Available Not Available Not Available oseltamiv ir 75 mg capsule TAKE 1 CAPSULE BY MOUTH TWICE A DAY FOR 5 DAYS 03/09 completed Not Available Not Available Not Available oxybutyni n chloride ER 5 mg tablet,ex tended release 24 hr TAKE 1 TABLET BY MOUTH EVERY DAY FOR 90 DAYS 08/03 completed Not Available Not Available Not Available sertralin e 25 mg tablet Take 1 tablet every day by oral route. 09/27 completed Not Available Not Available Not Available omeprazol e 20 mg capsule,d elayed release TAKE 1 CAPSULE BY MOUTH EVERY DAY 09/16 completed Not Available Not Available Not Available hydrochlo rothiazid e 25 mg tablet TAKE 1 TABLET BY MOUTH EVERY DAY active Not Available Not Available No t Available methylpre dnisolone 4 mg tablets in a dose pack TAKE 6 TABLETS ON DAY 1 DIRECTED ON PACKAGE AND DECREASE BY 1 TAB EACH DAY FOR A TOTAL OF 6 DAYS 07/16 completed Not Available Not Available Not Available ketorolac 60 mg/2 mL intramusc ular solution Inject 2 mL by intramus cular route as needed for 1 day. 03/06 completed Given IM by Anabel Melo RN. Tolerate d well. Not Available Not Available Not Available ondansetr on 4 mg disintegr ating tablet DISSOLVE ONE TABLET ON top of THE TONGUE EVERY 8 HOURS NEEDED FOR NAUSEA AND vomiting for THREE DAYS 08/20 completed Not Available Not Available Not Available cefdinir 300 mg capsule TAKE 1 CAPSULE BY MOUTH EVERY 12 HOURS X7DAYS 08/20 completed Not Available Not Available Not Available fluticaso ne propionat e 50 mcg/actua tion nasal spray,matilda pension SPRAY 1 SPRAY BY INTRANAS AL ROUTE EVERY DAY 10/16 completed Not Available Not Available Not Available atenolol 50 mg tablet TAKE 1 TABLET BY MOUTH EVERY DAY active Not Available Not Available No t Available naproxen 500 mg tablet TAKE 1 TABLET BY MOUTH TWICE DAILY NEEDED FOR PAIN 02/16 completed Not Available Not Available Not Available amoxicill in 875 mg-potass ium clavulana te 125 mg tablet TAKE 1 TABLET BY MOUTH TWICE A DAY 06/14 completed Not Available Not Available Not Available oxycodone 5 mg tablet TAKE 1 TABLET BY MOUTH EVERY 6 HOURS NEEDED FOR PAIN. MAX DAILY AMOUNT: 20 MG 07/16 completed Not Available Not Available Not Available Laxative (bisacody l) 5 mg tablet,de layed release TAKE 1 TABLET BY MOUTH 1 TIME DAILY NEEDED FOR CONSTIPA TION. 04/30 completed Not Available Not Available Not Available DentaGel 1.1 % BRUSH NORMAL, LET SIT ON TEETH FOR AN ADDITION AL 30 SECONDS BRFORE RINSING 04/24 completed Not Available Not Available Not Available nitrofura ntoin monohydra te/macroc rystals 100 mg capsule TAKE 1 CAPSULE BY MOUTH EVERY 12 HOURS WITH FOOD 07/16 completed Not Available Not Available Not Available tizanidin e 4 mg capsule TAKE 1 CAPSULE BY MOUTH EVERY 6 HOURS NEEDED FOR 90 DAYS 10/16 completed Not Available Not Available Not Available chlorhexi dine gluconate 0.12 % mouthwash SWISH AND SPIT 15 CC'S FOR 30 SECONDS TWICE A DAY UNTIL GONE 09/16 completed Not Available Not Available Not Available atorvasta tin daily 08/03 completed DOC RM/bn; 9; Recorded 08/18/20 11:24AM by Ramandeep Bravo (Authori zed through Braden Herndon MD), Refill Request; Refill Quantity : 0; Not Available Not Available Not Available aspirin daily 08/03 completed 0; Recorded 09/02/20 9:18AM by Cecelia Cabrales, Julianeic al Summary; Not Available Not Available Not Available hydrochlo rothiazid e daily 08/03 completed vo KM/javid; 56420; Recorded 04/19/20 8:22AM by Estephania Mcgrath LPN (Authori zed through Macy Shoemaker MD), Refill Request; Refill Quantity : 90; Tablet; Not Available Not Available Not Available atenolol daily 08/03 completed vo KM/vidhi /PORSCHE E; 173; Recorded 08/17/20 5:31PM by Rafa garcia (Authori zed through Alphonso Smith MD), Refill Request; Refill Quantity : 0; Not Available Not Available Not Available gabapenti n at bedtime 08/03 completed doc JR/tn; 173; Recorded 08/17/20 5:32PM by Rafa garcia (Authori zed through Alphonso Smith MD), Refill Request; Refill Quantity : 0; Not Available Not Available Not Available diclofena c 1 % topical gel APPLY 4 GRAMS TO THE AFFECTED AREA(S) BY TOPICAL ROUTE 4 TIMES PER DAY active Not Available Not Available No t Available amlodipin e besylate (bulk) daily 08/03 completed LB/sd; 75946; Recorded 04/30/20 10:00AM by Aliza Morrell (Authori zed through Macy Shoemaker MD), Refill Request; Refill Quantity : 90; Tablet; Not Available Not Available Not Available tranexami c acid 650 mg tablet TAKE 3 TABLETS (1,950 MG) BY MOUTH DAILY AFTER SUPPER. 04/09 completed Not Available Not Available Not Available Bydureon BCise 2 mg/0.85 mL subcutane ous auto-inje ctor weekly 03/09 completed REQUEST FOR 90 DAYS PRESCRIP TION Not Available Not Available Not Available Ozempic 0.25 mg or 0.5 mg (2 mg/1.5 mL) subcutane ous pen injector Inject 0.5 mL every week by subcutan eous route as directed . 2022 active Not Available Not Available Not Avai lable Ozempic 1 mg/dose (4 mg/3 mL) subcutane ous pen injector INJECT 1 MG SUBCUTAN EOUSLY EVERY WEEK active Not Available Not Available No t Available Ozempic 0.25 mg or 0.5 mg (2 mg/3 mL) subcutane ous pen injector INJECT 0.5MG SUBCUTAN EOUSLY ONE TIME PER WEEK DIRECTED 04/30 completed Not Available Not Available Not Available Vitals Date Recorded Body height Body mass index (BMI) Body weight Oxygen saturation Heart rate Body temperature Systolic And Diastolic Provider Name and Address Organization Details Last Updated DateTime 5 154.94 cm 28 kg/m2 26124.6 7 g 97 % 71 /min 97.8 [degF] 140/76 mm[Hg] Laverne [facility], [place] 5 09:38:01 Social History Question Answer Notes LastModified by Organizat ion Details LastModified Time Tobacco Smoking Status Never Smoker JEAN CLAUDE ALTMAN PA-C [address] [place], [address], [facility], [place] 09/27/2024 11:56:45 Which Illicit Or Recreational Drugs Have You Used? Marijuana [email or web address] Information not available 04/09/2025 What Was The Date Of Your Most Recent Tobacco Screening? 09/16/2025 Information not available 09/16/2025 What Is Your Relationship Status? [email or web address] Information not available 09/27/2024 Sex: Unknown Functional Status Question Answer Note LastModified by Organizat ion Details LastModified Time Do you use any illicit or recreational drugs? Yes Information not available 04/09/2025 What is your level of alcohol consumption? None [email or web address] Information not available 10/16/2024 Are you able to care for yourself independently? Yes [email or web address] Information not available 09/27/2024 Mental Status None recorded. Family History Nothing Reported. Medical History No medical history recorded. Gynecological History Statement/Question Response Most Recent Mammogram 09/07/2023 Obstetrics History GPAL:G 0 P 0 0 0 0 Immunizations Vaccine Type Date Status Note Provider Nam e and Address Organization Details Recorded Time zoster recombinant 2 completed CECELIA ivory [facility], [place] 03/17/2023 12:34:04 zoster recombinant 2 completed CECELIA ivory [facility], [place] 03/17/2023 12:34:04 Influenza, high-dose, quadrivalent, PF 2 completed CECELIA ivory [facility], [place] 03/17/2023 12:34:04 COVID-19, mRNA, LNP-S, PF, 30 mcg/0.3 mL dose 1 completed CECELIA ivory [facility], [place] 03/17/2023 12:34:04 COVID-19, mRNA, LNP-S, PF, 30 mcg/0.3 mL dose 1 completed CECELIA ivory [facility] 03/17/2023 12:34:04 COVID-19, mRNA, LNP-S, PF, 30 mcg/0.3 mL dose 1 completed CECELIA ivory [facility] 03/17/2023 12:34:04 Pneumococcal conjugate PCV20, polysaccharide [id number] conjugate, adjuvant, PF 2 completed CECELIA ivory [facility] 03/17/2023 12:34:04 COVID-19, mRNA, LNP-S, PF, 30 mcg/0.3 mL dose, trena-sucrose 2 completed CECELIA ivory [facility] 03/17/2023 12:34:04 COVID-19, mRNA, LNP-S, bivalent, PF, 30 mcg/0.3 mL dose 2 completed CECELIA ivory [facility] 03/17/2023 12:34:04 pneumococcal polysaccharide PPV23 2 completed CECELIA ivory [facility] 03/17/2023 12:34:04 Influenza, split virus, trivalent, preservative 0 completed CECELIA ivory [facility] 03/17/2023 12:34:04 Influenza, adjuvanted, quadrivalent, PF 3 completed JEAN CLAUDE ALTMAN PA-C [address] [place], [address], [facility] 09/27/2024 11:49:14 Pneumococcal conjugate PCV20, polysaccharide [id number] conjugate, adjuvant, PF 3 completed JEAN CLAUDE ALTMAN PA-C [address] [place], [address], [facility] 09/27/2024 11:49:14 COVID-19, mRNA, LNP-S, PF, 50 mcg/0.5 mL 3 completed JEAN CLAUDE ALTMAN PA-C [address] [place] [address], [address], [facility] 09/27/2024 11:49:50 Influenza, high-dose, trivalent, PF 4 completed JEAN CLAUDE ALTMAN PA-C [address] [place] [address], [address], [facility] 09/27/2024 11:49:50 RSV, recombinant, protein subunit RSVpreF, adjuvant reconstituted, 0.5 mL, PF 5 completed Not Available [facility] 09/16/2025 15:34:18 COVID-19, mRNA, LNP-S, PF, 10 mcg/0.2 mL 5 completed Not Available [facility] 09/16/2025 15:34:18 Influenza, high-dose, trivalent, PF 5 completed Not Available [facility] 09/16/2025 15:34:18 Influenza, split virus, trivalent, preservative 9 completed Not Available [facility] 04/23/2023 02:27:35 Past Encounters Encounter ID Performer Location Encounter Start Date Encounter Closed Date Diagnosis/Indication Diagnosis SNOMED-CT Code Diagnosis ICD10 Code Diagnosis IMO Codes Diagnosis Note [id number] DEEPAK PENG [facility] ([facility]) [address] [place] [address] 09/09/2025 09:16:59 09/09/2025 10:37:09 Acute back pain with sciatica 872565205 M54.42 M54.41 [id number] Patient advised to take medication as directed here. Patient advised to rest initially and then slowly increase activity level. Monitor changes in symptoms such as numbness, tingling or weakness in legs, changes in bowel or bladder habits or worsening back pain. Proper ergonomics discussed. RTC with any new or worsening symptoms. Health Concerns Section Related Observation LastModified by Organization Detai ls LastModified Time None Recorded Concern Status LastModified by Organization Details LastModified Time None Recorded Payers Encounter Date Sequence Insurance Name Policy Number Policy Driver Covered Member ID Driver Member ID Guarantor Name 09/09/2025 1 [id number]/A [place] - [place]PO) [id number] Debra Cerrato [id number] Debra Cerrato Notes Date Note Type Note Provider Name and Address Organization Details Recorded Time 09/09/2025 text/html ROS as noted in the HPI walk inPatient states that 3 days ago she stepped in hole, falling forward into her walker that caught her prior to falling onto the ground.Later that day patient fell flat on her bottom onto the floor. Has pain in her lower back and down both her legs. Has taken tylenol for the pain without significant relief. Continues to use walker to assist with ambulation. Denies any saddle paresthesia. PAMELA RUSSELL, DIRECTOR OF GOVERNMENT SALES [address] [place], [address], [facility], Germán 09/09/2025 10:36:28 OBGyn Episode No OBEpisode recorded.
--- OUTSIDE RECORDS SUMMARY | 2025-09-24 13:57 | XMS_ITS | Data Portability ---
Author Organization ANGIE Marti [facility] Germán Bell [facility] Address [address] [address] Care Team Providers Care Utilization Review Specialist Name Role Phone ENRIQUE NIETO Primary Care Provider Assessment Encounter Date Assessment Date Assessment LastModified by Organization Details LastModified Time 07/16/2025 07/16/2025 75-year-old female with a history of type 2 diabetes mellitus, essential hypertension, and hyperlipidemia presenting with complaints of persistent dizziness, and severe left-sided chest pain, alongside exacerbated right knee pain post-fall, with previous right knee replacement and scheduled bone density scan. [email or web address] Not available 07/16/2025 10:30:20 09/16/2025 09/16/2025 75-year-old female with a history of mouth surgery presenting with acute low back pain. The pain resulted from a fall, leading to a severe burning sensation in the lower lumbar region with persistent pain rated 10/10. The patient's symptoms did not improve with prednisone 20 mg. X-ray imaging is recommended to investigate possible vertebral injury or compression fracture. [email or web address] Not available 09/16/2025 16:14:35 Plan of Treatment Reminders Order Date Submit Date Provider Last Modified By Organization Details Last Modified Time Details Appointments None recorded. Lab microalbumi n/creatinin e, mass ratio, urine 2024 025 [employer] [facility], [address] [place] [address] [address] [place], [address], 06:08:29 hemoglobin A1C/hemoglo bin total, QN, blood 2024 025 [facility], [address], [address], [place], [address], 12:37:47 CMP, serum or plasma 2024 025 [facility], [address], [address], [place], [address], 12:32:43 CBC 2024 025 [facility], [address], [address], [place], [address], 12:34:12 lipid panel, blood 2024 025 [facility], [address], [address], [place], [address], 12:32:55 lipid panel, blood 2024 025 [facility], [address], [address], [place], [address], 13:46:12 microalbumi n/creatinin e, mass ratio, urine 2024 025 [employer] [facility], [address] [place] [address] [address], [address], [place], [address], 08:38:12 hemoglobin A1C/hemoglo bin total, QN, blood 2024 025 [facility], [address], [address], [place], [address], 12:25:40 CMP, serum or plasma 2024 025 [facility], [address], [address], [place], [address], 13:46:09 CBC 2024 025 [facility], [address], [address], [place], [address], 12:19:15 Referral None recorded. Procedures None recorded. Surgeries None recorded. Imaging XR, lumbosacral spine, 2 or 3 view [email or web address] [place] [address] Imaging, [address] [place], [address], 16:29:32 event monitor - 30 days 2024 025 [facility], [address], [place], [address], 12:30:34 Medication Orders hydrocodone 5 mg-acetamin ophen 325 mg tablet 2024 025 [facility] #[id number], [address], [facility], [place], [address], 16:13:32 prednisone 20 mg tablet 2024 025 [facility] #[id number], [address], [facility], [place], [address], 15:50:58 diclofenac 1 % topical gel 2024 025 [facility] #[id number], [address], [facility], [place], [address], 10:27:54 Patient TargetsNo targets recorded. Patient Instructions Encounter Date Encounter Id Patient Instructions Last Modified By Organization Details Last Modified Time 07/16/2025 [id number] - Monitor blood sugar levels regularly, especially if feeling dizzy, and report any irregularities. - Apply diclofenac gel to the knee area four times daily to help reduce pain and inflammation. - Avoid lying on your left side if it causes intensified chest pain; consider warm, moist heat or ice for pain relief in the chest area. - Attend the bone density scan appointment for your right knee as scheduled. - Continue taking prescribed medications, including those for diabetes and hypertension. - Use assistance devices like a walker to prevent falls. - We l l call you with your lab results once available. [email or web address] Not available 07/16/2025 10:30:23 I explained the importance of monitoring blood sugar levels during dizzy episodes and recommended checking A1c to assess diabetes control. We discussed ongoing management of her hypertension and hyperlipidemia, emphasizing routine monitoring. For her right knee pain, I advised the use of diclofenac gel as an anti-inflammatory measure and to continue physical therapy, and I reinforced the importance of attending the scheduled orthopedic follow-up. We talked about her left-sided chest pain, and I suggested considering whether these correlate with her current health conditions, recommending comfort measures to address rib pain. Orders for labs were confirmed, and results will be communicated upon availability. I emphasized the importance of avoiding falls and using assistive devices as needed for mobility support. [email or web address] Not available 07/16/2025 10:30:23 09/16/2025 [id number] - Use a heating pad on your back for temporary pain relief as needed. - Rest as much as you can but try to maintain some mobility. - Follow up with the imaging department for the x-ray as soon as possible. - Report any new or worsening symptoms, especially if the pain significantly increases or if you notice new symptoms like numbness or weakness. - Avoid activities that exacerbate your pain, such as bending or twisting your waist. [email or web address] Not available 09/16/2025 16:14:38 I discussed with the patient the potential for a vertebral or compression fracture secondary to her fall, and the rationale for ordering an x-ray. I explained the expected process and potential outcomes associated with identifying any structural damage in the lumbar region. We also reviewed pain management techniques, including the temporary use of heating pads and possible adjustments to her pain medication pending the results of the x-ray. The importance of staying as mobile as possible was emphasized, and I noted her limited mobility due to pain. We agreed on the plan to obtain diagnostic imaging as the next step before considering further interventions. [email or web address] Not available 09/16/2025 16:14:39 Reason for Referral None Reported. Results Created Date Observation Date Name Description Value Unit Range Abnormal Flag Note LastModifiedBy Organization Detail LastModifiedTime 04/30/2004/30/2025 CBC WBC 8.7 x10 4.0-10 .5 Not Available [facility] [address], [place], [address], 04/30/2025 12:19:15 04/30/2004/30/2025 CBC RBC 4.92 x10 3.50-5 .50 Not Available [facility] [address] [facility], [place], [address], 04/30/2025 12:19:15 04/30/2004/30/2025 CBC HGB 13.5 g/dL 12.0-1 6.0 Not Available [facility] [address] [facility], [place], [address], 04/30/2025 12:19:15 04/30/2004/30/2025 CBC HCT 42.1 % 37.0-4 7.0 Not Available [facility] [address] [facility] [address] [facility], [place], [address], 04/30/2025 12:19:15 04/30/2004/30/2025 CBC MCV 85.5 fL 80.0-9 9.9 Not Available [facility] [address] [facility] [address] [facility], [place], [address], 04/30/2025 12:19:15 04/30/2004/30/2025 CBC MCH 27.4 pg 27.0-3 2.0 Not Available [facility] [address] [facility] [address] [facility], [place], [address], 04/30/2025 12:19:15 04/30/2004/30/2025 CBC MCHC 32.0 g/dL 32.0-3 6.0 Not Available [facility] [address] [facility], [place], [address], 04/30/2025 12:19:15 04/30/2004/30/2025 CBC RDW 14.4 % 11.5-1 4.5 Not Available [facility] [address] [facility] [address], [place], [address], 04/30/2025 12:19:15 04/30/2004/30/2025 CBC plt 252.5 x10 140.0- 451.0 Not Available [facility] [address] [facility] [address], [place], [address], 04/30/2025 12:19:15 04/30/2004/30/2025 CBC lymphocytes % 16.2 % 20.0-5 0.0 low Not Available [facility] [address] [facility] [address], [place], [address], 04/30/2025 12:19:15 04/30/2004/30/2025 CBC granulcytes % 75.4 % 30.0-7 0.0 high Not Available [facility] [address] [facility] [address], [place], [address], 04/30/2025 12:19:15 04/30/2004/30/2025 CBC monocytes % 6.0 % 2.0-16 .0 Not Available [facility] [address] [facility] [address], [place], [address], 04/30/2025 12:19:15 04/30/2004/30/2025 CBC granulcytes# 6.5 x10 Not Jaelyn ilable [facility] [address] [facility] [address], [place], [address], 04/30/2025 12:19:15 04/30/202025 CBC lymphocytes # 1.4 x10 Not Available [facility] [address] [facility], [place], [address], 04/30/2025 12:19:15 04/30/20 25 04/30/2025 CBC monocytes # 0.5 x10 Not Avai lable [facility] [address] [address], [place], [address], 04/30/2025 12:19:15 04/30/20 25 04/30/2025 HBA1C hemaglobin A1C 5.5 4.2-6. 5 Not Available [facility] [address] [facility], [place], [address], 04/30/2025 12:25:40 04/30/20 25 04/30/2025 CMP (FEMA LE) glucose 109.0 mg/dL 60.0-9 9.0 high Not Available [facility] [address] [address], [place], [address], 04/30/2025 13:46:09 04/30/20 25 04/30/2025 CMP (FEMA LE) BUN (blood urea nitrogen) 10.0 mg/dL 10.0-2 6.0 Not Available [facility] [address] [address], [place], [address], 04/30/2025 13:46:09 04/30/20 25 04/30/2025 CMP (FEMA LE) creatinine (serum) 0.6 mg/dL 0.4-1. 5 Not Available [facility] [address] [address], [place], [address], 04/30/2025 13:46:09 04/30/20 25 04/30/2025 CMP (FEMA LE) BUN/creatini ne ratio 16.67 ratio Not Available [facility] [address] [place], [address], 04/30/2025 13:46:09 04/30/20 25 04/30/2025 CMP (FEMA LE) eGFR calculated 103.6 Not Available [facility] [address] [facility], [place], [address], 04/30/2025 13:46:09 04/30/20 25 04/30/2025 CMP (FEMA LE) total protein 7.5 g/dL 6.0-8. 5 Not Available [facility] [address] [facility], [place], [address], 04/30/2025 13:46:09 04/30/20 25 04/30/2025 CMP (FEMA LE) total bilirubin 0.6 mg/dL 0.2-1. 3 Not Available [facility] [address] [facility], [place], [address], 04/30/2025 13:46:09 04/30/20 25 04/30/2025 CMP (FEMA LE) albumin 4.3 g/dL 3.5-5. 5 Not Available [facility] [address] [facility], [place], [address], 04/30/2025 13:46:09 04/30/20 25 04/30/2025 CMP (FEMA LE) globulin 3.2 calc Not Available [facility] [address] [facility], [place], [address], 04/30/2025 13:46:09 04/30/20 25 04/30/2025 CMP (FEMA LE) AST (SGOT) 26.0 U/L 0.0-46 .0 Not Available [facility] [facility], [place], [address], 04/30/2025 13:46:09 04/30/20 25 04/30/2025 CMP (FEMA LE) altv (SGPT) 14.0 U/L 13.0-6 9.0 normal Not Available [facility] [address] [facility] [address], [place], [address], 04/30/2025 13:46:09 04/30/20 25 04/30/2025 CMP (FEMA LE) A/G ratio 1.3 ratio Not Available [facility] [address] [facility] [address], [place], [address], 04/30/2025 13:46:09 04/30/20 25 04/30/2025 CMP (FEMA LE) ALP phos 71.0 U/L 30.0-1 40.0 normal Not Available [facility] [address] [address], [place], [address], 04/30/2025 13:46:09 04/30/20 25 04/30/2025 CMP (FEMA LE) calcium 9.3 mg/dL 8.4-10 .5 Not Available [facility] [address] [address], [place], [address], 04/30/2025 13:46:09 04/30/20 25 04/30/2025 CMP (FEMA LE) sodium 143.0 mmol/ L 136.0- 145.0 Not Available [facility] [address] [address], [place], [address], 04/30/2025 13:46:09 04/30/20 25 04/30/2025 CMP (FEMA LE) potassium 3.3 mmol/ L 3.5-5. 1 low Not Available [facility] [address] [address], [place], [address], 04/30/2025 13:46:09 04/30/20 25 04/30/2025 CMP (FEMA LE) chloride 110.0 mmol/ L 98.0-1 10.0 normal Not Available [facility] [address] [facility] [address], [place], [address], 04/30/2025 13:46:09 04/30/20 25 04/30/2025 CMP (FEMA LE) C02 24.0 mmol/ L 22.0-3 1.0 Not Available [facility] [address] [address], [place], [address], 04/30/2025 13:46:09 04/30/20 25 04/30/2025 CMP (FEMA LE) anion gap 9.0 calc Not Available [facility] [address] [address], [place], [address], 04/30/2025 13:46:09 04/30/20 25 04/30/2025 CMP (FEMA LE) osmolality 294.8 calc Not Available [facility] [address] [address], [place], [address], 04/30/2025 13:46:09 04/30/20 25 04/30/2025 LIPID PROFI LE (FEMA LE) cholesterol 184.0 mg/dL 0.0-20 0.0 Not Available [facility] [address] [address], [place], [address], 04/30/2025 13:46:12 04/30/20 25 04/30/2025 LIPID PROFI LE (FEMA LE) trig 328.0 mg/dL 0.0-15 0.0 high Not Available [facility] [address] [address], [place], [address], 04/30/2025 13:46:12 04/30/20 25 04/30/2025 LIPID PROFI LE (FEMA LE) HDL - direct 52.0 mg/dL >40.0 Not Available [facility] [address] [address], [place], [address], 04/30/2025 13:46:12 04/30/20 25 04/30/2025 LIPID PROFI LE (FEMA LE) VLDL - direct 65.6 mg/dL Not Available [facility] [address] [facility], [place], [address], 04/30/2025 13:46:12 04/30/20 25 04/30/2025 LIPID PROFI LE (FEMA LE) LDL - direct 66.4 mg/dL 0.0-13 0.0 Not Available [facility] [address] [facility] [address], [place], [address], 04/30/2025 13:46:12 04/30/20 25 05/01/2025 ALBUM IN, RANDO M URINE W/CRE ATINI NE creatinine, random urine 38 mg/dL 20-275 normal Not Available [facility] [address] [place], [address], 05/01/2025 08:38:12 04/30/20 25 05/01/2025 ALBUM IN, RANDO M URINE W/CRE ATINI NE albumin, urine 0.4 mg/dL see note: normal Refer ence Range : Refer ence Range Not estab lishe d Not Available [facility] [address] [place], [address], 05/01/2025 08:38:12 04/30/20 25 05/01/2025 ALBUM IN, RANDO M URINE W/CRE ATINI NE albumin/crea tinine ratio, random urine 11 mg/g_ creat <30 normal The ADA defin es abnor malit ies in album in excre tion as follo ws: Album inuri a Categ ory Resul t (mg/g creat inine ) Carmencita l to Mildl y incre ased <30 Moder ately incre ased 30-29 9 Sever henrik incre ased > OR = 300 The ADA recom mends that at least two of three speci mens colle cted withi n a 3-6 month perio d be abnor mal befor e consi conrad g a patie nt to be withi n a diagn ostic categ ory. Not Available [facility] [address] [place], [address], 05/01/2025 08:38:12 07/16/2007/16/2025 CMP (FEMA LE) glucose 109.0 mg/dL 60.0-9 9.0 high Not Available [facility] [address] [facility], [place], [address], 07/16/2025 12:32:43 07/16/2007/16/2025 CMP (FEMA LE) BUN (blood urea nitrogen) 13.0 mg/dL 10.0-2 6.0 Not Available [facility] [address] [facility], [place], [address], 07/16/2025 12:32:43 07/16/20 25 07/16/2025 CMP (FEMA LE) creatinine (serum) 0.6 mg/dL 0.4-1. 5 Not Available [facility] [address] [facility], [place], [address], 07/16/2025 12:32:43 07/16/20 25 07/16/2025 CMP (FEMA LE) BUN/creatini ne ratio 21.67 ratio Not Available [facility] [address] [facility], [place], [address], 07/16/2025 12:32:43 07/16/20 25 07/16/2025 CMP (FEMA LE) eGFR calculated 103.3 Not Available [facility] [address] [facility] 1, [place], [address], 07/16/2025 12:32:43 07/16/20 25 07/16/2025 CMP (FEMA LE) total protein 7.7 g/dL 6.0-8. 5 Not Available [facility] [address] [facility] [address], [place], [address], 07/16/2025 12:32:43 07/16/20 25 07/16/2025 CMP (FEMA LE) total bilirubin 1.2 mg/dL 0.2-1. 3 Not Available [facility] [address] [facility] [address], [place], [address], 07/16/2025 12:32:43 07/16/20 25 07/16/2025 CMP (FEMA LE) albumin 4.4 g/dL 3.5-5. 5 Not Available [facility] [address] [facility] [address], [place], [address], 07/16/2025 12:32:43 07/16/20 25 07/16/2025 CMP (FEMA LE) globulin 3.3 calc Not Available [facility] [address] [facility] [address], [place], [address], 07/16/2025 12:32:43 07/16/20 25 07/16/2025 CMP (FEMA LE) AST (SGOT) 27.0 U/L 0.0-46 .0 Not Available [facility] [address] [facility], [place], [address], 07/16/2025 12:32:43 07/16/20 25 07/16/2025 CMP (FEMA LE) altv (SGPT) 20.0 U/L 13.0-6 9.0 normal Not Available [facility] [address] [facility], [place], [address], 07/16/2025 12:32:43 07/16/20 25 07/16/2025 CMP (FEMA LE) A/G ratio 1.3 ratio Not Available [facility] [address] [facility] 1, [place], [address], 07/16/2025 12:32:43 07/16/2007/16/2025 CMP (FEMA LE) ALP phos 78.0 U/L 30.0-1 40.0 normal Not Available [facility] [address] [facility], [place], [address], 07/16/2025 12:32:43 07/16/2007/16/2025 CMP (FEMA LE) calcium 8.7 mg/dL 8.4-10 .5 Not Available [facility] [address] [facility], [place], [address], 07/16/2025 12:32:43 07/16/2007/16/2025 CMP (FEMA LE) sodium 138.0 mmol/ L 136.0- 145.0 Not Available [facility] [address] [facility] [address], [place], [address], 07/16/2025 12:32:43 07/16/2007/16/2025 CMP (FEMA LE) potassium 3.0 mmol/ L 3.5-5. 1 low Not Available [facility] [address] [facility] [address], [place], [address], 07/16/2025 12:32:43 07/16/2007/16/2025 CMP (FEMA LE) chloride 105.0 mmol/ L 98.0-1 10.0 normal Not Available [facility] [address] [facility] [address], [place], [address], 07/16/2025 12:32:43 07/16/2007/16/2025 CMP (FEMA LE) C02 23.0 mmol/ L 22.0-3 1.0 Not Available [facility] [address] [facility], [place], [address], 07/16/2025 12:32:43 07/16/20 25 07/16/2025 CMP (FEMA LE) anion gap 10.0 calc Not Available [facility] [address] [facility] 1, [place], [address], 07/16/2025 12:32:43 07/16/20 25 07/16/2025 CMP (FEMA LE) osmolality 285.8 calc Not Available [facility] [address] [facility], [place], [address], 07/16/2025 12:32:43 07/16/20 25 07/16/2025 LIPID PROFI LE (FEMA LE) cholesterol 204.0 mg/dL 0.0-20 0.0 high Not Available [facility] [address] [facility], [place], [address], 07/16/2025 12:32:55 07/16/20 25 07/16/2025 LIPID PROFI LE (FEMA LE) trig 290.0 mg/dL 0.0-15 0.0 high Not Available [facility] [address] [facility], [place], [address], 07/16/2025 12:32:55 07/16/20 25 07/16/2025 LIPID PROFI LE (FEMA LE) HDL - direct 73.0 mg/dL >40.0 Not Available [facility] [address] [facility], [place], [address], 07/16/2025 12:32:55 07/16/20 25 07/16/2025 LIPID PROFI LE (FEMA LE) VLDL - direct 58.0 mg/dL Not Available [facility] [address] [facility], [place], [address], 07/16/2025 12:32:55 07/16/20 25 07/16/2025 LIPID PROFI LE (FEMA LE) LDL - direct 73.0 mg/dL 0.0-13 0.0 Not Available [facility] [address], [place], [address], 07/16/2025 12:32:55 07/16/2007/16/2025 CBC WBC 11.9 x10 4.0-10 .5 high Not Available [facility] [address], [place], [address], 07/16/2025 12:34:12 07/16/2007/16/2025 CBC RBC 4.92 x10 3.50-5 .50 Not Available [facility] [address], [place], [address], 07/16/2025 12:34:12 07/16/2007/16/2025 CBC HGB 14.1 g/dL 12.0-1 6.0 Not Available [facility] [address], [place], [address], 07/16/2025 12:34:12 07/16/2007/16/2025 CBC HCT 43.3 % 37.0-4 7.0 Not Available [facility] [address] [facility], [place], [address], 07/16/2025 12:34:12 07/16/2007/16/2025 CBC MCV 88.1 fL 80.0-9 9.9 Not Available [facility] [address], [place], [address], 07/16/2025 12:34:12 07/16/2007/16/2025 CBC MCH 28.6 pg 27.0-3 2.0 Not Available [facility] [address], [place], [address], 07/16/2025 12:34:12 07/16/20 25 07/16/2025 CBC MCHC 32.4 g/dL 32.0-3 6.0 Not Available [facility] [address] [facility], [place], [address], 07/16/2025 12:34:12 07/16/2007/16/2025 CBC RDW 14.6 % 11.5-1 4.5 high Not Available [facility] [address] [facility], [place], [address], 07/16/2025 12:34:12 07/16/2007/16/2025 CBC plt 312.8 x10 140.0- 451.0 Not Available [facility] [address] [facility] [address], [place], [address], 07/16/2025 12:34:12 07/16/20 25 07/16/2025 CBC lymphocytes % 22.4 % 20.0-5 0.0 Not Available [facility] [address] [facility] [address], [place], [address], 07/16/2025 12:34:12 07/16/20 25 07/16/2025 CBC granulcytes % 69.1 % 30.0-7 0.0 Not Available [facility] [address] [facility] [address], [place], [address], 07/16/2025 12:34:12 07/16/20 25 07/16/2025 CBC monocytes % 6.9 % 2.0-16 .0 Not Available [facility] [address] [facility] [address], [place], [address], 07/16/2025 12:34:12 07/16/20 25 07/16/2025 CBC granulcytes# 8.3 x10 Not Jaelyn ilable [facility] [address] [facility] [address], [place], [address], 07/16/2025 12:34:12 07/16/2007/16/2025 CBC lymphocytes # 2.7 x10 Not Available [facility] [address] [facility] [address], [place], [address], 07/16/2025 12:34:12 07/16/20 25 07/16/2025 CBC monocytes # 0.8 x10 Not Avai lable [facility] [address] [facility] [address], [place], [address], 07/16/2025 12:34:12 07/16/2007/16/2025 HBA1C hemaglobin A1C 5.1 4.2-6. 5 Not Available [facility] [address] [facility], [place], [address], 07/16/2025 12:37:47 07/16/2007/17/2025 ALBUM IN, RANDO M URINE W/CRE ATINI NE creatinine, random urine 60 mg/dL 20-275 normal Not Available [facility] [address] [place], [address], 07/17/2025 06:08:29 07/16/20 25 07/17/2025 ALBUM IN, RANDO M URINE W/CRE ATINI NE albumin, urine 0.6 mg/dL see note: normal Refer ence Range : Refer ence Range Not estab lishe d Not Available [facility] [address] [place], [address], 07/17/2025 06:08:29 07/16/2007/17/2025 ALBUM IN, RANDO M URINE W/CRE ATINI NE albumin/crea tinine ratio, random urine 10 mg/g_ creat <30 normal The ADA defin es abnor malit ies in album in excre tion as follo ws: Album inuri a Categ ory Resul t (mg/g creat inine ) Carmencita l to Mildl y incre ased <30 Moder ately incre ased 30-29 9 Sever henrik incre ased > OR = 300 The ADA recom mends that at least two of three speci mens colle cted withi n a 3-6 month perio d be abnor mal befor e consi conrad g a patie nt to be withi n a diagn ostic categ ory. Not Available [facility] [address] [address], [place], [address], 07/17/2025 06:08:29 07/02/20 25 06/11/2025 event monit or No observ ation record ed. [facility] [address], [place], [address], 07/02/2025 14:09:31 09/17/20 25 09/16/2025 XR, lumbo sacra l spine , 2 or 3 view No observ ation record ed. [facility] [address] [place], [address], 09/24/2025 14:10:45 Result Notes None recorded. Problems Name Problem SNOMED Code Status Onset Date Resolution Date Notes Provider Name and Address Organization Details Recorded Time Abdominal pain 95699314 Active 2021 ABDOMINAL PAIN; Impressio n: 07/05 abdominal pain, blood in stool and vomit, doubling over in pain. [facility] 08[facility] Pain of right hip joint 37353480570 9102 Active 2021 [facility] 08:53:47 History of total knee arthropla sty 35924722715 05 Active 2021 TOTAL KNEE REPLACEME NT STATUS, RIGHT [facility] 4 08:53:43 Benign essential hypertens ion 1885375 Active 2021 Hypertens ion; Impressio n: Reviewed patients blood pressure log and she is controlle d at home. Letty ivory, [facility] 4 08:53:38 Essential hypertens ion 50701216 Active 2022 Not Available [facility] 3 17:05:57 Hyperlipi demia 75982493 Active 2022 Not Available [facility] 3 17:05:57 Gastroeso phageal reflux disease 711371174 Active 2022 Not Available [facility] 3 17:05:57 Fibromyal manpreet 272465421 Active 2022 Not Available [facility] 3 17:05:57 Benign paroxysma l positiona l vertigo 101001432 Active 2022 Not Available [facility] 3 17:05:57 Hyperglyc inemia 13510192 Active 2022 Not Available [facility] 3 17:05:57 Restless legs syndrome 09021505 Active 2022 Not Available [facility] 3 17:05:57 Syncope 955092616 Active 2022 Enrique Nieto MD [address] [place] [address] , [facility] 5 09:30:42 Bilateral carpal tunnel syndrome 16390474978 779298 Active 2022 Enrique Nieto MD [address] [place] [address] , [facility] 3 16:26:22 Osteoarth ritis of wrist 472078420 Active 2022 Enrique Nieto MD [address] [place] [address] , [facility] 3 16:52:30 Paresthes ia of lower extremity 693710645 Active 2023 Enrique Nieto MD [address] [place] [address], [address] , [facility] 4 14:46:01 Gastritis 4086714 Active 2023 Enrique Nieto MD [address] [place] [address], [address] , [facility] 4 14:48:53 Pain of right knee joint 81896102717 4100 Active 2023 Enrique Nieto MD [address] [place] [address], [address] , [facility] 4 09:45:45 Chronic low back pain 583578921 Active 2023 Enrique Nieto MD [address] [place] [address], [address] , [facility] 4 09:46:22 Type 2 diabetes mellitus 33202771 Active 2023 Enrique Nieto MD [address] [place] [address], [address] , [facility] 4 09:49:26 Chronic pain 27934163 Active 2023 Enrique Nieto MD [address] [place] [address], [address] , [facility] 4 07:44:45 Obstructi ve sleep apnea syndrome 36500672 Active 2023 Enrique Nieto MD [address] [place] [address], [address] , [facility] 4 08:48:16 Dysfuncti on of bilateral eustachia n tubes 46834409362 70494 Active 2023 Enrique Nieto MD [address] [place] [address], [address] [place] [address] , [facility] 4 10:39:51 Anxiety 50577834 Active 2023 Enrique Nieto MD [address] [place] [address], [address] [place] [address] , [facility] 4 10:41:48 Prophylac tic immunothe rapy Active 2024 ASLAS ivory, [facility] 5 13:08:09 Osteoporo sis 39667435 Active 2024 Enrique Nieto MD [address] [place] [address], [address] [place] [address] , [facility] 5 15:31:29 Diabetes mellitus 80167827 Active 2024 Enrique Nieto MD [address] [place] [address], [address] [place] [address] , [facility] 5 16:27:39 Allergic rhinitis 54718064 Active 2024 Enrique Nieto MD [address] [place] [address], [address] , [facility] 5 15:04:16 Pain of knee region 7144219071 Active 2024 Enrique Nieto MD [address] [place] [address], [address] , [facility] 5 10:27:26 Acute low back pain 976224449 Active 2024 Enrique Nieto MD [address] [place] [address] , [facility] 5 16:11:04 Problem Notes None recorded. Procedures Surgical History Date Name Laterality Status Provider Name and Address Organization Details Recorded Time 2024 screening for malignant neoplasm of colon completed [facility] 5 14:23:10 2024 mammography completed [facility] 5 16:13:46 2024 screening for osteoporosis completed [facility] 5 16:15:29 2022 Most Recent Mammogram completed JEAN CLAUDE ALTMAN PA-C [address] [place] [address], [phone], [facility] LJimmyL.CJimmy 5 11:57:14 2019 esophagogastroduodenoscopy completed [facility] 5 08:23:54 Cholecystectomy completed [facility] 5 15:25:22 appendectomy completed [facility] 5 15:25:30 Imaging Results None recorded. Procedure Notes None recorded. Medical Equipment None Reported. Allergies Allergen ID Allergen Name Allergen Category Reaction Reaction Severity Criticality Documentation Date Start Date Code Code System Note Provider Name and Address Organization Details Recorded Time 4176 Cipro medicatio n Not available Not available Not available 03/06/202371174 3 RxNorm HALEY ivory [facility] 3 12:50:09 4177 cephalexi n medicatio n Not available Not available Not available 03/06/2023 2231 RxNorm HALEY ivory [facility] 3 12:50:21 4178 Iodinated contrast media (substanc e) medicatio n Not available Not available Not available 03/06/2023 90474 2003 SNOMED HALEY DHIRAJ dianelys [facility] 3 12:50:37 24289 ciproflox acin medicatio n hives Not available Not available 09/09/20252023 2551 RxNorm Not Available [facility]era - External Data [employer] - prod 5 09:18:37 61769 cefuroxim e Not available Not available Not available Not available 09/09/20252024 2194 RxNorm Not Available [facility] - External Data [employer] - prod 5 09:18:38 98496 vancomyci n medicatio n Not available Not available Not available 09/09/20252024 25983 RxNorm Not Available [facility] - External [employer] - prod 5 09:18:38 96365 Adhesive agent (substanc e) environme nt,medica tion rash Not available low 09/09/20252024 77792 0007 SNOMED Not Available [facility] - [employer] - prod 5 09:18:40 48470 iodine medicatio n dyspnea Not available high 09/09/20252024 5933 RxNorm Not Available [facility] - External Data [employer] - prod 5 09:18:40 60581 latex environme nt,medica tion rash Not available low 09/09/20252024 97557 91 RxNorm Not Available [facility] - External Data [employer] - prod 5 09:18:40 74345 sulfur medicatio n hives Not available high 09/09/20252024 35619 RxNorm Not Available [facility] - External Data [employer] - prod 5 09:18:40 Medications Name Sig Start Date Stop [...] day. 03/06 completed Given IM by Anabel Mleo RN. Tolerate d well. Not Available Not [...] 08/03 completed 0; Recorded 09/02/20 9:18AM by Juliane Bermudezic al Summary; Not Available Not Available Not Available hydrochlo rothiazid e daily 08/03 completed vo KM/javid; 26898; Recorded 04/19/20 8:22AM by Estephania Mcgrath LPN (Authori zed through Macy Shoemaker MD), Refill Request; Refill Quantity : 90; Tablet; Not Available Not Available Not Available atenolol daily 08/03 completed vo KM/dh /ROYLANC E; 173; Recorded 08/17/20 5:31PM by Rafa [...] e besylate (bulk) daily 08/03 completed LB/sd; 06052; Recorded 04/30/20 10:00AM by Aliza Morrell (Authori [...] Not Available Not Available Vitals Date Recorded Systolic And Diastolic Provider Name and Address Organization Details Last Updated DateTime 04/30/2025 132/70 mm[Hg] Benji Rush [address] [place] [address], [address], [facility] 05/03/2025 07:26:01 Date Recorded Body height Body mass index (BMI) Body weight Body temperature Heart rate Oxygen saturation Systolic And Diastolic Provider Name and Address Organization Details Last Updated DateTime 154.94 cm 29.4 kg/m2 23715.2 5 g 97.5 [degF] 88 /min 96 % 142/72 mm[Hg] Chapis Aleman [facility] 11:51:07 Date Recorded Body height Body mass index (BMI) Body weight Oxygen saturation Heart rate Respiratory rate Body temperature Systolic And Diastolic Provider Name and Address Organization Details Last Updated DateTime 09/03/202 5 154.94 cm 28.8 kg/m2 20072.2 g 95 % 65 /min 18 /min 96.7 [degF] 138/72 mm[Hg] Reba [facility] 5 09:12:05 Date Recorded Body height Body mass index (BMI) Body weight Oxygen saturation Heart rate Respiratory rate Body temperature Systolic And Diastolic Provider Name and Address Organization Details Last Updated DateTime 5 154.94 cm 28.5 kg/m2 83139.4 5 g 95 % 83 /min 20 /min 97.3 [degF] 138/76 mm[Hg] Reba [facility] 5 10:14:40 Date Recorded Body height Body mass index (BMI) Body weight Oxygen saturation Heart rate Body temperature Systolic And Diastolic Provider Name and Address Organization Details Last Updated DateTime 5 154.94 cm 28 kg/m2 18563.6 7 g 97 % 71 /min 97.8 [degF] 140/76 mm[Hg] Laverne Davidson [facility] 5 09:38:01 Date Recorded Body height Body mass index (BMI) Body weight Body temperature Oxygen saturation Heart rate Systolic And Diastolic Provider Name and Address Organization Details Last Updated DateTime 5 154.94 cm 28.9 kg/m2 15055.6 3 g 98.6 [degF] 91 % 109 /min 130/78 mm[Hg] Parris Jasmeet [facility] 5 15:41:23 Social History Question Answer Notes LastModified by Organizat ion Details LastModified Time Tobacco Smoking Status Never Smoker JEAN CLAUDE ALTMAN PA-C [address] [place] [address], [address], [facility] 09/27/2024 11:56:45 Which Illicit Or Recreational Drugs Have You Used? Marijuana Information not available 04/09/2025 What Was The Date Of Your Most Recent Tobacco Screening? 09/16/2025 [email or web address] Information not available 09/16/2025 What Is Your Relationship Status? [email or web address] Information not available 09/27/2024 Sex: Unknown Functional Status Question Answer Note LastModified by Organizat ion Details LastModified Time Do you use any illicit or recreational drugs? Yes [email or web address] Information not available 04/09/2025 What is your level of alcohol consumption? None [email or web address] Information not available 10/16/2024 Are you able to care for yourself independently? Yes Information not available 09/27/2024 Mental Status None recorded. Family History Nothing Reported. Medical History No medical history recorded. Gynecological History Statement/Question Response Most Recent Mammogram 09/07/2023 Obstetrics History GPAL:G 0 P 0 0 0 0 Immunizations Vaccine Type Date Status Note Provider Nam e and Address Organization Details Recorded Time zoster recombinant 2 completed HALEY ivory [facility] 03/17/2023 12:34:04 zoster recombinant 2 completed HALEY ivory [facility] 03/17/2023 12:34:04 Influenza, high-dose, quadrivalent, PF 2 completed HALEY ivory [facility] 03/17/2023 12:34:04 COVID-19, mRNA, LNP-S, PF, 30 mcg/0.3 mL dose 1 completed HALEY ivory [facility] 03/17/2023 12:34:04 COVID-19, mRNA, LNP-S, PF, 30 mcg/0.3 mL dose 1 completed HALEY ivory [facility] 03/17/2023 12:34:04 COVID-19, mRNA, LNP-S, PF, 30 mcg/0.3 mL dose 1 completed HALEY ivory [facility] 03/17/2023 12:34:04 Pneumococcal conjugate PCV20, polysaccharide [id number] conjugate, adjuvant, PF 2 completed HALEY ivory [facility] 03/17/2023 12:34:04 COVID-19, mRNA, LNP-S, PF, 30 mcg/0.3 mL dose, trena-sucrose 2 completed HALEY ivory [facility] 03/17/2023 12:34:04 COVID-19, mRNA, LNP-S, bivalent, PF, 30 mcg/0.3 mL dose 2 completed HALEY ivory, [facility] 03/17/2023 12:34:04 pneumococcal polysaccharide PPV23 2 completed HALEY ivory [facility] 03/17/2023 12:34:04 Influenza, split virus, trivalent, preservative 0 completed HALEY ivory, [facility] 03/17/2023 12:34:04 Influenza, adjuvanted, quadrivalent, PF 3 completed JEAN CLAUDE ALTMAN PA-C [address] [place] [address], [address], [facility] 09/27/2024 11:49:14 Pneumococcal conjugate PCV20, polysaccharide [id number] conjugate, adjuvant, PF 3 completed JEAN CLAUDE ALTMAN PA-C [address] [place], [address], [facility] 09/27/2024 11:49:14 COVID-19, mRNA, LNP-S, PF, 50 mcg/0.5 mL 3 completed JEAN CLAUDE ALTMAN PA-C [address] [place], [address], [facility] 09/27/2024 11:49:50 Influenza, high-dose, trivalent, PF 4 completed JEAN CLAUDE ALTMAN PA-C [address] [place], [address], [facility] 09/27/2024 11:49:50 RSV, recombinant, protein subunit RSVpreF, adjuvant reconstituted, 0.5 mL, PF 5 completed Not Available [facility] 09/16/2025 15:34:18 COVID-19, mRNA, LNP-S, PF, 10 mcg/0.2 mL 5 completed Not Available [facility] 09/16/2025 15:34:18 Influenza, high-dose, trivalent, PF 5 completed Not Available [facility] 09/16/2025 15:34:18 Influenza, split virus, trivalent, preservative 9 completed Not Available [facility] 04/23/2023 02:27:35 Past Encounters Encounter ID Performer Location Encounter Start Date Encounter Closed Date Diagnosis/Indication Diagnosis SNOMED-CT Code Diagnosis ICD10 Code Diagnosis IMO Codes Diagnosis Note [id number] DEEPAK BARRERA [facility] ([facility]) [address] [place] [address] 02/22/2023 11:06:40 02/22/2023 20:20:47 Chronic neck pain for greater than 3 months 8203652653 41954 M54.2 Tension-type headache 39 7121663 G44.229 Muscle spa sm of cervical muscle of neck 1261649185 04 M62.838 Degenerati on of cervical intervertebral disc 53775626 M50.30 [id number] Enrique Nieto MD [facility] ([facility]) [address] [place] [address] 03/17/2023 12:21:36 03/18/2023 13:44:47 Syncope 232735309 R55 We will work this up further with an event monitor. We will also obtain an ultrasound of the carotids. EKG was performed in the office and showed a normal sinus rhythm and no significan t abnormalit ies. Essential hypertension 50394437 I10 Patient will monitor blood pressure and report if unable to control or if they develop new symptoms. Fibromyalgia 940832151 M 79.7 Restless l egs syndrome 28225590 G25.81 [id number] Enrique Nieto MD [facility] ([facility]) [address] [place] [address] 08/03/2023 15:45:57 08/03/2023 17:10:56 Screening mammography 64468386 Z12.31 Order placed for yearly mammogram. Bilateral carpal tunnel syndrome 3124422191 1645931 G56.03 The patient has history of carpal tunnel syndrome and possibly some recurrent issues on the right. Recommend wearing wrist splints bilaterall y at bedtime. Adult heal th examination 620499364 Z00.00 Discussed healthy lifestyle including well-rose rosio diet and regular exercise. We will obtain labs today. Osteoarthr itis of wrist 912815187 M19.039 Patient likely has arthritis in the left and that is secondary to her use of her crutch. Gilberto range of motion exercises. Recommend icing after grafts to help with discomfort . Tylenol as needed. [id number] Enrique Nieto MD [facility] ([facility]) [address] [place] [phone] 02/17/2024 14:17:54 02/17/2024 15:00:41 Paresthesia of lower extremity 053588537 R20.2 The patient does have abnormal sensation in that right lower leg. Most likely related to the trauma to the mid zarco and less likely to be ankle surgery. Will obtain a nerve conduction study to evaluate further. Gastritis 6851075 K29.70 Concerned that the morning nausea is related to gastritis. Will go start omeprazole as this should help with the reflux and hopefully her nausea. Consider EGD if symptoms do not improve. [id number] Enrique Nieto MD [facility] ([facility]) [address] [place] [address] 04/24/2024 09:15:14 04/24/2024 09:56:43 Pain of right knee joint 3840690875 45217 M25.561 Recommend trying diclofenac gel for anti-infla mmatory to the area of pain. Chronic low back pain 27 4522129 M54.50 Recommend home exercises and stretching . Continue current pain management . Type 2 nydia betes mellitus 86133595 E11.9 Continue to check an A1c and urine microalbum in. Continue current interventi ons. Obstructiv e sleep apnea syndrome 29207998 G47.33 Patient has obstructiv e sleep apnea and uses CPAP daily. Patient states that her CPAP has broken and she is unable to use it. The patient states has been more than 5 years since she has had a new one. Send an order to have it replaced. [id number] Enrique Nieto MD [facility] ([facility]) [address] [place] [address] 08/20/2024 10:18:37 08/20/2024 11:01:45 Type 2 diabetes mellitus 41649203 E11.9 We will check labs today including an A1c and urine microalbum in. Continue current medication s. Continue diabetic diet. Syncope 373716334 R55 We will follow-up with labs today. KG and whole event monitor were unremarkab le. Hyperlipidemia 54144453 E78.5 Benign ess ential hypertension 9394575 I10 Continue current medication s. Patient will monitor blood pressure and report if unable to control or if they develop new symptoms. Dysfunctio n of bilateral eustachian tubes 0755166182 023069 H69.93 Patient does have significan t fluid noted behind her eardrums and this is likely contributi ng to her dizziness. Start Flonase. Anxiety 74536160 F41.9 Patient screened high for anxiety and she states that she has been struggling with her anxiety for quite some time. Patient is open to starting medication today. Will start sertraline . [id number] JEAN CLAUDE ALTMAN PA-C [facility] ([facility]) [address] [place] [address] 09/27/2024 10:37:39 09/27/2024 12:00:13 Adult health examination 617350856 Z00.00 Screening mammography 24 657485 Z12.31 Screening for malignant neoplasm of colon 326947020 Z12.11 Postmenopa usal osteopenia 004386500 M85.80 Disorder d ue to type 2 diabetes mellitus 970946894 E11.69 CCA form filled out during today's office visit Hyperlipidemia 20576824 E78.5 Essential hypertension 35753319 I10 Chronic low back pain 27 8911394 M54.50 [id number] Enrique Nieto MD [facility] ([facility]) [address] [place] [address] 10/16/2024 14:58:25 10/16/2024 16:00:03 Osteoporosis 82850055 M81.0 Patient has osteoporos is. The patient takes vitamin D daily so we will add calcium. Will also start Fosamax weekly. Encouraged the patient to do weight bearing exercise help improve bone density. Diabetes mellitus 603357 09 E11.9 Refill provided for Ozempic. Patient has been doing well with the medication . Obstructiv e sleep apnea syndrome 03096773 G47.33 Unable to obtain sleep study so we will order a new home sleep study to confirm her known diagnosis. The patient is in need of a new CPAP machine. [id number] Enrique Nieto MD [facility] ([facility]) [address] [place] [address] 12/27/2024 14:52:28 12/31/2024 16:38:28 Allergic rhinitis 08539512 J30.9 Exam is most consistent with allergies. Recommend starting antihistam ine. [id number] Enrique Nieto MD [facility] ([facility]) [address] [place] [address] 04/09/2025 12:09:05 04/09/2025 13:21:40 Chronic low back pain 820153928 M54.50 Recommend home exercises and stretching . Continue current pain management . [id number] Enrique Nieto MD [facility] ([facility]) [address] [place] [address] 04/30/2025 11:26:15 04/30/2025 13:13:04 Essential hypertension 20162347 I10 Patient was encouraged to monitor blood pressure at home. Type 2 nydia betes mellitus 91288784 E11.9 Patient appears to be experienci ng the known side effects that he has had bit. Patient does not want to stop the medication at this time. Patient states that the symptoms are manageable . We will check labs today. Continue other medication s and diabetic diet. Hyperlipid emia screening 699389338 Z13.220 953128 Osteoporosis 10198437 M8 1.0 Continue alendronat e weekly. Encouraged the patient to do weight bearing exercise help improve bone density. Chronic low back pain 27 3224358 M54.50 Recommend home exercises and stretching . Continue current pain management . [id number] Enrique Nieto MD [facility] ([facility]) [address] [place] [address] 05/29/2025 08:54:28 05/29/2025 10:33:44 Syncope 206879260 R55 [id number] Patient describes syncopal episode. Reviewed records from the emergency room and there were no significan t findings. Recommend that we proceed with event monitor. Also stated other concerns would be blood pressure and glucose. They were encouraged to check blood pressure, heart rate, and blood sugar at the time of the episode. [id number] Enrique Nieto MD [facility] ([facility]) [address] [place] [address] 07/16/2025 09:52:10 07/16/2025 10:37:56 Type 2 diabetes mellitus 64258590 E11.9 - Recommend ongoing blood sugar monitoring , especially during dizziness episodes; follow up with A1c levels. Essential hypertension 56710538 I10 - Continue routine monitoring , evaluate dizziness within hypertensi on management context. Hyperlipidemia 77056559 E78.5 - Monitor lipid profile regularly, adjust therapy as needed. Pain of knee region 1003 982670 M25.561 [id number] - Recommend diclofenac gel applicatio n for pain relief, continue physical therapy, and consult orthopedic s as scheduled. [id number] DEEPAK PENG [facility] ([facility]) [address] [place] [address] 09/09/2025 09:16:59 09/09/2025 10:37:09 Acute back pain with sciatica 914833665 M54.42 M54.41 [id number] Patient advised to take medication as directed here. Patient advised to rest initially and then slowly increase activity level. Monitor changes in symptoms such as numbness, tingling or weakness in legs, changes in bowel or bladder habits or worsening back pain. Proper ergonomics discussed. RTC with any new or worsening symptoms. [id number] Enrique Nieto MD [facility] [facility] ([facility]) [address] [place] [phone] 09/16/2025 15:34:07 09/16/2025 16:29:32 Acute low back pain [id number] M54.50 [id number] Patient to use heating pad for symptomati c relief. Due to ineffectiv e response to prednisone , consider additional pain medication . Obtain x-ray to evaluate for vertebral or compressio n fracture. Adjust pain management per x-ray findings. Health Concerns Section Related Observation LastModified by Organization Detai ls LastModified Time None Recorded Concern Status LastModified by Organization Details LastModified Time None Recorded Advance Directives Directive None Recorded Payers Insurance Date Sequence Insurance Name Policy Number Policy Driver Covered Member ID Driver Member ID Guarantor Name 09/16/2025 1 [id number]/A [place]AGE - PPO) [id number] Debra Cerrato [id number] Debra Cerrato Notes Date Note Type Note Provider Name and Address Organization Details Recorded Time 04/30/2025 text/html This is a 74-year-old female comes in today for routine follow-up. Patient reports that she has nausea with her medications. She believes it is the Ozempic causing her to be sick. She has vomiting that starts the day she takes her shot and lasts almost the entire week. She does also have diarrhea off and on. She states that she is tolerating her other medications without any issues. Patient states that her blood pressure does fairly well when checked at home. Patient states that the pain medication does help with her chronic pain. No other concerns today. Enrique Nieto MD [address] [place] [address], [phone], [facility] 05/03/2025 07:33:47 05/29/2025 text/html This is 74-year-old female that comes in today for ER follow-up. The patient was seen in the ER for possible seizures. Patient states that she was sitting and became unresponsive and started to drool. It lasted only a few seconds. reports no significant seizure-like activity. In the emergency room she had lab and imaging workup without significant findings. Patient denies any history of seizures. Patient does not have any chest pain and does not recall any palpitations. Patient has had similar episode previously. Enrique Nieto MD [address] [place] [address], [phone], [facility] 05/31/2025 09:04:43 07/16/2025 text/html The patient is a 75-year-old female presenting with persistent dizziness, severe left-sided chest pain, and exacerbation of right knee pain. These symptoms have developed over the past few months, with the chest pain being particularly acute when lying on her left side. She previously had a right knee replacement in December of the current year, and an accidental fall three weeks ago has markedly intensified her knee pain. Plans are in place for a bone density evaluation of the affected knee. She also reported a recent urethra injection performed on 07/05/25, which has shown improvement in her condition. She has been having episodes of dizziness and shakiness. She feels her diabetes is well controlled and she is unsure if she is having any low BS readings. Enrique Nieto MD [address] [place] [address], [phone], [facility] 07/16/2025 10:59:42 09/09/2025 text/html ROS as noted in the [...] assist with ambulation. Denies any saddle paresthesia. DEEPAK PENG [address] [place] [address], [phone], [facility] 09/09/2025 10:36:28 09/16/2025 text/html Back PainReporte d by PatientHPIFor severity, patient reportsworsening,pain level 10/10, andinterferes with sleep. For associated symptoms, patient reportsgait instability. For location, patient reportslumbar midlineandsacral midline. For quality, patient reportssharp,tender,sh ooting,pressure,burnin g, andstabbing. For duration, patient reportsdate of onset: (09/06/25). For timing, patient reportsacute. For context, patient reportsfall. For alleviating factors, patient reportsnone. For aggravating factors, patient reportsambulation,twis ting,flexing back,extending back,pushing,pulling,r eaching,straining,sitt ing,standing, andexercise. For previous injury, patient reportsno prior back injury. For prior imaging, patient reportsnone. The patient is a 75-year-old female presenting with acute low back pain resulting from a fall that occurred on 09/06. At the time, she experienced striking pain in the right knee, causing a fall onto her buttock, followed by an immediate burning sensation in the lower back. She rates the lower lumbar pain as 10/10 and mentions ongoing popping sensations in her neck. She has limitations in bending and twisting at the waist. The patient was seen at a walk-in clinic on 09/09, where prednisone 20 mg was prescribed but did not provide relief. No x-rays were taken at the clinic. She also had mouth surgery earlier this month. Enrique Nieto MD [address] [place] [address], [phone], [facility] 09/17/2025 15:02:49 OBGyn Episode No OBEpisode recorded.
--- OUTSIDE RECORDS SUMMARY | 2025-09-24 13:57 | XMS_ITS | Continuity of Care Document ---
Author Organization ANGIE [facility] Germán Bell, [facility] ([facility]) Address [address] [place] [address] Care Team Providers Care Health Plan Manager Name Role Phone ENRIQUE NIETO Primary Care Provider [phone] Assessment Encounter Date Assessment Date Assessment LastModified by Organization Details LastModified Time 07/16/2025 07/16/2025 75-year-old female with a history of type 2 diabetes mellitus, essential hypertension, and hyperlipidemia presenting with complaints of persistent dizziness, and severe left-sided chest pain, alongside exacerbated right knee pain post-fall, with previous right knee replacement and scheduled bone density scan. [email or web address] Not available 07/16/2025 10:30:20 Plan of Treatment Reminders Order Date Submit Date Provider Last Modified By Organization Details Last Modified Time Details Appointments None recorded. Lab microalbumi n/creatinin e, mass ratio, urine 2024 025 [facility], [address] [place] [address] [address], [address] [place], [address], 06:08:29 hemoglobin A1C/hemoglo bin total, QN, blood 2024 025 [facility], [address], [facility] 1, [place], [address], 5 12:37:47 CMP, serum or plasma 2024 025 [facility], [address], [facility] 1, [place], [address], 12:32:43 CBC 2024 [facility], [address], [address], [place], [address], 12:34:12 lipid panel, blood 2024 025 [facility], [address] [facility], [address], [place], [address], 12:32:55 Referral None recorded. Procedures None recorded. Surgeries None recorded. Imaging None recorded. Medication Orders diclofenac 1 % topical gel 2024 [id number], [address] [facility] [address], [address], [place], [address], 10:27:54 Patient TargetsNo targets recorded. Patient Instructions Encounter Date Encounter Id Patient Instructions Last Modified By Organization Details Last Modified Time 07/16/2025 [id number] - Monitor blood sugar levels regularly, especially [...] mobility support. [email or web address] Not available 07/16/2025 10:30:23 Reason for Referral None Reported. Results Created Date Observation Date Name Description Value Unit Range Abnormal Flag Note LastModifiedBy Organization Detail LastModifiedTime 07/16/2007/16/2025 CMP (FEMA LE) glucose 109.0 mg/dL 60.0-9 9.0 high Not Available [facility] [address] [facility] 1, [place], [address], 07/16/2025 12:32:43 07/16/2007/16/2025 CMP (FEMA LE) BUN (blood urea nitrogen) 13.0 mg/dL 10.0-2 6.0 Not Available [facility] [address] [facility] 1, [place], [address], 07/16/2025 12:32:43 07/16/20 25 07/16/2025 CMP (FEMA LE) creatinine (serum) 0.6 mg/dL 0.4-1. 5 Not Available [facility] [address] [facility] 1, [place], [address], 07/16/2025 12:32:43 07/16/20 25 07/16/2025 CMP (FEMA LE) BUN/creatini ne ratio 21.67 ratio Not Available [facility] [address] [facility] 1, [place], [address], 07/16/2025 12:32:43 07/16/20 25 07/16/2025 CMP (FEMA LE) eGFR calculated 103.3 Not Available [facility] [address] [facility] 1, [place], [address], 07/16/2025 12:32:43 07/16/20 25 07/16/2025 CMP (FEMA LE) total protein 7.7 g/dL 6.0-8. 5 Not Available [facility] [place] [address] [facility], [place], [address], 07/16/2025 12:32:43 07/16/20 25 07/16/2025 CMP (FEMA LE) total bilirubin 1.2 mg/dL 0.2-1. 3 Not Available [facility] [address] [facility] [address], [place], [address], 07/16/2025 12:32:43 07/16/20 25 07/16/2025 CMP (FEMA LE) albumin 4.4 g/dL 3.5-5. 5 Not Available [facility] [address] [facility] [address], [place], [address], 07/16/2025 12:32:43 07/16/20 25 07/16/2025 CMP (FEMA LE) globulin 3.3 calc Not Available [place] [facility] [address] [facility] [address], [place], [address], 07/16/2025 12:32:43 07/16/20 25 07/16/2025 CMP (FEMA LE) AST (SGOT) 27.0 U/L 0.0-46 .0 Not Available [facility] [address] [facility] [address], [place], [address], 07/16/2025 12:32:43 07/16/20 25 07/16/2025 CMP (FEMA LE) altv (SGPT) 20.0 U/L 13.0-6 9.0 normal Not Available [facility] [address] [facility] [address], [place], [address], 07/16/2025 12:32:43 07/16/20 25 07/16/2025 CMP (FEMA LE) A/G ratio 1.3 ratio Not Available [facility] [address] [facility] [address], [place], [address], 07/16/2025 12:32:43 07/16/2007/16/2025 CMP (FEMA LE) ALP phos 78.0 U/L 30.0-1 40.0 normal Not Available [facility] [place] [facility] [place] [address] [facility] [address], [place], [address], 07/16/2025 12:32:43 07/16/2007/16/2025 CMP (FEMA LE) calcium 8.7 mg/dL 8.4-10 .5 Not Available [facility] [place] [facility] [place] [address] [facility] [address], [place], [address], 07/16/2025 12:32:43 07/16/2007/16/2025 CMP (FEMA LE) sodium 138.0 mmol/ L 136.0- 145.0 Not Available [facility] [place] [address] [facility] 1, [place], [address], 07/16/2025 12:32:43 07/16/2007/16/2025 CMP (FEMA LE) potassium 3.0 mmol/ L 3.5-5. 1 low Not Available [facility] [place] [address] [facility] 1, [place], [address], 07/16/2025 12:32:43 07/16/2007/16/2025 CMP (FEMA LE) chloride 105.0 mmol/ L 98.0-1 10.0 normal Not Available [facility] [place] [address] [facility] [address], [place], [address], 07/16/2025 12:32:43 07/16/2007/16/2025 CMP (FEMA LE) C02 23.0 mmol/ L 22.0-3 1.0 Not Available [facility] [place] [address] [facility] 1, [place], [address], 07/16/2025 12:32:43 07/16/20 25 07/16/2025 CMP (FEMA LE) anion gap 10.0 calc Not Available [place] [facility] [address] [address], [place], [address], 07/16/2025 12:32:43 07/16/20 25 07/16/2025 CMP (FEMA LE) osmolality 285.8 calc Not Available [facility] [address] [facility] 1, [place], [address], 07/16/2025 12:32:43 07/16/20 25 07/16/2025 LIPID PROFI LE (FEMA LE) cholesterol 204.0 mg/dL 0.0-20 0.0 high Not Available [facility] [address] [address], [place], [address], 07/16/2025 12:32:55 07/16/20 25 07/16/2025 LIPID PROFI LE (FEMA LE) trig 290.0 mg/dL 0.0-15 0.0 high Not Available [facility] [address] [address], [place], [address], 07/16/2025 12:32:55 07/16/20 25 07/16/2025 LIPID PROFI LE (FEMA LE) HDL - direct 73.0 mg/dL >40.0 Not Available [facility] [address] [facility] 1, [place], [address], 07/16/2025 12:32:55 07/16/20 25 07/16/2025 LIPID PROFI LE (FEMA LE) VLDL - direct 58.0 mg/dL Not Available [facility] [address] [address], [place], [address], 07/16/2025 12:32:55 07/16/20 25 07/16/2025 LIPID PROFI LE (FEMA LE) LDL - direct 73.0 mg/dL 0.0-13 0.0 Not Available [facility] [place] [place] [address], [place], [address], 07/16/2025 12:32:55 07/16/2007/16/2025 CBC WBC 11.9 x10 4.0-10 .5 high Not Available [facility] [place] [address] [facility] [address], [place], [address], 07/16/2025 12:34:12 07/16/2007/16/2025 CBC RBC 4.92 x10 3.50-5 .50 Not Available [facility] [place] [address], [place], [address], 07/16/2025 12:34:12 07/16/2007/16/2025 CBC HGB 14.1 g/dL 12.0-1 6.0 Not Available [facility] [place] [address], [place], [address], 07/16/2025 12:34:12 07/16/2007/16/2025 CBC HCT 43.3 % 37.0-4 7.0 Not Available [facility] [place] [address] [facility] [address], [place], [address], 07/16/2025 12:34:12 07/16/2007/16/2025 CBC MCV 88.1 fL 80.0-9 9.9 Not Available [facility] [place] [address] [facility] [address], [place], [address], 07/16/2025 12:34:12 07/16/2007/16/2025 CBC MCH 28.6 pg 27.0-3 2.0 Not Available [facility] [place] [address], [place], [address], 07/16/2025 12:34:12 07/16/2007/16/2025 CBC MCHC 32.4 g/dL 32.0-3 6.0 Not Available [facility] [place] [address] [facility], [place], [address], 07/16/2025 12:34:12 07/16/20 25 07/16/2025 CBC RDW 14.6 % 11.5-1 4.5 high Not Available [facility] [place] [address] [facility], [place], [address], 07/16/2025 12:34:12 07/16/2007/16/2025 CBC plt 312.8 x10 140.0- 451.0 Not Available [facility] [place] [address] [facility] [address], [place], [address], 07/16/2025 12:34:12 07/16/2007/16/2025 CBC lymphocytes % 22.4 % 20.0-5 0.0 Not Available [facility] [place] [address] [facility] [address], [place], [address], 07/16/2025 12:34:12 07/16/20 25 07/16/2025 CBC granulcytes % 69.1 % 30.0-7 0.0 Not Available [facility] [place] [address] [facility] [address], [place], [address], 07/16/2025 12:34:12 07/16/2007/16/2025 CBC monocytes % 6.9 % 2.0-16 .0 Not Available [facility] [place] [place] [address] [facility] [address], [place], [address], 07/16/2025 12:34:12 07/16/20 25 07/16/2025 CBC granulcytes# 8.3 x10 Not Jaelyn ilable [facility] [place] [address] [facility] [address], [place], [address], 07/16/2025 12:34:12 07/16/2007/16/2025 CBC lymphocytes # 2.7 x10 Not Available [facility] [address], [place], [address], 07/16/2025 12:34:12 07/16/20 25 07/16/2025 CBC monocytes # 0.8 x10 Not Avai lable [facility] [address] [facility] [address], [place], [address], 07/16/2025 12:34:12 07/16/20 25 07/16/2025 HBA1C hemaglobin A1C 5.1 4.2-6. 5 Not Available [facility] [address] [facility] [address], [place], [address], 07/16/2025 12:37:47 07/16/2007/17/2025 ALBUM IN, RANDO M URINE W/CRE ATINI NE creatinine, random urine 60 mg/dL 20-275 normal Not Available [facility] [address] [place], [address], 07/17/2025 06:08:29 07/16/2007/17/2025 ALBUM IN, RANDO M URINE W/CRE ATINI NE albumin, urine 0.6 mg/dL see note: normal Refer ence Range : Refer ence Range Not estab lishe d Not Available [facility] [address] [place], [address], 07/17/2025 06:08:29 07/16/2007/17/2025 ALBUM IN, RANDO M [...] a diagn ostic categ ory. Not Available [facility] [address], [place], [address], 07/17/2025 06:08:29 07/02/20 25 06/11/2025 event monit or No observ ation record ed. [facility] [address] [facility] [address], [place], [address], 07/02/2025 14:09:31 09/17/20 25 09/16/2025 XR, lumbo sacra l spine , 2 or 3 view No observ ation record ed. [facility] [address] [place], [address], 09/24/2025 14:10:45 Result Notes None recorded. Problems Name Problem SNOMED Code Status Onset Date Resolution Date Notes Provider Name and Address Organization Details Recorded Time Abdominal pain 59030773 Active 2021 ABDOMINAL PAIN; Impressio n: 07/05 abdominal pain, blood in stool and vomit, doubling over in pain. [facility] ER[facility] 08:53:33 Pain of right hip joint 71985314971 9102 Active 2021 [facility] 4 08:53:47 History of total knee arthropla sty 74310458132 05 Active 2021 TOTAL KNEE REPLACEME NT STATUS, RIGHT Letty ivory [facility], Germán 4 08:53:43 Benign essential hypertens ion 1793855 Active 2021 Hypertens ion; Impressio n: Reviewed patients blood pressure log and she is controlle d at home. Letty ivory, [facility] 4 08:53:38 Essential hypertens ion 00971107 Active 2022 Not Available [facility] 3 17:05:57 Hyperlipi demia 70463767 Active 2022 Not Available [facility] 3 17:05:57 Gastroeso phageal reflux disease 365154323 Active 2022 Not Available [facility] 3 17:05:57 Fibromyal manpreet 103413750 Active 2022 Not Available [facility] 3 17:05:57 Benign paroxysma l positiona l vertigo 344976736 Active 2022 Not Available [facility] 3 17:05:57 Hyperglyc inemia 65442906 Active 2022 Not Available [facility] 3 17:05:57 Restless legs syndrome 02151495 Active 2022 Not Available [facility] 3 17:05:57 Syncope 029938625 Active 2022 Enrique Nieto MD [address] [place] [address] , [facility] 5 09:30:42 Bilateral carpal tunnel syndrome 43577524852 379328 Active 2022 Enrique Nieto MD [address] [place] [address] , [facility] 3 16:26:22 Osteoarth ritis of wrist 740561933 Active 2022 Enrique Nieto MD [address] [place] [address] , [facility] 3 16:52:30 Paresthes ia of lower extremity 635707436 Active 2023 Enrique Nieto MD [address] [place] [address], [address] , [facility] 4 14:46:01 Gastritis 9628910 Active 2023 Enrique Nieto MD [address] [place] [address], [address] , [facility] 4 14:48:53 Pain of right knee joint 20053684400 4100 Active 2023 Enrique Nieto MD [address] [place] [address], [address] , [facility] 4 09:45:45 Chronic low back pain 211284278 Active 2023 Enrique Nieto MD [address] [place] [address], [address] , [facility] 4 09:46:22 Type 2 diabetes mellitus 83791318 Active 2023 Enrique Nieto MD [address] [place] [address], [address] , [facility] 4 09:49:26 Chronic pain 46217447 Active 2023 Enrique Nieto MD [address] [place] [address], [address] , [facility] 4 07:44:45 Obstructi ve sleep apnea syndrome 48069812 Active 2023 Enrique Nieto MD [address] [place] [address], [address] , [facility] 4 08:48:16 Dysfuncti on of bilateral eustachia n tubes 41279431446 25646 Active 2023 Enrique Nieto MD [address] [place] [address], [address] , [facility] 4 10:39:51 Anxiety 99566742 Active 2023 Enrique Nieto MD [address] [place] [address], [address] [place] [address] , [facility] 4 10:41:48 Prophylac tic immunothe rapy Active 2024 [place] ivory, [facility] 5 13:08:09 Osteoporo sis 04983950 Active 2024 Enrique Nieto MD [address] [place] [address] , [facility] 5 15:31:29 Diabetes mellitus 74384955 Active 2024 Enrique Nieto MD [address] [place] [address] , [facility] 5 16:27:39 Allergic rhinitis 46898906 Active 2024 Enrique Nieto MD [address] [place] [address] , [facility] 5 15:04:16 Pain of knee region 7204460374 Active 2024 Enrique Nieto MD [address] [place] [address] , [facility] 5 10:27:26 Acute low back pain 807491728 Active 2024 Enrique Nieto MD [address] [place] [address] , [facility] 5 16:11:04 Problem Notes None recorded. Procedures Surgical History Date Name Laterality Status Provider Name and Address Organization Details Recorded Time 2024 screening for malignant neoplasm of colon completed [facility], LMary Kate 5 14:23:10 2024 mammography completed [facility], LJimmyLJimmyCJimmy 5 16:13:46 2024 screening for osteoporosis completed [facility], Germán 5 16:15:29 2022 Most Recent Mammogram completed JEAN CLAUDE ALTMAN PA-C [address] [place] [address], [phone], [facility], Germán 5 11:57:14 2019 esophagogastroduodenoscopy completed [facility], CiroCJimmy 5 08:23:54 Cholecystectomy completed [facility], LJimmyLJimmyCJimmy 5 15:25:22 appendectomy completed [facility], LJimmyLJimmyCJimmy 5 15:25:30 Imaging Results None recorded. Procedure Notes None recorded. Medical Equipment None Reported. Allergies Allergen ID Allergen Name Allergen Category Reaction Reaction Severity Criticality Documentation Date Start Date Code Code System Note Provider Name and Address Organization Details Recorded Time 4176 Cipro medicatio n Not available Not available Not available 03/06/2023 09078 3 RxNorm HALEY ivory [facility], LJimmyLJimmyCJimmy 3 12:50:09 4177 cephalexi n medicatio n Not available Not available Not available 03/06/2023 2231 RxNorm HALEY ivory [facility], FrederickLJmimyCJimmy 3 12:50:21 4178 Iodinated contrast media (substanc e) medicatio n Not available Not available Not available 03/06/2023 85631 2004 SNOMED HALEY ivory [place] [facility], [facility] 3 12:50:37 96474 ciproflox acin medicatio n hives Not available Not available 09/09/20252023 2551 RxNorm Not Available meera - External Data Service - prod 5 09:18:37 43125 cefuroxim e Not available Not available Not available Not available 09/09/20252024 2194 RxNorm Not Available meera - External Data Service - prod 5 09:18:38 77004 vancomyci n medicatio n Not available Not available Not available 09/09/20252024 45836 RxNorm Not Available [facility]era - External Data Service - prod 5 09:18:38 75846 Adhesive agent (substanc e) environme nt,medica tion rash Not available low 09/09/20252024 50739 0007 SNOMED Not Available [facility] - [employer] - prod 5 09:18:40 98846 iodine medicatio n dyspnea Not available high 09/09/20252024 5933 RxNorm Not Available [facility]era - External Data Service - prod 5 09:18:40 93587 latex environme nt,medica tion rash Not available low 09/09/20252024 31361 91 RxNorm Not Available [facility]era - External Data Service - prod 5 09:18:40 04212 sulfur medicatio n hives Not available high 09/09/20252024 33951 RxNorm Not Available meera - External Data [...] 08/03 completed 0; Recorded 09/02/20 9:18AM by Edward Bermudez al Summary; Not Available Not Available Not Available hydrochlo rothiazid e daily 08/03 completed vo KM/javid; 82711; Recorded 04/19/20 8:22AM by Estephania Mcgrath LPN [...] e besylate (bulk) daily 08/03 completed LB/sd; 36073; Recorded 04/30/20 10:00AM by Aliza Morrell (Authori [...] Organization Details Last Updated DateTime 154.94 cm 28.5 kg/m2 47808.4 5 g 95 % 83 /min 20 /min 97.3 [degF] 138/76 mm[Hg] Reba Hdz [facility] 10:14:40 Social History Question Answer Notes LastModified by Organizat ion Details LastModified Time Tobacco Smoking Status Never Smoker JEAN CLAUDE ALTMAN PA-C [address] [place] [address], [phone], [facility] 09/27/2024 11:56:45 Which Illicit Or Recreational Drugs Have You Used? Marijuana Information not available 04/09/2025 What Was The Date Of Your Most Recent Tobacco Screening? 09/16/2025 Information not available 09/16/2025 What Is Your Relationship Status? Information not available 09/27/2024 Sex: Unknown Functional Status Question Answer Note LastModified by Organizat ion Details LastModified Time Do you use any illicit or recreational drugs? Yes Information not available 04/09/2025 What is your level of alcohol consumption? None [email or web address] Information not available 10/16/2024 Are you able to care for yourself independently? Yes [email or web address] Information not available 09/27/2024 Mental Status None recorded. Family History Nothing Reported. Medical History No medical history recorded. Gynecological History Statement/Question Response Most Recent Mammogram 09/07/2023 Obstetrics History GPAL:G 0 P 0 0 0 0 Immunizations Vaccine Type Date Status Note Provider Nam e and Address Organization Details Recorded Time zoster recombinant 2 completed HALEY ivory [facility] 03/17/2023 12:34:04 zoster recombinant 2 completed HALEY ivory [facility] 03/17/2023 12:34:04 Influenza, high-dose, quadrivalent, PF 2 completed HALEY ivory [facility] 03/17/2023 12:34:04 COVID-19, mRNA, LNP-S, PF, 30 mcg/0.3 mL dose 1 completed HALEY ivory [facility] 03/17/2023 12:34:04 COVID-19, mRNA, LNP-S, PF, 30 mcg/0.3 mL dose 1 completed HALEY ivory [facility] 03/17/2023 12:34:04 COVID-19, mRNA, LNP-S, PF, 30 mcg/0.3 mL dose 1 completed HALEY ivory [facility] 03/17/2023 12:34:04 Pneumococcal conjugate PCV20, polysaccharide [id number] conjugate, adjuvant, PF 2 completed HALEY ivory [facility] 03/17/2023 12:34:04 COVID-19, mRNA, LNP-S, PF, 30 mcg/0.3 mL dose, trena-sucrose 2 completed HALEY ivory [facility], L.L.CJimmy 03/17/2023 12:34:04 COVID-19, mRNA, LNP-S, bivalent, PF, 30 mcg/0.3 mL dose 2 completed HALEY ivory, [facility], L.L.CJimmy 03/17/2023 12:34:04 pneumococcal polysaccharide PPV23 2 completed HALEY ivory [facility] 03/17/2023 12:34:04 Influenza, split virus, trivalent, preservative 0 completed HALEY ivory, [facility] 03/17/2023 12:34:04 Influenza, adjuvanted, quadrivalent, PF 3 completed JEAN CLAUDE ALTMAN PA-C [address] [place] [address], [address], [facility] 09/27/2024 11:49:14 Pneumococcal conjugate PCV20, polysaccharide [id number] conjugate, adjuvant, PF 3 completed JEAN CLAUDE ALTMAN PA-C [address] [place], [address], [facility] 09/27/2024 11:49:14 COVID-19, mRNA, LNP-S, PF, 50 mcg/0.5 mL 3 completed JEAN CLAUDE ALTMAN PA-C [address] [place], [address], [facility] 09/27/2024 11:49:50 Influenza, high-dose, trivalent, PF 4 completed JEAN CLAUDE ALTMAN PA-C [address] [place], [address], [facility], Germán 09/27/2024 11:49:50 RSV, recombinant, protein subunit RSVpreF, adjuvant reconstituted, 0.5 mL, PF 5 completed Not Available [facility] 09/16/2025 15:34:18 COVID-19, mRNA, LNP-S, PF, 10 mcg/0.2 mL 5 completed Not Available [facility] 09/16/2025 15:34:18 Influenza, high-dose, trivalent, PF 5 completed Not Available [facility] 09/16/2025 15:34:18 Influenza, split virus, trivalent, preservative 9 completed Not Available [facility] 04/23/2023 02:27:35 Past Encounters Encounter ID Performer Location Encounter Start Date Encounter Closed Date Diagnosis/Indication Diagnosis SNOMED-CT Code Diagnosis ICD10 Code Diagnosis IMO Codes Diagnosis Note [id number] Enrique Nieto MD [facility] ([facility]) [address] [place] [address] 07/16/2025 09:52:10 07/16/2025 10:37:56 Type 2 diabetes mellitus 42969958 E11.9 - Recommend ongoing blood sugar monitoring , especially during dizziness episodes; follow up with A1c levels. Essential hypertension 28461267 I10 - Continue routine monitoring , evaluate dizziness within hypertensi on management context. Hyperlipidemia 64435830 E78.5 - Monitor lipid profile regularly, adjust therapy as needed. Pain of knee region 1003 663353 M25.561 [id number] - Recommend diclofenac gel applicatio n for pain relief, continue physical therapy, and consult orthopedic s as scheduled. Health Concerns Section Related Observation LastModified by Organization Detai ls LastModified Time None Recorded Concern Status LastModified by Organization Details LastModified Time None Recorded Payers Encounter Date Sequence Insurance Name Policy Number Policy Driver Covered Member ID Driver Member ID Guarantor Name 07/16/2025 1 [id number]/A DVANTAGE - PPO) [id number] Debra Cerrato [id number] Debra Cerrato Notes Date Note Type Note Provider Name and Address Organization Details Recorded Time 07/16/2025 text/html The patient is a 75-year-old [...] any low BS readings. Enrique Nieto MD [address] [place] [address], [phone], [facility]CJimmy 07/16/2025 10:59:42 OBGyn Episode No OBEpisode recorded.
--- OUTSIDE RECORDS SUMMARY | 2025-09-24 13:57 | XMS_ITS | Encounter Summary ---
Author Organization [facility] Address [address] [place] [address] Care Team Providers Care Waste Management Specialist Name Role Phone Unavailable Primary Care Provider Unavailabl e Encounter Details Date Type Department Care Team (Late st Contact Info) Description 09/17/2025 External Device Data [facility] Provider, Abstract NO ADDRESS ON FILE Social History Tobacco Use Types Packs/Day Years Used Date Smoking Tobacco: Never Smokeless Tobacco: Never Alcohol Use Standard Drinks/Week Comments Not Currently 0 (1 standard drink = 0.6 oz pur e alcohol) Feeling Safe Answer Date Recorded Are you in a relationship wi th someone who hurts you emotionally and/or physically? 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
--- OUTSIDE RECORDS SUMMARY | 2025-09-24 13:57 | XMS_ITS | Clinical Summary ---
Author Organization [facility] Address [address] [place] [address] Phone Care Team Providers Care Leisure Studies Professor Name Role Phone Unavailable Primary Care Provider [...] daily. Active fluticasone propionate (FLONASE) 50 mcg/spray [place], Suspension nasal inhaler Administer 2 Sprays in [...] 1 Capsule by mouth daily. 5 Active Miscellaneous Medical Supply One standard wheelchair [...] (1,950 MG) BY MOUTH DAILY AFTER SUPPER. 5 Active nitrofurantoin (MACROBID) 100 mg capsule 5 Active methylPREDNISolo ne (MEDROL DOSPACK) 4 mg Tablets, Dose Pack Take as directed on package 21 Tablet 5 Active diclofenac sodium (VOLTAREN) 1 % gel APPLY 4 GRAMS TO THE AFFECTED AREA(S) BY TOPICAL ROUTE 4 TIMES PER DAY 5 Active triamcinolone acetonide (KENALOG) 0.1 % Cream APPLY TO AFFECTED AREAS ON ARMS TWICE DAILY FOR 2 WEEKS NEEDED Active suzetrigine (Journavx) 50 mg BEGIN DAY OF SURGERY: take 2 tablets (100 mg) by mouth on an empty stomach at least 1 hour before or 2 hours after food. Then take 1 tablet (50 mg) by mouth every 12 hours with or without food. 30 Tablet 08/21/2025 10:13 AM FRUIT CULLER 5 Active meloxicam (MOBIC) 15 mg tablet Take 1 Tablet (15 mg) by mouth daily. 30 Tablet 08/21/2025 10:13 AM FRUIT CULLER 5 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 01/02/2025 Elevated transaminase level 01/02/2025 Encounters Date Type Department Care Team Description 09/17/2025 External Device Data [facility] ABSTRACTION Provider, Abstract 09/03/2025 External Device Data [facility] ABSTRACTION Provider, Abstract 08/27/2025 External Device Data [facility] ABSTRACTION Provider, Abstract 08/21/2025 9:40 AM FRUIT CULLER Office Visit [facility] [address] [place] [phone] Lisa Rueda PA 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); Acute pain of right knee 08/13/2025 External Device Data [facility] ABSTRACTION Provider, Abstract 08/08/2025 Telephone [facility] [address] [place] [phone] Braden Ac MD Question 07/24/2025 External Device Data [facility] ABSTRACTION Provider, Abstract 07/23/2025 External Device Data [facility] ABSTRACTION Provider, Abstract 07/23/2025 External Device Data [facility] ABSTRACTION Provider, Abstract 07/17/2025 External Device Data [facility] ABSTRACTION Provider, Abstract 07/17/2025 Orders Only [facility] [address] [place] [phone] Braden Ac MD 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) 07/16/2025 External Device Data STL ABSTRACTION Provider, Abstract 07/10/2025 1:40 PM CDT Office Visit [facility] [address] [place] [phone] Jewel Smith PA-C 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) 07/10/2025 1:30 PM CDT Ancillary Procedure [facility] [address] [place] [address] Braden Ac MD Status post revision of total replacement of right knee 07/10/2025 Refill [facility] [address] [place] [address] Braden Ac MD Status post revision of total knee replacement, unspecified laterality 07/09/2025 External Device Data [facility] ABSTRACTION Provider, Abstract 07/02/2025 External Device Data [facility] ABSTRACTION Provider, Abstract 06/25/2025 Orders Only [facility] [address] [place] [phone] Braden Ac MD 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) from Last 3 Months Social History Tobacco [...] on file Legal Sex Female 10:13 AM FRUIT CULLER Gender Identity Not on file Sexual Orientation Not on file Last Filed Vital Signs Vital Sign Reading Time Taken Comments Blood Pressure 138/60 08/21/2025 9:39 AM FRUIT CULLER Pulse 66 01/17/2025 11:47 AM CDT Temperature 36.1 C (97 F) 01/17/2025 11:47 AM CDT Respiratory Rate 16 01/17/2025 11:47 AM CDT Oxygen Saturation 99% 01/17/2025 11:47 AM CDT Inhaled Oxygen Concentration - - Weight 68.5 kg (151 lb) 08/21/2025 9:39 AM FRUIT CULLER Height 152.4 cm (5') 08/21/2025 9:39 AM FRUIT CULLER Body Mass Index 29.49 08/21/2025 9:39 AM FRUIT CULLER Plan of Treatment Upcoming Encounters Date Type Department Care Team (Late st Contact Info) Description 11/29/2025 10:00 AM FRUIT CULLER Office Visit [facility] [address] [place] [address] Braden Ac MD [facility] [place] [phone] Health Maintenance Due Date Last Done Comments DIABETES ANNUAL FOOT EXAM 1967 DIABETES ANNUAL RETINAL EXAM 1967 DIABETES MICROALBUMIN ANNUAL SCREEN 1967 LDL CHOLESTEROL ANNUAL 1967 OSTEOPOROSIS SCREENING 2014 RSV VACCINE (60+ or ) (1 - 1-dose 75+ series) 2024 COVID-19 Vaccine (2024-2 6 season) 2025 06/10/2025, 08/19/2023, 08/04/2022, Additional history exists DIABETES HBA1C Q 6 MONTHS 01/14/20262024, 08/20/2024, 04/24/2024 DTAP/TDAP/TD VACCINES (2 - T d or Tdap) 10/14/2033 10/14/2023 ZOSTER VACCINE Completed 05/03/2022, 01/30/2022 PNEUMOCOCCAL VACCINE 50+ YEARS Completed 0 06/16/2023, 06/01/2022, 10/06/2021 INFLUENZA VACCINE Completed 06/10/2025, , 10/14/2023, Additional history exists Medical Devices Implanted Type Area Photoengraving Printer Device Identifier Shelf Expiration Date Model / Serial / Lot Stimulan Rapid Cure Putty 10ml 620-010 - [id number] Implanted:Qty: 1 on 01/16/2025 by Braden Ac MD at [facility] Biological Right: Knee [employer] [id number] 06/25/2027 620-010 / / [id number] Artisan M 6215-5-011 - [id number] Implanted:Qty: 1 on 01/16/2025 by Braden Ac MD at [facility] Bone Right: Knee [employer] [id number] 06/06/2029 6215-5-011 / / [id number] Cement Palacos Mv Pro 80 Hip Knee Antimicrob [id number] - [id number] Implanted:Qty: 1 on 01/16/2025 by Braden Ac MD at [facility] Cement Right: Knee [employer] [id number] 05/26/2026 [id number] / / [id number] Wedge Fem Lgn-Rk Sz5-6 10mm 9024-8397 - [id number] Implanted:Qty: 1 on 01/16/2025 by Braden Ac MD at [facility] Knee Right: Knee [employer] 11/19/2033 [id number] / / [id number] Insert Gnsii Ps Hi Flx Sz3-4 Rt 5712-4906 - [id number] Implanted:Qty: 1 on 01/16/2025 by Braden Ac MD at [facility] Knee Right: Knee [employer] 09/05/2027 [id number] / / [id number] Comp Fem Lgn Zrcnm Sz6 0117-7416 - [id number] Implanted:Qty: 1 on 01/16/2025 by Braden Ac MD at [facility] Knee Right: Knee [employer] [id number] 12/09/2033 [id number] / / [id number] Comp Fem Lgn Pressfit 6284-9617 - [id number] Implanted:Qty: 1 on 01/16/2025 by Braden Ac MD at [facility] Knee Right: Knee [employer] [id number] 03/18/2033 [id number] / / [id number] Screw Canc 6.5x85mm 217.085 - [id number] Implanted:Qty: 1 on 01/16/2025 by Braden Ac MD at [facility] Screw Right: Knee [employer]- [employer] SYN[employer]ES 01/23/2025 217.085 / / [id number] Washer 13.0mm 219.99 - [id number] Implanted:Qty: 1 on 01/16/2025 by Braden Ac MD at [facility] Washer Right: Knee [employer]- [employer] SYN[employer]ES 01/23/2025 219.99 / / [id number] I.D. Implanted:Qty: 1 on 01/16/2025 by Braden Ac MD at [facility] Right: Knee 09/04/2027 [employer] NEPHEW-719 96466 / / [id number] Explanted Type Area Photoengraving Printer Device Identifier Shelf Expiration Date Model / Serial / Lot Poly Explanted:Qty: 1 on 01/16/2025 by Braden Ac MD at [facility] Right: Knee Femur Stem Explanted:Qty: 1 on 01/16/2025 by Braden Ac MD at [facility] Right: Knee Posterior Augments Explanted:Qty: 2 on 01/16/2025 by Braden Ac MD at [facility] Right: Knee Procedures Procedure Name Priority Date/Time Associated Diagnosis Comments XR KNEE 3 VW RIGHT Routine 07/10/2025 1: 53 PM CDT Status post revision of total replacement of right knee from Last 3 Months Results * XR KNEE 3 VW RIGHT (07/10/2025 1:53 PM CDT) Anatomical Region Laterality Modality Lower Extremity Computed Radiogr aphy Narrative 07/11/2025 10:34 AM CDT AP, lateral and sunrise view radiographs are taken today and demonstrate right total knee revision components in excellent alignment. No evidence of subsidence, fracture, loosening, or leg length discrepancy. No radiographic complications noted. Braden Ac MD [facility] Final Result from Last 3 Months Insurance [facility] MEDICARE HMO RX [facility] Medicare Part D RX [employer] [facility] [employer] [facility] [employer] [facility] [facility] Commercial Advance Directives For more information, please contact: [phone] * Full Code (Latest Code Status on File) Date Activated Date Inactivated Comments 01/16/2025 6:31 PM 01/17/2025 2:35 PM * Full Code Date Activated Date Inactivated Comments 01/16/2025 11:27 AM 01/16/2025 6:31 PM
--- OUTSIDE RECORDS SUMMARY | 2025-09-24 13:57 | XMS_ITS | Continuity of Care Document ---
Author Organization [place] - Jonel Ervin [facility] Germán Bell, [facility] ([facility]) Address [address] [place] [address] Care Team Providers Care Youth Specialist Name Role Phone ENRIQUE NIETO Primary Care Provider Assessment Encounter Date Assessment Date Assessment LastModified by Organization Details LastModified Time 09/16/2025 09/16/2025 75-year-old female with a history [...] spine, 2 or 3 view [email or web address] [place] [address] Imaging, [address] [place], [address], 16:29:32 Medication Orders hydrocodone 5 mg-acetamin ophen 325 mg tablet 2024 025 [facility] #[id number], [address] [facility], [facility], [place], [address], 16:13:32 Patient TargetsNo targets recorded. Patient Instructions Encounter Date Encounter Id Patient Instructions Last Modified By Organization Details Last Modified Time 09/16/2025 [id number] - Use a heating pad on your [...] Abnormal Flag Note LastModifiedBy Organization Detail LastModifiedTime 09/17/2009/16/2025 XR, lumbo sacra l spine , 2 or 3 view No observ ation record ed. [facility] [address] [place], [address], 09/24/2025 14:10:45 Result Notes None recorded. Problems Name Problem SNOMED Code Status Onset Date Resolution Date Notes Provider Name and Address Organization Details Recorded Time Abdominal pain 98098158 Active 2021 ABDOMINAL PAIN; Impressio n: 07/05 abdominal pain, blood in stool and vomit, doubling over in pain. [facility] 08:[facility] Pain of right hip joint 94660663894 9102 Active [address] [facility] 08:53:47 History of total knee arthropla sty 50584049391 05 Active 2021 TOTAL KNEE REPLACEME NT STATUS, RIGHT [facility]ty iv[facility], Germán 4 08:53:43 Benign essential hypertens ion 4620194 Active 2021 Hypertens ion; Impressio n: Reviewed patients blood pressure log and she is controlle d at home. [facility]ty iv[facility], Germán 4 08:53:38 Essential hypertens ion 46560840 Active 2022 Not Available [facility] 3 17:05:57 Hyperlipi demia 06813923 Active 2022 Not Available [facility] 3 17:05:57 Gastroeso phageal reflux disease 084213754 Active 2022 Not Available [facility] 3 17:05:57 Fibromyal manpreet 703830215 Active 2022 Not Available [facility] 3 17:05:57 Benign paroxysma l positiona l vertigo 427868937 Active 2022 Not Available [facility] 3 17:05:57 Hyperglyc inemia 73329538 Active 2022 Not Available [facility] 3 17:05:57 Restless legs syndrome 71440899 Active 2022 Not Available [facility] 3 17:05:57 Syncope 733942651 Active 2022 Enrique Nieto MD [address] [place] [address], [phone] , [facility], Germán 5 09:30:42 Bilateral carpal tunnel syndrome 32235953909 409757 Active 2022 Enrique Nieto MD [address] [place] [address], [address] , [facility], Germán 3 16:26:22 Osteoarth ritis of wrist 407894454 Active 2022 Enrique Nieto MD [address] [place] [address], [phone] , [facility] 3 16:52:30 Paresthes ia of lower extremity 203442163 Active 2023 Enrique Nieto MD [address] [place] [address], [address] , [facility] 4 14:46:01 Gastritis 5011639 Active 2023 Enrique Nieto MD [address] [place] [address], [address] , [facility] 4 14:48:53 Pain of right knee joint 14421717075 4100 Active 2023 Enrique Nieto MD [address] [place] [address], [address] , [facility] 4 09:45:45 Chronic low back pain 522825259 Active 2023 Enrique Nieto MD [address] [place] [address], [address] , [facility] 4 09:46:22 Type 2 diabetes mellitus 65024447 Active 2023 Enrique Nieto MD [address] [place] [address], [address] , [facility] 4 09:49:26 Chronic pain 42777379 Active 2023 Enrique Nieto MD [address] [place] [phone] , [facility] 4 07:44:45 Obstructi ve sleep apnea syndrome 62065768 Active 2023 Enrique Nieto MD [address] [place] [address], [address] , [place] [facility] 4 08:48:16 Dysfuncti on of bilateral eustachia n tubes 15361513335 96857 Active 2023 Enrique Nieto MD [address] [place] [address], [address] , [facility] 4 10:39:51 Anxiety 91718166 Active 2023 Enrique Nieto MD [address] [place] [address], [address] , [facility] 4 10:41:48 Prophylac tic immunothe rapy Active 2024 [address], [facility] 5 13:08:09 Osteoporo sis 96901148 Active 2024 Enrique Nieto MD [address] [place] [address], [address] , [facility] 5 15:31:29 Diabetes mellitus 31153785 Active 2024 Enrique Nieto MD [address] [place] [address], [address] , [facility] 5 16:27:39 Allergic rhinitis 59556410 Active 2024 Enrique Nieto MD [address] [place] [address], [address] , [facility] 5 15:04:16 Pain of knee region 0155104872 Active 2024 Enrique Nieto MD [address] [place] [address], [address] , [facility] 5 10:27:26 Acute low back pain 980111328 Active 2024 Enrique Nieto MD [address] [place], [address] , [facility] 5 16:11:04 Problem Notes None recorded. Procedures Surgical History Date Name Laterality Status Provider Name and Address Organization Details Recorded Time 2024 screening for malignant neoplasm of colon completed [facility], LJimmyL.CJimmy 5 14:23:10 2024 mammography completed [facility], [place] 5 16:13:46 2024 screening for osteoporosis completed [facility], CiroCJimmy 5 16:15:29 2022 Most Recent Mammogram completed JENA CLAUDE ALTMAN PA-C [address] [place], [phone], [facility], FrederickLJimmyCJimmy 5 11:57:14 2019 [facility]odenoscopy [facility], LJimmyL.CJimmy 5 08:23:54 Cholecystectomy completed [facility], LJimmyLJimmyCJimmy 5 15:25:22 appendectomy completed [facility], LJimmyLJimmyCJimmy 5 15:25:30 Imaging Results None recorded. Procedure Notes None recorded. Medical Equipment None Reported. Allergies Allergen ID Allergen Name Allergen Category Reaction Reaction Severity Criticality Documentation Date Start Date Code Code System Note Provider Name and Address Organization Details Recorded Time 4176 Cipro medicatio n Not available Not available Not available 03/06/202339657 3 RxNorm CECELIASA DHIRAJ ivory [facility], [place] 3 12:50:09 4177 cephalexi n medicatio n Not available Not available Not available 03/06/2023 2231 RxNorm CECELIA DHIRAJ [facility]ianelys [facility] 3 12:50:21 4178 Iodinated contrast media (substanc e) medicatio n Not available Not available Not available 03/06/2023 21462 2004 SNOMED CECELIA DHIRAJ [address] [facility] 3 12:50:37 10261 ciproflox acin medicatio n hives Not available Not available 09/09/20252023 2551 RxNorm Not Available [facility]era - [employer] - prod 5 09:18:37 41177 cefuroxim e Not available Not available Not available Not available 09/09/20252024 2194 RxNorm Not Available [facility] - [employer] - prod 5 09:18:38 84905 vancomyci n medicatio n Not available Not available Not available 09/09/20252024 36631 RxNorm Not Available [facility] - [employer] - prod 5 09:18:38 08696 Adhesive agent (substanc e) environme nt,medica tion rash Not available low 09/09/20252024 22720 0007 SNOMED Not Available [facility] - [employer] - prod 5 09:18:40 76316 iodine medicatio n dyspnea Not available high 09/09/20252024 5933 RxNorm Not Available [facility] - [employer] - prod 5 09:18:40 93849 latex environme nt,medica tion rash Not available low 09/09/20252024 17830 91 RxNorm Not Available [facility] - [employer] - prod 5 09:18:40 74383 sulfur medicatio n hives Not available high 09/09/20252024 78053 RxNorm Not Available meera - External Data [...] 0; Recorded 09/02/20 9:18AM by Cecelia Cabrales, Historic al Summary; Not Available Not Available Not Available hydrochlo rothiazid e daily 08/03 completed vo KM/javid; 32113; Recorded 04/19/20 8:22AM by Estephania Mcgrath LPN [...] e besylate (bulk) daily 08/03 completed LB/sd; 39639; Recorded 04/30/20 10:00AM by Aliza Morrell (Authori davy through Macy Shoemaker MD), Refill Request; Refill [...] Updated DateTime 5 154.94 cm 28.9 kg/m2 02339.6 3 g 98.6 [degF] 91 % 109 /min 130/78 mm[Hg] [facility], [facility] 5 15:41:23 Social History Question Answer Notes LastModified by Organizat ion Details LastModified Time Tobacco Smoking Status Never Smoker JEAN CLAUDE ALTMAN PA-C [address] [place] [address], [address], [facility]my 09/27/2024 11:56:45 Which Illicit Or Recreational Drugs Have You Used? Marijuana [email or web address] Information not available 04/09/2025 What Was The Date Of Your Most Recent Tobacco Screening? 09/16/2025 [email or web address] Information not available 09/16/2025 What Is Your Relationship Status? [email or web address] Information not available 09/27/2024 Sex: Unknown Functional Status Question Answer Note LastModified by Organizat ion Details LastModified Time Do you use any illicit or recreational drugs? Yes [email or web address] Information not available 04/09/2025 What is your level of alcohol consumption? None [email or web address] Information not available 10/16/2024 Are you able to care for yourself independently? Yes [email or web address] Information not available 09/27/2024 Mental Status None recorded. Family History Nothing Reported. Medical History No medical history recorded. Gynecological History Statement/Question Response Most Recent Mammogram 09/07/2023 Obstetrics History GPAL:G 0 P 0 0 0 0 Immunizations Vaccine Type Date Status Note Provider Nam e and Address Organization Details Recorded Time zoster recombinant [address] [facility] 03/17/2023 12:34:04 zoster recombinant [address] [facility] 03/17/2023 12:34:04 Influenza, high-dose, quadrivalent, PF [address] [facility] 03/17/2023 12:34:04 COVID-19, mRNA, LNP-S, PF, 30 mcg/0.3 mL dose [address] [facility] 03/17/2023 12:34:04 COVID-19, mRNA, LNP-S, PF, 30 mcg/0.3 mL dose [address] [facility] 03/17/2023 12:34:04 COVID-19, mRNA, LNP-S, PF, 30 mcg/0.3 mL dose 1 completed CECELIA ivory, [facility], L.LJimmyCJimmy 03/17/2023 12:34:04 Pneumococcal conjugate PCV20, polysaccharide [id number] conjugate, adjuvant, PF [address] [facility], LSarayCJimmy 03/17/2023 12:34:04 COVID-19, mRNA, LNP-S, PF, 30 mcg/0.3 mL dose, trena-sucrose [address] [facility], LJimmyLJimmyCJimmy 03/17/2023 12:34:04 COVID-19, mRNA, LNP-S, bivalent, PF, 30 mcg/0.3 mL dose [address] [facility], L.LJimmyCJimmy 03/17/2023 12:34:04 pneumococcal polysaccharide PPV23 [address] [facility], L.LJimmyCJimmy 03/17/2023 12:34:04 Influenza, split virus, trivalent, preservative [address] [facility], L.LJimmyCJimmy 03/17/2023 12:34:04 Influenza, adjuvanted, quadrivalent, PF 3 completed JEAN CLAUDE ALTMAN PA-C [address] [place], [address], [facility], LMary Kate 09/27/2024 11:49:14 Pneumococcal conjugate PCV20, polysaccharide [id number] conjugate, adjuvant, PF 3 completed JEAN CLAUDE ALTMAN PA-C [address] [place], [address], [facility], Germán 09/27/2024 11:49:14 COVID-19, mRNA, LNP-S, PF, 50 mcg/0.5 mL 3 completed JEAN CLAUDE ALTMAN PA-C [address] [place] [address], [address], [facility] 09/27/2024 11:49:50 Influenza, high-dose, trivalent, PF 4 completed JEAN CLAUDE ALTMAN PA-C [address] [place] [address], [address], [facility] 09/27/2024 11:49:50 RSV, recombinant, protein subunit RSVpreF, adjuvant reconstituted, 0.5 mL, PF 5 completed Not Available [facility] 09/16/2025 15:34:18 COVID-19, mRNA, LNP-S, PF, 10 mcg/0.2 mL 5 completed Not Available [facility] 09/16/2025 15:34:18 Influenza, high-dose, trivalent, PF 5 completed Not Available [facility] 09/16/2025 15:34:18 Influenza, split virus, trivalent, preservative 9 completed Not Available [facility] 04/23/2023 02:27:35 Past Encounters Encounter ID Performer Location Encounter Start Date Encounter Closed Date Diagnosis/Indication Diagnosis SNOMED-CT Code Diagnosis ICD10 Code Diagnosis IMO Codes Diagnosis Note [id number] DEEPAK PENG [facility] ([facility]) [address] [place] [phone] 09/09/2025 09:16:59 09/09/2025 10:37:09 Acute back pain with sciatica 503062287 M54.42 M54.41 [id number] Patient advised to take medication as directed here. Patient advised to rest initially and then slowly increase activity level. Monitor changes in symptoms such as numbness, tingling or weakness in legs, changes in bowel or bladder habits or worsening back pain. Proper ergonomics discussed. RTC with any new or worsening symptoms. [id number] Enrique Nieto MD [facility] ([facility]) [address] [place] [phone] 09/16/2025 15:34:07 09/16/2025 16:29:32 Acute low back pain 715003738 M54.50 [id number] Patient to use heating pad for symptomati [...] 1 [employer]A [place]ANT[place] - PPO) [id number] Debra Cerrato [id number] 49 Debra Cerrato Notes Date Note Type Note Provider Name and Address Organization Details Recorded Time 09/16/2025 text/html Back PainReporte d by PatientHPIFor [...] surgery earlier this month. Enrique Nieto MD [address] [place] [address], [phone], [facility], Germán 09/17/2025 15:02:49 OBGyn Episode No OBEpisode recorded.
--- OUTSIDE RECORDS SUMMARY | 2025-09-24 13:57 | XMS_ITS | Patient Health Record ---
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 [employer] Name Role Phone Emilia MONZON, Noel Primary Care Provider Geoffrey Juares Unavailable [phone] Renata Castelan Unavailable [phone] Allergies Allergen (clinical drug ingredient) Drug/Non Drug Allergy documented on EMR Reaction Allergy Type Onset Date Status Ciprofloxacin rask Drug Allergy Act rober ciprofloxacin Ciprofloxacin HCl hives Drug Allergy Active Trace Metals rash Drug Allergy Acti ve Adhesive rash Allergy Active Iodine shortness of breath Drug Allergy Active Latex Latex rash Allergy Active Results Component Value Reference Range Flag Notes zzzUrine Drug Screen (confir mation by instrument) - 30572 Reviewed date:10/18/2024 10:37:35 AM Interpretation: Performing Lab: Notes/Report: Urine Drug Screen (cup read) - [id number] Reviewed date:01/03/2025 03:29:05 PM Interpretation: Performing Lab: Notes/Report: AMP - YUNIOR - BUP - BZO + MDMA - OPI - PCP - OXY - MTD - MAMP - Urine Confirmation Panel (in strument) - [id number] Reviewed date:01/14/2025 01:25:33 PM Interpretation: Performing Lab: [...] the U.S. Food and Drug Administration. Urine Drug Screen (cup read) - 43409 Reviewed date:05/08/2025 11:27:23 AM Interpretation: Performing Lab: Notes/Report: OPI + Urine Confirmation Panel (in strument) - [id number] Reviewed date:05/14/2025 01:30:06 PM Interpretation: Performing Lab: [...] Problem Status W/U Status Risk Notes Problem Chronic pain syndrome (428672598) Chronic pain syndrome (G89.4) 02/15/20 Active confirmed Problem Localized, primary osteoarthritis of the pelvic region and thigh (277477854) Unilateral primary osteoarthritis, right hip (M16.11) 02/15/20 Active confirmed Problem Lumbosacral spondylosis without myelopathy (02609865) Other spondylosis with radiculopathy, lumbosacral region (M47.27) 02/15/20 Active confirmed Problem Lumbosacral spondylosis without myelopathy (disorder) (73250492) Spondylosis without myelopathy or radiculopathy, lumbosacral region (M47.817) 02/15/20 Active confirmed Problem Radiculopathy due to lumbar intervertebral disc disorder (395794333725927) Intervertebral disc disorders with radiculopathy, lumbar region (M51.16) Active confirmed Problem Degeneration of lumbar intervertebral disc (89452527) Other intervertebral disc degeneration, lumbar region (M51.36) 02/15/20 Active confirmed Problem Abnormal gait (89730807) Unspecified abnormalities of gait and mobility (R26.9) 02/15/20 Active confirmed Problem Spinal stenosis of lumbar region (16806270) Spinal stenosis, lumbar region without neurogenic claudication (M48.061) 02/15/20 Active confirmed Problem Lower urinary tract symptoms due to benign prostatic hypertrophy (68645440710601) Benign prostatic hyperplasia with lower urinary tract symptoms (N40.1) Active confirmed Problem Chronic cystitis (33139935) Chronic cystitis (N30.20) Active confirmed Problem Mixed incontinence (915985298) Urinary incontinence, mixed (N39.46) Active confirmed Problem Lumbosacral spondylosis with radiculopathy (614390513) Lumbosacral spondylosis with radiculopathy (M47.27) Active confirmed Problem Spinal stenosis of lumbar region (01096423) Spinal stenosis of lumbar region, unspecified whether neurogenic claudication present (M48.061) Active confirmed Problem History of urinary tract infection (4301856250786) History of UTI (Z87.440) Active confirmed Problem Bowel incontinence (04257665) Fecal incontinence (R15.9) Active confirmed Problem Recurrent urinary tract infection (079606558) Recurrent UTI (N39.0) Active confirmed Problem Sacroiliitis (77717495) Sacroiliitis (M46.1) Active confirmed Problem Overactive urinary bladder (disorder) (827346566) OAB (overactive bladder) (N32.81) Active confirmed Problem Lumbosacral spondylosis without myelopathy (42130836) Facet arthropathy, lumbosacral (M47.817) Active confirmed Problem Urinary incontinence (550824225) Urinary incontinence (R32) Active confirmed Problem Spinal stenosis of lumbar region (26727873) Foraminal stenosis of lumbar region (M48.061) Active confirmed Problem Localized, primary osteoarthritis of the pelvic region and thigh (941530477) Osteoarthritis of right hip, unspecified osteoarthritis type (M16.11) Active confirmed Problem Abnormal gait (04148196) Abnormality of gait and mobility (R26.9) Active confirmed Problem Artificial knee joint present (064605788907) Hx of total knee replacement, right (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 SI Joint w/ imaging jevon dance (CT or fluoroscopy) - 97146 12/18/2024 12/18/2024 N/A Encounters Encounter Location Date Provider Diagnosis [facility] [address] [place] [address] 03/14/2025 Renata Castelan Chronic pain syndrom e G89.4 ; Unilateral primary osteoarthritis, right hip M16.11 ; Other spondylosis with radiculopathy, lumbosacral region M47.27 ; Other intervertebral disc degeneration, lumbar region M51.36 ; Unspecified abnormalities of gait and mobility R26.9 ; USP (current) use of opiate analgesic Z79.891 ; Spinal stenosis, lumbar region without neurogenic claudication M48.061 and Spondylosis without myelopathy or radiculopathy, lumbosacral region M47.817 [facility] [address] [place] [phone] 01/03/2025 Renata Annelise Chronic pain syndrom e G89.4 ; Osteoarthritis [...] lumbar region without neurogenic claudication M48.061 ; USP (current) use of opiate analgesic Z79.891 and Spondylosis without myelopathy or radiculopathy, lumbosacral region M47.817 [facility] [address] [address] 10/10/2024 Geoffrey Scott Chronic pain syndrom e G89.4 ; Intervertebral disc disorders with radiculopathy, lumbar region M51.16 ; Lumbosacral spondylosis with radiculopathy M47.27 ; Foraminal stenosis of lumbar region M48.061 ; Osteoarthritis of right hip, unspecified osteoarthritis type M16.11 ; Abnormality of gait and mobility R26.9 and buttermaker continuous churn (current) use of opiate analgesic Z79.891 [facility] [address] [place] [phone] 05/08/2025 Geoffrey Scott Chronic pain syndrom e G89.4 ; Unilateral primary osteoarthritis, right hip M16.11 ; Degeneration of intervertebral disc of lumbar region with discogenic back pain M51.360 ; Other spondylosis with radiculopathy, lumbosacral region M47.27 ; Unspecified abnormalities of gait and mobility R26.9 ; buttermaker continuous churn (current) use of opiate analgesic Z79.891 ; [...] and Abnormality of gait and mobility R26.9 [facility] [address] [address] 12/18/2024 Geoffrey Sonia Sacroiliitis M46.1 [facility] [address] [place] [address] 03/14/2025 Geoffrey Scott Spinal stenosis of lumbar region, unspecified whether neurogenic claudication present M48.061 [facility] [address] [place] [address] 01/03/2025 Geoffrey Loganemilyxu Spinal stenosis of lumbar region, unspecified whether neurogenic claudication present M48.061 Assessments Encounter Date Diagnosis (ICD Code) Assessment Notes Treatment Notes Treatment Clinical Notes Section Notes 01/03/2025 Spinal stenosis of lumbar region, unspecified whether neurogenic claudication present (ICD-10 - M48.061) 03/14/2025 Spinal stenosis of lumbar region, unspecified [...] primary osteoarthritis, right hip (ICD-10 - M16.11) 01/03/2025 Osteoarthritis of right hip, unspecified osteoarthritis type (ICD-10 - M16.11) 10/10/2024 Chronic pain syndrome [...] with radiculopathy, lumbar region (ICD-10 - M51.16) 01/03/2025 Chronic pain syndrome (ICD-10 - G89.4) [...] effects are noted. Last UDS and [place] [employer] reviewed today. Patient is advised that best [...] abide by our urine testing policy. Refill HYDROcodone-A cetaminophen Tablet, 5-325 MG, 0.5-1 tablet, Orally, every 12 hours, As needed Do not exceed 1 per day, 30 days, 30 Tablet, Start Date: 01/17/2025, Stop Date: 02/16/2025, Refills 0, Notes to Pharmacist: Fill on 01/17/25 Refill HYDROcodone-A cetaminophen Tablet, 5-325 MG, 0.5-1 tablet, Orally, every 12 hours, As needed Do not exceed 1 per day, 30 days, 30 Tablet, Start Date: 02/16/2025, Stop Date: 03/18/2025, Refills 0, Notes to Pharmacist: Fill on 02/16/25 12/18/2024 Sacroiliitis (ICD-10 - M46.1) 03/14/2025 Chronic pain syndrome (ICD-10 - G89.4) [...] effects are noted. Last UDS and [place] [employer] reviewed today. Patient is advised that best [...] primary osteoarthritis, right hip (ICD-10 - M16.11) 05/08/2025 Degeneration of intervertebral disc of lumbar region with discogenic back pain (ICD-10 - M51.360) 03/14/2025 Other spondylosis with radiculopathy, lumbosacral region (ICD-10 - M47.27) 01/03/2025 Intervertebral disc disorders with radiculopathy, lumbar region (ICD-10 - M51.16) 10/10/2024 Lumbosacral spondylosis with radiculopathy (ICD-10 - M47.27) 10/10/2024 Foraminal stenosis of lumbar region (ICD-10 - M48.061) 01/03/2025 Lumbosacral spondylosis with radiculopathy (ICD-10 - M47.27) 05/08/2025 Other spondylosis with radiculopathy, lumbosacral region (ICD-10 - M47.27) 03/14/2025 Other intervertebral disc degeneration, lumbar region (ICD-10 - M51.36) 03/14/2025 Unspecified abnormalities of gait and mobility (ICD-10 - R26.9) 01/03/2025 Foraminal stenosis of lumbar region (ICD-10 - M48.061) 05/08/2025 Unspecified abnormalities of gait and mobility (ICD-10 - R26.9) 10/10/2024 Osteoarthritis of right hip, unspecified osteoarthritis type (ICD-10 - M16.11) 10/10/2024 Abnormality of gait and mobility (ICD-10 - R26.9) 05/08/2025 buttermaker continuous churn (current) use of opiate analgesic (ICD-10 - [...] to abide by our urine testing policy. 01/03/2025 Abnormality of gait and mobility (ICD-10 - R26.9) 03/14/2025 buttermaker continuous churn (current) use of opiate analgesic (ICD-10 - Z79.891) 03/14/2025 Spinal stenosis, lumbar region without neurogenic claudication (ICD-10 - M48.061) 05/08/2025 Spinal stenosis, lumbar region without neurogenic claudication (ICD-10 - M48.061) 10/10/2024 buttermaker continuous churn (current) use of opiate analgesic (ICD-10 - Z79.891) 01/03/2025 Unilateral primary osteoarthritis, right hip (ICD-10 - M16.11) 01/03/2025 Other spondylosis with radiculopathy, lumbosacral region (ICD-10 - M47.27) 05/08/2025 Spondylosis without myelopathy or radiculopathy, lumbosacral region (ICD-10 - M47.817) 03/14/2025 Spondylosis without myelopathy or radiculopathy, lumbosacral region (ICD-10 - M47.817) 05/08/2025 Intervertebral disc disorders with radiculopathy, lumbar region (ICD-10 - M51.16) 01/03/2025 Other intervertebral disc degeneration, lumbar region (ICD-10 - M51.36) 01/03/2025 Unspecified abnormalities of gait and mobility (ICD-10 - R26.9) 05/08/2025 Lumbosacral spondylosis with radiculopathy (ICD-10 - M47.27) 05/08/2025 Foraminal stenosis of lumbar region (ICD-10 - M48.061) 01/03/2025 Spinal stenosis, lumbar region without neurogenic claudication (ICD-10 - M48.061) 05/08/2025 Osteoarthritis of right hip, unspecified osteoarthritis type (ICD-10 - M16.11) 01/03/2025 buttermaker continuous churn (current) use of opiate analgesic (ICD-10 - Z79.891) 01/03/2025 Spondylosis without myelopathy or radiculopathy, lumbosacral region (ICD-10 - M47.817) 05/08/2025 Other intervertebral disc degeneration, lumbar region (ICD-10 - M51.36) 05/08/2025 Abnormality of gait and mobility (ICD-10 - R26.9) 10/10/2024 Other Sacha Allen am scribing for Dr. Geoffrey Scott. I, Dr. Geoffrey Scott, personally performed the services described in this documentation , as scribed by Sacha Reese, and it is both accurate and complete. 05/08/2025 Other Joanie Allen am scribing for Dr. Geoffrey Scott. I, Dr. Geoffrey Scott, personally performed the services described in this documentation, as scribed by Joanie Reed, and it is both accurate and complete. Plan Of Treatment Pending Test Test Name Order Date Electrocardiogram 12 Lead Tracing (EKG)- 43512 11/29/2022 Electrocardiogram 12 Lead Tracing (EKG)- 72271 01/10/2023 Insurance Providers Payer Name Payer Address Payer Phone Subscriber Number Group Number Insured Name Patient Relationship to Insured Coverage Start Date Coverage End Date [place]BS [place] [address] [place] [address] [id number] Debra Cerrato Self - patient is the insured Medical (General) History Medical History History ICD Code hypertension hypercholesterolemia restless leg syndrome Surgical History Surgery Date(Month/Year) estuardo garcia (12 years ago) knee surgery 10/05/21 tonsillectomy appendectomy cholecystectomy shoulder surgery both (5 years ago) Hospitalization History Reason Date(Month/Year) surgeries
--- OUTSIDE RECORDS SUMMARY | 2025-09-24 13:58 | XMS_ITS | Patient Health Record ---
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 Name Role Phone Emilia MONZON, Noel Primary Care Provider Vani SOREN Fam Unavailable [phone] FEDERICO HUSAIN Unavailable [phone] Allergies Allergen (clinical drug ingredient) Drug/Non Drug Allergy documented on EMR Reaction Allergy Type Onset Date Status ciprofloxacin Ciprofloxacin HCl hives Drug Allergy Active Iodine shortness of breath Drug Allergy Active Results Component Value Reference Range Flag Notes Urinalysis, Routine Reviewed date:11/27/2024 09:53:56 AM Interpretation: Performing Lab: Notes/Report: Urine-Color Pratima Appearance cloudy Glucose - Bilirubin - Ketones - Specific [place] 1.015 Occult Blood 3+ pH 6.0 Urine Protein 1+ Urobilinogen,Semi-Qn 0.2 Nitrite, Urine + WBC Esterase + Gx - Recurrent Persistent Co mplicated UTI Reviewed date:11/30/2024 11:45:15 AM Interpretation: Performing Lab:, [id number] Notes/Report: PatientName: : Gender: PatientRelation: PatientAddress: , , , InsuranceName: InsuranceCode: Test Result: Guidance 7.0, Voided Urine, UTI Surgical, Test Result: PATHOGENIC DNA DETECTED#A*F UTIAbnormalFlag: Guidance 7.0, Voided Urine, UTI Surgical, UTIAbnormalFlag: A A Reason For Referral No Information Medications Medication SIG (Take, Route, Frequency, Duration) Notes Start Date End Date Status amLODIPine Besylate 2.5 MG Tablet 1 tablet [...] 90 days Not-Taking Atorvastatin Calcium 20 MG Tablet 1 tablet Orally Once a day Active Atenolol 50 MG Tablet 1 tablet Orally Once a day Active Aspirin Adult Low Strength 81 MG Tablet Delayed Release 1 tablet Orally Once a day Active rOPINIRole HCl *Pick strength-form from ENDOTRONIX for eRX* Active Social History Tobacco Use: Social History Observation Description Date Details (start date - stop date) Former Smoker NA - NA Social History Tobacco Use: Social Info Question Answer Notes Tobacco Control (Standard) Tobacco use: Former smoker Additional Details Category Social Info Options Details Migrated Social History Drugs/Alcohol: (Alcohol Screen (Audit-C)):Did you have a drink containing alcohol in the past year?: Yes, Points: 0, Interpretation: Negative (Do you drink alcohol?):Yes, Socially (Drugs):Have you used drugs other than those for medical reasons in the past 12 months? No (Do you smoke marijuana?):Admits (Caffeine):Intake: more than 4 cups per day Tobacco Use: (Tobacco Use/Smo chinedu):Are you a: nonsmoker Section Notes: smokes medical marijuana at times smokes medical marijuana at times smokes medical marijuana at times smokes medical marijuana at times Problems Problem Type SNOMED Code ICD Code Onset Dates Problem Status W/U Status Risk Notes Problem Essential hypertension (59223233) Essential (primary) hypertension (I10) Active confirmed Problem Lower urinary tract symptoms due to benign prostatic hypertrophy (82374212743842) Benign prostatic hyperplasia with lower urinary tract symptoms (N40.1) Active confirmed Problem Bowel incontinence (68183450) Fecal incontinence (R15.9) Active confirmed Problem History of urinary incontinence (Z87.898) Active confirmed Problem Mixed incontinence (108589241) Urinary incontinence, mixed (N39.46) Active confirmed Problem Female urinary stress incontinence (02975993) Stress incontinence in female (N39.3) Active confirmed Problem Urinary incontinence (015700729) Urinary incontinence (R32) Active confirmed Problem Urge urinary incontinence (36811164) Urge urinary incontinence (N39.41) Active confirmed Problem Acute cystitis (24633731) Acute cystitis (N30.00) Active confirmed Problem Chronic cystitis (94870212) Chronic cystitis (N30.20) Active confirmed Problem Recurrent urinary tract infection (522238247) Recurrent UTI (N39.0) Active confirmed Problem Incomplete emptying of bladder (945282780) Incomplete emptying of bladder (R33.9) Active confirmed Problem History of urinary tract infection (4760169028216) History of UTI (Z87.440) Active confirmed Problem Overactive urinary bladder (disorder) (280610616) OAB (overactive bladder) (N32.81) Active confirmed Vital Signs Heart Rate 71 /min 11/27/2024 Height-cm 152.4 cm 11/27/2024 Blood pressure diastolic 98 mm Hg 11/27/2024 Weight-kg 71.67 kg 11/27/2024 Height 60 in 11/27/2024 Blood pressure systolic 150 mm Hg 11/27/2024 Weight 158 lbs 11/27/2024 BMI 30.85 kg/m2 11/27/2024 Encounters Encounter Location Date Provider Diagnosis [facility] [address] [place] [address] 11/27/2024 FEDERICO HUSAIN Complicated UTI (urinary tract infection) N39.[address] [facility] [address] [place] [address] 11/26/2024 SOREN NOVA Assessments Encounter Date Diagnosis (ICD Code) Assessment Notes Treatment Notes Treatment Clinical Notes Section Notes 11/27/2024 Complicated UTI (urinary tract infection) (ICD-10 - N39.0) Pt here with c/o possible UTI. Symptoms consist of Hematuria x1wk [...] infection complications that PCR provides is recommended. Plan Of Treatment Pending Test Test Name Order Date Electrocardiogram 12 Lead Tracing-46991 11/29/2022 Electrocardiogram 12 Lead Tracing-68903 01/10/2023 Bladder Scan 01/26/2024 Electrocardiogram, 12 Lead Tracing-12799 07/23/2024 Insurance Providers Payer Name Payer Address Payer Phone Subscriber Number Group Number Insured Name Patient Relationship to Insured Coverage Start Date Coverage End Date [place] Replacement [address] [place] [id number] Debra Cerrato Self - patient is the insured Medications Administered Medication Instructions Date of Administration Dosage Notes Rocephin 07/23/2024 1 g [facility]# [phone] Medical (General) History Medical History History ICD Code hypertension hypercholesterolemia restless leg syndrome Surgical History Surgery Date(Month/Year) benedictmy jose (12 years ago) knee surgery 10/05/21 tonsillectomy appendectomy cholecystectomy shoulder surgery both (5 years ago) medtronic implant broken ankle rpair 03/2023 Hospitalization History Reason Date(Month/Year) surgeries
--- NOTE | 2025-09-24 14:11 | CT_ITS ---
WS: [id number] CT LUMBAR SPINE TECHNIQUE: Noncontrast CT of the lumbar spine with coronal and sagittal reformatted images. CLINICAL INFORMATION: L4 compression fracture COMPARISON: 03/31/2024 CT DLP: 661.[address] scans at [facility] use at least one of these dose optimization techniques: automated exposure control; mA and/or kV adjustment per patient size (includes targeted exams where dose is matched to clinical indication); or iterative reconstruction. FINDINGS: Osteopenia. Mild compression of the inferior endplate L4. No retropulsion. Tiny visualized fracture cleft compatible with recent fracture. Small amount of paravertebral edema also supports recent fracture. Compression L4 is new since the MRI 01/24/[address] thoracic automotive porter imaging 04/20/2024. L1-L2: Mild central canal stenosis with disc osteophyte complex. Impingement LEFT subarticular recess. Moderate facet arthropathy. Foramen are patent. L2-L3: Mild disc bulge with endplate ridging. Moderate facet arthropathy. Spinal canal and foramen are patent. L3-L4: Mild disc bulge with narrowing of the subarticular recess bilaterally and mild central canal stenosis. Mild facet arthropathy. Impingement subarticular recess bilaterally. Foramen are patent. L4-L5: Mild disc bulge with moderate central canal stenosis. Impingement of traversing L5 nerve roots bilaterally. Advanced facet arthropathy. Moderate LEFT and mild RIGHT foraminal narrowing. L5-S1: Mild disc bulge with endplate ridging. LEFT eccentric disc osteophyte complex impinges the exiting LEFT L5 nerve root. Mild RIGHT foraminal narrowing. Moderate to advanced facet arthropathy with ligamentum flavum hypertrophy. Postoperative changes GE junction. Partially visualized common bile duct dilatation. Cholecystectomy clips. Small LEFT adrenal nodule. RIGHT adrenal gland is normal. Aortic calcification. Small LEFT renal cyst. CT/CT lumbar spine wo con* [id number] IMPRESSION: 1. Mild compression fracture inferior endplate L4 has a recent acute appearanc e with paravertebral edema. No retropulsion. Approximate 20% loss of vertebral body height. Associated anterior wedging. 2. Osteopenia. 3. No other acute fractures 4. Moderate central canal stenosis L4-5 due to disc bulging with facet arthrop athy and ligamentum flavum hypertrophy.
--- NOTE | 2025-09-24 14:13 | W.ED.BACK ---
HPI - Back Pain/Injury General: Chief Complaint: Back Pain/Injury Stated Complaint: fell 2wk ago pain in tailbone Dr Nieto sent Time Seen by Provider: 09/24/25 14:02 History of Present Illness: 75-year-old female who slipped and fell landed on her buttocks about 2 weeks ago. Plain films 1 week ago showed possible L4 compression fracture she continues to have back pain she having some numbness in her leg at times no incontinence of stool. She has not had any difficulty with urinary retention. She has numbness and tingling radiating into her legs. No loss of strength she does intermittently have numbness and tingling in her legs. No previous back injury or surgery. Associated symptoms: Deny abdominal pain, chills, dysuria, fever(s) or urinary urgency Related Data Home Medications ?Medication ?Instructions ?Recorded ?Confirmed gabapentin 600 mg tablet 900 mg PO BEDTIME@2100 10/03/19 07/24/25 hydrochlorothiazide 25 mg tablet 25 mg PO DAILY@0400 10/03/19 07/24/25 ascorbic acid (vitamin C) 1,000 mg 1,000 mg PO BID@0400,2100 01/26/21 07/24/25 tablet (Vitamin C) atenolol 50 mg tablet 50 mg PO DAILY 04/20/24 07/24/25 atorvastatin 20 mg tablet 20 mg PO DAILY 04/20/24 07/24/25 [id number]-FA-Ca carb-vit K 1 tab PO DAILY 04/20/24 07/24/25 18 mg iron-400 mcg-500 mg tablet semaglutide 0.25 mg or 0.5 mg (2 0.5 mg SUBCUT Q7D 04/20/24 07/24/25 mg/3 mL) subcutaneous pen injector (Ozempic) cetirizine 10 mg tablet (All Day 10 mg PO DAILY PRN 07/17/25 07/24/25 Allergy (cetirizine)) clopidogrel 75 mg tablet 75 mg PO DAILY 07/17/25 07/24/25 Previous Rx's ?Medication ?Instructions ?Recorded cam boot #1 ea 04/19/23 RIGHT ANKLE BRACE-VELCRO #1 ea 09/06/23 aspirin 81 mg tablet,delayed 81 mg PO DAILY #30 tabs 04/20/24 release atorvastatin 40 mg tablet 40 mg PO DAILY #30 tabs 04/20/24 right camboot #1 ea 06/28/24 amlodipine 5 mg tablet 5 mg PO DAILY #90 tabs 01/14/25 diclofenac sodium 75 mg 75 mg PO Q12H PRN pain #20 tabs 09/24/25 tablet,delayed release methylprednisolone 4 mg tablets in See Rx Instructions PO .COMPLEX 09/24/25 a dose pack (Medrol (Suleiman)) #21 ea tizanidine 4 mg tablet 4 mg PO Q6H PRN muscle spasticity 09/24/25 #20 tabs Allergies Allergy/AdvReac Type Severity Reaction Status Date / Time cefuroxime (From Ceftin) Allergy ALGY-Hives Verified 09/24/25 13:58 ciprofloxacin Allergy stomach Verified 09/24/25 13:58 bleeding Iodinated Contrast Media Allergy ALGY-Hives Verified 09/24/25 13:58 Sulfa (Sulfonamide Allergy unknown Verified 09/24/25 13:58 Antibiotics) vancomycin Allergy rash Verified 09/24/25 13:58 Review of Systems Const: Denies: fever(s) or chills Card: Denies: chest pain Resp: Denies: dyspnea GI: Denies: abdominal pain : Denies: dysuria, urinary frequency or urinary urgency Musc: Denies: neck pain or back pain Skin/Breast: Denies: rash PFSH ED PFSH: Medical History Dyslipidemia HTN (hypertension) Primary osteoarthritis of right hip Greater trochanteric bursitis of right hip Cystitis cystica Bacteriuria History of recurrent UTI (urinary tract infection) Mixed stress and urge urinary incontinence Degenerative arthritis Bunion, left Right hip pain Fibromyalgia Surgical History History of total knee replacement BILATERAL History of appendectomy History of cholecystectomy History of hysterectomy History of tonsillectomy H/O bariatric surgery with sleeve Hx of elbow surgery Hx of foot surgery History of carpal tunnel release of both wrists Family History Father , at age 83 CAD (coronary artery disease) Hyperlipidemia Hypertension Mother , at age 76 Hyperlipidemia Hypertension Sister Cancer Hyperlipidemia Hypertension Brother Cancer Hyperlipidemia Hypertension Social History Smoking and tobacco/nicotine status: never used tobacco/nicotine Quit status (tobacco/nicotine): has quit using Year quit tobacco: over 20 years ago Second hand smoke exposure: No Alcohol intake: unknown Substance/Drug Use: current Substance/Drug use frequency: few times a week Other substance/drug use details: medical marijuana Caregiver/support person: Yes Lives independently: Yes Household members: spouse Marital status: Current occupational status: retired Current gender identity: Female Special jay needs: No Physical Exam Const: COMMON NORMALS: no acute distress GENERAL APPEARANCE: cooperative and comfortable ORIENTATION/CONSCIOUSNESS: Yes awake, Yes oriented to person, Yes oriented to place and Yes oriented to time HENMT: COMMON NORMALS: normocephalic, atraumatic and hearing grossly normal bilaterally HEAD & SCALP: normocephalic and atraumatic Resp: COMMON NORMALS: normal respiratory effort, No retractions, No use of accessory muscles and clear to auscultation bilaterally AUSCULTATION: clear to auscultation bilaterally Cardio: COMMON NORMALS: regular rate, regular rhythm and No murmurs present (Cardio) RATE: regular rate RHYTHM: regular rhythm GI: COMMON NORMALS: Soft to palpation and No hepatosplenomegaly present AUSCULTATION: Yes normoactive bowel sounds PALPATION: Yes Soft to palpation, No Tenderness to palpation present (GI), No Guarding due to palpation present (GI) and Yes No hepatosplenomegaly present Extremity: COMMON NORMALS: normal to inspection, capillary refill normal, no clubbing, cyanosis or edema, no calf tenderness and no pedal edema Neuro: SENSORIUM/ORIENTATION: Yes oriented to person, Yes oriented to place and Yes oriented to time OTHER: Sensation lower extremities normal dorsalis pedis and posterior tibialis pulses palpable. Straight leg raising elicits pain bilaterally and low back. Dorsal and plantar flexion strength 5 of 5 Skin: COMMON NORMALS: no rashes or lesions noted GENERAL SKIN EXAM: no rashes or lesions noted Course Vital Signs: Vital signs: Vital Signs Temperature 98.0 F 09/24/25 13:50 Pulse Rate 62 09/24/25 16:10 Respiratory Rate 15 09/24/25 13:50 Blood Pressure 124/63 09/24/25 16:10 Pulse Oximetry 100 09/24/25 16:10 Oxygen Delivery Me thod Room Air 12/30/25 15:03 MDM - Back Pain/Injury Medical Decision Making 75-year-old female referred to the emergency room by her primary care doctor concerned about possible worsening compression fractures or sacral injuries x-ray of sacrum and coccyx reviewed by myself did not show any acute fractures CT shows L4 compression fracture with no significant stenosis there is some mild disc bulging reviewed radiology report on the chart. Patient's pain is improved will discharge patient home continue to use previously prescribed hydrocodone and put her on a steroid taper and diclofenac and tizanidine as needed discharged her home and have her follow-up with orthopedic spine surgery. Medical Records I reviewed the patient's medical records. Labs Radiology Impressions Coccyx X-Ray 09/24/25 13:52 IMPRESSION: 1. No acute fracture. Lumbar Spine X-Ray 09/24/25 13:52 IMPRESSION: Osteophytic lipping of the lumbar spine with mild compression deformity of L4 anteriorly. Lumbar Spine CT 09/24/25 14:11 IMPRESSION: 1. Mild compression fracture inferior endplate L4 has a recent acute appearance with paravertebral edema. No retropulsion. Approximate 20% loss of vertebral body height. Associated anterior wedging. 2. Osteopenia. 3. No other acute fractures 4. Moderate central canal stenosis L4-5 due to disc bulging with facet arthropathy and ligamentum flavum hypertrophy. All radiology interpretation(s) finalized by discharge Discharge Plan Discharge Patient Disposition: Home Clinical Impression: Closed compression fracture of lumbar vertebra, Bulging lumbar disc Condition: Stable Prescriptions: New tizanidine 4 mg tablet 4 mg PO Q6H PRN (Reason: muscle spasticity) Qty: 20 0RF Rx Instructions: do not exceed 3 doses per 24 hrs diclofenac sodium 75 mg tablet,delayed release (DR/EC) 75 mg PO Q12H PRN (Reason: pain) Qty: 20 0RF methylprednisolone [Medrol (Suleiman)] 4 mg tablets,dose pack See Rx Instructions .ROUTE .COMPLEX Qty: 21 0RF Rx Instructions: orally per package directions No Action hydrochlorothiazide 25 mg tablet 25 mg PO DAILY@0400 gabapentin 600 mg tablet 900 mg PO BEDTIME@2100 (DME) cam boot See Rx Instructions .Route .MEDSUPPLY Qty: 1 0RF Rx Instructions: [place] [place] ANKLE BRACE-VELCRO See Rx Instructions .Route .MEDSUPPLY Qty: 1 0RF Rx Instructions: As directed (DME) right camboot See Rx Instructions .Route .MEDSUPPLY Qty: 1 0RF Rx Instructions: As directed cetirizine [All Day Allergy (cetirizine)] 10 mg tablet 10 mg PO DAILY PRN clopidogrel 75 mg tablet 75 mg PO DAILY amlodipine 5 mg tablet 5 mg PO DAILY Qty: 90 3RF ascorbic acid (vitamin C) [Vitamin C] 1,000 mg Tablet 1,000 mg PO BID@0400,2100 atorvastatin 20 mg tablet 20 mg PO DAILY atenolol 50 mg tablet 50 mg PO DAILY en-ty-guix-FA-Ca carb-vit K 18 mg iron-400 mcg-500 mg Tablet 1 tab PO DAILY Ozempic 0.25 mg or 0.5 mg (2 mg/3 mL) pen injector 0.5 mg SUBCUT Q7D atorvastatin 40 mg tablet 40 mg PO DAILY Qty: 30 0RF aspirin 81 mg tablet,delayed release (DR/EC) 81 mg PO DAILY Qty: 30 0RF Discharge Orders: Discharge ED (Routine); Ordered 09/24/25 Ordered By: Rigoberto Guillaume Referrals: Noel Nieto MD [Primary Care Provider, Family Practice] Discharge Diet: Usual diet Discharge Activity: Increase activity as tolerated Patient Instructions: Opioid Safety, Pain Management, Patient Portal & Steve Instructions Activity Restrictions/Additional Instructions: Thank you for choosing [facility] for your healthcare needs today. It is very important that you follow up as instructed or that you return to the Emergency Department should you have concerns or if your condition changes or worsens in any way. Emergency department visits are focused on emergent conditions, in some cases you may require further evaluation on an outpatient basis. You were seen in the emergency room with complaint of back pain after a fall from [address] of your lumbar spine showed the compression fracture that was seen on the plain film at L4. There is no coccyx or sacral fractures. There is mild disc bulge at that level but no significant central canal stenosis. Will discharge you home on a steroid taper continue to use the previously prescribed hydrocodone you can also use diclofenac as needed and tizanidine as needed. Case management make arrangements for you to follow-up with Dr. Boudreaux at the orthopedic spine clinic. (Please note that included in your discharge packet is information concerning opioid safety and pain management. This information is given to all patients were discharged from the ER regardless of their discharge diagnosis or the medicines they usually take or are prescribed.) Print Language: Armenian Coding Level of Care Code ED Construction Estimator for Abhilash Pandya
[2025-09-24 14:33] VITALS: BP 125/61; PULSE 66; O2SAT 100
[2025-09-24 15:03] VITALS: BP 138/69; PULSE 67; O2SAT 100
[2025-09-24] MEDS: ondansetron 2 mg/ML SDV 2 mL 4 MG IVP (15:05)
[2025-09-24 15:35] VITALS: BP 125/65; PULSE 65; O2SAT 100
--- NOTE | 2025-09-24 15:40 | PC.NURSE ---
Report given to Caroline.
[2025-09-24 16:10] VITALS: BP 124/63; PULSE 62; O2SAT 100
== END 2025-09-24 16:11 | disposition home or self-care (01) ==
PROVIDERS: Emergency Provider Family Medicine; PCP Family Medicine
DX: S32.040D Wedge compression fracture of fourth lumbar vertebra, subsequent encounter for fracture with routine healing (principal); W01.0XXD Fall on same level from slipping, tripping and stumbling without subsequent striking against object, subsequent encounter; M51.369 Other intervertebral disc degeneration, lumbar region without mention of lumbar back pain or lower extremity pain; Z79.82 Long term (current) use of aspirin; Z79.02 Long term (current) use of antithrombotics/antiplatelets; Z87.891 Personal history of nicotine dependence; E78.5 Hyperlipidemia, unspecified; I10 Essential (primary) hypertension
CPT/HCPCS: 72100; 72131; 72220; 96374; 96375; 99285; J1885; J2405